=== PATIENT | male | born 1945 | race Caucasian/White ===

== ENCOUNTER → 2018-03-09 11:06 | Outpatient (CLI) | payer MEDICARE, SELFPAY ==
--- NOTE | 2018-03-09 11:13 | ECHOD_ITS ---
Reason For Study: S/P CABG Procedure This was a 2D Doppler, Color Flow transthoracic echocardiogram. Exam performed in department. Left Ventricle Mild concentric left ventricular hypertrophy. The estimated ejection fraction is 65 %. Normal diastology for age. No regional wall motion abnormalities noted. Right Ventricle Normal size and thickness. Normal systolic function. Atria Normal left atrium. Normal right atrium. Normal atrial septum. Mitral Valve The mitral valve is structurally normal. No prolapse or stenosis seen. Trivial mitral valve insufficiency. Tricuspid Valve Normal tricuspid valve. Trivial tricuspid valve insufficiency. Right ventricular systolic pressure estimated to be 29 mmHg. Aortic Valve Normal aortic valve. Trisinus/trileaflet aortic valve. Pulmonic Valve The pulmonic valve is not well visualized. Great Vessels Normal aortic root. Normal arch. Normal inferior vena cava. Inferior vena cava collapse with sniff. Pericardium/Pleural No pericardial effusion. MMode/2D Measurements & Calculations LVIDd: 4.2 cm IVSd: 1.2 cm Ao root diam: 3.2 cm LVIDs: 2.9 cm LVPWd: 1.3 cm FS: 31.0 % LAV(MOD-bp): 46.6 ml EDV(MOD-sp4): 107.8 ml SV(MOD-sp4): 56.6 ml LAV(MOD-bp) Indexed: 22.1 ml/m2 ESV(MOD-sp4): 51.2 ml LAV(MOD-sp2): 42.5 ml EF(MOD-sp4): 52.5 % LAV(MOD-sp4): 48.2 ml LA A4 area: 17.9 cm2 RA A4 area: 16.0 cm2 Time Measurements MV dec time: 0.25 sec Doppler Measurements & Calculations MV E max juventino: 77.8 cm/sec Lat Peak E' Juventino: 9.8 cm/sec Med Peak E' Juventino: 5.6 cm/sec MV A max juventino: 73.3 cm/sec E/E' lat: 8.0 E/E' med: 13.8 MV E/A: 1.1 Ao V2 max: 126.7 cm/sec LV V1 max: 88.0 cm/sec PA V2 max: 115.3 cm/sec Ao max P.4 mmHg LV V1 max P.1 mmHg PI end-d juventino: 92.7 cm/sec TR max juventino: 245.8 cm/sec TR max P.2 mmHg Interpretation Summary Mild concentric left ventricular hypertrophy. The estimated ejection fraction is 65 %. Normal diastology for age. Trivial mitral valve insufficiency. Trivial tricuspid valve insufficiency. Right ventricular systolic pressure estimated to be 29 mmHg. There is no comparison study available. Ordering Physician: Hardik Haley Referring Physician: GAYLE PETIT Performed By: Kavitha, Katia, RDCS
== END ==
PROVIDERS: Family Provider Family Medicine; PCP Family Medicine; Visit Provider Internal Medicine Cardiovascular Disease
DX: I25.10 Atherosclerotic heart disease of native coronary artery without angina pectoris (principal)
CPT/HCPCS: 93306

== ENCOUNTER → 2019-03-21 16:14 | Outpatient (CLI) | payer MEDICARE, SELFPAY ==
[2019-02-16 14:01] VITALS: BMI 36.1
[2019-03-21 17:30] LABS: Hematocrit 36.4 % (40-54); Hemoglobin 13.2 g/dl (13.0-16.5); Mean Corp Hgb Conc 36.3 g/gl (32-36); Mean Corpuscular Hgb 32.4 pg (27.0-32.0); Mean Corpuscular Volume 89.2 fL (80-94); Mean Platelet Vol. 12.1 fl (6.2-12.0); Platelet Count 200 K/mm3 (150-450); RBC Distribution Width CV 12.6 % (11.6-14.6); RBC Distribution Width SD 40.8 fl (35.1-43.9); Red Blood Count 4.08 M/mm3 (4.6-6.2); White Blood Count 7.2 K/mm3 (4.4-11.0)
[2019-03-21 17:31] LABS: Scan Indicated on CBC? Y/N NO
[2019-03-21 18:03] LABS: Protein, Urine (Random) 74.3 mg/dL (<11.9); Protein:Creat Ratio 336 mg/g CRE (0-200)
[2019-03-21 18:26] LABS: Albumin, Serum 3.9 g/dL (3.2-5.0); BUN 22 mg/dL (7-18); BUN/Creat Ratio 11.1 RATIO (10-20); Calcium,Total 8.7 mg/dL (8.5-10.1); Chloride 102 mmol/L (98-107); Creatinine, Serum 1.98 mg/dL (0.70-1.30); EST Glomerular Filtration Rate 35 mL/min (>60); Est Glom Filt Rate - Afr Amer 43 mL/min (>60); Glucose 161 mg/dL (74-106); Sodium Level 136 mmol/L (136-145)
== END ==
PROVIDERS: Family Provider Family Medicine; PCP Family Medicine; Visit Provider Internal Medicine Nephrology
DX: N18.3 Chronic kidney disease, stage 3 (moderate) (principal)
CPT/HCPCS: 36415; 80069; 82570; 84156; 85027

== ENCOUNTER → 2020-05-29 12:46 | Outpatient (CLI) | payer MEDICARE, SELFPAY ==
[2020-05-13 13:30] VITALS: BMI 34.7
--- NOTE | 2020-05-29 12:48 | ECHOCS_ITS ---
Reason For Study: DYSPNEA Procedure This was a 2D Doppler, Color Flow transthoracic echocardiogram. Exam performed in department. Left Ventricle Mild concentric left ventricular hypertrophy. The estimated ejection fraction is 65 %. Septal motion consistent with IVCD. No regional wall motion abnormalities noted. Right Ventricle Mildly dilated right ventricle. Normal systolic function. Atria Normal left atrium. Normal right atrium. Hypermobile atrial septum. Mitral Valve The mitral valve is structurally normal. No prolapse or stenosis seen. Tricuspid Valve Normal tricuspid valve. Trivial tricuspid valve insufficiency. Right ventricular systolic pressure estimated to be 27 mmHg. Aortic Valve Trisinus/trileaflet aortic valve. Normal aortic valve. Pulmonic Valve Normal pulmonic valve. Trivial pulmonic valve insufficiency. Great Vessels Normal aortic root. Normal arch. Normal inferior vena cava. Inferior vena cava collapse with sniff. Pericardium/Pleural No pericardial effusion. Medication 22 gauge I.V. with prn adaptor inserted into right arm. Diluted definity 3.0ml given slow IV push to enhance endocardial definition. MMode/2D Measurements & Calculations LVIDd: 3.9 cm IVSd: 1.3 cm Ao root diam: 3.5 cm LVIDs: 3.0 cm LVPWd: 1.2 cm RVDd: 3.7 cm FS: 23.3 % LAV(MOD-bp): 44.2 ml LVAd ap4: 32.3 cm2 SV(MOD-sp4): 71.7 ml LAV(MOD-bp) Indexed: 21.2 ml/m2 EDV(MOD-sp4): 112.0 ml LAV(MOD-sp2): 43.9 ml EDV(sp4-el): 116.2 ml LAV(MOD-sp4): 44.0 ml LVAs ap4: 17.1 cm2 ESV(MOD-sp4): 40.3 ml ESV(sp4-el): 41.2 ml EF(MOD-sp4): 64.0 % EF(sp4-el): 64.5 % SV(sp4-el): 74.9 ml LA A4 area: 17.3 cm2 LA dimension(2D): 4.9 cm RA A4 area: 14.3 cm2 Time Measurements MV dec time: 0.37 sec Doppler Measurements & Calculations MV E max juventino: 49.5 cm/sec Lat Peak E' Juventino: 7.0 cm/sec Med Peak E' Juventino: 3.9 cm/sec MV A max juventino: 83.4 cm/sec E/E' lat: 7.1 E/E' med: 12.8 MV E/A: 0.59 Ao V2 max: 99.7 cm/sec LV V1 max: 68.1 cm/sec TR max juventino: 236.8 cm/sec Ao max P.0 mmHg LV V1 max P.9 mmHg TR max P.4 mmHg Interpretation Summary Mild concentric left ventricular hypertrophy. The estimated ejection fraction is 65 %. Mildly dilated right ventricle. Hypermobile atrial septum. Trivial tricuspid valve insufficiency. Right ventricular systolic pressure estimated to be 27 mmHg. Compared to echo report dated 03/09/2018, no appreciable changes noted. The study was technically difficult. Contrast injection was performed. Ordering Physician: Hardik Haley Referring Physician: GAYLE PETIT Performed By: Tammi WEI RVT, Carrie and Student
== END ==
LOC: CVS 12:48
PROVIDERS: PCP Family Medicine; Referring Provider Internal Medicine Cardiovascular Disease; Visit Provider Internal Medicine Cardiovascular Disease
DX: I25.10 Atherosclerotic heart disease of native coronary artery without angina pectoris (principal)
CPT/HCPCS: 93306; Q9957; A4216; C8929

== ENCOUNTER → 2020-06-05 10:24 | Outpatient (CLI) | payer MEDICARE, SELFPAY ==
[2020-05-13 13:30] VITALS: BMI 34.7
--- NOTE | 2020-06-05 10:28 | STEWCON_ITS ---
Reason For Study: CAD, Dyspnea Stress Results Protocol: Estrada Protocol WITH DEFINITY Maximum Predicted HR: 146 bpm Target HR: 124 bpm % Maximum Predicted HR: 89 % Heart Stage Duration Rate BP Comment (mm:ss) (bpm) No Chest Pain; 4 ML Diluted Definity; Technically Baseline 78 140/72Difficult Study Estrada Protocol Stage I 3:00 113 140/60No Chest Pain; Mild Dyspnea Estrada Protocol Stage II 3:00 130 158/62No Chest Pain; Moderate Dyspnea Recovery 85 136/68No Chest Pain; No Dyspnea Stress Duration: 6:00 mm:ss Maximum Stress HR: 130 bpm METS: 7 Baseline Echocardiogram Findings The estimated ejection fraction is 60 %. Stress Echo Wall motion Data Resting WM Intermediate WM Stress WM Resting Wall Motion Wall Motion Stress Posterior-Basal: Mildly No regional wall motion hypokinetic. abnormalities noted. EKG Data The baseline ECG displays normal sinus rhythm. The patient exercised according to the regular Estrada protocol for a total duration of 6:00. The maximum heart rate attained was 131 beats per minute. This was 89% of maximum predicted heart rate. The patient exercised into stage 3 of the Estrada protocol. During stress, there were no ST or T wave changes noted to suggest ischemia. No clinical angina was noted. No arrhythmias noted. Interpretation Summary The estimated ejection fraction is 60 %. Posterior-Basal: Mildly hypokinetic Normal, adequate, treadmill echocardiogram. Negative for ischemia by EKG and echocardiographic criteria. No anginal symptoms noted. No arrhythmias noted. Test terminated due to dyspnea. Below average exercise capacity for age. Final LVEF of 65%. Patient at baseline posterior lateral hypokinesis which appeared remained the same at peak exercise. Test terminated decrease sensitivity due to poor echo windows requiring Definity agent. No complications noted. Patient tolerated procedure well. The study was technically difficult. Contrast injection was performed. Ordering Physician: Hardik Haley Referring Physician: Hardik Haely Performed By: Nani Hartmann, RDCS, RVT
== END ==
PROVIDERS: PCP Family Medicine; Referring Provider Internal Medicine Cardiovascular Disease; Visit Provider Internal Medicine Cardiovascular Disease
DX: I25.10 Atherosclerotic heart disease of native coronary artery without angina pectoris (principal); E78.5 Hyperlipidemia, unspecified; I10 Essential (primary) hypertension; E11.9 Type 2 diabetes mellitus without complications; Z95.1 Presence of aortocoronary bypass graft
CPT/HCPCS: 93017; 93350; Q9957; A4216; C8928

== ENCOUNTER → 2020-10-16 13:29 | Outpatient (CLI) | payer MEDICARE, SELFPAY ==
[2020-07-17 13:05] VITALS: BMI 34.7
[2020-10-16 15:44] LABS: AST(SGOT) 17 U/L (15-37); Alanine Aminotransfer ALT/SGPT 42 U/L (16-61); Albumin, Serum 3.7 g/dL (3.2-5.0); Alkaline Phosphatase 71 U/L (45-117); Anion Gap 7 (5-15); BUN 18 mg/dL (7-18); BUN/Creat Ratio 10.1 RATIO (10-20); Calcium,Total 8.7 mg/dL (8.5-10.1); Chloride 105 mmol/L (98-107); Cholesterol 112 mg/dL (200); Creatinine, Serum 1.79 mg/dL (0.70-1.30); EST Glomerular Filtration Rate 40 mL/min (>60); Est Glom Filt Rate - Afr Amer 48 mL/min (>60); Globulin 3.8 g/dL (2.2-4.2); Glucose 221 mg/dL (74-106); High Density Lipoprotein 39 mg/dL; Potassium 3.9 mmol/L (3.5-5.1); Protein, Total 7.5 g/dL (6.4-8.2); Sodium Level 137 mmol/L (136-145); Triglycerides 207 mg/dL; Very Low Density Lipoprotein 41 mg/dL (5-40)
== END ==
PROVIDERS: Internal Medicine Nephrology; PCP Family Medicine; Referring Provider Family Medicine; Visit Provider Family Medicine
DX: E78.5 Hyperlipidemia, unspecified (principal)
CPT/HCPCS: 36415; 80053; 80061

== ENCOUNTER → 2021-04-16 13:41 | Outpatient (CLI) | payer MEDICARE, SELFPAY ==
[2021-04-16 13:09] VITALS: BMI 34.6
[2021-04-16 13:47] LABS: Bacteria 0 SEEN /hpf (None Seen); Mucous, Urine 0 SEEN /hpf (<or=2+); Red Blood Cells-Urine 0 SEEN /hpf (0-5); Squamous Epithelial Cells - UA 0 SEEN /hpf (0-5); White Blood Cells 0 SEEN /hpf (0-5)
[2021-04-16 14:58] LABS: Color, Urine Yellow (Yellow); Glucose, Dipstick 100 mg/dl (Normal); Ketone-Dipstick Negative (Negative); Leukocyte Esterase-Dipstick Negative /ul (Negative); Nitrite-Dipstick Negative (Negative); Occult Blood-Urine Negative /ul (Negative); Protein-Dipstick 30 mg/dl (Negative); Urine Bilirubin Dipstick Negative (Negative); Urine Clarity Clear (Clear); Urine Urobilinogen Normal (Normal)
[2021-04-16 15:32] LABS: PSA,Total- Diagnostic 1.43 ng/mL (0.0-4.0)
== END ==
PROVIDERS: PCP Family Medicine; Visit Provider Family Medicine
DX: N40.0 Benign prostatic hyperplasia without lower urinary tract symptoms (principal)
CPT/HCPCS: 36415; 81001; 84153

== ENCOUNTER 2022-01-22 14:57 | Outpatient (CLI) | payer MEDICARE, SELFPAY ==
[2022-01-22 17:07] LABS: ALB/GLOB Ratio 0.8 RATIO (0.9-2.4); AST(SGOT) 21 U/L (15-37); Alanine Aminotransfer ALT/SGPT 42 U/L (16-61); Albumin, Serum 3.7 g/dL (3.2-5.0); Alkaline Phosphatase 67 U/L (45-117); Anion Gap 6 (5-15); BUN 18 mg/dL (7-18); BUN/Creat Ratio 10.5 RATIO (10-20); Calcium,Total 9.3 mg/dL (8.5-10.1); Chloride 99 mmol/L (98-107); Creatinine, Serum 1.71 mg/dL (0.70-1.30); EST Glomerular Filtration Rate 42 mL/min (>60); Est Glom Filt Rate - Afr Amer 50 mL/min (>60); Globulin 4.5 g/dL (2.2-4.2); Glucose 180 mg/dL (74-106); Potassium 4.4 mmol/L (3.5-5.1); Protein, Total 8.2 g/dL (6.4-8.2); Sodium Level 134 mmol/L (136-145)
[2022-01-22 17:20] LABS: Microalbumin:Creatinine Ratio 167.4 mg/g CRE (<30 mg/g CRE)
[2022-01-24 09:19] LABS: LDL, Direct 120295 48 mg/dL (0-99)
== END 2022-01-22 23:59 | disposition home or self-care (01) ==
LOC: BIMLAB 14:58
PROVIDERS: PCP Family Medicine; Referring Provider Family Medicine; Visit Provider Family Medicine
DX: E11.22 Type 2 diabetes mellitus with diabetic chronic kidney disease (principal); N18.30 Chronic kidney disease, stage 3 unspecified; I12.9 Hypertensive chronic kidney disease with stage 1 through stage 4 chronic kidney disease, or unspecified chronic kidney disease; Z95.1 Presence of aortocoronary bypass graft
CPT/HCPCS: 36415; 80053; 82043; 82570; 83721

== ENCOUNTER → 2022-05-19 | Outpatient (CLI) | payer MEDICARE, SELFPAY ==
[2022-05-19 20:33] LABS: PSA,Total- Diagnostic 1.32 ng/mL (0.0-4.0)
== END | disposition home or self-care (01) ==
LOC: LABSPEC 15:40
PROVIDERS: PCP Family Medicine; Visit Provider Family Medicine
DX: R35.1 Nocturia (principal)
CPT/HCPCS: 36415; 84153

== ENCOUNTER → 2022-05-28 | Outpatient (CLI) | payer MEDICARE, SELFPAY ==
--- NOTE | 2022-05-28 15:17 | US_ITS ---
EXAM: US PELVIS TRANSABDOMINAL, COMPLETE CLINICAL INDICATION: Nocturia TECHNIQUE: Real-time complete pelvic ultrasound with image documentation. This report was created using [employer] report generation technology. COMPARISON: None. FINDINGS: BLADDER: Distended bladder measures 91 mL. Post void residual is 39 mL. No bladder mass is identified. OTHER FINDINGS: US/Post Void Residual Bladder IMPRESSION: Post void bladder residual is 39 mL. Electronically Signed: Henry Amos MD at 3:04 EDT ,
== END | disposition home or self-care (01) ==
LOC: US 15:14
PROVIDERS: PCP Family Medicine; Visit Provider Family Medicine
DX: R35.1 Nocturia (principal)
CPT/HCPCS: 51798

== ENCOUNTER → 2023-12-22 | Outpatient (CLI) | payer MEDICARE, SELFPAY ==
[2023-12-22 17:16] LABS: Erythrocyte Sedimentation Rate 13 mm/hr (0-20)
[2023-12-22 17:27] LABS: ALB/GLOB Ratio 1.1 RATIO (0.9-2.4); AST(SGOT) 16 U/L (15-37); Alanine Aminotransfer ALT/SGPT 33 U/L (16-61); Albumin, Serum 3.8 g/dL (3.2-5.0); Alkaline Phosphatase 58 U/L (45-117); Anion Gap 5 (5-15); BUN 23 mg/dL (7-18); Calcium,Total 9.4 mg/dL (8.5-10.1); Chloride 106 mmol/L (98-107); Creatinine, Serum 1.64 mg/dL (0.70-1.30); EST Glomerular Filtration Rate 43 mL/min (>60); Est Glom Filt Rate - Afr Amer 53 mL/min (>60); Globulin 3.6 g/dL (2.2-4.2); Glucose 166 mg/dL (74-106); PSA,Total- Diagnostic 1.48 ng/mL (0.0-4.0); Potassium 4.3 mmol/L (3.5-5.1); Protein, Total 7.4 g/dL (6.4-8.2); Sodium Level 136 mmol/L (136-145)
[2023-12-24 04:07] LABS: LDL, Direct 120295 61 mg/dL (0-99)
== END | disposition home or self-care (01) ==
LOC: BIMLAB 15:25
PROVIDERS: PCP Family Medicine; Referring Provider Family Medicine; Visit Provider Family Medicine
DX: N40.0 Benign prostatic hyperplasia without lower urinary tract symptoms (principal); N18.30 Chronic kidney disease, stage 3 unspecified; R26.81 Unsteadiness on feet; I25.10 Atherosclerotic heart disease of native coronary artery without angina pectoris
CPT/HCPCS: 36415; 80053; 83721; 84153; 85652

== ENCOUNTER → 2025-03-03 | Outpatient (CLI) | payer MEDICARE, SELFPAY ==
--- NOTE | 2025-03-03 11:22 | US_ITS ---
PROCEDURE: POST VOID RESIDUAL BLADDER 03/03/2025 REASON FOR EXAM: URINARY RETENTION TECHNIQUE: Bladder ultrasound dubois-scale images with color doppler. PATIENT PREPARATION: Per protocol COMPARISON: None FINDINGS: Prevoid urinary bladder measures 5.9 x 4.3 x 5.8 cm, for an estimated volume of 77.68 mL. Bladder wall measures 1.9 mm, within normal limits. No bladder calculi or masses are identified. The ureteral jets were not visualized during imaging. Postvoid urinary bladder measures 3.96 x 2.8 x 4.2 cm, for an estimated volume of 24.81 mL US/Post Void Residual Bladder IMPRESSION: Postvoid residual measures 24.81 mL. (Void volume is 52.87 mL) Reading Location: [facility]
== END | disposition home or self-care (01) ==
PROVIDERS: PCP Family Medicine; Referring Provider Family Medicine; Visit Provider Family Medicine
DX: R33.9 Retention of urine, unspecified (principal)
CPT/HCPCS: 51798

== ENCOUNTER → 2025-08-07 | Outpatient (CLI) | payer MEDICARE, SELFPAY | END | disposition home or self-care (01) | LOC: PSN 13:48 | PROVIDERS: PCP Family Medicine; Referring Provider Internal Medicine Cardiovascular Disease; Visit Provider Internal Medicine Cardiovascular Disease | DX: R00.2 Palpitations (principal) | CPT/HCPCS: 93225; 93226 ==

== ENCOUNTER → 2025-10-04 | Outpatient (CLI) | payer MEDICARE, SELFPAY ==
[2025-10-04 10:43] LABS: Hematocrit 28.9 % (40-54); Hemoglobin 9.1 g/dL (13.0-16.5); Immature Granulocytes Count 0.020 X10^3/uL (0.0-0.0); Mean Corp Hgb Conc 31.5 g/dL (32-36); Mean Corpuscular Volume 81.0 fL (80-94); Mean Platelet Vol. 11.1 fl (6.2-12.0); NRBC Flagged by Analyzer 0 % (0-5); Platelet Count 277 K/mm3 (150-450); RBC Distribution Width CV 13.9 % (11.6-14.6); RBC Distribution Width SD 40.8 fl (35.1-43.9); Red Blood Count 3.57 M/mm3 (4.6-6.2); White Blood Count 6.4 K/mm3 (4.4-11.0)
[2025-10-04 11:16] LABS: AST(SGOT) 25 U/L (<=37); Alanine Aminotransfer ALT/SGPT 26 U/L (<=46); Albumin, Serum 4.0 g/dL (3.4-4.8); Alkaline Phosphatase 66 U/L (40-129); Anion Gap 12 (5-15); BUN 16 mg/dL (4-19); BUN/Creat Ratio 9.3 RATIO (10-20); Calcium,Total 8.7 mg/dL (7.6-11.0); Carbon Dioxide 20.9 mmol/L (21.0-32.0); Chloride 99 mmol/L (98-108); Ferritin 11 ng/mL (37-417); Globulin 2.9 g/dL (2.2-4.2); Glucose 378 mg/dL (70-99); Iron 17 ug/dL (65-175); Iron Binding Capacity,Total 350 ug/dL (250-450); Iron Binding Capacity,Unsat 333 ug/dL (228-428); Potassium 4.4 mmol/L (3.3-5.1)
== END | disposition home or self-care (01) ==
LOC: LAB 09:41
PROVIDERS: PCP Family Medicine; Referring Provider Family Medicine; Visit Provider Family Medicine
DX: I10 Essential (primary) hypertension (principal); D64.9 Anemia, unspecified
CPT/HCPCS: 36415; 80053; 82274; 82728; 83540; 83550; 85025

== ENCOUNTER 2025-10-26 09:13 | Day surgery (SDC) | payer MEDICARE, SELFPAY ==
--- NOTE | 2025-10-25 17:39 | PAT.ANESEVAL ---
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 When Was Last Pacemaker Check QUESTION #4 FULL TEXT: You/Your Family Experience fever (hyperthermia) with Anesthesia Last Oral Intake Last Oral intake: Last Oral Intake NPO since Meds taken in AM with sips of water? 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 Female No 10/25/25 09:04 HX of Motion Sickness No 10/25/25 09:04 HX of N/V After Surgery No 10/25/25 09:04 Non-Smoker Yes 10/25/25 09:04 Duration of Surgery greater No 10/25/25 09:04 than 60 minutes Number of Risk Factors 1 10/25/25 09:04 PONV Score Low Risk 10/25/25 09:04 Height & Weight Height & Weight: Anesthesia: Height & Weight Height 5 ft 7 in 10/22/25 08:57 Respiratory Assessment Respiratory Assessment - rim fire priming tool setter: Respiratory Tract Infection Hx - 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 Has anyone observed you stop breathing during sleep? STOP Results Positive 10/25/25 09:04 QUESTION #5 FULL TEXT : Do you snore loudly (louder than talking or can be heard through closed doors)? 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 Specify any problems Hx of Preganancy in last 3 N/A 10/25/25 09:04 Months Nurse Filling Out Transfusion DSCHRIBER 10/25/25 09:04 & Questions: Date: 10/25/25 10/25/25 09:04 Time: 09:07 10/25/25 09:04 Patient unable to answer at this time (ie. confused, unrespo /Reproduction History /Reproductive History - rim fire priming tool setter: /Reproductive Hx- rim fire priming tool setter Hx Now No 10/25/25 09:04 Gestational Age (in weeks): EDC: Hx Hx Para Hx Section SAB No 10/25/25 09:04 Does the father of the baby or his family experience fever w Father of the baby Malignant Hypertension history comment [facility] Medical History (Updated 10/25/25 @ 09:17 by Ely Hager) Wears glasses Alcohol use Ambulates with cane Arthritis Prostate disease Anemia High cholesterol Restless legs Back pain TIA (transient ischemic attack) Syncope Difficulty swallowing Dietary restriction History of IBS History of diverticulitis Former smoker Shortness of breath on exertion Sleep apnea History of edema History of echocardiogram History of stress test History of Holter monitoring Cardiology follow-up encounter History of heart attack History of irregular heartbeat BPH (benign prostatic hyperplasia) Atherosclerosis of coronary artery of [place] heart without angina pectoris Stage 3 chronic kidney disease Arthritis Type 2 diabetes mellitus Hypertension GERD (gastroesophageal reflux disease) Home Medications ?Medication ?Instructions ?Recorded ?Last Taken ?Type aspirin 81 mg chewable tablet 1 tab PO DAILY 10/04/19 10/18/25 History fluorometholone 0.1 % eye 1 drp ophthalmic (eye) DAILY 11/09/19 Unknown History drops,suspension pantoprazole 20 mg tablet,delayed 20 mg PO DAILY 05/13/20 Unknown History release lancing device with lancets kit #100 ea 11/20/20 Unknown Rx (OneTouch Delica Lancing Device kit) blood-glucose meter (OneTouch #1 ea 12/24/21 Unknown Rx Verio Meter) propylene glycol 0.6 % eye drops 1 drp ophthalmic (eye) BID-TID PRN 06/09/23 Unknown History (Systane Balance) dry eye(s) lancing device with lancets kit #100 ea 09/15/23 Unknown Rx handicap placard #1 ea 03/15/24 Unknown Rx blood sugar diagnostic (OneTouch #100 ea 04/07/24 Unknown Rx Verio test strips) Handicap placard #1 ea 02/28/25 Unknown Rx timolol maleate 0.5 % eye drops 1 drp ophthalmic (eye) BID 02/28/25 Unknown History docusate sodium 100 mg tablet 100 mg PO DAILY 06/21/25 Unknown History fluoride (sodium) 1.1 % dental 1 applic PO QDAY 06/21/25 Unknown History cream (Denta 5000 Plus) metoprolol succinate 50 mg 50 mg PO BID #180 tabs 08/07/25 Unknown Rx tablet,extended release 24 hr atorvastatin 40 mg tablet 40 mg PO QHS #90 tabs 08/17/25 Unknown Rx metformin 500 mg tablet,extended 500 mg PO QDAY #90 tabs 08/20/25 10/18/25 Rx release 24 hr Farxiga 10 mg tablet 10 mg PO DAILY #90 TABLETS 09/26/25 10/18/25 Rx (dapagliflozin propanediol) brimonidine 0.2 % eye drops 1 drp ophthalmic (eye) BID 10/02/25 Unknown History clopidogrel 75 mg tablet 75 mg PO DAILY 10/17/25 10/18/25 History cetirizine 10 mg tablet 10 mg PO DAILY 10/25/25 Unknown History doxazosin 4 mg tablet (Cardura) 4 mg PO QHS 10/25/25 Unknown History semaglutide 2 mg/dose (8 mg/3 mL) 2 mg subcut MO 10/25/25 10/15/25 History subcutaneous pen injector sodium chloride 5 % eye ointment 1 applic EACH EYE QHS 10/25/25 Unknown History (Nat 128) Allergy/AdvReac Type Severity Reaction Status Date / Time meperidine (From Demerol) Allergy Severe other Verified 10/25/25 08:57 lisinopril AdvReac Intermediate cough Verified 10/25/25 08:57 aspirin AdvReac Unknown kidney Verified 10/25/25 08:57 failure ibuprofen AdvReac Unknown Kidney Verified 10/25/25 08:57 Failure Penicillins (cillins) AdvReac kidney Verified 10/25/25 08:57 failure Family History Mother Hypertension Heart disease Hyperlipemia Father Hypertension Hyperlipemia Heart disease Diabetes Grandfather Diabetes Surgical History (Updated 10/25/25 @ 09:17 by Ely Hager) Hx of right cataract extraction Hx of left cataract extraction Hx of colonoscopy S/P cervical disc replacement 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 Normal sinus rhythm. Right bundle branch block. Compared to EKG of January 24, 2002, RBBB is now present. Stress test pertinent findings: 06/05/2020. EF is 60%. Negative for ischemia by EKG and echogenic criteria. EF is 65% with stress Echo (EF%) pertinent findings: 05/29/2020. EF of 65%. RVSP is 27 mmHg. No aortic stenosis noted. Consult pertinent findings: 07/25/2025. Dr. Pizano. 1. Palpitations-description sound like extra systolic beats. Will get a 48-hour event monitor. 2. Hypertension-controlled. On amlodipine. Will switch to losartan 50 mg daily. 3. Diabetes-patient reports A1c around 8.0. On statin therapy and Farxiga. Currently starting on losartan. 4. Atherosclerosis of coronary artery of [place] heart without angina. Patient is status post CABG x 4. GRIFFIN to the LAD, SVG to the ramus, SVG to the OM, SVG to the distal PDA in 2016. Patient denies any recurrence of anginal symptoms. 5. Chronic kidney disease-creatinine has been around 1.6. Stable over the last several years. Additional pertinent findings: Holter monitor. Baseline rhythm is normal sinus with a right bundle branch block. PVCs comprise 1% of the total QRS complexes. There was 1 couplet and 149 trigeminal beats. There is 18 total premature supraventricular beats. No atrial fibrillation noted. Diary noted two episodes of palpitations which correlated with PVCs. Recommendation Anesthesia Recommendation Anesthesia recommendation: OPTIMIZED for anesthesia
[2025-10-26] VITALS (8 sets, daily range): BP systolic 99–144; BP diastolic 62–70; PULSE 70–78; RESP 14–16; TEMP 36.1–36.5; O2SAT 97–100; BMI 33.5
--- NOTE | 2025-10-26 09:37 | PCM.PRE.AN2 ---
ASA Classification* ASA Classification ASA Classification: 3 Assessment & Plan Anesthesia* Anesthesia Assessment Anesthesia Assessment: Discussed sedation and/or anesthesia options, risks, benefits, and alternatives with patient/parents/legal guardian/POA. Questions invited. The patient/parents/legal guardian/POA seems to understand and agrees to proceed with anesthesia plan. Reviewed the physical assessment, medical history, allergy history and patient home medications list prior to surgery/procedure/anesthetic and documented any changes. Performed airway and anesthesia risk assessments. Anesthesia Type Anesthesia Type: MAC Anesthesia Focused Assessment* Airway Assessment Mouth opens: >3 cm Mallampati Score: II Labs Anesthesia Preop lab: CBC WBC, (4.4-11.0) 6.4 K/mm3 10/04/25, 09:49 RBC, (4.6-6.2) 3.57 M/mm3 L 10/04/25, 09:49 Hgb, (13.0-16.5) 9.1 g/dL L 10/04/25, 09:49 Hct, (40-54) 28.9 % L 10/04/25, 09:49 Plt Count, (150-450) 277 K/mm3 10/04/25, 09:49 CHEMISTRY Potassium, (3.3-5.1) 4.4 mmol/L 10/04/25, 09:49 Sodium, (133-145) 133 mmol/L 10/04/25, 09:49 Phosphorus, (2.5-4.9) 3.0 mg/dL 03/21/19, 16:15 BUN, (4-19) 16 mg/dL 10/04/25, 09:49 Creatinine, (0.70-1.20) 1.70 mg/dL H 10/04/25, 09:49 Glucose, (70-99) 378 mg/dL H 10/04/25, 09:49 COAG Pre-Assessment Diagnosis/Proposed Procedure Planned Operative Procedure(s): CSCOPE,EGD Anesthesia History 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 When Was Last Pacemaker Check QUESTION #4 FULL TEXT: You/Your Family Experience fever (hyperthermia) with Anesthesia Last Oral Intake Last Oral intake: Last Oral Intake NPO since Meds taken in AM with sips of water? Meds patient instructed to take am of surgery PONV PONV - sales account manager: PONV - sales account manager Female No 10/25/25 09:04 HX of Motion Sickness No 10/25/25 09:04 HX of N/V After Surgery No 10/25/25 09:04 Non-Smoker Yes 10/25/25 09:04 Duration of Surgery greater No 10/25/25 09:04 than 60 minutes Number of Risk Factors 1 10/25/25 09:04 PONV Score Low Risk 10/25/25 09:04 Height & Weight Height & Weight: Anesthesia: Height & Weight Height 5 ft 7 in 10/22/25 08:57 Respiratory Assessment Respiratory Assessment - sales account manager: Respiratory Tract Infection Hx - sales account manager Hx Respiratory Tract Infection Yes: TREATED FOR PNEUMONIA 2 10/25/25 09:04 WEEKS AGO/RESOLVED STOP Sleep Apnea STOP Sleep Apnea - sales account manager: STOP Sleep Apnea - sales account manager Hx Hypertension Yes: CONTROLLED WITH MEDS 10/25/25 09:04 Hx Sleep Apnea Yes 10/25/25 09:04 CPAP No 10/25/25 09:04 BIPAP No 10/25/25 09:04 Do you snore loudly (louder than talking or can be heard Do you often feel tired/ fatigued/ sleepy during daytime? Has anyone observed you stop breathing during sleep? STOP Results Positive 10/25/25 09:04 QUESTION #5 FULL TEXT : Do you snore loudly (louder than talking or can be heard through closed doors)? 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 Specify any problems Hx of Preganancy in last 3 N/A 10/25/25 09:04 Months Nurse Filling Out Transfusion DSCHRIBER 10/25/25 09:04 & Questions: Date: 10/25/25 10/25/25 09:04 Time: 09:07 10/25/25 09:04 Patient unable to answer at this time (ie. confused, unrespo /Reproduction History /Reproductive History - sales account manager: /Reproductive Hx- sales account manager Hx Now No 10/25/25 09:04 Gestational Age (in weeks): EDC: Hx Hx Para Hx Section SAB No 10/25/25 09:04 Does the father of the baby or his family experience fever w Father of the baby Malignant Hypertension history comment Active Medications Active Medications: Current Medications Generic Name Dose Route Start Last Admin Trade Name Freq PRN Reason Stop Dose Admin Lactated Ringer's 1,000 mls @ 15 mls/hr 10/26/25 09:30 IV .Q48H RACHNA PFSH Medical History Wears glasses Alcohol use Ambulates with cane Arthritis Prostate disease Anemia High cholesterol Restless legs Back pain TIA (transient ischemic attack) Syncope Difficulty swallowing Dietary restriction History of IBS History of diverticulitis Former smoker Shortness of breath on exertion Sleep apnea History of edema History of echocardiogram History of stress test History of Holter monitoring Cardiology follow-up encounter History of heart attack History of irregular heartbeat BPH (benign prostatic hyperplasia) Atherosclerosis of coronary artery of [place] heart without angina pectoris Stage 3 chronic kidney disease Arthritis Type 2 diabetes mellitus Hypertension GERD (gastroesophageal reflux disease) Home Medications ?Medication ?Instructions ?Recorded ?Last Taken ?Type aspirin 81 mg chewable tablet 1 tab PO DAILY 10/04/19 10/18/25 History fluorometholone 0.1 % eye 1 drp ophthalmic (eye) DAILY 11/09/19 Unknown History drops,suspension pantoprazole 20 mg tablet,delayed 20 mg PO DAILY 05/13/20 Unknown History release lancing device with lancets kit #100 ea 11/20/20 Unknown Rx (OneTouch Delica Lancing Device kit) blood-glucose meter (OneTouch #1 ea 12/24/21 Unknown Rx Verio Meter) propylene glycol 0.6 % eye drops 1 drp ophthalmic (eye) BID-TID PRN 06/09/23 Unknown History (Systane Balance) dry eye(s) lancing device with lancets kit #100 ea 09/15/23 Unknown Rx handicap placard #1 ea 03/15/24 Unknown Rx blood sugar diagnostic (OneTouch #100 ea 04/07/24 Unknown Rx Verio test strips) Handicap placard #1 ea 02/28/25 Unknown Rx timolol maleate 0.5 % eye drops 1 drp ophthalmic (eye) BID 02/28/25 Unknown History docusate sodium 100 mg tablet 100 mg PO DAILY 06/21/25 Unknown History fluoride (sodium) 1.1 % dental 1 applic PO QDAY 06/21/25 Unknown History cream (Denta 5000 Plus) metoprolol succinate 50 mg 50 mg PO BID #180 tabs 08/07/25 Unknown Rx tablet,extended release 24 hr atorvastatin 40 mg tablet 40 mg PO QHS #90 tabs 08/17/25 Unknown Rx metformin 500 mg tablet,extended 500 mg PO QDAY #90 tabs 08/20/25 10/18/25 Rx release 24 hr Farxiga 10 mg tablet 10 mg PO DAILY #90 TABLETS 09/26/25 10/18/25 Rx (dapagliflozin propanediol) brimonidine 0.2 % eye drops 1 drp ophthalmic (eye) BID 10/02/25 Unknown History clopidogrel 75 mg tablet 75 mg PO DAILY 10/17/25 10/18/25 History cetirizine 10 mg tablet 10 mg PO DAILY 10/25/25 Unknown History doxazosin 4 mg tablet (Cardura) 4 mg PO QHS 10/25/25 Unknown History semaglutide 2 mg/dose (8 mg/3 mL) 2 mg subcut MO 10/25/25 10/15/25 History subcutaneous pen injector sodium chloride 5 % eye ointment 1 applic EACH EYE QHS 10/25/25 Unknown History (Nat 128) Allergy/AdvReac Type Severity Reaction Status Date / Time meperidine (From Demerol) Allergy Severe other Verified 10/25/25 08:57 lisinopril AdvReac Intermediate cough Verified 10/25/25 08:57 aspirin AdvReac Unknown kidney Verified 10/25/25 08:57 failure ibuprofen AdvReac Unknown Kidney Verified 10/25/25 08:57 Failure Penicillins (cillins) AdvReac kidney Verified 10/25/25 08:57 failure Family History Mother Hypertension Heart disease Hyperlipemia Father Hypertension Hyperlipemia Heart disease Diabetes Grandfather Diabetes Surgical History Hx of right cataract extraction Hx of left cataract extraction Hx of colonoscopy S/P cervical disc replacement 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
--- OUTSIDE RECORDS SUMMARY | 2025-10-26 09:40 | XMS RPT_ITS | CCD ---
Author Organization [facility] Care Team Providers Care Classification Counselor Name Role Phone BROWN, GAYLE Coley Unavailable Unavailable BROWN, GAYLE R Unavailable Unavailable BROWN, GAYLE R Unavailable Unavailable Dr. Gayle Petit Primary Care Provider [phone] Dr. Gayle Petit Attending Provider [phone] Dr. Gayle Petit Referring Provider [phone] Dr. Gayle Petit Primary Care Provider [phone] Dr. Gayle Petit Attending Provider [phone] Gayle Petit Referring Provider GAYLE PETIT DO Primary Care Physician Dr. Gayle Petit Primary Care Provider [phone] Dr. Gayle Petit Attending Provider [phone] Dr. Gayle Petit Referring Provider Unavailable Primary Care Provider UnavailTED Dumont CNP Attending Unavailable BROWN DO, GAYLE R Primary Care Unavailable DR MARY INTERIANO DO Attending Unavailable BROWN DO, GAYLE R Primary Care Unavailable GARCES ABEBA-DIGNA DE LA GARZA Attending Unavail able BROWN DO, GAYLE R Primary Care Unavailable GARCES TRANSFORMER BUILDER-EQUIPMENT HIRE MANAGERDIGNA Attending Unavail able BROWN DO, GAYLE R Primary Care Unavailable NORY DELANEY DO Attending Unavailable BROWN DO, GAYLE R Primary Care Unavailable LAW MATSON MD Attending Unavailable BROWN DO, GAYLE R Primary Care Unavailable DEZ QUEZADAEQUIPMENT HIRE MANAGERDIGNA Attending Unavail able BROWN DO, GAYLE R Primary Care Unavailable GARCES ABEBA-DIGNA DE LA GARZA Attending Unavail able BROWN DO, GAYLE R Primary Care Unavailable DIGNA LANGE Attending Unavail able BROWN DO, GAYLE R Primary Care Unavailable BROWN DO, GAYLE R Primary Care Unavailable HUYEN ALONZO, LAW Miller Attending Unavailable HUYEN ALONZO, LAW Miller Admitting Unavailable ERIKA HUI MD Consulting Unavailable HOSPITALIST, BEBE Consulting Unavailable DIGNA LANGE Attending Unavail able GAYLE PETIT DO R Primary Care Unavailable Gayle Petit DO Primary Care Provider GAYLE PETIT Primary Care Unavailable MIGUEL FREEDMAN JR Attending Unavailable MIGUEL FREEDMAN JR Referring Unavailable GAYLE PETIT Primary Care Unavailable Dr. Gayle Petit DO Primary Care Provider Dr. Gayle Petit DO Attending Provider [phone] Dr. Gayle Petit DO Referring Provider [phone] Toya C D STRIPPER-CJennifer Attending Provider [phone] Gayle Petit DO Primary Care Provider GAYLE PETIT Primary Care Unavailable SARABJIT BAIRES Attending Unavailable GAYLE PETIT Primary Care Unavailable SARABJIT BAIRES Attending Unavailable SARABJIT BAIRES Attending Unavailable SARABJIT ABIRES Admitting Unavailable GAYLE PETIT Primary Care Unavailable SARABJIT BAIRES Attending Unavailable Dr. Gayle Petit DO Primary Care Provider [phone] Dr. Gayle Petit DO Attending Provider [phone] Dr. Gayle Petit DO Referring Provider [phone] Dr. Zelda Pizano MD Attending Provider GAYLE PETIT DO Primary Care Unavailable DR ZELDA PIZANO MD Attending Unavailabl e GAYLE PETIT DO R Primary Care Unavailable MELANIE QIU DO Attending Unavailable GAYLE PETIT DO Primary Care Unavailable DR RICARDO KINNEY MD Attending Unavailoc e GAYLE PETIT DO R Primary Care Unavailable DR MARY INTERIANO DO Attending Unavailable Dr. Gayle Petit DO Primary Care Physician Dr. Gayle Petit DO Attending Physician [phone] Toya CHAVIS-Jennifer Zavala Attending Physician Dr. Zelda Pizano MD Attending Physician [phone] Dr. Zelda Pizano MD Referring Provider Brown, Gayle R Referring Unavailable Brown, Gayle R Primary Care Unavailable Brown, Gayle R Attending Unavailable Zelda Pizano Attending Unavailable Brown, Gayle R Primary Care Unavailable Brown, Gayle R Referring Unavailable Brown, Gayle R Referring Unavailable Brown, Gayle R Primary Care Unavailable Brown, Gayle R Attending Unavailable Brown, Gayle R Referring Unavailable Brown, Gayle R Primary Care Unavailable Brown, Gayle R Attending Unavailable Brown, Gayle R Referring Unavailable Brown, Gayle R Primary Care Unavailable Brown, Gayle R Attending Unavailable Brown, Gayle R Referring Unavailable Brown, Gayle R Primary Care Unavailable Brown, Agyle R Attending Unavailable Brown, Gayle R Primary Care Unavailable Brown, Gayle R Attending Unavailable Brown, Gayle R Referring Unavailable Jennifer Pittman Attending Unavailable Brown, Gayle R Primary Care Unavailable Brown, Gayle R Referring Unavailable Zelda Pizano Attending Unavailable Zelda Pizano Referring Unavailable Brown, Gayle R Primary Care Unavailable Allergies Allergy Classification Reported Allergen(s) Allergy Type Date of Onset Reaction(s) Facility (15 sources) Aspirin; Translations: [ASPIRIN] Drug Allergy 2 Other: See Comments [facility] (9 sources) Ibuprofen Drug Allergy 2 Kidney Failure [facility] (15 sources) Lisinopril; Translations: [LISINOPRIL] Drug Allergy 2 Cough [facility] (20 sources) Meperidine; Translations: [meperidine] Drug Allergy 8 Intolerance [facility] Comment on above: DIFFICULTY SWALLOWIN G cotton mouth (3 sources) cillins Propensity to adverse reactions 2 Kidney Failure [facility] Work Phone: (11 sources) Penicillins; Translations: [PENICILLINS] Propensity to adverse reactions 4 Other: See Comments [facility] (1 source) Penicillins Drug Allergy 5 Other: See Comments [facility] (1 source) Aspirin Drug Allergy 5 [facility] (1 source) Ibuprofen Drug Allergy 5 [facility] (1 source) Lisinopril Drug Allergy 5 [facility] (1 source) Meperidine Drug Allergy 5 [facility] (1 source) Penicillins Drug allergy (disorder) [facility] Medications Current Medications Medication Drug Class(es) Dates Sig (Normalized) Sig (Original) 3 ML semaglutide 2.68 MG/ML Pen Injector [Ozempic] (3 sources) Start: 02-19-2025 inject 1 dose by subcutaneous injection every week Ozempic 8 mg/3 mL (2 mg dose) subcutaneous solution Dose : 2 mg =, Subcutaneous, qWeek, in the abdomen, thigh, or upper arm, # 3 mL, 0 Refill(s) Start Date: 02/19/25 Status: Ordered Medication Dispense Status: Completed Quantity: 3.0 Unit: mL Total Allowed Fills: 1 Fills Dispensed: 0 Start: 02-19-2025 inject 1 dose by sub cutaneous injection every week Ozempic 8 mg/3 mL (2 mg dose) subcutaneous solution Dose : 2 mg =, Subcutaneous, qWeek, in the abdomen, thigh, or upper arm, # 3 mL, 0 Refill(s) Start Date: 02/19/25 Status: Ordered Quantity: 3.0 Unit: mL Repeat number: 1 acetaminophen 325 mg oral capsule (11 sources) Start: 03-14-2024 Tylenol 325 mg oral capsule Dose : 650 mg =, Oral, q4h, PRN Pain, scale 1-3, 0 Refill(s) Start Date: 03/14/24 Status: Ordered Medication Dispense Status: Completed Total Allowed Fills: 1 Fills Dispensed: 0 amLODIPine 5 mg / benazepril hydrochloride 20 mg oral capsule (12 sources) Dihydropyridine Calcium Channel Cameron, Angiotensin Converting Enzyme Inhibitor Start: 10-04-2014 take 1 capsule by mouth once daily Lotrel 5 mg-20 mg oral capsule Dose = 1 cap(s), Oral, Daily, 0 Refill(s) Start Date: 10/04/14 Status: Ordered Start: 01-13-2008 amlodipine bes ylate/benazepril(LOTREL 2.5 MG-10 MG CAP) Take by mouth. 0 01/13/2008 Active Start: 01-13-2008 amlodipine bes ylate/benazepril(LOTREL 2.5 MG-10 MG CAP) Take one(1) tablet daily. 0 01/13/2008 Active aspirin 81 mg oral tablet (20 sources) Platelet Aggregation Inhibitor, Nonsteroidal Anti-inflammatory Drug Start: 01-22-2020 take 1 dose by mouth once daily aspirin Dose : 81 mg =, Oral, qDay, 0 Refill(s) Start Date: 01/22/20 Status: Ordered Start: 02-03-2018 End: 10-04-2019 Aspirin 81 mg tablet,chewabl e Active 1 {tbl} PO DAILY 0 October 04, 2019 2:28pm Complies with drug therapy Start: 02-03-2018 End: 10-04-2019 Aspirin 81 mg tablet,chewabl e Discontinued PO 0 February 03, 2018 12:00am October 04, 2019 2:30pm Benzocaine / Menthol (11 sources) Standardized Chemical Allergen Start: 03-14-2024 take 1 dose by mouth every two hours as needed Cepacol Sore Throat lozenge Dose = 1 lozenge(s), Oral, q2h, PRN Sore throat, 0 Refill(s) Start Date: 03/14/24 Status: Ordered Medication Dispense Status: Completed Total Allowed Fills: 1 Fills Dispensed: 0 Start: 03-14-2024 take 1 dose by mouth every two hours as needed Cepacol Sore Throat lozenge Dose = 1 lozenge(s), Oral, q2h, PRN Sore throat, 0 Refill(s) Start Date: 03/14/24 Status: Ordered Repeat number: 1 Start: 03-14-2024 take 1 dose by mouth every two hours as needed Cepacol Sore Throat lozenge Dose = 1 lozenge(s), Oral, q2h, PRN Sore throat, 0 Refill(s) Start Date: 03/14/24 Status: Ordered Blood-Glucose Meter (Onetouc h Verio Meter) [facility] (18 sources) Start: 12-24-2021 Blood-Glucose Meter (Onetouch Verio Meter) misc Active 0 .ROUTE .MEDSUPPLY 1 0 December 24, 2021 10:26am As directed Start: 12-24-2021 Blood-Glucose Meter (Onetouch Verio Meter) misc Active 0 .ROUTE .MEDSUPPLY 1 December 24, 2021 9:26am As directed Start: 12-24-2021 Blood-Glucose Meter (Onetouch Verio Meter) misc Active 0 .ROUTE .MEDSUPPLY 1 December 24, 2021 10:26am As directed Start: 11-20-2020 End: 12-24-2021 Blood-Glucose Meter (Onetouc h Verio Meter) misc Discontinued 0 .ROUTE .MEDSUPPLY 1 November 20, 2020 1:59pm December 24, 2021 10:26am As directed Start: 11-20-2020 End: 12-24-2021 Blood-Glucose Meter (Onetouc h Verio Meter) misc Discontinued 0 .ROUTE .MEDSUPPLY 1 November 20, 2020 1:00am December 24, 2021 10:26am As directed Start: 11-20-2020 End: 12-24-2021 Blood-Glucose Meter (Onetouc h Verio Meter) misc Discontinued 0 .ROUTE .MEDSUPPLY 1 November 20, 2020 12:00am December 24, 2021 9:26am As directed Start: 11-20-2020 End: 12-24-2021 Blood-Glucose Meter (Onetouc h Verio Meter) misc Discontinued 0 .ROUTE .MEDSUPPLY November 20, 2020 1:00am December 24, 2021 10:26am As directed brimonidine tartrate 2 mg/ml ophthalmic solution (4 sources) alpha-Adrenergic Agonist Start: 01-17-2025 brimonidine (ALPHAGAN) 0.2 % ophthalmic solution 01/17/2025 Active ciprofloxacin 3 mg/ml ophthalmic solution (6 sources) Quinolone Antimicrobial Start: 07-03-2024 take 1 drop(s) into the eye(s) four times daily ciprofloxacin HCl (CILOXAN) 0.3 % ophthalmic solution Use 1 Drop in the left eye four times daily. 07/03/2024 Active 12 hr dextromethorphan hydrobromide 60 mg / guaiFENesin 1200 mg extended release oral tablet (3 sources) Uncompetitive H-ncnxsl-A-aspartate Receptor Antagonist, Sigma-1 Agonist Start: 02-05-2025 End: 02-15-2025 take 60-1200 mg by mouth twice daily dextromethorphan- guaiFENesin (MUCINEX DM) 60-1,200 mg tablet Indications: Acute cough Take 1 tablet by mouth two times a day for 10 days. 20 tablet 02/05/2025 02/15/2025 Active docusate sodium 100 mg oral tablet (20 sources) Start: 06-21-2025 take 1 tablet by mouth three times weekly Docusate Sodium 100 mg tablet Active 100 mg PO 3 TIMES A WEEK June 21, 2025 12:00am Complies with drug therapy Start: 03-11-2024 Colace 100 mg oral capsule Dose : 100 mg = 1 cap(s), Oral, qDay, PRN as needed for constipation, 0 Refill(s) Start Date: 03/11/24 Status: Ordered Medication Dispense Status: Completed Total Allowed Fills: 1 Fills Dispensed: 0 doxycycline hyclate 100 mg oral capsule (2 sources) Tetracycline-class Drug Start: 02-05-2025 End: 02-12-2025 take 1 capsule by mouth twice daily doxycycline hyclate (VIBRAMYCIN) 100 mg capsule Indications: Acute cough , Wheezing Take 1 capsule by mouth two times a day for 7 days. 14 capsule 02/05/2025 02/12/2025 Active 0.5 ML dulaglutide 6 MG/ML Auto-Injector [Trulicity] (20 sources) GLP-1 Receptor Agonist Start: 03-11-2024 Trulicity Pen 3 mg/0.5 mL subcutaneous solution Dose : 3 mg =, Subcutaneous, Wednesday, 0 Refill(s) Start Date: 03/11/24 Status: Ordered Start: 02-21-2024 End: 08-29-2024 Dulaglutide 3 mg/0.5 mL pen injector Discontinued 3 mg SC EVERY WEEK 2 February 21, 2024 1:08pm August 29, 2024 3:31pm Start: 08-19-2023 End: 02-21-2024 Dulaglutide 3 mg/0.5 mL pen injector Discontinued 3 mg SC EVERY WEEK 2 August 19, 2023 8:24am February 21, 2024 1:08pm Start: 08-19-2023 Dulaglutide Ac tive 3 MG SC EVERY WEEK 2 August 19, 2023 7:24am Start: 01-21-2023 End: 08-19-2023 Dulaglutide 3 mg/0.5 mL pen injector Discontinued 3 mg SC EVERY WEEK 2 January 21, 2023 11:34am August 19, 2023 8:24am Start: 01-21-2023 End: 08-19-2023 Dulaglutide Discontinued 3 M G SC EVERY WEEK 2 January 21, 2023 10:34am August 19, 2023 7:24am Start: 10-09-2022 End: 01-21-2023 Dulaglutide 3 mg/0.5 mL pen injector Discontinued 3 mg SC EVERY WEEK 2 October 09, 2022 3:10pm January 21, 2023 11:34am Start: 10-09-2022 End: 01-21-2023 Dulaglutide Discontinued 3 M G SC EVERY WEEK 2 October 09, 2022 2:10pm January 21, 2023 10:34am Start: 10-06-2022 End: 10-09-2022 Dulaglutide (Trulicity) 3 mg /0.5 mL pen injector Discontinued 3 mg SC EVERY WEEK 2 October 06, 2022 4:15pm October 09, 2022 3:10pm Start: 10-06-2022 End: 10-09-2022 Dulaglutide (Trulicity) 3 mg /0.5 mL pen injector Discontinued 3 MG SC EVERY WEEK 2 October 06, 2022 3:15pm October 09, 2022 2:10pm Start: 09-17-2022 End: 10-06-2022 Dulaglutide (Trulicity) 1.5 mg/0.5 mL pen injector Discontinued 1.5 mg SC EVERY WEEK 2 September 17, 2022 12:00am October 06, 2022 4:27pm erythromycin 0.005 mg/mg ophthalmic ointment (6 sources) Macrolide, Macrolide Antimicrobial Start: 07-03-2024 erythromycin (ROMYCI N) 5 mg/gram (0.5 %) ophthalmic ointment Use 1 application in the left eye daily at bedtime. Apply 1/2 inch ribbon per application 07/03/2024 Active fluorometholone 1 mg/ml ophthalmic suspension (20 sources) Corticosteroid Start: 05-07-2024 fluorometholon e (FML LIQUID FILM) 0.1 % ophthalmic suspension instill 1 drop into left eye three times a day 05/07/2024 Active Start: 03-11-2024 fluorometholon e 0.1% ophthalmic suspension Dose = 1 drop(s), Eye, left, qDay, 0 Refill(s) Start Date: 03/11/24 Status: Ordered Medication Dispense Status: Completed Total Allowed Fills: 1 Fills Dispensed: 0 Start: 01-22-2020 fluorometholon e 0.1% ophthalmic ointment Eyes, both, TID, 0 Refill(s) Start Date: 01/22/20 Status: Ordered Start: 11-09-2019 Fluorometholon e 0.1 % drops,suspension Active 1 NMA OPHTHALMIC DAILY November 09, 2019 1:00am Complies with drug therapy 12 hr guaiFENesin 600 mg extended release oral tablet (2 sources) Start: 04-09-2009 guaifenesin(MUCINEX 600 MG TAB) Take one(1) tablet daily. 0 04/09/2009 Active handicap placard (5 sources) Start: 03-15-2024 handicap placard Active 0 .Route .MEDSUPPLY 1 0 March 15, 2024 12:00am Duration one year, diagnosis, spinal surgery Handicap placard (5 sources) Start: 02-28-2025 Handicap placard Active 0 .Route .MEDSUPPLY 1 0 February 28, 2025 12:00am Duration of 5 years, unable to walk long distances hydroCHLOROthiazide 12.5 mg oral capsule (2 sources) Thiazide Diuretic Start: 01-13-2008 HYDROCHLOROTHIAZIDE 12.5 MG CAP Take one(1) tablet daily. 0 01/13/2008 Active losartan potassium 50 mg oral tablet (14 sources) Angiotensin 2 Receptor Cameron Start: 07-25-2025 take 1 tablet by mouth once daily Losartan 50 mg tablet Active 50 mg PO daily 30 July 25, 2025 12:00am Complies with drug therapy Start: 04-24-2024 losartan 50 mg oral tablet Dose : 50 mg = 1 tab(s), Oral, qDay, # 30 tab(s), 0 Refill(s) Start Date: 04/24/24 Status: Ordered Start: 12-02-2022 End: 03-15-2024 take 1 tablet by mouth once daily Losartan 50 mg tablet Discontinued 50 mg PO DAILY 30 December 02, 2022 1:00am March 15, 2024 9:15am 24 hr metFORMIN hydrochloride 500 mg extended release oral tablet (8 sources) Biguanide Start: 02-28-2025 End: 08-20-2025 take 1 tablet by mouth once daily Metformin 500 mg tablet extended release 24 hr Active 500 mg PO daily 90 1 August 20, 2025 10:55am Complies with drug therapy Start: 01-13-2008 METFORMIN 500 MG TAB Take one(1) tablet twice daily. 0 01/13/2008 Active mometasone furoate 1 mg/ml topical cream (2 sources) Corticosteroid Start: 01-13-2008 mometasone furoate(ELOCON 0.1 % TOPICAL CREAM) Apply to affected areas of rash R thigh selectively BID until clear and then taper off and stop as able, as tolerated. NOT for face, underarms or groin. AVOID eyes and eyelashes. 15gms 1 01/13/2008 Active pantoprazole 20 mg delayed release oral tablet (20 sources) Proton Pump Inhibitor Start: 05-13-2020 take 1 tablet by mouth once daily Pantoprazole 20 mg tablet,delayed release (DR/EC) Active 20 mg PO DAILY May 13, 2020 12:00am Complies with drug therapy Start: 10-04-2014 End: 05-13-2020 take 1 tablet by mouth once daily in the morning Pantoprazole 40 mg tablet,delayed release (DR/EC) Discontinued 40 mg PO EVERY MORNING February 03, 2018 12:00am May 13, 2020 1:35pm phenylephrine hydrochloride 25 mg/ml ophthalmic solution (2 sources) alpha-1 Adrenergic Agonist Start: 06-06-2024 End: 06-06-2024 PHENYLephrine 2.5 % 1 Drop (AK-DILATE, SILVIA-SYNEPHRINE) prednisoLONE acetate 10 mg/ml ophthalmic suspension (6 sources) Corticosteroid Start: 07-03-2024 prednisoLONE a cetate (PRED FORTE) 1 % ophthalmic suspension Use 1 Drop in the left eye four times daily. 10 mL 11 07/03/2024 Active propylene glycol 6 mg/ml ophthalmic solution (6 sources) Start: 06-09-2023 Propylene Glyc ol (Systane Balance) 0.6 % drops Active 1 NMA OPHTHALMIC 2 to 3 times per day as needed June 09, 2023 12:00am Complies with drug therapy Start: 06-09-2023 Propylene Glyc ol (Systane Balance) 0.6 % drops Active 1 DRP OPHTHALMIC 2 to 3 times per day June 08, 2023 11:00pm Semaglutide (18 sources) Start: 08-17-2025 Semaglutide 2 mg/dose (8 mg/3 mL) pen injector Active 2 mg SC EVERY WEEK 3 August 17, 2025 10:52am Complies with drug therapy Start: 08-17-2025 Start: 07-19-2025 End: 08-17-2025 Semaglutide (Ozempic) 2 mg/d ose (8 mg/3 mL) pen injector Discontinued 1.3333 mg SC EVERY WEEK 3 July 19, 2025 10:17am August 17, 2025 10:53am Start: 05-25-2025 End: 07-19-2025 Semaglutide (Ozempic) 2 mg/d ose (8 mg/3 mL) pen injector Discontinued 1.3333 mg SC EVERY WEEK 3 May 25, 2025 6:31am July 19, 2025 10:17am Start: 2025 End: 05-25-2025 Semaglutide 2 mg/dose (8 mg/ 3 mL) pen injector Discontinued 2 mg SC EVERY WEEK 3 2025 3:34pm May 25, 2025 6:32am Start: 11-29-2024 End: 2025 Semaglutide 2 mg/dose (8 mg/ 3 mL) pen injector Discontinued 2 mg SC EVERY WEEK 3 November 29, 2024 4:36pm 2025 3:34pm Start: 10-09-2022 End: 06-09-2023 Semaglutide 2 mg/dose (8 mg/ 3 mL) pen injector Discontinued 2 mg SC EVERY WEEK 3 2 October 09, 2022 12:25pm June 09, 2023 2:21pm Start: 09-10-2022 End: 10-09-2022 Semaglutide 2 mg/dose (8 mg/ 3 mL) pen injector Discontinued 2 mg SC EVERY WEEK 3 2 September 10, 2022 12:00pm October 09, 2022 12:25pm Start: 09-02-2022 End: 09-10-2022 Semaglutide 2 mg/dose (8 mg/ 3 mL) pen injector Discontinued 2 mg SC EVERY WEEK 3 2 September 02, 2022 3:07pm September 10, 2022 12:00pm Start: 06-09-2022 End: 09-02-2022 Semaglutide (Ozempic) 2 mg/d ose (8 mg/3 mL) pen injector Discontinued 2 mg SC EVERY WEEK 3 2 June 09, 2022 2:58pm September 02, 2022 3:07pm semaglutide (OZEMPIC) 0.25 m g or 0.5 mg (2 mg/3 mL) pen (6 sources) semaglutide (OZE [facility]) 0.25 mg or 0.5 mg (2 mg/3 mL) pen Inject subcutaneously one time a week. Active Semaglutide (Ozempic) 2 mg/dose (8 mg/3 mL) pen injector (7 sources) Start: 07-19-2025 Semaglutide (O zempic) 2 mg/dose (8 mg/3 mL) pen injector Active 1.3333 mg SC EVERY WEEK 3 July 19, 2025 10:17am Start: 05-25-2025 End: 07-19-2025 Semaglutide (Ozempic) 2 mg/d ose (8 mg/3 mL) pen injector Discontinued 1.3333 mg SC EVERY WEEK 3 May 25, 2025 6:31am July 19, 2025 10:17am Start: 05-25-2025 Semaglutide (O zempic) 2 mg/dose (8 mg/3 mL) pen injector Active 1.3333 mg SC EVERY WEEK 3 May 25, 2025 6:31am Start: 06-09-2022 End: 09-02-2022 Semaglutide (Ozempic) 2 mg/d ose (8 mg/3 mL) pen injector Discontinued 2 mg SC EVERY WEEK 3 2 June 09, 2022 2:58pm September 02, 2022 3:07pm Start: 06-09-2022 End: 09-02-2022 Semaglutide (Ozempic) 2 mg/d ose (8 mg/3 mL) pen injector Discontinued 2 MG SC EVERY WEEK 3 June 09, 2022 1:58pm September 02, 2022 2:07pm SF 5000 Plus 1.1% topical cream (11 sources) Start: 03-11-2024 apply 1 dose topical ly once daily SF 5000 Plus 1.1% topical cream Dose = 1 scott, Topical, qDay, 0 Refill(s) Start Date: 03/11/24 Status: Ordered Medication Dispense Status: Completed Total Allowed Fills: 1 Fills Dispensed: 0 Start: 03-11-2024 apply 1 dose topically once da remi SF 5000 Plus 1.1% topical cream Dose = 1 scott, Topical, qDay, 0 Refill(s) Start Date: 03/11/24 Status: Ordered Repeat number: 1 Start: 03-11-2024 apply 1 dose topically once da remi SF 5000 Plus 1.1% topical cream Dose = 1 scott, Topical, qDay, 0 Refill(s) Start Date: 03/11/24 Status: Ordered SITagliptin 25 mg oral tablet (2 sources) Dipeptidyl Peptidase 4 Inhibitor Start: 04-09-2009 sitagliptin phosphate(JANUVIA 25 MG TAB) Take one(1) tablet daily. 0 04/09/2009 Active sodium chloride 0.854 meq/ml ophthalmic solution (10 sources) Start: 01-13-2008 SODIUM CHLORID E 5 % EYE DROPS Instill into left eye daily. 0 01/13/2008 Active Start: 01-13-2008 sodium chlorid e ([id number])(SACHIN 128 5 % EYE OINTMENT) Instill into left eye daily. 0 01/13/2008 Active sodium fluoride 0.011 mg/mg toothpaste (4 sources) Start: 06-21-2025 Fluoride (Sodi um) (Denta 5000 Plus) 1.1 % cream Active 1 NMA PO daily June 21, 2025 12:00am Complies with drug therapy Timolol Maleate (20 sources) beta-Adrenergic Cameron Start: 02-28-2025 Timolol Maleate 0.5 % drops Active 1 NMA OPHTHALMIC TWICE A DAY February 28, 2025 3:11pm Complies with drug therapy Start: 02-28-2025 Start: 02-28-2025 Timolol Maleat e 0.5 % drops Active 1 NMA OPHTHALMIC TWICE A DAY February 28, 2025 3:11pm Start: 05-07-2024 timolol maleat e (TIMOPTIC) 0.5 % ophthalmic solution place 1 drop into left eye twice a day 05/07/2024 Active Start: 03-11-2024 timolol maleat e 0.5% ophthalmic solution Dose = 1 drop(s), Eye, left, BID, 0 Refill(s) Start Date: 03/11/24 Status: Ordered Medication Dispense Status: Completed Total Allowed Fills: 1 Fills Dispensed: 0 Start: 03-11-2024 timolol maleat e 0.5% ophthalmic solution Dose = 1 drop(s), Eye, left, BID, 0 Refill(s) Start Date: 03/11/24 Status: Ordered Repeat number: 1 Start: 03-11-2024 timolol maleat e 0.5% ophthalmic solution Dose = 1 drop(s), Eye, left, BID, 0 Refill(s) Start Date: 03/11/24 Status: Ordered Start: 04-17-2020 Timolol Maleat e Active ML OPHTHALMIC April 17, 2020 1:38pm Start: 04-17-2020 End: 02-28-2025 Timolol Maleate 0.5 % drops Discontinued mL OPHTHALMIC April 17, 2020 12:00am February 28, 2025 3:12pm Start: 04-17-2020 Timolol Maleat e Active ML OPHTHALMIC April 16, 2020 11:00pm Start: 04-17-2020 Timolol Maleat e Active ML OPHTHALMIC April 17, 2020 12:00am tropicamide 10 mg/ml ophthalmic solution (2 sources) Anticholinergic Start: 06-06-2024 End: 06-06-2024 tropicamide 1 % 1 Drop (MYDRIACYL) Vitamin D3 (4 sources) Start: 01-22-2020 Vitamin D3 Dos e : 2,000 unit(s) = 1 tab(s), Oral, Daily, 0 Refill(s) Start Date: 01/22/20 Status: Ordered Completed/Discontinued Medications Medication Drug Class(es) Dates Sig (Normalized) Sig (Original) amLODIPine 10 mg oral tablet (20 sources) Dihydropyridine Calcium Channel Cameron Start: 05-22-2025 End: 07-25-2025 take 1 tablet by mouth once daily Amlodipine 5 mg tablet Discontinued 5 mg PO DAILY July 24, 2025 8:14am July 25, 2025 10:17am Start: 02-03-2018 End: 07-25-2025 take 1 tablet by mouth once daily Amlodipine 10 mg tablet Discontinued 10 mg PO DAILY 90 July 25, 2025 10:16am July 25, 2025 2:45pm atorvastatin 40 mg oral tablet (20 sources) HMG-CoA Reductase Inhibitor Start: 05-11-2019 End: 08-17-2025 take 1 tablet by mouth at bedtime Atorvastatin 40 mg tablet Discontinued 40 mg PO AT BEDTIME 90 August 14, 2024 5:06pm August 17, 2025 11:43am benoxinate hydrochloride 4 mg/ml / fluorescein sodium 3 mg/ml ophthalmic solution (2 sources) Diagnostic Dye Start: 06-26-2025 End: 06-27-2025 fluorescein-benoxi marion 0.3-0.4 % 1 drop (FLURESS) Start: 06-26-2025 End: 06-27-2025 1 drop, BOTH EYES, DIRECT ED, Starting on Wed06/26/25 at 1330, Until Wed06/27/25 at 0129, Administer for applanation tonometry. In the event of a Fluress shortage, administer [place]-Fluor 1 drop into both eyes as directed for applanation tonometry cetirizine hydrochloride 10 mg oral tablet (20 sources) Histamine-1 Receptor Antagonist Start: 01-22-2020 End: 08-17-2025 take 1 tablet by mouth once daily Cetirizine 10 mg tablet Discontinued 0 .ROUTE .COMPLEX 90 February 16, 2025 11:44am August 17, 2025 11:43am take 1 tablet by mouth once daily Start: 03-15-2018 End: 08-25-2022 take 1 capsule by mouth once daily Cetirizine (All Day Allergy (Cetirizine)) 10 mg capsule Discontinued 10 mg PO daily 90 2 August 18, 2022 10:08am August 25, 2022 11:06am cholecalciferol 0.05 mg oral capsule (18 sources) Vitamin D Start: 08-17-2018 End: 03-15-2024 take 1 capsule by mouth once daily Cholecalciferol (Vitamin D3) 2,000 unit capsule Discontinued 2000 U PO DAILY August 17, 2018 12:00am March 15, 2024 9:04am Start: 02-03-2018 End: 08-17-2018 take 1 capsule by mouth once Cholecalciferol (Vitamin D3) 5,000 unit capsule Discontinued 5000 U PO ONCE February 03, 2018 12:00am August 17, 2018 2:50pm dapagliflozin 10 mg oral tablet (20 sources) Sodium-Glucose Cotransporter 2 Inhibitor Start: 03-03-2023 End: 07-19-2025 take 1 tablet by mouth once daily Dapagliflozin Propanediol (Farxiga) 10 mg tablet Discontinued 10 mg PO DAILY 90 0 April 05, 2025 12:41pm July 19, 2025 10:18am dexamethasone 1 mg/ml ophthalmic suspension (9 sources) Corticosteroid Start: 02-08-2019 End: 05-11-2019 Dexamethasone 0.1 % drops,suspension Discontinued 1 NMA OPHTHALMIC DAILY February 08, 2019 12:00am May 11, 2019 11:14am doxazosin 4 mg oral tablet (20 sources) alpha-Adrenergic Cameron Start: 02-07-2020 End: 07-17-2020 take 0.5 tablet by mouth once daily Doxazosin 8 mg tablet Discontinued 0 .ROUTE .COMPLEX 90 February 07, 2020 9:47am July 17, 2020 1:34pm take 1/2 tablet by mouth once daily Start: 05-06-2018 End: 02-07-2020 take 4 mg by mouth once daily Doxazosin 8 mg tablet Di scontinued 4 mg PO daily 90 May 09, 2019 10:17am February 07, 2020 9:47am Start: 05-06-2018 End: 07-17-2020 take 0.5 tablet by mouth once daily Doxazosin Discontinued 0 .ROUTE .COMPLEX 90 February 07, 2020 8:47am July 17, 2020 12:34pm take 1/2 tablet by mouth once daily Start: 02-03-2018 End: 05-06-2018 Doxazosin 4 mg tablet Discon tinued PO 0 February 03, 2018 12:00am May 06, 2018 4:37pm Start: 01-13-2008 End: 08-17-2025 take 1 tablet by mouth once daily Doxazosin (Cardura) 4 mg tablet Discontinued 4 mg PO DAILY 90 February 16, 2025 11:45am August 17, 2025 11:43am 0.85 ml exenatide 2.35 mg/ml auto-injector (18 sources) GLP-1 Receptor Agonist Start: 04-25-2024 End: 09-12-2024 Exenatide Microspheres (Bydureon Bcise) 2 mg/0.85 mL auto-injector Discontinued 2 mg SC EVERY WEEK 3.4 2 July 19, 2024 10:33am September 12, 2024 8:18am flourmethelone (9 sources) Start: 02-03-2018 End: 02-08-2019 flourmethelone Discontinued MC February 03, 2018 2:53pm February 08, 2019 1:36pm Start: 02-03-2018 End: 02-08-2019 flourmethelone Discontinued MC 0 February 03, 2018 12:00am February 08, 2019 1:36pm Start: 02-03-2018 End: 02-08-2019 flourmethelone Discontinued MC February 02, 2018 11:00pm February 08, 2019 12:36pm Start: 02-03-2018 End: 02-08-2019 flourmethelone Discontinued MC February 03, 2018 12:00am February 08, 2019 1:36pm flu vacc (65yr up)-MF59C(PF) 60 mcg(15 mcgx4)/0.5 mL IM syringe (1 source) Start: 07-22-2021 End: 07-22-2021 inject 60 ug by intramuscular injection once flu vacc (65yr up)-MF59C(PF) 60 mcg(15 mcgx4)/0.5 mL IM syringe Discontinued 60 MCG IM ONCE 0.5 July 22, 2021 2:21pm July 22, 2021 3:10pm fluorouracil 50 mg/ml topical cream (14 sources) Nucleoside Metabolic Inhibitor Start: 11-29-2024 End: 02-28-2025 Fluorouracil (Efudex) 5 % cream Discontinued 1 NMA TOPICAL TWICE A DAY 40 14 1 November 29, 2024 4:40pm February 28, 2025 3:10pm apply for two weeks Start: 04-16-2021 End: 09-15-2023 Fluorouracil (Efudex) 5 % cr eam Discontinued 1 NMA TOPICAL TWICE A DAY 40 14 April 16, 2021 12:00am September 15, 2023 2:03pm hydrALAZINE hydrochloride 25 mg oral tablet (18 sources) Arteriolar Vasodilator Start: 02-03-2018 End: 02-07-2018 Hydralazine 25 mg tablet Discontinued PO TWICE A DAY 0 February 03, 2018 12:00am February 07, 2018 5:01pm Start: 02-03-2018 End: 08-17-2018 take 1 tablet by mouth twice daily Hydralazine 25 mg tablet Discontinued 25 mg PO TWICE A DAY 180 3 February 07, 2018 4:59pm August 17, 2018 2:50pm linagliptin 5 mg oral tablet (20 sources) Dipeptidyl Peptidase 4 Inhibitor Start: 02-03-2018 End: 08-22-2019 take 1 tablet by mouth once daily in the morning Linagliptin (Tradjenta) 5 mg tablet Discontinued 5 mg PO EVERY MORNING 90 2 April 03, 2019 8:04am August 22, 2019 2:41pm lisinopril 2.5 mg oral tablet (9 sources) Angiotensin Converting Enzyme Inhibitor Start: 03-01-2018 End: 05-04-2018 take 1 tablet by mouth once daily Lisinopril 2.5 mg tablet Discontinued 2.5 mg PO daily March 01, 2018 12:00am May 04, 2018 2:34pm loteprednol etabonate 5 mg/ml ophthalmic suspension (11 sources) Start: 05-11-2019 End: 11-09-2019 Loteprednol Etabonate 0.5 % drops,suspension Discontinued OPHTHALMIC 5 0 May 11, 2019 12:00am November 09, 2019 11:54am Start: 05-11-2019 End: 11-09-2019 Loteprednol Etabonate Discon tinued OPHTHALMIC 5 May 10, 2019 11:00pm November 09, 2019 10:54am Start: 01-13-2008 take 1 drop(s) into the eye(s) once daily loteprednol etabonate(ALREX 0.2 % EYE DROPS) One drop into left eye daily. 0 01/13/2008 Active 24 hr metoprolol succinate 50 mg extended release oral tablet (20 sources) beta-Adrenergic Cameron Start: 04-27-2024 take 1 tablet by mouth every twelve hours metoprolol succinate ER (TOPROL XL) 50 mg 24 hr tablet Take 1 tablet by mouth every 12 hours. 04/27/2024 Active Start: 03-14-2024 End: 03-14-2024 metoprolol succinate 50 mg o ral TABLET extended release Start: 03/14/24 8:00:00 AM EDT, Dose = 50 mg, = 1 tab(s), Oral, 0, 03/13/24 10:47:00 EDT Start Date: 03/14/24 Stop Date: 03/14/24 Status: Completed Start: 02-03-2018 End: 08-07-2025 take 1 tablet by mouth twice daily Metoprolol Succinate 50 mg tablet extended release 24 hr Discontinued 50 mg PO TWICE A DAY 180 3 August 14, 2024 5:06pm August 07, 2025 8:26am Start: 05-09-2016 metoprolol tar trate 50 mg oral tablet Dose : 50 mg = 1 tab(s), Oral, qDay Start Date: 05/09/16 Status: Ordered pravastatin sodium 20 mg oral tablet (9 sources) HMG-CoA Reductase Inhibitor Start: 02-03-2018 End: 03-01-2018 take 1 tablet by mouth at bedtime Pravastatin 20 mg tablet Discontinued 20 mg PO AT BEDTIME February 03, 2018 12:00am March 01, 2018 10:18am proparacaine hydrochloride 5 mg/ml ophthalmic solution (1 source) Local Anesthetic Start: 06-26-2025 End: 06-27-2025 proparacaine 0.5 % 1 drop (ALCAINE) 1 mg dose 1.5 ml semaglutide 1.34 mg/ml pen injector (20 sources) Start: 06-01-2022 End: 06-09-2022 Semaglutide (Ozempic) 1 mg/dose (2 mg/1.5 mL) pen injector Discontinued 2 MG SC EVERY WEEK June 09, 2022 1:26pm June 09, 2022 1:59pm Start: 09-21-2019 End: 06-01-2022 Semaglutide (Ozempic) 1 mg/d ose (2 mg/1.5 mL) pen injector Discontinued 1 MG SC EVERY WEEK 18 October 29, 2021 10:43am June 01, 2022 1:16pm Start: 08-22-2019 End: 10-04-2019 Semaglutide (Ozempic) 0.25 m g or 0.5 mg(2 mg/1.5 mL) pen injector Discontinued August 22, 2019 2:45pm October 04, 2019 2:30pm Semaglutide (3 sources) Start: 10-09-2022 End: 06-09-2023 Semaglutide Discontinued 2 M G SC EVERY WEEK October 09, 2022 11:25am June 09, 2023 1:21pm Start: 09-10-2022 End: 10-09-2022 Semaglutide Discontinued 2 M G SC EVERY WEEK 3 September 10, 2022 11:00am October 09, 2022 11:25am Start: 09-02-2022 End: 09-10-2022 Semaglutide Discontinued 2 M G SC EVERY WEEK 3 September 02, 2022 2:07pm September 10, 2022 11:00am Semaglutide (15 sources) Start: 02-28-2025 End: 07-25-2025 Semaglutide (Ozempic) 1 mg/d ose (4 mg/3 mL) pen injector Discontinued 2 mg SC EVERY WEEK February 28, 2025 3:10pm July 25, 2025 2:00pm Start: 02-28-2025 Semaglutide (O zempic) 1 mg/dose (4 mg/3 mL) pen injector Active 2 mg SC EVERY WEEK February 28, 2025 3:10pm Start: 09-12-2024 End: 11-29-2024 Semaglutide (Ozempic) 1 mg/d ose (4 mg/3 mL) pen injector Discontinued 1 mg SC EVERY WEEK 3 3 September 12, 2024 12:00am November 29, 2024 4:39pm Start: 08-29-2024 End: 02-28-2025 Semaglutide (Ozempic) 1 mg/d ose (4 mg/3 mL) pen injector Discontinued 1 mg SC EVERY WEEK 3 3 August 29, 2024 12:00am February 28, 2025 3:10pm Semaglutide (Ozempic) 1 mg/d ose (2 mg/1.5 mL) pen injector (20 sources) Start: 06-09-2022 End: 06-09-2022 Semaglutide (Ozempic) 1 mg/d ose (2 mg/1.5 mL) pen injector Discontinued 2 mg SC EVERY WEEK 3 0 June 09, 2022 2:26pm June 09, 2022 2:59pm Start: 06-01-2022 End: 06-09-2022 Semaglutide (Ozempic) 1 mg/d ose (2 mg/1.5 mL) pen injector Discontinued 2 mg SC EVERY WEEK 19.5 3 June 01, 2022 2:16pm June 09, 2022 2:27pm Start: 10-29-2021 End: 06-01-2022 Semaglutide (Ozempic) 1 mg/d ose (2 mg/1.5 mL) pen injector Discontinued 1 mg SC EVERY WEEK 18 90 3 October 29, 2021 11:43am June 01, 2022 2:16pm Start: 10-16-2020 End: 10-29-2021 Semaglutide (Ozempic) 1 mg/d ose (2 mg/1.5 mL) pen injector Discontinued 1 mg SC EVERY WEEK 18 90 3 October 16, 2020 2:12pm October 29, 2021 11:43am Start: 08-20-2020 End: 10-16-2020 Semaglutide (Ozempic) 1 mg/d ose (2 mg/1.5 mL) pen injector Discontinued 1 mg SC EVERY WEEK 3 0 3 August 20, 2020 9:37am October 16, 2020 2:15pm Start: 05-13-2020 End: 08-20-2020 Semaglutide (Ozempic) 1 mg/d ose (2 mg/1.5 mL) pen injector Discontinued 1 mg SC EVERY WEEK 3 0 3 May 13, 2020 1:26pm August 20, 2020 9:37am Start: 10-04-2019 End: 05-13-2020 Semaglutide (Ozempic) 1 mg/d ose (2 mg/1.5 mL) pen injector Discontinued 1 mg SC EVERY WEEK 3 0 3 October 04, 2019 2:55pm May 13, 2020 1:26pm Start: 09-21-2019 End: 10-04-2019 Semaglutide (Ozempic) 1 mg/d ose (2 mg/1.5 mL) pen injector Discontinued 1 mg SC EVERY WEEK 3 0 3 September 21, 2019 1:00am October 04, 2019 2:56pm Semaglutide 2 mg/dose (8 mg/ 3 mL) pen injector (15 sources) Start: 2025 End: 05-25-2025 Semaglutide 2 mg/dose (8 mg/ 3 mL) pen injector Discontinued 2 mg SC EVERY WEEK 3 2025 3:34pm May 25, 2025 6:32am Start: 2025 Semaglutide 2 mg/dose (8 mg/3 mL) pen injector Active 2 mg SC EVERY WEEK 3 1 2025 3:34pm Start: 11-29-2024 End: 2025 Semaglutide 2 mg/dose (8 mg/ 3 mL) pen injector Discontinued 2 mg SC EVERY WEEK 3 3 November 29, 2024 4:36pm 2025 3:34pm Start: 10-09-2022 End: 06-09-2023 Semaglutide 2 mg/dose (8 mg/ 3 mL) pen injector Discontinued 2 mg SC EVERY WEEK 3 2 October 09, 2022 12:25pm June 09, 2023 2:21pm Start: 09-10-2022 End: 10-09-2022 Semaglutide 2 mg/dose (8 mg/ 3 mL) pen injector Discontinued 2 mg SC EVERY WEEK 3 2 September 10, 2022 12:00pm October 09, 2022 12:25pm Start: 09-02-2022 End: 09-10-2022 Semaglutide 2 mg/dose (8 mg/ 3 mL) pen injector Discontinued 2 mg SC EVERY WEEK 3 2 September 02, 2022 3:07pm September 10, 2022 12:00pm sildenafil 100 mg oral tablet (6 sources) Phosphodiesterase 5 Inhibitor Start: 12-02-2022 End: 02-28-2025 Sildenafil (Viagra) 100 mg tablet Discontinued 100 mg PO DAILY as needed for sexual activity 10 December 02, 2022 1:00am February 28, 2025 3:10pm administer 30 minutes to 4 hours before activity simvastatin 20 mg oral tablet (20 sources) HMG-CoA Reductase Inhibitor Start: 03-01-2018 End: 05-11-2019 take 1 tablet by mouth once daily in the evening Simvastatin 20 mg tablet Discontinued 20 mg PO EVERY EVENING 90 2 May 05, 2019 2:51pm May 11, 2019 11:27am tamsulosin hydrochloride 0.4 mg oral capsule (20 sources) alpha-Adrenergic Cameron Start: 07-17-2020 End: 03-03-2023 take 1 capsule by mouth at bedtime Tamsulosin 0.4 mg capsule Discontinued 0.4 mg PO AT BEDTIME 90 December 08, 2022 12:04pm March 03, 2023 2:39pm terbinafine 250 mg oral tablet (9 sources) Allylamine Antifungal Start: 10-17-2018 End: 05-11-2019 take 1 tablet by mouth every other week Terbinafine Hcl 250 mg tablet Discontinued 250 mg PO .COMPLEX October 17, 2018 1:00am May 11, 2019 11:15am 250 mg PO take as directed q other week; tiZANidine 4 mg oral tablet (20 sources) Central alpha-2 Adrenergic Agonist Start: 06-21-2025 End: 07-25-2025 take 1 tablet by mouth every eight hours as needed Tizanidine 4 mg tablet Discontinued 4 mg PO Q8H as needed June 21, 2025 12:00am July 25, 2025 1:59pm Start: 03-14-2024 End: 03-19-2024 tiZANidine 4 mg oral tablet Dose : 4 mg = 1 tab(s), Oral, TID, PRN Muscle spasm, # 15 tab(s), 0 Refill(s), Pharmacy: [facility] #[id number], Muscle spasm S/P cervical spinal fusion, 170.2, cm, 03/11/24 21:14:00 EDT, Height, kg, 03/11/24 21:14:00 EDT, Dosing Weight Start Date: 03/14/24 Stop Date: 03/19/24 Status: Ordered Medication Dispense Status: Completed Quantity: 15.0 Unit: tab(s) Total Allowed Fills: 1 Fills Dispensed: 0 Indications: Other muscle spasm; Arthrodesis status; Start: 03-14-2024 End: 02-28-2025 take 1 tablet by mouth three times daily Tizanidine 4 mg tablet Discontinued 4 mg PO THREE TIMES A DAY March 15, 2024 12:00am February 28, 2025 3:11pm Problems Active Problems Problem Classification Problem Date Documented Da te Episodic/Chronic Cardiac dysrhythmias (10 sources) Palpitations; Translations: [Palpitations] Onset: 5 06-21-2025 Episodic Cataract (3 sources) Artificial lens present; Translations: [Presence of intraocular lens] Onset: 5 06-06-2024 Chronic Chronic kidney disease (20 sources) Chronic kidney disease stage 3; Translations: [Stage 3 chronic kidney disease] Onset: 4 Chronic Conduction disorders (4 sources) Right bundle branch block; Translations: [Unspecified right bundle-branch block] 07-25-2025 Chronic Coronary atherosclerosis and other heart disease (20 sources) Coronary atherosclerosis; Translations: [Atherosclerotic heart disease of [place] coronary artery without angina pectoris] Onset: 4 05-08-2019 Chronic Comment on above: CABG x 4 GRIFFIN-LAD, S VG-Ramus, SVG-OM, SVG-Distal PDA 05/12/[address] [facility] Diabetes mellitus with complications (8 sources) Chronic kidney disease due to type 2 diabetes mellitus; Translations: [Type 2 diabetes mellitus with diabetic chronic kidney disease] Chronic Diabetes mellitus without complication (20 sources) Diabetes mellitus; Translations: [Type 2 diabetes mellitus] Onset: 7 Chronic Disorders of lipid metabolism (9 sources) Hyperlipidemia; Translations: [Hyperlipidemia, unspecified] 10-21-2021 Chronic Comment on above: Lipids are well cont rolled with his current statin dosage. Esophageal disorders (9 sources) Gastroesophageal reflux disease; Translations: [Gastro-esophageal reflux disease without esophagitis] 02-03-2018 Chronic Essential hypertension (20 sources) Hypertensive disorder; Translations: [Essential (primary) hypertension] Onset: 4 Chronic Hyperplasia of prostate (13 sources) Large prostate ; Translations: [Benign prostatic hyperplasia without lower urinary tract symptoms] Chronic Hypertension with complications and secondary hypertension (1 source) Chronic kidney disease due to hypertension; Translations: [Hypertensive chronic kidney disease with stage 1 through stage 4 chronic kidney disease, or unspecified chronic kidney disease] Chronic Immunizations and screening for infectious disease (1 source) Encounter for immunization; Translations: [Encounter for immunization] Onset: 5 Episodic Osteoarthritis (9 sources) Arthritis; Translations: [Unspecified osteoarthritis, unspecified site] 02-03-2018 Chronic Other aftercare (2 sources) Surgical follow-up; Translations: [Encounter for surgical aftercare following surgery on the nervous system] Episodic Other connective tissue disease (1 source) Spasm; Translations: [Other muscle spasm] Onset: 4 Episodic Other connective tissue disease (3 sources) H/O: arthrodesis; Translations: [Arthrodesis status] Onset: 4 Episodic Other ear and sense organ disorders (7 sources) Tinnitus; Translations: [Tinnitus, left ear] 04-16-2021 Episodic Other ear and sense organ disorders (2 sources) Tinnitus of left ear; Translations: [Tinnitus, left ear] 04-16-2021 Episodic Other eye disorders (9 sources) Bullous keratopathy, left eye; Translations: [Bullous keratopathy] Onset: 5 06-06-2024 Chronic Other eye disorders (2 sources) History of penetrating keratoplasty; Translations: [Corneal transplant status] 06-06-2024 Chronic Other eye disorders (2 sources) Corneal transplant status; 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] Onset: Chronic Other eye disorders (2 sources) Hereditary corneal dystrophy, unspecified; Translations: [Other hereditary corneal dystrophies, bilateral] 06-06-2024 Episodic Other gastrointestinal disorders (6 sources) Dysphagia; Translations: [Dysphagia, unspecified] 09-15-2023 Episodic Other gastrointestinal disorders (1 source) Dysphagia, unspecified; Translations: [Dysphagia, unspecified] 09-15-2023 Episodic Other gastrointestinal disorders (2 sources) Constipation, unspecified; Translations: [Constipation, unspecified] Onset: Episodic Other lower respiratory disease (2 sources) Cough; Translations: [Acute cough] 02-05-2025 Episodic Other lower respiratory disease (1 source) Wheezing; Translations: [Wheezing] 02-05-2025 Episodic Other lower respiratory disease (1 source) Wheezing; Translations: [Wheezing] Onset: Episodic Other male genital disorders (9 sources) Painful ejaculation; Translations: [Painful ejaculation] 04-16-2021 Episodic Other nervous system disorders (9 sources) Carpal tunnel syndrome; Translations: [Carpal tunnel syndrome, unspecified upper limb] 02-03-2018 Chronic Other nervous system disorders (2 sources) Spinal cord disease; Translations: [Disease of spinal cord, unspecified] Chronic Other nervous system disorders (6 sources) Abnormal gait; Translations: [Unsteadiness on feet] 12-22-2023 Episodic Other nervous system disorders (1 source) Unsteadiness on feet; Translations: [Abnormality of gait] 12-22-2023 Episodic Other nervous system disorders (1 source) Anesthesia of skin; Translations: [Anesthesia of skin] Episodic Other nervous system disorders (1 source) Paresthesia; Translations: [Paresthesia of skin] Episodic Other non-traumatic joint disorders (6 sources) Disorder of glenohumeral joint; Translations: [Other specific arthropathies, not elsewhere classified, unspecified shoulder] 09-15-2023 Chronic Other non-traumatic joint disorders (2 sources) Other specific arthropathies, not elsewhere classified, unspecified shoulder; Translations: [Other specified arthropathy, shoulder region] 09-15-2023 Chronic Other nutritional; endocrine; and metabolic disorders (6 sources) Obese class I; Translations: [Obesity, unspecified] Onset: 4 07-03-2024 Chronic Other skin disorders (17 sources) Actinic keratosis; Translations: [Actinic keratosis] Onset: 8 04-16-2021 Episodic Residual codes; unclassified (1 source) Pain; Translations: [Pain, unspecified] Episodic Spondylosis; intervertebral disc disorders; other back problems (2 sources) Displacement of cervical intervertebral disc; Translations: [Other cervical disc displacement at C5-C6 level] Chronic Unclassified (1 source) Unknown / UNK(Unknown) Onset: 7 Unclassified (1 source) Acute cough; Translations: [Acute cough] Onset: 5 Unclassified (1 source) Other hereditary corneal dystrophies, bilateral; Translations: [Other hereditary corneal dystrophies, bilateral] Onset: 5 Past or Other Problems Problem Classification Problem Date Documented Da te Episodic/Chronic Allergic reactions (16 sources) Radiation-induced dermatosis; Translations: [Other skin changes due to chronic exposure to nonionizing radiation] Onset: 01-16-2008 05-25-2024 Episodic Coronary atherosclerosis and other heart disease (2 sources) Presence of aortocoronary bypass graft; Translations: [Aortocoronary bypass status] Onset: 05-12-2016 Episodic Genitourinary symptoms and ill-defined conditions (3 sources) Retention of urine; Translations: [Retention of urine, unspecified] Onset: 03-08-2025 Episodic Other and unspecified benign neoplasm (8 sources) Benign neoplasm of skin of trunk; Translations: [Other benign neoplasm of skin of trunk] Onset: 01-16-2008 05-25-2024 Episodic Other circulatory disease (8 sources) Non-neoplastic nevus; Translations: [Nevus, non-neoplastic] Onset: 01-16-2008 05-25-2024 Episodic Other inflammatory condition of skin (8 sources) Lichen simplex chronicus; Translations: [Lichen simplex chronicus] Onset: 01-16-2008 05-25-2024 Episodic Other skin disorders (8 sources) Seborrheic keratosis; Translations: [Other seborrheic keratosis] Onset: 01-16-2008 05-25-2024 Episodic Other skin disorders (8 sources) Disorder of skin pigmentation; Translations: [Disorder of pigmentation, unspecified] Onset: 01-16-2008 05-25-2024 Episodic Other skin disorders (8 sources) Inflamed seborrheic keratosis; Translations: [Inflamed seborrheic keratosis] Onset: 04-29-2009 04-29-2009 Episodic Spondylosis; intervertebral disc disorders; other back problems (19 sources) Low back pain; Translations: [Radiculopathy, lumbar region] Onset: 08-29-2024 03-03-2023 Episodic Results Test Name Value Interpretation Reference Range Facility Internal Medicine Office [facility] 08-21-2025 Internal Medicine Office Visit [facility] Internal Medicine [address] [place] [address] [place] [address] OFFICE VISIT Date of Service: 08/21/25 MR#: [id number] Acct: [id number] Name: LALITHA JASON Rep #: [id number] : 1945 Provider: Dr. Gayle bonilla DO Age/Sex: 80/M Location: [facility] [place] Status: Signed with Addenda ADDENDUM by Mary Pérez on 08/21/25 at 1629 Office Procedure Documentation entered by Mary Pérez 08/21/25 16:29: Immunizations Fluad 65yr up(PF)45 mcg(15 mcgx3)/0.5 mL intramuscular syringe Performing Provider: Gayle Petit DO Performing Location: [facility] Administered by: Mary Pérez on 08/21/25 16:28 Dose Route Admin Location Dispensed Lot Number Expiration Date Package NDC NDC Boat Detailer 45 mcg IM Right Arm (SQ) 0.5 mL [id number] 03/12/26 66749-671-06 [id number] [employer]. VIS Given Date VIS Provided VIS Publication Date 08/21/25 Single Vaccine 24 Eligibility Eligibility Date Funding Source Not Applicable Administration Comments: Injection given in shwetha patient tolerated well Date cc: * Signed Intake Vital Signs 05/22/25 14:56 07/25/25 13:56 08/21/25 15:28 Height 5 ft 7 in 5 ft 7 in 5 ft 7 in Weight: 221 lb 2 oz BMI 34.6 BP 124/68 H Blood Pressure Location Lt brachial Position Sitting Respiration 16 Pulse 78 Pulse Source Monitor Temp 97.6 F L Temp Source Temporal Pulse Oximetry (%) 98 Oxygen Delivery Method room air Intake Visit Reasons: 3 M FU Chief Complaint: 3 M FU Geoduck Diver Required: No Is patient in pain?: No Allergies meperidine (From Demerol) Allergy (Severe, Verified 08/21/25 15:23) other lisinopril Adverse Reaction (Intermediate, Verified 08/21/25 15:23) cough aspirin Adverse Reaction (Unknown, Verified 08/21/25 15:23) kidney failure ibuprofen Adverse Reaction (Unknown, Verified 08/21/25 15:23) Kidney Failure Penicillins (cillins) Adverse Reaction (Verified 08/21/25 15:23) kidney failure Medications ???Medication ???Instructions ???Recorded ???Confirmed ???Type aspirin 81 mg chewable tablet 1 tab PO DAILY 10/04/19 08/21/25 H istory fluorometholone 0.1 % eye 1 drp ophthalmic (eye) DAILY 11/0908/21/25 History drops,suspension pantoprazole 20 mg tablet,delayed 20 mg PO DAILY 05/13/20 08/21/25 History release lancing device with lancets kit #100 ea 11/20/20 08/21/25 Rx (LettuceThinner DelAxenic Dental Lancing Device kit) blood-glucose meter (Scaladouch #1 ea 12/24/21 08/21/25 Rx Verio Meter) propylene glycol 0.6 % eye drops 1 drp ophthalmic (eye) BID-TID PRN 06/09/23 08/21/25 History (Systane Balance) lancing device with lancets kit #100 ea 09/15/23 08/21/25 Rx handicap placard #1 ea 03/15/24 08/21/25 Rx blood sugar diagnostic (OneTouch #100 ea 04/07/24 08/21/25 Rx Verio test strips) Handicap placard #1 ea 02/28/25 08/21/25 Rx timolol maleate 0.5 % eye drops 1 drp ophthalmic (eye) BID 5 08/21/25 History docusate sodium 100 mg tablet 100 mg PO 3XW 06/21/25 08/21/25 Hi story fluoride (sodium) 1.1 % dental 1 applic PO QDAY 06/21/25 08/21/25 History cream (Denta 5000 Plus) dapagliflozin propanediol 10 mg 10 mg PO DAILY #90 tabs 07/19/25 1 Rx tablet (Farxiga) losartan 50 mg tablet 50 mg PO QDAY #30 tabs 07/25/25 Rx metoprolol succinate 50 mg 50 mg PO BID #180 tabs 08/07/25 Rx tablet,extended release 24 hr atorvastatin 40 mg tablet 40 mg PO QHS #90 tabs 08/17/2506/08 Rx cetirizine 10 mg tablet See Rx Instructions .Route 5 08/21/25 Rx .COMPLEX #90 TABLETS doxazosin 4 mg tablet (Cardura) 4 mg PO DAILY #90 tabs 08/17/25 Rx semaglutide 2 mg/dose (8 mg/3 mL) 2 mg (0.75 mL) subcut QWEEK #3 mL 08/17/25 08/21/25 Rx subcutaneous pen injector metformin 500 mg tablet,extended 500 mg PO QDAY #90 tabs 08/20/25 1 Rx release 24 hr Have you fallen in the past year?: No Nurse's Note: 3 month fu and A1c and flu shot PFSH Medical History Painful ejaculation Hyperlipidemia BPH (benign prostatic hyperplasia) Atherosclerosis of coronary artery of [place] heart without angina pectoris Enlarged prostate Stage 3 chronic kidney disease Carpal tunnel syndrome Arthritis Type 2 diabetes mellitus Hypertension GERD (gastroesophageal reflux disease) Surgical History S/P cervical disc replacement 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 Normal [facility] .GFRon 08-03-2025 Estimated Glomerular Filtration Rate 43 ml/min/1.73sqm Normal [facility] Comment on above: Result Comment: Stages of Chronic Kidney Disease (CKD) Stage Description eGFR(ml/min/1.73 sq.m.) CKD 1 Normal kidney function or >=90 normal kindney function with possible kidney damage (ex. Proteinuria) CKD 2 Kidney damage with mild loss 60-89 of kidney function CKD 3a Mild to moderate loss of kidney 45-59 function CKD 3b Moderate to severe loss of 30-44 of kindey function CKD 4 Severe loss of kidney function 15-29 CKD 5 Kidney failure <15 Note: (go live 2024) the eGFR calculation was updated to the 2020 CKD-EPI creatinine equation without a race factor to calculate the eGFR results. Performed By: #### B MP, GFR #### [address] [address] BMPon 08-03-2025 BUN/Creatinine Ratio 10 ratio Normal 7-27 [facility] Comment on above: Performed By: #### B MP, GFR #### [address] [address] Calcium [Mass/Vol] 8.6 mg/dL Normal 8.4-10.2 [facility] Comment on above: Performed By: #### B MP, GFR #### [address] [address] Chloride [Moles/Vol] 101 mmol/L Normal 98-107 [facility] Comment on above: Performed By: #### B MP, GFR #### [address] [address] CO2 [Moles/Vol] 28 mmol/L Normal 23-31 [facility] Comment on above: Performed By: #### B MP, GFR #### [address] [address] Creatinine [Mass/Vol] 1.61 mg/dL High 0.67-1.17 [facility] Comment on above: Performed By: #### B MP, GFR #### [address] [address] Electrolyte Balance 7.0 mEq/L Normal 4.0-15.0 [facility] Comment on above: Performed By: #### B MP, GFR #### [place] [address] Glucose [Mass/Vol] 174 mg/dL High 83-110 [facility] Comment on above: Performed By: #### B MP, GFR #### [address] [address] Potassium [Moles/Vol] 4.0 mmol/L Normal 3.5-5.1 [facility] Comment on above: Performed By: #### B MP, GFR #### [place] [address] Sodium [Moles/Vol] 136 mmol/L Normal 136-145 [facility] Comment on above: Performed By: #### B MP, GFR #### [address] [address] Urea nitrogen [Mass/Vol] 16 mg/dL Normal 7-18 [facility] Comment on above: Performed By: #### B MP, GFR #### [address] [address] LABORATORYOrdered By: SYSTEM SYSTEM on 08-03-2025 Calcium [Mass/Vol] 8.6 mg/dL Normal 8.4 - 10. 2 mg/dL AO ADM SS Chloride [Moles/Vol] 101 mmol/L Normal 98 - 10 7 mmol/L AO ADM SS CO2 [Moles/Vol] 28 mmol/L Normal 23 - 31 mmol/L AO ADM SS Creatinine [Mass/Vol] 1.61 mg/dL High 0.67 - 1.17 mg/dL AO ADM SS Electrolyte Balance 7.0 mEq/L Normal 4.0 - 15 .0 mEq/L AO ADM SS Estimated Glomerular Filtration Rate 43 ml/min/1.73sqm Invalid Interpretation Code AO Chemistry S Comment on above: Interpretive Data: Stages of Chronic Kidney Disease (CKD) Stage Description eGFR(ml/min/1.73 sq.m.) CKD 1 Normal kidney function or >=90 normal kindney function with possible kidney damage (ex. Proteinuria) CKD 2 Kidney damage with mild loss 60-89 of kidney function CKD 3a Mild to moderate loss of kidney 45-59 function CKD 3b Moderate to severe loss of 30-44 of kindey function CKD 4 Severe loss of kidney function 15-29 CKD 5 Kidney failure <15 Note: (go live 2024) the eGFR calculation was updated to the 2020 CKD-EPI creatinine equation without a race factor to calculate the eGFR results. Glucose [Mass/Vol] 174 mg/dL High 83 - 110 mg/dL AO ADM SS Potassium [Moles/Vol] 4.0 mmol/L Normal 3.5 - 5.1 mmol/L AO ADM SS Sodium [Moles/Vol] 136 mmol/L Normal 136 - 145 mmol/L AO ADM SS Urea nitrogen [Mass/Vol] 16 mg/dL Normal 7 - 18 mg/dL AO ADM SS Urea nitrogen/Creatinine [Mass ratio] 10 ratio Normal 7 - 27 ratio AO ADM SS Cardiology Visit Reporton Cardiology Visit Report [facility] [address] [place], [place] [address] OFFICE VISIT Date of Service: 07/25/25 MR#: [id number] Acct: [id number] Name: LALITHA JASON Rep #: [id number] : 1945 Provider: Dr. Zelda duke MD Age/Sex: 80/M Location: [facility] Status: Signed HPI HPI History of Present Illness Details: Patient is 80-year-old white male that comes in today for new patient visit. Patient is here for palpitations he carries a history of palpitations that he describes as feeling an extra beat and then a pause and then a very forceful thump in his chest mainly when he is lying on his left side. He does have a history of hyperlipidemia he is status post remote bypass graft surgery in 2016 he denies any recurrence of his anginal symptoms which was a right neck and left arm discomfort. This was first noticed when he was yanking a heavy suitcase out of the back of his car. The patient also has a history of chronic kidney disease creatinine runs around 1.6 he is followed by Dr. Mary Interiano every 6 months. The patient is on Farxiga and he had been on lisinopril but he was coughing on that. He is now on amlodipine. The patient is also on Ozempic. Patient has a history of hypertension which is well-controlled on his current meds. However, there is a question whether if he should be on ARB therapy given his diabetes and renal insufficiency. ECG in office today shows normal sinus rhythm with a right bundle branch block and is abnormal. The patient goes to [employer] about 2 times a week he has had no drop-off in his exercise tolerance. He does have a history with balance due to a cervical spine issue that occurred several years ago. He does walk with a cane for protection due to proprioception deficits noted. 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) [employer] Diver Required: No Accompanied by: Self Is patient in pain?: No Allergies meperidine (From Demerol) Allergy (Severe, Verified 07/25/25 13:56) other lisinopril Adverse Reaction (Intermediate, Verified 07/25/25 13:56) cough aspirin Adverse Reaction (Unknown, Verified 07/25/25 13:56) kidney failure ibuprofen Adverse Reaction (Unknown, Verified 07/25/25 13:56) Kidney Failure Penicillins (cillins) Adverse Reaction (Verified 07/25/25 13:56) kidney failure Medications ???Medication ???Instructions ???Recorded ???Confirmed ???Type aspirin 81 mg chewable tablet 1 tab PO DAILY 10/04/19 07/25/25 H istory fluorometholone 0.1 % eye 1 drp ophthalmic (eye) DAILY 11/0907/25/25 History drops,suspension pantoprazole 20 mg tablet,delayed 20 mg PO DAILY 05/13/20 07/25/25 History release lancing device with lancets kit #100 ea 11/20/20 05/22/25 Rx (OneTouch DelAxenic Dental Lancing Device kit) blood-glucose meter (OneTouch #1 ea 12/24/21 05/22/25 Rx Verio Meter) propylene glycol 0.6 % eye drops 1 drp ophthalmic (eye) BID-TID PRN 06/09/23 07/25/25 History (Systane Balance) lancing device with lancets kit #100 ea 09/15/23 05/22/25 Rx handicap placard #1 ea 03/15/24 05/22/25 Rx blood sugar diagnostic (OneTouch #100 ea 04/07/24 05/22/25 Rx Verio test strips) atorvastatin 40 mg tablet 40 mg PO QHS #90 tabs 08/14/2409/08 Rx metoprolol succinate 50 mg 50 mg PO BID #180 tabs 08/14/24 Rx tablet,extended release 24 hr cetirizine 10 mg tablet See Rx Instructions .Route 5 07/25/25 Rx .COMPLEX #90 TABLETS doxazosin 4 mg tablet (Cardura) 4 mg PO DAILY #90 tabs 02/16/25 Rx Handicap placard #1 ea 02/28/25 05/22/25 Rx metformin 500 mg tablet,extended 500 mg PO QDAY #90 tabs 02/28/25 0 07/25/25 Rx release 24 hr timolol maleate 0.5 % eye drops 1 drp ophthalmic (eye) BID 5 07/25/25 History docusate sodium 100 mg tablet 100 mg PO 3XW 06/21/25 07/25/25 Hi story fluoride (sodium) 1.1 % dental 1 applic PO QDAY 06/21/25 07/25/25 History cream (Denta 5000 Plus) dapagliflozin propanediol 10 mg 10 mg PO DAILY #90 tabs 07/19/25 0 07/25/25 Rx tablet (Farxiga) semaglutide 2 mg/dose (8 mg/3 mL) 1.3333 mg (0.5 mL) subcut QWEEK # 3 07/19/25 07/25/25 Rx subcutaneous pen injector (Ozempic) mL losartan 50 mg tablet 50 mg PO QDAY #30 tabs 07/25/25 Rx Ejection fraction %: 65 Have you fallen in the past year?: No [facility] Medical History Painful ejac (more content not included)... Normal [facility] Internal Medicine Office Vis itoshelbi 06-21-2025 Internal Medicine Office Visit [facility] [address] [place] [address] OFFICE VISIT Date of Service: 06/21/25 MR#: [id number] Acct: [id number] Name: LALITHA JASON Rep #: [id number] : 1945 Provider: ADONAY joyce Age/Sex: 80/M Location: [facility] Status: Signed Intake Vital Signs 05/22/25 14:56 06/21/25 14:58 Height 5 ft 7 in 5 ft 7 in Weight: 219 lb 219 lb BMI 34.2 34.2 BP 104/58 L 114/58 L Blood Pressure Location Lt brachial Lt brachial Position Sitting Sitting Respiration 16 16 Pulse 78 80 Pulse Source Monitor Monitor Temp 96.9 F L 96.7 F L Temp Source Temporal Temporal Pulse Oximetry (%) 96 97 Oxygen Delivery Method room air room air Intake Visit Reasons: ACUTE IRREGULAR HEARTBEAT [employer] Diver Required: No Accompanied by: Self Is patient in pain?: No Allergies meperidine (From Demerol) Allergy (Severe, Verified 06/21/25 14:50) other lisinopril Adverse Reaction (Intermediate, Verified 06/21/25 14:50) cough aspirin Adverse Reaction (Unknown, Verified 06/21/25 14:50) kidney failure ibuprofen Adverse Reaction (Unknown, Verified 06/21/25 14:50) Kidney Failure Penicillins (cillins) Adverse Reaction (Verified 06/21/25 14:50) kidney failure Medications ???Medication ???Instructions ???Recorded ???Confirmed ???Type aspirin 81 mg chewable tablet 1 tab PO DAILY 10/04/19 06/21/25 H istory fluorometholone 0.1 % eye 1 drp ophthalmic (eye) DAILY 11/0906/21/25 History drops,suspension pantoprazole 20 mg tablet,delayed 20 mg PO DAILY 05/13/20 06/21/25 History release lancing device with lancets kit #100 ea 11/20/20 05/22/25 Rx (OneTouch DelAxenic Dental Lancing Device kit) blood-glucose meter (OneTouch #1 ea 12/24/21 05/22/25 Rx Verio Meter) propylene glycol 0.6 % eye drops 1 drp ophthalmic (eye) BID-TID PRN 06/09/23 06/21/25 History (Systane Balance) lancing device with lancets kit #100 ea 09/15/23 05/22/25 Rx handicap placard #1 ea 03/15/24 05/22/25 Rx blood sugar diagnostic (OneTouch #100 ea 04/07/24 05/22/25 Rx Verio test strips) atorvastatin 40 mg tablet 40 mg PO QHS #90 tabs 08/14/2406/08 Rx metoprolol succinate 50 mg 50 mg PO BID #180 tabs 08/14/24 Rx tablet,extended release 24 hr cetirizine 10 mg tablet See Rx Instructions .Route 5 06/21/25 Rx .COMPLEX #90 TABLETS doxazosin 4 mg tablet (Cardura) 4 mg PO DAILY #90 tabs 02/16/25 Rx Handicap placard #1 ea 02/28/25 05/22/25 Rx metformin 500 mg tablet,extended 500 mg PO QDAY #90 tabs 02/28/25 0 06/21/25 Rx release 24 hr semaglutide 1 mg/dose (4 mg/3 mL) 2 mg subcut QWEEK 02/28/25 History subcutaneous pen injector (Ozempic) timolol maleate 0.5 % eye drops 1 drp ophthalmic (eye) BID 5 06/21/25 History dapagliflozin propanediol 10 mg 10 mg PO DAILY #90 tabs 04/05/25 0 06/21/25 Rx tablet (Farxiga) amlodipine 5 mg tablet 5 mg PO DAILY #90 TABLETS 05/22/25 06/21/25 Rx semaglutide 2 mg/dose (8 mg/3 mL) 1.3333 mg (0.5 mL) subcut QWEEK # 3 05/25/25 06/21/25 Rx subcutaneous pen injector (Ozempic) mL docusate sodium 100 mg tablet 100 mg PO 3XW 06/21/25 06/21/25 Hi story fluoride (sodium) 1.1 % dental 1 applic PO QDAY 06/21/25 06/21/25 History cream (Denta 5000 Plus) tizanidine 4 mg tablet 4 mg PO Q8H PRN 06/21/25 06/21/25 History Have you fallen in the past year?: No PFSH Medical History Painful ejaculation Hyperlipidemia BPH (benign prostatic hyperplasia) Atherosclerosis of coronary artery of [place] heart without angina pectoris Enlarged prostate Stage 3 chronic kidney disease Carpal tunnel syndrome Arthritis Type 2 diabetes mellitus Hypertension GERD (gastroesophageal reflux disease) Surgical History S/P cervical disc replacement 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 History of tonsillectomy H/O rhinoplasty Family History Mother Hypertension Heart disease Hyperlipemia Father Hypertension Hyperlipemia Heart disease Diabetes Grandfather Diabetes Social History Smoking Status: Former smoker how long ago did patient quit smokin alcohol intake: current alcohol intake frequency: a few times a week Alcohol type: hard liquor substance use type: does not use caffeine: Yes Type: coffee Number of servings: 3 what type of physical activity do you participate in: walking, aerobics and weight training frequency: daily HPI HPI Details: LALITHA JASON, is a 80 M who presents to the office today for complaints of palpitations. Onset: Symptoms began approximately three wee (more content not included)... Normal [facility] Internal Medicine Office Vis iton 05-22-2025 Internal Medicine Office Visit [facility] [address] [address] [place] [address] OFFICE VISIT Date of Service: 05/22/25 MR#: [id number] Acct: [id number] Name: LALITHA JASON Rep #: [id number] : 1945 Provider: Dr. Gayle Coley Br own, DO Age/Sex: 80/M Location: [facility] Status: Signed Intake Vital Signs 02/28/25 15:16 05/22/25 14:56 Height 5 ft 7 in 5 ft 7 in Weight: 214 lb 219 lb BMI 33.5 34.2 BP 118/70 104/58 L Blood Pressure Location Lt brachial Lt brachial Position Sitting Sitting Respiration 16 16 Pulse 81 78 Pulse Source Monitor Monitor Temp 98.0 F 96.9 F L Temp Source Temporal Temporal Pulse Oximetry (%) 93 96 Oxygen Delivery Method room air room air Intake Visit Reasons: 3 M FU Chief Complaint: 3 M FU [employer] Diver Required: No Accompanied by: Self Is patient in pain?: No Allergies meperidine (From Demerol) Allergy (Severe, Verified 05/22/25 14:48) other lisinopril Adverse Reaction (Intermediate, Verified 05/22/25 14:48) cough aspirin Adverse Reaction (Unknown, Verified 05/22/25 14:48) kidney failure ibuprofen Adverse Reaction (Unknown, Verified 05/22/25 14:48) Kidney Failure Penicillins (cillins) Adverse Reaction (Verified 05/22/25 14:48) kidney failure Medications ???Medication ???Instructions ???Recorded ???Confirmed ???Type aspirin 81 mg chewable tablet 1 tab PO DAILY 10/04/19 05/22/25 H istory fluorometholone 0.1 % eye 1 drp ophthalmic (eye) DAILY 11/0905/22/25 History drops,suspension pantoprazole 20 mg tablet,delayed 20 mg PO DAILY 05/13/20 05/22/25 History release lancing device with lancets kit #100 ea 11/20/20 05/22/25 Rx (OneTouch Delica Lancing Device kit) blood-glucose meter (Cross CurrentTouch #1 ea 12/24/21 05/22/25 Rx Verio Meter) propylene glycol 0.6 % eye drops 1 drp ophthalmic (eye) BID-TID PRN 06/09/23 05/22/25 History (Systane Balance) lancing device with lancets kit #100 ea 09/15/23 05/22/25 Rx handicap placard #1 ea 03/15/24 05/22/25 Rx blood sugar diagnostic (OneTouch #100 ea 04/07/24 05/22/25 Rx Verio test strips) atorvastatin 40 mg tablet 40 mg PO QHS #90 tabs 08/14/2407/09 Rx metoprolol succinate 50 mg 50 mg PO BID #180 tabs 08/14/24 Rx tablet,extended release 24 hr cetirizine 10 mg tablet See Rx Instructions .Route 5 05/22/25 Rx .COMPLEX #90 TABLETS doxazosin 4 mg tablet (Cardura) 4 mg PO DAILY #90 tabs 02/16/25 Rx Handicap placard #1 ea 02/28/25 05/22/25 Rx metformin 500 mg tablet,extended 500 mg PO QDAY #90 tabs 02/28/25 0 05/22/25 Rx release 24 hr semaglutide 1 mg/dose (4 mg/3 mL) 2 mg subcut QWEEK 02/28/25 History subcutaneous pen injector (Ozempic) timolol maleate 0.5 % eye drops 1 drp ophthalmic (eye) BID 5 05/22/25 History semaglutide 2 mg/dose (8 mg/3 mL) 2 mg (0.75 mL) subcut QWEEK #3 mL 03/29/25 05/22/25 Rx subcutaneous pen injector dapagliflozin propanediol 10 mg 10 mg PO DAILY #90 tabs 04/05/25 0 05/22/25 Rx tablet (Farxiga) amlodipine 5 mg tablet 5 mg PO DAILY #90 TABLETS 05/22/25 05/22/25 Rx Have you fallen in the past year?: No PFSH Medical History Painful ejaculation Hyperlipidemia BPH (benign prostatic hyperplasia) Atherosclerosis of coronary artery of [place] heart without angina pectoris Enlarged prostate Stage 3 chronic kidney disease Carpal tunnel syndrome Arthritis Type 2 diabetes mellitus Hypertension GERD (gastroesophageal reflux disease) Surgical History S/P cervical disc replacement 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 History of tonsillectomy H/O rhinoplasty Family History Mother Hypertension Heart disease Hyperlipemia Father Hypertension Hyperlipemia Heart disease Diabetes Grandfather Diabetes Social History Smoking Status: Former smoker how long ago did patient quit smokin alcohol intake: current alcohol intake frequency: a few times a week Alcohol type: hard liquor substance use type: does not use caffeine: Yes Type: coffee Number of servings: 3 what type of physical activity do you participate in: walking, aerobics and weight training frequency: daily HPI HPI Chief Complaint: 3 M FU Details: LALITHA JASON, is a 80 M who presents to the office today for follow up on his diabetes. He has lost some weight, feels well. His left eye has recovered to some degree. ROS Const Constitutional: No body ache, excessive sweating, fatigue, fever(s), frequent falls, headache(s), snoring, weakness, weight change, sleep problems or change in appetite Eyes E (more content not included)... Normal [facility] - Hematology and Cell countsOrdered By: Gayle Petit on 05-22-2025 HbA1c (Bld) [Mass fraction] 8.0 % High 4.2-6.3 [facility] .GFRon 03-13-2025 Estimated Glomerular Filtration Rate 44 ml/min/1.73sqm Normal [facility] Comment on above: Result Comment: Stages of Chronic Kidney Disease (CKD) Stage Description eGFR(ml/min/1.73 sq.m.) CKD 1 Normal kidney function or >=90 normal kindney function with possible kidney damage (ex. Proteinuria) CKD 2 Kidney damage with mild loss 60-89 of kidney function CKD 3a Mild to moderate loss of kidney 45-59 function CKD 3b Moderate to severe loss of 30-44 of kindey function CKD 4 Severe loss of kidney function 15-29 CKD 5 Kidney failure <15 Note: (go live 2024) the eGFR calculation was updated to the 2020 CKD-EPI creatinine equation without a race factor to calculate the eGFR results. Performed By: #### G , RFP #### [place] [id number] [place], [place] [address] LABORATORYOrdered By: SYSTEM SYSTEM on 03-13-2025 Albumin BCP dye [Mass/Vol] 3.7 G/dL Normal 3.4 - 4.8 G/dL AO ADM SS Calcium [Mass/Vol] 9.1 mg/dL Normal 8.4 - 10. 2 mg/dL AO ADM SS Chloride [Moles/Vol] 100 mmol/L Normal 98 - 10 7 mmol/L AO ADM SS CO2 [Moles/Vol] 30 mmol/L Normal 23 - 31 mmol/L AO ADM SS Creatinine [Mass/Vol] 1.61 mg/dL High 0.67 - 1.17 mg/dL AO ADM SS Electrolyte Balance 6.0 mEq/L Normal 4.0 - 15 .0 mEq/L AO ADM SS Estimated Glomerular Filtration Rate 44 ml/min/1.73sqm Invalid Interpretation Code AO Chemistry S Comment on above: Interpretive Data: Stages of Chronic Kidney Disease (CKD) Stage Description eGFR(ml/min/1.73 sq.m.) CKD 1 Normal kidney function or >=90 normal kindney function with possible kidney damage (ex. Proteinuria) CKD 2 Kidney damage with mild loss 60-89 of kidney function CKD 3a Mild to moderate loss of kidney 45-59 function CKD 3b Moderate to severe loss of 30-44 of kindey function CKD 4 Severe loss of kidney function 15-29 CKD 5 Kidney failure <15 Note: ( live 12/19/2024) the eGFR calculation was updated to the 2020 CKD-EPI creatinine equation without a race factor to calculate the eGFR results. Glucose [Mass/Vol] 164 mg/dL High 83 - 110 mg/dL AO ADM SS Phosphate [Mass/Vol] 3.8 mg/dL Normal 2.3 - 4 .1 mg/dL AO ADM SS Potassium [Moles/Vol] 4.0 mmol/L Normal 3.5 - 5.1 mmol/L AO ADM SS Sodium [Moles/Vol] 136 mmol/L Normal 136 - 145 mmol/L AO ADM SS Urea nitrogen [Mass/Vol] 17 mg/dL Normal 7 - 18 mg/dL AO ADM SS Urea nitrogen/Creatinine [Mass ratio] 11 ratio Normal 7 - 27 ratio AO ADM SS LABORATORYOrdered By: Yris Ramey on 03-13-2025 Creatinine (U) [Mass/Vol] 78.0 mg/dL Normal 40.0 - 278.0 mg/dL AO ADM SS Protein (U) [Mass/Vol] 14 mg/dL Invalid Interpretation Code AO ADM SS U Ratio Prot/Creat 0.2 ratio Invalid Interpretation Code AO Chemistry S RFPon 03-13-2025 Albumin Level 3.7 G/dL Normal 3.4-4.8 [facility] Comment on above: Performed By: #### G FR, RFP #### [address] [address] BUN/Creatinine Ratio 11 ratio Normal 7-27 [facility] Comment on above: Performed By: #### G FR, RFP #### [address] [address] Calcium [Mass/Vol] 9.1 mg/dL Normal 8.4-10.2 [facility] Comment on above: Performed By: #### G FR, RFP #### [address] [address] Chloride [Moles/Vol] 100 mmol/L Normal 98-107 [facility] Comment on above: Performed By: #### G FR, RFP #### [address] [address] CO2 [Moles/Vol] 30 mmol/L Normal 23-31 [facility] Comment on above: Performed By: #### G FR, RFP #### [address] [address] Creatinine [Mass/Vol] 1.61 mg/dL High 0.67-1.17 [facility] Comment on above: Performed By: #### G FR, RFP #### [address] [address] Electrolyte Balance 6.0 mEq/L Normal 4.0-15.0 [facility] Comment on above: Performed By: #### G FR, RFP #### [address] [address] Glucose [Mass/Vol] 164 mg/dL High 83-110 [facility] Comment on above: Performed By: #### G FR, RFP #### [address] [address] Phosphate [Mass/Vol] 3.8 mg/dL Normal 2.3-4.1 [facility] Comment on above: Performed By: #### G FR, RFP #### [address] [address] Potassium [Moles/Vol] 4.0 mmol/L Normal 3.5-5.1 [facility] Comment on above: Performed By: #### G FR, RFP #### [address] [address] Sodium [Moles/Vol] 136 mmol/L Normal 136-145 [facility] Comment on above: Performed By: #### G , RFP #### [address] [address] Urea nitrogen [Mass/Vol] 17 mg/dL Normal 7-18 [facility] Comment on above: Performed By: #### G , RFP #### [address] [address] RPCURon 03-13-2025 U Creatinine 78.0 mg/dL Normal 40.0-278.0 [facility] Comment on above: Performed By: #### R PCUR #### [address] [address] U Protein 14 mg/dL Normal [facility] Comment on above: Performed By: #### R PCUR #### [address] [address] U Ratio Prot/Creat 0.2 ratio Normal [facility] Comment on above: Performed By: #### R PCUR #### [address] [address] Post Void Residual Bladderon 03-03-2025 Post Void Residual Bladder [facility] Services [address] [place] [address] Post Void Residual Bladder MR#: [id number] Acct: [id number] Name: LALITHA JASON Rep #: [id number] : 1945 M 79 From: Sarabjit Whelan DO PCP: Dr. Gayle Petit, DO Status: REG CLI Study: Post Void Residual Bladder Date of Exam: 03/03 Exam# [id number] Ordering Dr: Gayle Petit DO PROCEDURE: POST VOID RESIDUAL BLADDER 03/03/2025 REASON FOR EXAM: URINARY RETENTION TECHNIQUE: Bladder ultrasound dubois-scale images with color doppler. PATIENT PREPARATION: Per protocol COMPARISON: None FINDINGS: Prevoid urinary bladder measures 5.9 x 4.3 x 5.8 cm, for an estimated volume of 77.68 mL. Bladder wall measures 1.9 mm, within normal limits. No bladder calculi or masses are identified. The ureteral jets were not visualized during imaging. Postvoid urinary bladder measures 3.96 x 2.8 x 4.2 cm, for an estimated volume of 24.81 mL US/Post Void Residual Bladder IMPRESSION: Postvoid residual measures 24.81 mL. (Void volume is 52.87 mL) Reading Location: [facility] CC: Dr. 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 Gayle bonilla DO Age/Sex: 79/M Location: [facility] Status: Signed Intake Vital Signs 11/29/24 15:21 02/28/25 15:16 Height 5 ft 7 in 5 ft 7 in Weight: 218 lb 214 lb BMI 34.1 33.5 BP 118/72 118/70 Blood Pressure Location Lt brachial Lt brachial Position Sitting Sitting Respiration 16 16 Pulse 86 81 Pulse Source Monitor Monitor Temp 97.6 F L 98.0 F Temp Source Temporal Temporal Pulse Oximetry (%) 95 93 Oxygen Delivery Method room air room air Intake Visit Reasons: 3 M FU Chief Complaint: 3 M FU Is patient in pain?: No Allergies meperidine (From Demerol) Allergy (Severe, Verified 02/28/25 15:08) other lisinopril Adverse Reaction (Intermediate, Verified 02/28/25 15:08) cough aspirin Adverse Reaction (Unknown, Verified 02/28/25 15:08) kidney failure ibuprofen Adverse Reaction (Unknown, Verified 02/28/25 15:08) Kidney Failure Penicillins (cillins) Adverse Reaction (Verified 02/28/25 15:08) kidney failure Medications ???Medication ???Instructions ???Recorded ???Confirmed ???Type aspirin 81 mg chewable tablet 1 tab PO DAILY 10/04/19 02/28/25 H istory fluorometholone 0.1 % eye 1 drp ophthalmic (eye) DAILY 11/0902/28/25 History drops,suspension pantoprazole 20 mg tablet,delayed 20 mg PO DAILY 05/13/20 02/28/25 History release lancing device with lancets kit #100 ea 11/20/20 02/28/25 Rx (OneTouch Delica Lancing Device kit) blood-glucose meter (OneTouch #1 ea 12/24/21 02/28/25 Rx Verio Meter) propylene glycol 0.6 % eye drops 1 drp ophthalmic (eye) BID-TID PRN 06/09/23 02/28/25 History (Systane Balance) lancing device with lancets kit #100 ea 09/15/23 02/28/25 Rx handicap placard #1 ea 03/15/24 02/28/25 Rx blood sugar diagnostic (OneTouch #100 ea 04/07/24 02/28/25 Rx Verio test strips) atorvastatin 40 mg tablet 40 mg PO QHS #90 tabs 08/14/24 Rx metoprolol succinate 50 mg 50 mg PO BID #180 tabs 08/14/24 Rx tablet,extended release 24 hr amlodipine 10 mg tablet 10 mg PO DAILY #90 TABLETS 4 02/28/25 Rx dapagliflozin propanediol 10 mg 10 mg PO DAILY #90 tabs 10/17/24 0 02/28/25 Rx tablet (Farxiga) semaglutide 2 mg/dose (8 mg/3 mL) 2 mg (0.75 mL) subcut QWEEK #3 mL 11/29/24 02/28/25 Rx subcutaneous pen injector cetirizine 10 mg tablet See Rx Instructions .Route 5 02/28/25 Rx .COMPLEX #90 TABLETS doxazosin 4 mg tablet (Cardura) 4 mg PO DAILY #90 tabs 02/16/25 Rx Handicap placard #1 ea 02/28/25 02/28/25 Rx metformin 500 mg tablet,extended 500 mg PO QDAY #90 tabs 02/28/25 0 02/28/25 Rx release 24 hr semaglutide 1 mg/dose (4 mg/3 mL) 2 mg subcut QWEEK 02/28/25 Histo ry subcutaneous pen injector (Ozempic) timolol maleate 0.5 % eye drops 1 drp ophthalmic (eye) BID 5 02/28/25 History Have you fallen in the past year?: No Nurse's Note: REQUESTING RENEWAL OF HANDICAP PLACARD FOR 5 YEARS. 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 History of tonsillectomy H/O rhinoplasty Family History Mother Hypertension Heart disease Hyperlipemia Father Hypertension Hyperlipemia Heart disease Diabetes Grandfather Diabetes Social History Smoking Status: Former smoker how long ago did patient quit smokin alcohol intake: current alcohol intake frequency: a few times a week Alcohol type: hard liquor substance use type: does not use caffeine: Yes Type: coffee Number of servings: 3 what type of physical activity do you participate in: walking, aerobics and weight training frequency: daily HPI HPI Chief Complaint: 3 M FU Details: LALITHA JASON, is a 79 M who presents to the office today for for follow-up on his diabetes. He says he feels well but he still having difficulty especially in the evening when he feels he cannot empty his bladder completely. He has had problems with a cold and is only recently getting over a rather severe episode of chest congestion for which she was seen at an urgen (more content not included)... Normal [facility] Laboratory - Hematology and Cell countsOrdered By: Gayle Petit on 02-28-2025 HbA1c (Bld) [Mass fraction] 8.6 % High 4.2-6.3 [facility] Final Surgical Pathology Rep guy 02-21-2025 Final Surgical Pathology Report . Pathology Reports Accession: Collected Date/Time: Received Date/Time: Pathologist: [id number] 02/19/2025 10:54 EDT 02/20/2025 08:03 EDT HARDIK FLAHERTY MD Final Surgical Pathology Report DIAGNOSIS: MID ASCENDING COLON, POLYPECTOMY, POLYPECTOMY: - TUBULAR ADENOMA CLINICAL INFORMATION: Procedure: COLONOSCOPY WITH POLYPECTOMY Preoperative diagnosis: HISTORY OF COLON POLYPS Postoperative diagnosis: HISTORY OF COLON POLYPS SPECIMEN: A MID ASCENDING COLON POLYP GROSS DESCRIPTION: All parts labelled with patient name and [id number] Received in formalin labeled mid ascending colon polyp are multiple bernal-pink tissue fragments aggregating 2.8 x 0.3 x 0.2 cm. TS-1 Mayi Rudolph, Grossing Supervisor Record Press/ Dr. Hardik Flaherty, Pathologist Performed by Mayi Rudolph MICROSCOPIC DESCRIPTION: The microscopic examination is performed, except in the case of Gross Only. Verified by Pathology Report verified by [facility] HARDIK FLAHERTY Sign out Date: 02/21/2025 17:01 Performing Lab: [facility], [address] [place] [address] Pathology Dept Disclaimer If ancillary studies were utilized, the following Laboratory Developed Test (LDT) disclaimer will apply: Under CLIA requirements, [facility] is qualified to perform high complexity testing. For all ancillary stains, positive and negative controls stain appropriately. Performance characteristics of immunohistochemical and chromogenic in-situ hybridization tests have been determined by [facility]. These tests are used for clinical purposes, They should not be regarded as investigational or for research. . Normal [facility] CNOVon 02-05-2025 CNOV Office Visit ([facility] ) LALITHA JASON ([id number]) 1945 M Date Time Provider Department 02/05/25 10:30 AM [facility] During your visit today, we recorded the following information about you: Temperature Pulse Respiration Blood pressure 98 degrees 101/minute 18/minute 115/67 Weight 98 kg Miguel Freedman Jr., TRANSFORMER BUILDER.EQUIPMENT HIRE MANAGER 02/05/2025 11:28 AM Signed [facility] Subjective Lalitha Jason is a 79 year old male. Patient presents with: Cough: Cough started 6 days ago, 3 days ago cough became productive and can feel rattling in chest - @home -neg covid test 79-year-old male accompanied by his spouse presents today complaining of cough by 6 days. He states the cough is worse when laying supine. He denied the cough getting worse at night or coughing so hard it makes him throw up. He notes some wheezing and has been using [id number] Robitussin DM with good effect. Patient had quadruple cardiac bypass and his spouse is worried about pneumonia. The history is provided by the patient and the spouse. Review of Systems Constitutional: Negative for fever. HENT: Negative for sore throat. Eyes: Positive for visual disturbance. Respiratory: Positive for cough and wheezing. Negative for chest tightness and shortness of breath. Cardiovascular: Negative for chest pain. Musculoskeletal: Negative for myalgias. Neurological: Negative for headaches. Objective BP 115/67 Pulse 101 Temp 36.7 ?C (98 ?F) Resp 18 Wt 98 kg (216 lb) SpO2 95% BMI 33.83 kg/m? Physical Exam Vitals and nursing note reviewed. Constitutional: Appearance: Normal appearance. HENT: Head: Normocephalic and atraumatic. Nose: Nose normal. Mouth/Throat: Mouth: Mucous membranes are moist. Pharynx: Oropharynx is clear. Eyes: Conjunctiva/sclera: Conjunctivae normal. Comments: Left eye is watering. Cardiovascular: Rate and Rhythm: Normal rate and regular rhythm. Heart sounds: Normal heart sounds. Pulmonary: Effort: Pulmonary effort is normal. Breath sounds: Normal breath sounds. No stridor. No wheezing or rales. Abdominal: General: Bowel sounds are normal. Palpations: Abdomen is soft. Musculoskeletal: Right lower leg: No edema. Left lower leg: No edema. Skin: General: Skin is warm and dry. Neurological: Mental Status: He is alert and oriented to person, place, and time. Psychiatric: Behavior: Behavior normal. Radiographic examination of the chest ordered. Sternal surgical clips noted. 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 Reactive airway disease present with no other abnormalities noted. Awaiting radiology report for confirmation. Assessment AND Plan Acute cough Diagnosed patient with an acute cough. I would also consider bronchitis and/or pneumonia. The latter diagnosis is not supported by the x-ray. Because of patient's extensive medical history I did prescribe him doxycycline. I considered an albuterol inhaler however patient is on timolol and I felt as I was not hearing wheezing and he states his symptoms seem to be improving and decided to not prescribe the medication. I did prescribe him Mucinex DM to help liquefy the lung secretions to make it easier for the patient to cough it out. I did discuss the importance of knowing caffeinated beverages to keep himself well-hydrated. Patient informed to follow-up with his primary care physician if symptoms do not resolve. Orders: XR CHEST 2V FRONTAL/LAT; Future dextromethorphan-guaiF ENesin (MUCINEX DM) 60-1,200 mg tablet; Take 1 tablet by mouth two times a day for 10 days. doxycycline hyclate (VIBRAMYCIN) 100 mg capsule; Take 1 capsule by mouth two times a day for 7 days. Wheezing Orders: doxycycline hyclate (VIBRAMYCIN) 100 mg capsule; Take 1 capsule by mouth two times a day for 7 days. MDM Procedures Tano, Miguel J Jr., BOBBY 02/05/2025 11:21 AM Signed Take medications as prescribed. Follow-up with PCP or return if symptoms do not resolve visit Urgent Care. Drink plenty of non-caffeinated fluids. Allergies As of Date: 02/05/2025 Noted Allergy Reaction ASPIRIN 02/05/2025 14 - Other: See Comments DEMORAL (MEPERIDINE) 01/13/2008 5 - Intolerance Comments: Made mouth feel like he had cotton in it,and arms went limp. LISINOPRIL 02/05/2025 3 - Cough PENICILLINS 02/05/2025 14 - Other: See Comments Date Reviewed: 02/05/2025 Reviewed by: Miguel Freedman Jr., ABEBA.EQUIPMENT HIRE MANAGER - Fully Assessed Reason for Visit: Cough [28] Cmt: Cough started 6 days ago, 3 days ago cough became productive and can feel rattling in chest - @home -neg covid test Primary Visit Diagnosis:Acute cough [R05.1] Other Visit Diagnosis:Wheezing [R06.2] Order(s):XR CHEST 2V FRONTAL/LAT [[id number]] Order #: [id number] FUTURE dextromethorphan-guaiF ENesin (MUCINEX DM) 60-1,200 mg tabletTake 1 (more content not included)... Normal [facility] XR CHEST 2V FRONTAL/LATon XR CHEST 2V FRONTAL/LAT * * *Final Report* * * DATE OF EXAM: Feb 05 2025 11:23AM RMX [id number] - XR CHEST 2V FRONTAL/LAT / PROCEDURE REASON: Acute cough * * * * Physician Interpretation * * * * EXAMINATION: CHEST RADIOGRAPH (2 VIEW FRONTAL and LATERAL) CLINICAL HISTORY: Acute cough MQ: [id number] EXAM DATE/TIME: 02/05/2025 11:23 AM COMPARISON: No relevant prior studies available. RESULT: Lines, tubes, and devices: Median sternotomy wires. Lungs and pleura: No consolidation. No lung mass. No pleural effusion. No pneumothorax. Cardiomediastinal silhouette: Normal cardiomediastinal silhouette. Atherosclerotic aorta. Bones and soft tissues: Degenerative changes are present within the thoracic spine. IMPRESSION: No acute radiographic abnormality. Batterboard Setter: PSCB Transcribe Date/Time: Feb 06 2025 8:49A Dictated by : GASPER COOL MD This examination was interpreted and the report reviewed and electronically signed by: GASPER COOL MD on Feb 06 2025 8:53AM EST [id number] Normal [facility] Internal Medicine Office Vis iton 11-29-2024 Internal Medicine Office Visit [facility] [address] [place] [address] OFFICE VISIT Date of Service: 11/29/24 MR#: [id number] Acct: [id number] Name: LALITHA JASON Rep #: [id number] : 1945 Provider: Dr. Gayle bonilla DO Age/Sex: 79/M Location: [facility] [place] Status: Signed Intake Vital Signs 08/29/24 15:24 11/29/24 15:21 Height 5 ft 7 in 5 ft 7 in Weight: 223 lb 8 oz 218 lb BMI 34.9 34.1 BP 124/70 H 118/72 Blood Pressure Location Lt brachial Lt brachial Position Sitting Sitting Respiration 16 16 Pulse 78 86 Pulse Source Monitor Monitor Temp 97.3 F L 97.6 F L Temp Source Temporal Temporal Pulse Oximetry (%) 95 95 Oxygen Delivery Method room air room air Intake Visit Reasons: 3 M FU Chief Complaint: discuss meds Geoduck Diver Required: No Accompanied by: Self Is patient in pain?: No Allergies meperidine (From Demerol) Allergy (Severe, Verified 11/29/24 15:20) other lisinopril Adverse Reaction (Intermediate, Verified 11/29/24 15:20) cough aspirin Adverse Reaction (Unknown, Verified 11/29/24 15:20) kidney failure ibuprofen Adverse Reaction (Unknown, Verified 11/29/24 15:20) Kidney Failure Penicillins (cillins) Adverse Reaction (Verified 11/29/24 15:20) kidney failure Medications ???Medication ???Instructions ???Recorded ???Confirmed ???Type aspirin 81 mg chewable tablet 1 tab PO DAILY 10/04/19 11/29/24 History fluorometholone 0.1 % eye 1 drp ophthalmic (eye) DAILY 11/09/19 11/29/24 History drops,suspension timolol maleate 0.5 % eye drops ml ophthalmic (eye) 04/17/20 11/29/24 History pantoprazole 20 mg tablet,delayed 20 mg PO DAILY 05/13/20 11/29/24 History release lancing device with lancets kit #100 ea 11/20/20 11/29/24 Rx (OneTouch Delica Lancing Device kit) blood-glucose meter (OneTouch #1 ea 12/24/21 11/29/24 Rx Verio Meter) sildenafil 100 mg tablet (Viagra) 100 mg PO DAILY PRN sexual 12/02/22 11/29/24 Rx activity #10 tabs propylene glycol 0.6 % eye drops 1 drp ophthalmic (eye) BID-TID PRN 06/09/23 11/29/24 History (Systane Balance) lancing device with lancets kit #100 ea 09/15/23 11/29/24 Rx doxazosin 4 mg tablet (Cardura) 4 mg PO DAILY #90 tabs 02/15/24 11/29/24 Rx handicap placard #1 ea 03/15/24 11/29/24 Rx tizanidine 4 mg tablet 4 mg PO TID 03/15/24 11/29/24 History blood sugar diagnostic (OneTouch #100 ea 04/07/24 11/29/24 Rx Verio test strips) atorvastatin 40 mg tablet 40 mg PO QHS #90 tabs 08/14/24 11/29/24 Rx cetirizine 10 mg tablet See Rx Instructions .Route 08/14/24 11/29/24 Rx .COMPLEX #90 TABLETS metoprolol succinate 50 mg 50 mg PO BID #180 tabs 08/14/24 11/29/24 Rx tablet,extended release 24 hr semaglutide 1 mg/dose (4 mg/3 mL) 1 mg (0.75 mL) subcut QWEEK #3 mL 08/29/24 11/29/24 Rx subcutaneous pen injector (Ozempic) amlodipine 10 mg tablet 10 mg PO DAILY #90 TABLETS 10/17/24 11/29/24 Rx dapagliflozin propanediol 10 mg 10 mg PO DAILY #90 tabs 10/17/24 11/29/24 Rx tablet (Farxiga) fluorouracil 5 % topical cream 1 applic topical BID 2 weeks #40 11/29/24 11/29/24 Rx (Efudex) grams semaglutide 2 mg/dose (8 mg/3 mL) 2 mg (0.75 mL) subcut QWEEK #3 mL 11/29/24 11/29/24 Rx subcutaneous pen injector Have you fallen in the past year?: No PFSH Medical History Painful ejaculation Hyperlipidemia BPH (benign prostatic hyperplasia) Atherosclerosis of coronary artery of [place] heart without angina pectoris Enlarged prostate Stage 3 chronic kidney disease Carpal tunnel syndrome Arthritis Type 2 diabetes mellitus Hypertension GERD (gastroesophageal reflux disease) Surgical History S/P cervical disc replacement 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 History of tonsillectomy H/O rhinoplasty Family History Mother Hypertension Heart disease Hyperlipemia Father Hypertension Hyperlipemia Heart disease Diabetes Grandfather Diabetes Social History Smoking Status: Former smoker how long ago did patient quit smokin alcohol intake: current alcohol intake frequency: a few times a week Alcohol type: hard liquor substance use type: does not use caffeine: Yes Type: coffee Number of servings: 3 what type of physical activity do you participate in: walking, aerobics and weight training frequency: daily HPI HPI Chief Complaint: discuss meds Details: LALITHA JASON, is a 79 M who presents to the office today for a follow-up visit after starting Ozempic. He says he is really not noticed much difference in his blood sugar numbers although he has lost 5 pounds since starting the Ozempic. He also says t (more content not included)... Normal [facility] Internal Medicine Office Vis michael 08-29-2024 Internal Medicine Office Visit [facility] [address] [place] [address] [place] [address] OFFICE VISIT Date of Service: 08/29/24 MR#: [id number] Acct: [id number] Name: LALITHA JASON Rep #: [id number] : 1945 Provider: Dr. Gayle R Br own, DO Age/Sex: 79/M Location: [facility] [place] Status: Signed Intake Vital Signs 06/21/24 14:27 08/29/24 15:24 Height 5 ft 7 in 5 ft 7 in Weight: 218 lb 223 lb 8 oz BMI 34.1 34.9 BP 120/60 124/70 H Blood Pressure Location Lt brachial Lt brachial Position Sitting Sitting Respiration 16 16 Pulse 79 78 Pulse Source Monitor Monitor Temp 97.6 F L 97.3 F L Temp Source Temporal Temporal Pulse Oximetry (%) 98 95 Oxygen Delivery Method room air room air Intake Visit Reasons: DISCUSS A1C/MEDS Chief Complaint: discuss meds Geoduck Diver Required: No Accompanied by: Self Is patient in pain?: No Allergies meperidine (From Demerol) Allergy (Severe, Verified 08/29/24 15:14) other lisinopril Adverse Reaction (Intermediate, Verified 08/29/24 15:14) cough aspirin Adverse Reaction (Unknown, Verified 08/29/24 15:14) kidney failure ibuprofen Adverse Reaction (Unknown, Verified 08/29/24 15:14) Kidney Failure Penicillins (cillins) Adverse Reaction (Verified 08/29/24 15:14) kidney failure Medications ???Medication ???Instructions ???Recorded ???Confirmed ???Type aspirin 81 mg chewable tablet 1 tab PO DAILY 10/04/19 08/29/24 History fluorometholone 0.1 % eye 1 drp ophthalmic (eye) DAILY 11/09/19 08/29/24 History drops,suspension timolol maleate 0.5 % eye drops ml ophthalmic (eye) 04/17/20 08/29/24 History pantoprazole 20 mg tablet,delayed 20 mg PO DAILY 05/13/20 08/29/24 History release lancing device with lancets kit #100 ea 11/20/20 08/29/24 Rx (OneTouch Delica Lancing Device kit) blood-glucose meter (OneTouch #1 ea 12/24/21 08/29/24 Rx Verio Meter) sildenafil 100 mg tablet (Viagra) 100 mg PO DAILY PRN sexual 12/02/22 08/29/24 Rx activity #10 tabs propylene glycol 0.6 % eye drops 1 drp ophthalmic (eye) BID-TID PRN 06/09/23 08/29/24 History (Systane Balance) lancing device with lancets kit #100 ea 09/15/23 08/29/24 Rx amlodipine 10 mg tablet 10 mg PO QDAY #90 tabs 10/25/23 08/29/24 Rx doxazosin 4 mg tablet (Cardura) 4 mg PO DAILY #90 tabs 02/15/24 08/29/24 Rx dapagliflozin propanediol 10 mg 10 mg PO DAILY #90 tabs 03/13/24 08/29/24 Rx tablet (Farxiga) handicap placard #1 ea 03/15/24 08/29/24 Rx tizanidine 4 mg tablet 4 mg PO TID 03/15/24 08/29/24 History blood sugar diagnostic (OneTouch #100 ea 04/07/24 08/29/24 Rx Verio test strips) exenatide microspheres 2 mg/0.85 2 mg (0.85 mL) subcut QWEEK #3.4 mL 07/19/24 08/29/24 Rx mL subcutaneous auto-injector (BySimtrol) atorvastatin 40 mg tablet 40 mg PO QHS #90 tabs 08/14/24 08/29/24 Rx cetirizine 10 mg tablet See Rx Instructions .Route 08/14/24 08/29/24 Rx .COMPLEX #90 TABLETS metoprolol succinate 50 mg 50 mg PO BID #180 tabs 08/14/24 08/29/24 Rx tablet,extended release 24 hr semaglutide 1 mg/dose (4 mg/3 mL) 1 mg (0.75 mL) subcut QWEEK #3 mL 08/29/24 08/29/24 Rx subcutaneous pen injector (Ozempic) Have you fallen in the past year?: No PFSH Medical History Painful ejaculation Hyperlipidemia BPH (benign prostatic hyperplasia) Atherosclerosis of coronary artery of [place] heart without angina pectoris Enlarged prostate Stage 3 chronic kidney disease Carpal tunnel syndrome Arthritis Type 2 diabetes mellitus Hypertension GERD (gastroesophageal reflux disease) Surgical History S/P cervical disc replacement 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 History of tonsillectomy H/O rhinoplasty Family History Mother Hypertension Heart disease Hyperlipemia Father Hypertension Hyperlipemia Heart disease Diabetes Grandfather Diabetes Social History Smoking Status: Former smoker how long ago did patient quit smokin alcohol intake: current alcohol intake frequency: a few times a week Alcohol type: hard liquor substance use type: does not use caffeine: Yes Type: coffee Number of servings: 3 what type of physical activity do you participate in: walking, aerobics and weight training frequency: daily HPI HPI Chief Complaint: discuss meds Details: LALITHA JASON, is a 79 M who presents to the office today for ROS Const Constitutional: No body ache, chills, excessive sweating, fatigue, fever(s), frequent falls, headache(s), snoring, weakness or change in appetite Eyes Eyes: No blurry vision, change in vision, eye pain or Light sensitivity ENT ENT: No abnor (more content not included)... Normal [facility] LABORATORYOrdered By: SYSTEM SYSTEM on 07-25-2024 Albumin BCP dye [Mass/Vol] 3.8 G/dL Normal 3.4 - 4.8 G/dL AO ADM SS Basophils (Bld) [#/Vol] 0.0 103/mcL Normal 0.0 - 0.2 10^3/mcL AO Workflow SS Basophils/100 WBC (Bld) 0.2 % Normal 0.0 - 2.5 % AO Workflow SS Calcium [Mass/Vol] 9.1 mg/dL Normal 8.4 - 10. 2 mg/dL AO ADM SS Chloride [Moles/Vol] 100 mmol/L Normal 98 - 10 7 mmol/L AO ADM SS CO2 [Moles/Vol] 29 mmol/L Normal 23 - 31 mmol/L AO ADM SS Creatinine [Mass/Vol] 1.72 mg/dL High 0.70 - 1.30 mg/dL AO ADM SS Comment on above: Interpretive Data: T esting performed on Siemens Dimension EXL analyzer using a modified kinetic Jeff technique. Electrolyte Balance 6.0 mEq/L Normal 4.0 - 15 .0 mEq/L AO ADM SS Eosinophil, Absolute 0.1 103/mcL Normal 0.0 - 0 .4 10^3/mcL AO Workflow SS Eosinophils/100 WBC (Bld) 1.6 % Normal 0.0 - 7.0 % AO Workflow SS Erythrocyte distribution width (RBC) [Ratio] 14.0 % Normal 11.5 - 14.5 % AO Workflow SS GFR/1.73 sq M.predicted among blacks MDRD (S/P/Bld) [Vol rate/Area] 47 ml/min/1.73sqm Invalid Interpretation Code AO Chemistry S Comment on above: Interpretive Data: GFR Population mean for , Non- Americans Ages 20-29 = 116 mL/min/1.73 sq.m. Ages 30-39 = 107 mL/min/1.73 sq.m. Ages 40-49 = 99 mL/min/1.73 sq.m. Ages 50-59 = 93 mL/min/1.73 sq.m. Ages 60-69 = 85 mL/min/1.73 sq.m. Ages 70+ = 75 mL/min/1.73 sq.m. Chronic Kidney Disease: Less than 60 mL/min/1.73 square meters End Stage Renal Disease: Less than 15 mL/min/1.73 square meters GFR/1.73 sq M.predicted among non-blacks MDRD (S/P/Bld) [Vol rate/Area] 39 ml/min/1.73sqm Invalid Interpretation Code AO Chemistry S Comment on above: Interpretive Data: GFR Population mean for , Non- Americans Ages 20-29 = 116 mL/min/1.73 sq.m. Ages 30-39 = 107 mL/min/1.73 sq.m. Ages 40-49 = 99 mL/min/1.73 sq.m. Ages 50-59 = 93 mL/min/1.73 sq.m. Ages 60-69 = 85 mL/min/1.73 sq.m. Ages 70+ = 75 mL/min/1.73 sq.m. Chronic Kidney Disease: Less than 60 mL/min/1.73 square meters End Stage Renal Disease: Less than 15 mL/min/1.73 square meters Glucose [Mass/Vol] 150 mg/dL High 83 - 110 mg/dL AO ADM SS Hematocrit (Bld) [Volume fraction] 41.0 % Low 42.0 - 52.0 % AO Workflow SS Hemoglobin (Bld) [Mass/Vol] 14.3 G/dL Normal 14.0 - 18.0 G/dL AO Workflow SS Lymphocytes (Bld) [#/Vol] 2.5 103/mcL Normal 0.8 - 3.9 10^3/mcL AO Workflow SS Lymphocytes/100 WBC (Bld) 37.2 % Normal 10.0 - 50.0 % AO Workflow SS MCH (RBC) [Entitic mass] 32.7 pg High 27.0 - 31.2 pg AO Workflow SS MCHC 34.8 G/dL Normal 31.8 - 35.4 G/dL AO Workflow SS MCV (RBC) [Entitic vol] 94.0 fL Normal 80.0 - 94.0 fL AO Workflow SS Monocytes (Bld) [#/Vol] 0.7 103/mcL Normal 0.2 - 1.0 10^3/mcL AO Workflow SS Monocytes/100 WBC (Bld) 10.1 % Normal 1.7 - 13.0 % AO Workflow SS Neutrophils (Bld) [#/Vol] 3.4 103/mcL Normal 2.9 - 6.2 10^3/mcL AO Workflow SS Neutrophils/100 WBC (Bld) 50.9 % Normal 37.0 - 80.0 % AO Workflow SS Phosphate [Mass/Vol] 3.9 mg/dL Normal 2.3 - 4 .1 mg/dL AO ADM SS Platelet mean volume (Bld) [Entitic vol] 9.4 fL Normal 7.4 - 10.4 fL AO Workflow SS Platelets (Bld) [#/Vol] 196 103/mcL Normal 130 - 400 10^3/mcL AO Workflow SS Potassium [Moles/Vol] 4.4 mmol/L Normal 3.5 - 5.1 mmol/L AO ADM SS RBC (Bld) [#/Vol] 4.37 106/mcL Normal 4.04 - 6.1 3 10^6/mcL AO Workflow SS Sodium [Moles/Vol] 135 mmol/L Low 136 - 145 mmol/L AO ADM SS Urea nitrogen [Mass/Vol] 16 mg/dL Normal 7 - 18 mg/dL AO ADM SS Urea nitrogen/Creatinine [Mass ratio] 9 ratio Normal 7 - 27 ratio AO ADM SS WBC (Bld) [#/Vol] 6.6 103/mcL Normal 4.6 - 10.8 10^3/mcL AO Workflow SS LABORATORYOrdered By: Yris vann Karoline on 07-25-2024 Creatinine (U) [Mass/Vol] 68.3 mg/dL Normal 39.0 - 259.0 mg/dL AO ADM SS Protein (U) [Mass/Vol] 19 mg/dL High 0 - 11 mg/dL AO ADM SS U Ratio Prot/Creat 0.3 ratio Invalid Interpretation Code AO ADM SS OCT ANTERIOR SEGMENT CIRRUS OS (LEFT EYE)on 07-13-2024 [facility] Study observation (narrative) [facility] OCT ANTERIOR SEGMENT CIRRUS OS (LEFT EYE)on 07-04-2024 [facility] Study observation (narrative) [facility] ANES POSTPROC EVALon 024 ANES POSTPROC EVAL HNO ID: [id number] Author: ELY VILLA MD Service: ? 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 Post Anesthesia Patient Status Patient Evaluation: bedside. Anticipated Disposition: phase 2 then home. Neurological Status: aware and responsive. Pulmonary Status: breathing comfortably on room air Airway Control: returned to baseline unsupported. Cardiovascular Status: stable. Pain Management: satisfactory to patient - multimodal analgesia pain management approach Postoperative Hydration: acceptable. Intraoperative Events: no significant anesthesia events Post Operative Nausea/Vomiting Status: no significant post operative nausea or vomiting Recommendation: continue current plan of care. Anesthesia Observations No Documentation SIGNATURE: Ely Villa MD PATIENT NAME: Lalitha Jason DATE: July 04, 2024 TIME: 10:05 AM CSN: [id number] [facility] ANES PRE-OPon 07-03-2024 ANES PRE-OP HNO ID: [id number] Author: ELY VILLA MD Service: ? Author Type: Anesthesiologist Type: Anesthesia Preprocedure Evaluation Filed: 07/03/2024 14:06 Note Text: ANESTHESIOLOGY DAY OF SURGERY NOTE : 1945 Procedure Information Date/Time: 07/03/24 1413 Procedure: KERATOPLASTY ENDOTHELIAL DESCEMET STRIPPING (DSAEK) (Left: Eye) Location: [place] [address] / [facility] Surgeons: Sarabjit Baires MD Estimated body mass index is 34.14 kg/m? as calculated from the following: Height as of this encounter: 170.2 cm (5' 7). Weight as of this encounter: 98.9 kg (218 lb). Most recent hematocrit and potassium results: No results found for this basename: HCT,HEMATOCRIT,K,POTAS SIUM Relevant Problems CARDIO (+) CAD (coronary artery disease) (+) HTN (hypertension) Endocrinology (+) Diabetes mellitus (HCC) Other (+) Obesity, Class I, BMI 30-34.9 I - PHYSICAL EVALUATION AIRWAY Patient intubated: No. Tracheostomy tube not present Mallampati: II. TM distance: >3 FB. Neck ROM: full ROM without neurological symptoms. Mouth opening: adequate. Short neck: no. Thick neck: no II - ANESTHESIA PLAN ASA Score: 3 Anesthetic Plan: MAC NPO Status: adequate Beta Cameron Monitoring Plan Monitoring plan: standard ASA. Post Procedure Analgesic Plan Postoperative analgesic plan: multimodal analgesia. Informed Consent Anesthetic risks, benefits, alternatives, personnel and consent discussed: yes. Patient / Responsible Libertarian agrees to proceed: yes Patient / Surrogate agrees to blood products: blood products not planned Significant changes in the patient condition since the History and Physical, not otherwise documented in primary service progress note: no. Potential Anesthesia issues that may suggest increased risk of complications or contraindication to planned procedure: surgical field avoidance. field avoidance. The anesthetic will be complicated due to field avoidance because the surgical procedure will be around the airway (head, neck, or shoulder girdle). There will be no direct access to the patient's airway therefore increasing the technical difficulty. Vitals Value Taken Time BP 159/90 07/03/24 1321 Pulse 65 07/03/24 1321 Resp 18 07/03/24 1321 Temp 36.2 ?C (97.1 ?F) 07/03/24 1321 SpO2 100 % 07/03/24 1321 Facility-Administered Medications as of 07/03/2024 Medication Dose Route Frequency lactated ringers iv infusion 30 mL/hr INTRAVENOUS CONTINUOUS [COMPLETED] ciprofloxacin HCl 0.3 % 1 Drop (CILOXAN) 1 Drop LEFT EYE q 5 MIN [COMPLETED] lidocaine 4% 1 Drop ophthalmic solution (XYLOCAINE) 1 Drop LEFT EYE q 5 MIN lidocaine-bupivacaine 10-3.75 mg/mL retrobulbar 10 mL injection 10 mL OTHER ONCE acetaminophen 650 mg tab(s) (TYLENOL) 650 mg ORAL PRN Outpatient Medications as of 07/03/2024 Medication Sig amLODIPine (NORVASC) 10 mg tablet Take 1 tablet by mouth every afternoon. FARXIGA 10 mg tablet Take 1 tablet by mouth every afternoon. BYDUREON BCISE 2 mg/0.85 mL injection inject 2 milligrams subcutaneously every week metoprolol succinate ER (TOPROL XL) 50 mg 24 hr tablet Take 1 tablet by mouth every [address] (PROTONIX) 20 mg tablet Take 20 mg by mouth every morning. doxazosin mesylate(CARDURA 4 MG TAB) Take one(1) tablet daily. ONETOUCH VERIO TEST STRIPS test strip TEST 3 to four times a day cetirizine (ZYRTEC) 10 mg tablet Take 1 tablet by mouth every afternoon. fluorometholone (FML LIQUID FILM) 0.1 % ophthalmic suspension instill 1 drop into left eye three times a day ONETOUCH DELICA PLUS LANCET 33 gauge three times a day. timolol maleate (TIMOPTIC) 0.5 % ophthalmic solution place 1 drop into left eye twice a day tiZANidine (ZANAFLEX) 4 mg tablet Take 4 mg by mouth three times a day as needed. sitagliptin phosphate(JANUVIA 25 MG TAB) Take one(1) tablet daily. (Patient not taking: Reported on 06/06/2024) guaifenesin(MUCINEX 600 MG TAB) Take one(1) tablet daily. (Patient not taking: Reported on 06/06/2024) amlodipine besylate/benazepril(LO TREL 2.5 MG-10 MG CAP) Take one(1) tablet daily. HYDROCHLOROTHIAZIDE 12.5 MG CAP Take one(1) tablet daily. (Patient not taking: Reported on 06/06/2024) METFORMIN 500 MG TAB Take one(1) tablet twice daily. (Patient not taking: Reported on 06/06/2024) loteprednol etabonate(ALREX 0.2 % EYE DROPS) One drop into left eye daily. (Patient not taking: Reported on 06/06/2024) sodium chloride (ssj1954)(SACHIN 128 5 % EYE OINTMENT) Instill into left eye daily. (Patient not taking: Reported on 06/06/2024) SODIUM CHLORIDE 5 % EYE DROPS Instill into left eye daily. mometasone furoate(ELOCON 0.1 % TOPICAL CREAM) Apply to affected areas of rash R thigh selectively BID until clear and then taper off and stop as able, as tolerated. NOT for face, underarms or groin. AVOID eyes and eyelashes. (Patient not taking: Reported on 06/06/2024) I have interviewed and examined the patient. I have reviewed (more content not included)... [facility] Bacteria Eye Aerobe Culton 0 07-03-2024 Bacteria identified Aer cx Nom (Eye) CULTURE, EYE: No growth [facility] Comment on above: Performed By: #### 6 07-23 #### [facility] CLIA [id number] [address] [place] [address] [place] OPERATIVE NOon 07-03-2024 OPERATIVE NO HNO ID: [id number] Author: SARABJIT BAIRES MD Service: Ophthalmology Author Type: Physician Type: Operative Report Filed: 07/03/2024 15:52 Note Text: Log ID: [id number] NAME: Lalitha Jason SURGERY START TIME: 2:35 PM SURGERY END TIME: 3:36 PM SURGERY/PROCEDURE DATE: 07/03/2024 SURGEON(S)/BUDGET ENGINEER(S ): Surgeons and Role: * Sarabjit Baires MD - Primary * Azael Oliveira MD - Fellow PROCEDURE: 1. Descemet's Stripping Automated Endothelial Keratoplasty, Left eye, using pre-cut tissue with a 7.0 mm host and donor trephination. DIAGNOSIS: 1. Pseudophakic bullous keratopathy, Left eye. ANESTHESIA: Retrobulbar injection with 2.0% lidocaine, 0.75 % marcaine, and vitrase solution. COMPLICATIONS: None ESTIMATED BLOOD LOSS: Less than 1cc SPECIMENS: Corneal tissue submitted for microbiology.. DESCRIPTION OF PROCEDURE: Prior to the surgery, the benefits and risks of the surgery were discussed at length, including the potential risk of post-operative pain, decreased vision, corneal edema, glaucoma, infection, need for glasses, and/or need for further surgery. Signed informed consent was obtained at this time. Retrobulbar anesthesia was administered in the preoperative area for the operative eye with the staff anesthesiologist prior to entering the operating room. The patient was transferred to the operating suite and laid supine on the operating room table. The patient was then prepped and draped in sterile fashion for ophthalmic surgery of the Left eye. A lid speculum was placed in the operated eye. Two paracentesis sites were marked and created near the 12 and 6 o'clock positions. Healon was injected into the anterior chamber. A caliper was then used to a 4 mm wound which would serve as the limbal tunnel. An adjustable david tri-faceted blade was then set to a depth of 300 microns and the limbal tunnel was initiated at the previously marked position. A crescent blade was then used to create a tunnel into clear cornea. After determining the appropriate size of the donor tissue graft with calipers, a handheld trephine marker the same size was used to create a light on the host epithelium. A surgical marking pen was then used to create 8 rowland which would serve as a guide for the graft positioning. A reverse Adrian sinskey hook was then inserted in through the paracentesis site and Descemet's membrane was removed from the central posterior cornea. The main wound was then created using a 2.75 mm slit knife to enter the anterior chamber through the scleral tunnel into clear cornea. The host Descemet's membrane was then removed with Utrada forceps. The main wound was then widened to a full 4mm using a crescent blade and 0.12 forceps. A single 10-0 nylon suture was then passed to close the main wound and stabilize the anterior chamber. An irrigating/aspirating handpiece was then used to evacuate all of the remaining viscoelastic from the anterior chamber. Miostat was then instilled into the anterior chamber to constrict the pupil. An inferior peripheral iridectomy was created by making a paracentesis site at the 6 o'clock limbus and excising a small portion of peripheral iris with Utrata forceps and Vannas scissors. Attention was then turned to preparation of the donor tissue. The donor tissue was placed on a sterile specimen table and the epithelial center marked with a marking pen. The peripheral rim of the microkeratome pass was then marked as well. The tissue was then inverted and placed on the trephination block, centering it using the pre-placed rowland. The tissue was then trephinated and the scleral rim removed. Viscoelastic was then instilled in a thin strip along the central endothelial side of the donor tissue. The tissue was then grasped by the stromal edge and folded into a 40/60 underfold with Utrada foceps. The preplaced nylon suture was then cut and removed. The donor tissue was then grasped with Julio C forceps, inverted now in a 60/40 overfold, and passed into the anterior chamber through the scleral tunnel. The chamber was deepened using BSS on a syringe until the graft partially opened. A small air bubble was then injected into the graft until the graft opened and was in apposition to the host posterior cornea. The surface was then swept with a Lisseth sweeper until the graft centration was desirable. Additional air was then instilled using a syringe until a pressure of approximately 40 mmHg was achieved. Using an CTC-6 needle attached to a double armed 10-0 prolene needle, the needle was passed from the 6 oclock to the 12 o'clock position immediately posterior to endothelial graft cross-chamber, exiting through the superior cornea. The second arm of the suture was passed in the same fashion approximately 3 mm away from the initial suture to create a suture basket to support the graft. The needles were removed and the suture was tied, (more content not included)... [facility] CORNEAL TOPOGRAPHY PENTACAM OU (BOTH EYES)on 06-06-2024 [facility] Study observation (narrative) [facility] XR SPINE CERVICAL AP/LAT/FLE X/EXTon 05-31-2024 XR SPINE CERVICAL AP/LAT/FLEX/EXT ORIGINAL EXAMINATION: AP open mouth lateral neutral flexion and extension 5 XRAY VIEWS OF THE CERVICAL SPINE INCLUDING FLEX/EX VIEWS05/29/2024 12:16 pm COMPARISON: Intraoperative 03/13/2024 HISTORY: ORDERING SYSTEM PROVIDED HISTORY: Reason for Exam: 12 weeks postoperative ACDF, postop follow-up FINDINGS: There is instrumented interbody fusion at C5-6 level with a disc spaces and hardware that shows no obvious loosening or other complication. Alignment is within normal limits in the neutral position and there is no instability with flexion and extension. Moderate degenerative changes at multiple levels. Bilateral carotid calcifications. Normal prevertebral soft tissue space. IMPRESSION: Degenerative and postop changes. No dynamic instability. Interpreted by: Leighton Mosley MD Preliminary Report By: Leighton Mosley MD Electronically signed By Leighton Mosley MD Dictated Date: 05/31/2024 9:26:40 AM Prelim Date: 05/31/2024 9:28:39 AM Sign Date: 05/31/2024 9:28:39 AM Ordering Provider: DIGNA GARCES [facility] ([place]) CT SOFT TISSUE NECK W/ CONTR Thomas 04-13-2024 CT SOFT TISSUE NECK W/ CONTRAST ORIGINAL HISTORY: Difficulty swallowing COMPARISON: No TECHNIQUE: Axial CT of the neck following uncomplicated administration of intravenous contrast, with sagittal and coronal reformats. This exam was performed according to our departmental dose optimization program, and includes the following measures where applicable: automated exposure control, adjustment of the mAs and/or kVp according to patient size and/or exam, and an iterative reconstruction algorithm. FINDINGS: There is no lymphadenopathy and there are no soft tissue masses. The major salivary glands and the thyroid gland are unremarkable in appearance. The airway is midline and symmetric. The major vascular structures are patent. The visualized portion of the base of the brain is unremarkable in appearance. The lung apices are clear. There is an instrumented C5-C6 fusion. IMPRESSION: Surgical changes, otherwise unremarkable. Interpreted by: Aren Merino MD Preliminary Report By: Aren Merino MD Electronically signed By Aren Merino MD Dictated Date: 04/13/2024 12:11:58 PM Prelim Date: 04/13/2024 12:15:02 PM Sign Date: 04/13/2024 12:15:02 PM Ordering Provider: DIGNA Valdez [facility] ([place]) .Auto Diffon 03-14-2024 Basophil, Absolute 0.0 10 3/mcL Normal 0.0-0.3 [facility]) Comment on above: Performed By: #### A OMARI, TROPHS, CBC, GFR, BMP, MDW, ADIFF #### [address] [address] Basophils/100 WBC (Bld) 0.0 % Normal 0.0-2.5 [facility] ([place]) Comment on above: Performed By: #### A OMARI, TROPHS, CBC, GFR, BMP, MDW, ADIFF #### [address] [address] Eosinophil, Absolute 0.0 10 3/mcL Normal 0.0-0.7 [facility] ([place]) Comment on above: Performed By: #### A OMARI, TROPHS, CBC, GFR, BMP, MDW, ADIFF #### [address] [address] Eosinophils/100 WBC (Bld) 0.0 % Normal 0.0-6.0 [facility] ([place]) Comment on above: Performed By: #### A OMARI, TROPHS, CBC, GFR, BMP, MDW, ADIFF #### [address] [address] Lymphocyte, Absolute 1.2 10 3/mcL Normal 0.9-4.3 [facility] ([place]) Comment on above: Performed By: #### A OMARI, TROPHS, CBC, GFR, BMP, MDW, ADIFF #### [address] [address] Lymphocytes/100 WBC (Bld) 10.0 % Low 20.0-40.0 [facility] ([place]) Comment on above: Performed By: #### A OMARI, TROPHS, CBC, GFR, BMP, MDW, ADIFF #### [address] [address] Monocyte, Absolute 0.7 10 3/mcL Normal 0.1-1.4 [facility] ([place]) Comment on above: Performed By: #### A OMARI, TROPHS, CBC, GFR, BMP, MDW, ADIFF #### [address] [address] Monocytes/100 WBC (Bld) 6.1 % Normal 2.0-13.0 [facility] ([place]) Comment on above: Performed By: #### A OMARI, TROPHS, CBC, GFR, BMP, MDW, ADIFF #### [address] [address] Neutrophils/100 WBC (Bld) 83.9 % High 50.0-75.0 [facility] ([place]) Comment on above: Performed By: #### A OMARI, TROPHS, CBC, GFR, BMP, MDW, ADIFF #### [address] [address] .GFRon 03-14-2024 GFR Non- 53 ml/min/1.73sqm Normal [facility] ([place]) Comment on above: Result Comment: GFR Population mean for , Non- Americans Ages 20-29 = 116 mL/min/1.73 sq.m. Ages 30-39 = 107 mL/min/1.73 sq.m. Ages 40-49 = 99 mL/min/1.73 sq.m. Ages 50-59 = 93 mL/min/1.73 sq.m. Ages 60-69 = 85 mL/min/1.73 sq.m. Ages 70+ = 75 mL/min/1.73 sq.m. Chronic Kidney Disease: Less than 60 mL/min/1.73 square meters End Stage Renal Disease: Less than 15 mL/min/1.73 square meters Performed By: #### A OMARI, TROPHS, CBC, GFR, BMP, MDW, ADIFF #### [address] [address] GFR >60 Normal [facility] ([place]) Comment on above: Result Comment: GFR Population mean for , Non- Americans Ages 20-29 = 116 mL/min/1.73 sq.m. Ages 30-39 = 107 mL/min/1.73 sq.m. Ages 40-49 = 99 mL/min/1.73 sq.m. Ages 50-59 = 93 mL/min/1.73 sq.m. Ages 60-69 = 85 mL/min/1.73 sq.m. Ages 70+ = 75 mL/min/1.73 sq.m. Chronic Kidney Disease: Less than 60 mL/min/1.73 square meters End Stage Renal Disease: Less than 15 mL/min/1.73 square meters Performed By: #### A OMARI, TROPHS, CBC, GFR, BMP, MDW, ADIFF #### [address] [address] .NEUABSon 03-14-2024 Neutrophil, Absolute 9.7 10 3/mcL High 2.3-8.1 [facility] ([place]) Comment on above: Performed By: #### A OMARI, TROPHS, CBC, GFR, BMP, MDW, ADIFF #### [address] [address] BMPon 03-14-2024 BUN/Creatinine Ratio 22.9 ratio High 10.0-22.0 [facility] ([place]) Comment on above: Performed By: #### A OMARI, TROPHS, CBC, GFR, BMP, MDW, ADIFF #### [address] [address] Calcium [Mass/Vol] 8.8 mg/dL Normal 8.7-10.4 [facility] ([place]) Comment on above: Performed By: #### A OMARI, TROPHS, CBC, GFR, BMP, MDW, ADIFF #### [address] [address] Chloride [Moles/Vol] 104 mmol/L Normal 98-110 [facility] ([place]) Comment on above: Performed By: #### A OMARI, TROPHS, CBC, GFR, BMP, MDW, ADIFF #### [address] [address] CO2 [Moles/Vol] 19 mmol/L Low 22-32 [facility] ([place]) Comment on above: Performed By: #### A OMARI, TROPHS, CBC, GFR, BMP, MDW, ADIFF #### [address] [address] Creatinine [Mass/Vol] 1.31 mg/dL Normal 0.60-1.40 [facility] ([place]) Comment on above: Performed By: #### A OMARI, TROPHS, CBC, GFR, BMP, MDW, ADIFF #### [address] [address] Electrolyte Balance 14.0 mEq/L Normal 4.0-15.0 [facility] ([place]) Comment on above: Performed By: #### A OMARI, TROPHS, CBC, GFR, BMP, MDW, ADIFF #### [address] [address] Glucose [Mass/Vol] 173 mg/dL High 82-115 [facility] ([place]) Comment on above: Performed By: #### A OMARI, TROPHS, CBC, GFR, BMP, MDW, ADIFF #### [address] [address] Potassium [Moles/Vol] 4.5 mmol/L Normal 3.5-5.0 [facility] ([place]) Comment on above: Performed By: #### A OMARI, TROPHS, CBC, GFR, BMP, MDW, ADIFF #### [address] [address] Sodium [Moles/Vol] 137 mmol/L Normal 136-145 [facility] ([place]) Comment on above: Performed By: #### A OMARI, TROPHS, CBC, GFR, BMP, MDW, ADIFF #### [address] [address] Urea nitrogen [Mass/Vol] 30.0 mg/dL High 8.0-22.0 [facility] ([place]) Comment on above: Performed By: #### A OMARI, TROPHS, CBC, GFR, BMP, MDW, ADIFF #### [address] [address] CBCon 03-14-2024 Erythrocyte distribution width (RBC) [Ratio] 13.7 % Normal 11.5-15.5 [facility] ([place]) Comment on above: Performed By: #### A OMARI, TROPHS, CBC, GFR, BMP, MDW, ADIFF #### [address] [address] Hematocrit (Bld) [Volume fraction] 43.6 % Normal 40.0-52.0 [facility] ([place]) Comment on above: Performed By: #### A OMARI, TROPHS, CBC, GFR, BMP, MDW, ADIFF #### [address] [address] Hgb 15.0 G/dL Normal 13.0-17.5 [facility] ([place]) Comment on above: Performed By: #### A OMARI, TROPHS, CBC, GFR, BMP, MDW, ADIFF #### [address] [address] MCH (RBC) [Entitic mass] 32.7 pg Normal 27.0-33.0 [facility] ([place]) Comment on above: Performed By: #### A OMARI, TROPHS, CBC, GFR, BMP, MDW, ADIFF #### [address] [address] MCHC 34.4 G/dL Normal 32.0-36.0 [facility] ([place]) Comment on above: Performed By: #### A OMARI, TROPHS, CBC, GFR, BMP, MDW, ADIFF #### [address] [address] MCV (RBC) [Entitic vol] 95.2 fL Normal 81.0-100.0 [facility] ([place]) Comment on above: Performed By: #### A OMARI, TROPHS, CBC, GFR, BMP, MDW, ADIFF #### [address] [address] Platelet 217 10 3/mcL Normal 150-450 [facility] ([place]) Comment on above: Performed By: #### A OMARI, TROPHS, CBC, GFR, BMP, MDW, ADIFF #### [address] [address] Platelet mean volume (Bld) [Entitic vol] 9.6 fL Normal 6.4-10.5 [facility] ([place]) Comment on above: Performed By: #### A OMARI, TROPHS, CBC, GFR, BMP, MDW, ADIFF #### [address] [address] RBC 4.58 10 6/mcL Normal 4.50-6.00 [facility] ([place]) Comment on above: Performed By: #### A OMARI, TROPHS, CBC, GFR, BMP, MDW, ADIFF #### [address] [address] WBC 11.6 10 3/mcL High 4.5-10.8 [facility] ([place]) Comment on above: Performed By: #### A OMARI, TROPHS, CBC, GFR, BMP, MDW, ADIFF #### [address] [address] LABORATORYOrdered By: Erika Ring on 03-14-2024 Glucose [Mass/Vol] 230 mg/dL High 82 - 115 mg/dL [facility] Glucose [Mass/Vol] 146 mg/dL High 82 - 115 mg/dL [facility] LABORATORYOrdered By: SYSTEM SYSTEM on 03-14-2024 Basophils (Bld) [#/Vol] 0.0 103/mcL Normal 0.0 - 0.3 10^3/mcL [facility] Workflow SS Basophils/100 WBC (Bld) 0.0 % Normal 0.0 - 2.5 % AH Workflow SS Calcium [Mass/Vol] 8.8 mg/dL Normal 8.7 - 10. 4 mg/dL AH ADM SS Chloride [Moles/Vol] 104 mmol/L Normal 98 - 11 0 mEq/L AH ADM SS CO2 [Moles/Vol] 19 mmol/L Low 22 - 32 mEq/L AH ADM SS Creatinine [Mass/Vol] 1.31 mg/dL Normal 0.60 - 1.40 mg/dL ADM SS Electrolyte Balance 14.0 mEq/L Normal 4.0 - 15 .0 mEq/L ADM SS Eosinophils (Bld) [#/Vol] 0.0 103/mcL Normal 0.0 - 0.7 10^3/mcL [facility] Workflow SS Eosinophils/100 WBC (Bld) 0.0 % Normal 0.0 - 6.0 % Workflow SS Erythrocyte distribution width (RBC) [Ratio] 13.7 % Normal 11.5 - 15.5 % Workflow SS GFR/1.73 sq M.predicted among blacks MDRD (S/P/Bld) [Vol rate/Area] ml/min/1.73sqm Invalid Interpretation Code [facility] Chemistry S Comment on above: Interpretive Data: GFR Population mean for , Non- Americans Ages 20-29 = 116 mL/min/1.73 sq.m. Ages 30-39 = 107 mL/min/1.73 sq.m. Ages 40-49 = 99 mL/min/1.73 sq.m. Ages 50-59 = 93 mL/min/1.73 sq.m. Ages 60-69 = 85 mL/min/1.73 sq.m. Ages 70+ = 75 mL/min/1.73 sq.m. Chronic Kidney Disease: Less than 60 mL/min/1.73 square meters End Stage Renal Disease: Less than 15 mL/min/1.73 square meters GFR/1.73 sq M.predicted among non-blacks MDRD (S/P/Bld) [Vol rate/Area] 53 ml/min/1.73sqm Invalid Interpretation Code [facility] Chemistry S Comment on above: Interpretive Data: GFR Population mean for , Non- Americans Ages 20-29 = 116 mL/min/1.73 sq.m. Ages 30-39 = 107 mL/min/1.73 sq.m. Ages 40-49 = 99 mL/min/1.73 sq.m. Ages 50-59 = 93 mL/min/1.73 sq.m. Ages 60-69 = 85 mL/min/1.73 sq.m. Ages 70+ = 75 mL/min/1.73 sq.m. Chronic Kidney Disease: Less than 60 mL/min/1.73 square meters End Stage Renal Disease: Less than 15 mL/min/1.73 square meters Glucose [Mass/Vol] 173 mg/dL High 82 - 115 mg/dL ADM SS Hematocrit (Bld) [Volume fraction] 43.6 % Normal 40.0 - 52.0 % AH Workflow SS Hemoglobin (Bld) [Mass/Vol] 15.0 G/dL Normal 13.0 - 17.5 G/dL AH Workflow SS Lymphocytes (Bld) [#/Vol] 1.2 103/mcL Normal 0.9 - 4.3 10^3/mcL AH Workflow SS Lymphocytes/100 WBC (Bld) 10.0 % Low 20.0 - 40.0 % AH Workflow SS MCH (RBC) [Entitic mass] 32.7 pg Normal 27.0 - 33.0 pg AH Workflow SS MCHC 34.4 G/dL Normal 32.0 - 36.0 G/dL AH Workflow SS MCV (RBC) [Entitic vol] 95.2 fL Normal 81.0 - 100.0 fL AH Workflow SS Monocytes (Bld) [#/Vol] 0.7 103/mcL Normal 0.1 - 1.4 10^3/mcL AH Workflow SS Monocytes/100 WBC (Bld) 6.1 % Normal 2.0 - 13.0 % AH Workflow SS Neutrophils (Bld) [#/Vol] 9.7 103/mcL High 2.3 - 8.1 10^3/mcL AH Workflow SS Neutrophils/100 WBC (Bld) 83.9 % High 50.0 - 75.0 % AH Workflow SS Platelet mean volume (Bld) [Entitic vol] 9.6 fL Normal 6.4 - 10.5 fL AH Workflow SS Platelets (Bld) [#/Vol] 217 103/mcL Normal 150 - 450 10^3/mcL AH Workflow SS Potassium [Moles/Vol] 4.5 mmol/L Normal 3.5 - 5.0 mEq/L AH ADM SS RBC (Bld) [#/Vol] 4.58 106/mcL Normal 4.50 - 6.0 0 10^6/mcL AH Workflow SS Sodium [Moles/Vol] 137 mmol/L Normal 136 - 145 mEq/L ADM SS Urea nitrogen [Mass/Vol] 30.0 mg/dL High 8.0 - 22.0 mg/dL ADM SS Urea nitrogen/Creatinine [Mass ratio] 22.9 ratio High 10.0 - 22.0 ratio AH ADM SS WBC (Bld) [#/Vol] 11.6 103/mcL High 4.5 - 10.8 10^3/mcL AH Workflow SS .Auto Diffon 03-13-2024 Basophil, Absolute 0.0 10 3/mcL Normal 0.0-0.3 [facility] ([place]) Comment on above: Performed By: #### G FR, CBC, ANEU, ADIFF, BMP ####[address] [address] Basophils/100 WBC (Bld) 0.1 % Normal 0.0-2.5 [facility] ([place]) Comment on above: Performed By: #### G FR, CBC, ANEU, ADIFF, BMP ####[address] [address] Eosinophil, Absolute 0.1 10 3/mcL Normal 0.0-0.7 [facility] ([place]) Comment on above: Performed By: #### G FR, CBC, ANEU, ADIFF, BMP ####[address] [address] Eosinophils/100 WBC (Bld) 1.1 % Normal 0.0-6.0 [facility] ([place]) Comment on above: Performed By: #### G FR, CBC, ANEU, ADIFF, BMP ####[address] [address] Lymphocyte, Absolute 1.9 10 3/mcL Normal 0.9-4.3 [facility] ([place] Comment on above: Performed By: #### G FR, CBC, ANEU, ADIFF, BMP ####[address] [address] Lymphocytes/100 WBC (Bld) 22.0 % Normal 20.0-40.0 [facility] ([place] Comment on above: Performed By: #### G FR, CBC, ANEU, ADIFF, BMP ####[address] [address] Monocyte, Absolute 0.8 10 3/mcL Normal 0.1-1.4 [facility] ([place]) Comment on above: Performed By: #### G FR, CBC, ANEU, ADIFF, BMP ####[place] [id number] [place] [address] Monocytes/100 WBC (Bld) 9.0 % Normal 2.0-13.0 [facility] ([place]) Comment on above: Performed By: #### G FR, CBC, ANEU, ADIFF, BMP ####[address] [address] Neutrophils/100 WBC (Bld) 67.8 % Normal 50.0-75.0 [facility] ([place] Comment on above: Performed By: #### G FR, CBC, ANEU, ADIFF, BMP ####[address] [address] .GFRon 03-13-2024 GFR >60 Normal [facility] ([place] Comment on above: Result Comment: GFR Population mean for , Non- Americans Ages 20-29 = 116 mL/min/1.73 sq.m. Ages 30-39 = 107 mL/min/1.73 sq.m. Ages 40-49 = 99 mL/min/1.73 sq.m. Ages 50-59 = 93 mL/min/1.73 sq.m. Ages 60-69 = 85 mL/min/1.73 sq.m. Ages 70+ = 75 mL/min/1.73 sq.m. Chronic Kidney Disease: Less than 60 mL/min/1.73 square meters End Stage Renal Disease: Less than 15 mL/min/1.73 square meters Performed By: #### G FR, CBC, ANEU, ADIFF, BMP ####[address] [address] GFR Non- 52 ml/min/1.73sqm Normal [facility] ([place]) Comment on above: Result Comment: GFR Population mean for , Non- Americans Ages 20-29 = 116 mL/min/1.73 sq.m. Ages 30-39 = 107 mL/min/1.73 sq.m. Ages 40-49 = 99 mL/min/1.73 sq.m. Ages 50-59 = 93 mL/min/1.73 sq.m. Ages 60-69 = 85 mL/min/1.73 sq.m. Ages 70+ = 75 mL/min/1.73 sq.m. Chronic Kidney Disease: Less than 60 mL/min/1.73 square meters End Stage Renal Disease: Less than 15 mL/min/1.73 square meters Performed By: #### G FR, CBC, ANEU, ADIFF, BMP ####[address] [address] .NEUABSon 03-13-2024 Neutrophil, Absolute 5.7 10 3/mcL Normal 2.3-8.1 [facility] ([place] Comment on above: Performed By: #### G FR, CBC, ANEU, ADIFF, BMP ####[address] [address] APTTon 03-13-2024 aPTT Coag (Bld) [Time] 27.7 s Normal 25.0-35.0 [facility] ([place]) Comment on above: Result Comment: For Heparin anticoagulation therapy, the recommended therapeutic range is: 54-77 seconds (APTT Correlation with Anti-Xa therapeutic range of 0.3-0.7 units/ml). PLEASE REFERENCE THE PHARMACY PROTOCOL FOR DOSING. Performed By: #### A OMARI, TROPHS, CBC, GFR, BMP, MDW, ADIFF #### [address] [address] Heparin dose (APTT) None Normal [facility] ([place]) Comment on above: Performed By: #### A OMARI, TROPHS, CBC, GFR, BMP, MDW, ADIFF #### [address] [address] BMPon 03-13-2024 BUN/Creatinine Ratio 17.2 ratio Normal 10.0-22.0 [facility] ([place]) Comment on above: Performed By: #### G FR, CBC, ANEU, ADIFF, BMP ####[address] [address] Calcium [Mass/Vol] 9.5 mg/dL Normal 8.7-10.4 [facility] ([place]) Comment on above: Performed By: #### G FR, CBC, ANEU, ADIFF, BMP ####[address] [address] Chloride [Moles/Vol] 106 mmol/L Normal 98-110 [facility] ([place] Comment on above: Performed By: #### G FR, CBC, ANEU, ADIFF, BMP ####[address] [address] CO2 [Moles/Vol] 23 mmol/L Normal 22-32 [facility] ([place] Comment on above: Performed By: #### G FR, CBC, ANEU, ADIFF, BMP ####[address] [address] Creatinine [Mass/Vol] 1.34 mg/dL Normal 0.60-1.40 [facility] ([place]) Comment on above: Performed By: #### G FR, CBC, ANEU, ADIFF, BMP ####[address] [address] Electrolyte Balance 8.0 mEq/L Normal 4.0-15.0 [facility] ([place] Comment on above: Performed By: #### G FR, CBC, ANEU, ADIFF, BMP ####[address] [address] Glucose [Mass/Vol] 128 mg/dL High 82-115 [facility] ([place] Comment on above: Performed By: #### G FR, CBC, ANEU, ADIFF, BMP ####[address] [address] Potassium [Moles/Vol] 3.9 mmol/L Normal 3.5-5.0 [facility] ([place] Comment on above: Performed By: #### G FR, CBC, ANEU, ADIFF, BMP ####[address] [address] Sodium [Moles/Vol] 137 mmol/L Normal 136-145 [facility] ([place] Comment on above: Performed By: #### G FR, CBC, ANEU, ADIFF, BMP ####[address] [address] Urea nitrogen [Mass/Vol] 23.0 mg/dL High 8.0-22.0 [facility] ([place] Comment on above: Performed By: #### G FR, CBC, ANEU, ADIFF, BMP ####[place] [address] CBCon 03-13-2024 Erythrocyte distribution width (RBC) [Ratio] 13.8 % Normal 11.5-15.5 [facility] ([place] Comment on above: Performed By: #### G FR, CBC, ANEU, ADIFF, BMP ####[place] [address] Hematocrit (Bld) [Volume fraction] 41.7 % Normal 40.0-52.0 [facility] ([place] Comment on above: Performed By: #### G FR, CBC, ANEU, ADIFF, BMP ####[place] [address] Hgb 14.4 G/dL Normal 13.0-17.5 [facility] ([place] Comment on above: Performed By: #### Perla FR, CBC, ANEU, ADIFF, BMP ####[place] [address] MCH (RBC) [Entitic mass] 32.3 pg Normal 27.0-33.0 [facility] ([place] Comment on above: Performed By: #### G FR, CBC, ANEU, ADIFF, BMP ####[place] [address] MCHC 34.6 G/dL Normal 32.0-36.0 [facility] ([place] Comment on above: Performed By: #### G FR, CBC, ANEU, ADIFF, BMP ####[place] [address] MCV (RBC) [Entitic vol] 93.5 fL Normal 81.0-100.0 [facility] ([place] Comment on above: Performed By: #### G FR, CBC, ANEU, ADIFF, BMP ####[place] [address] Platelet 196 10 3/mcL Normal 150-450 [facility] ([place] Comment on above: Performed By: #### G FR, CBC, ANEU, ADIFF, BMP ####[address] [address] Platelet mean volume (Bld) [Entitic vol] 9.0 fL Normal 6.4-10.5 [facility] ([place] Comment on above: Performed By: #### G FR, CBC, ANEU, ADIFF, BMP ####[address] [address] RBC 4.46 10 6/mcL Low 4.50-6.00 [facility] ([place] Comment on above: Performed By: #### G FR, CBC, ANEU, ADIFF, BMP ####[address] [address] WBC 8.4 10 3/mcL Normal 4.5-10.8 [facility] ([place] Comment on above: Performed By: #### G FR, CBC, ANEU, ADIFF, BMP ####[place] [address] FIBon 03-13-2024 Fibrinogen 485 mg/dL Normal 250-560 [facility] ([place] Comment on above: Performed By: #### A OMARI, TROPHS, CBC, GFR, BMP, MDW, ADIFF #### [address] [address] LABORATORYOrdered By: Genesis cardoza on 03-13-2024 Blood Glucose Testing Reason Routine (03/13/24 9:13 PM) [facility] Glucose [Mass/Vol] 164 mg/dL High 82 - 115 mg/dL [facility] LABORATORYOrdered By: Erin Stout on 03-13-2024 Blood Glucose Testing Reason Routine (03/13/24 5:47 PM) [facility] LABORATORYOrdered By: Jim Crouch on 03-13-2024 aPTT Coag (Bld) [Time] 27.7 s Normal 25.0 - 35.0 seconds AH [facility] SS Comment on above: Interpretive Data: F or Heparin anticoagulation therapy, the recommended therapeutic range is: 54-77 seconds (APTT Correlation with Anti-Xa therapeutic range of 0.3-0.7 units/ml). PLEASE REFERENCE THE PHARMACY PROTOCOL FOR DOSING. Fibrinogen 485 mg/dL Normal 250 - 560 mg/dL [facility] Heparin dose (APTT) None Normal Coagulation S PT Coag (PPP) [Time] 11.6 s Normal 9.0 - 1 4.2 seconds [facility] Comment on above: Interpretive Data: E ffective 05/29/08, Protime results may be affected by some antibiotics (i.e. Ciprofloxacin, Azithromycin, Bactrim) which may potentiate the action of oral anticoagulants, with further increases in Protime/INR. PT International Ratio 1.0 ratio Invalid [facility] Code [facility] Comment on above: Interpretive Data: Suman adams [employer] (CHEST, 1992, 102:[id number]) recommended therapeutic range for oral anticoagulant therapy is: LOW RISK: Prophylaxis of venous thrombosis INR: 2.0-3.0 Treatment of pulmonary embolism 2.0-3.0 Prevention of systemic embolism 2.0-3.0 HIGH RISK: Mechanical prosthetic valves 2.5-3.5 LABORATORYOrdered By: SYSTEM SYSTEM on 03-13-2024 Platelets (Bld) [#/Vol] 193 103/mcL Normal 150 - 450 10^3/mcL Workflow SS Basophils (Bld) [#/Vol] 0.0 103/mcL Normal 0.0 - 0.3 10^3/mcL Workflow SS Basophils/100 WBC (Bld) 0.1 % Normal 0.0 - 2.5 % Workflow SS Calcium [Mass/Vol] 9.5 mg/dL Normal 8.7 - 10. 4 mg/dL ADM SS Chloride [Moles/Vol] 106 mmol/L Normal 98 - 11 0 mEq/L ADM SS CO2 [Moles/Vol] 23 mmol/L Normal 22 - 32 mEq/L ADM SS Creatinine [Mass/Vol] 1.34 mg/dL Normal 0.60 - 1.40 mg/dL ADM SS Electrolyte Balance 8.0 mEq/L Normal 4.0 - 15 .0 mEq/L ADM SS Eosinophils (Bld) [#/Vol] 0.1 103/mcL Normal 0.0 - 0.7 10^3/mcL AH Workflow SS Eosinophils/100 WBC (Bld) 1.1 % Normal 0.0 - 6.0 % Workflow SS Erythrocyte distribution width (RBC) [Ratio] 13.8 % Normal 11.5 - 15.5 % Workflow SS GFR/1.73 sq M.predicted among blacks MDRD (S/P/Bld) [Vol rate/Area] ml/min/1.73sqm Invalid Interpretation Code Chemistry S Comment on above: Interpretive Data: GFR Population mean for , Non- Americans Ages 20-29 = 116 mL/min/1.73 sq.m. Ages 30-39 = 107 mL/min/1.73 sq.m. Ages 40-49 = 99 mL/min/1.73 sq.m. Ages 50-59 = 93 mL/min/1.73 sq.m. Ages 60-69 = 85 mL/min/1.73 sq.m. Ages 70+ = 75 mL/min/1.73 sq.m. Chronic Kidney Disease: Less than 60 mL/min/1.73 square meters End Stage Renal Disease: Less than 15 mL/min/1.73 square meters GFR/1.73 sq M.predicted among non-blacks MDRD (S/P/Bld) [Vol rate/Area] 52 ml/min/1.73sqm Invalid Interpretation Code Chemistry S Comment on above: Interpretive Data: GFR Population mean for , Non- Americans Ages 20-29 = 116 mL/min/1.73 sq.m. Ages 30-39 = 107 mL/min/1.73 sq.m. Ages 40-49 = 99 mL/min/1.73 sq.m. Ages 50-59 = 93 mL/min/1.73 sq.m. Ages 60-69 = 85 mL/min/1.73 sq.m. Ages 70+ = 75 mL/min/1.73 sq.m. Chronic Kidney Disease: Less than 60 mL/min/1.73 square meters End Stage Renal Disease: Less than 15 mL/min/1.73 square meters Glucose [Mass/Vol] 128 mg/dL High 82 - 115 mg/dL ADM SS Hematocrit (Bld) [Volume fraction] 41.7 % Normal 40.0 - 52.0 % Workflow SS Hemoglobin (Bld) [Mass/Vol] 14.4 G/dL Normal 13.0 - 17.5 G/dL AH Workflow SS Lymphocytes (Bld) [#/Vol] 1.9 103/mcL Normal 0.9 - 4.3 10^3/mcL AH Workflow SS Lymphocytes/100 WBC (Bld) 22.0 % Normal 20.0 - 40.0 % AH Workflow SS MCH (RBC) [Entitic mass] 32.3 pg Normal 27.0 - 33.0 pg AH Workflow SS MCHC 34.6 G/dL Normal 32.0 - 36.0 G/dL AH Workflow SS MCV (RBC) [Entitic vol] 93.5 fL Normal 81.0 - 100.0 fL AH Workflow SS Monocytes (Bld) [#/Vol] 0.8 103/mcL Normal 0.1 - 1.4 10^3/mcL AH Workflow SS Monocytes/100 WBC (Bld) 9.0 % Normal 2.0 - 13.0 % AH Workflow SS Neutrophils (Bld) [#/Vol] 5.7 103/mcL Normal 2.3 - 8.1 10^3/mcL AH Workflow SS Neutrophils/100 WBC (Bld) 67.8 % Normal 50.0 - 75.0 % AH Workflow SS Platelet mean volume (Bld) [Entitic vol] 9.0 fL Normal 6.4 - 10.5 fL AH Workflow SS Platelets (Bld) [#/Vol] 196 103/mcL Normal 150 - 450 10^3/mcL AH Workflow SS Potassium [Moles/Vol] 3.9 mmol/L Normal 3.5 - 5.0 mEq/L ADM SS RBC (Bld) [#/Vol] 4.46 106/mcL Low 4.50 - 6.0 0 10^6/mcL AH Workflow SS Sodium [Moles/Vol] 137 mmol/L Normal 136 - 145 mEq/L ADM SS Troponin I.cardiac DL <= 0.01 ng/mL [Mass/Vol] 14 ng/L Normal 0 - 54 ng/L AH ADM SS Comment on above: Interpretive Data: High Sensitive Troponin I Reference Ranges: Female: 0-34 ng/L Male: 0-54 ng/L Testing performed on [employer] analyzer using direct chemiluminescent technology. Urea nitrogen [Mass/Vol] 23.0 mg/dL High 8.0 - 22.0 mg/dL ADM SS Urea nitrogen/Creatinine [Mass ratio] 17.2 ratio Normal 10.0 - 22.0 ratio AH ADM SS WBC (Bld) [#/Vol] 8.4 103/mcL Normal 4.5 - 10.8 10^3/mcL AH Workflow SS LABORATORYOrdered By: Laureen Thomas on 03-13-2024 Blood Glucose Testing Reason Routine (03/13/24 11:30 AM) [facility] LABORATORYOrdered By: Johny Fuentes on 03-13-2024 Natriuretic peptide.B prohormone N-Terminal IA [Mass/Vol] 320 pg/mL Normal 0 - 1800 pg/mL AH ADM SS PBNPon 03-13-2024 Natriuretic peptide B (Bld) [Mass/Vol] 320 pg/mL Normal 0-1800 [facility] ([place]) Comment on above: Performed By: #### A OMARI, TROPHS, CBC, GFR, BMP, MDW, ADIFF #### [address] [address] PLTon 03-13-2024 Platelet 193 10 3/mcL Normal 150-450 [facility] ([place]) Comment on above: Performed By: #### A OMARI, TROPHS, CBC, GFR, BMP, MDW, ADIFF #### [address] [address] PROon 03-13-2024 INR Coag (PPP) [Relative time] 1.0 {INR} Normal [facility] ([place]) Comment on above: Result Comment: [employer] (CHEST, 1992, 102:312S-25S) recommended therapeutic range for oral anticoagulant therapy is: LOW RISK: Prophylaxis of venous thrombosis INR: 2.0-3.0 Treatment of pulmonary embolism 2.0-3.0 Prevention of systemic embolism 2.0-3.0 HIGH RISK: Mechanical prosthetic valves 2.5-3.5 Performed By: #### A OMARI, TROPHS, CBC, GFR, BMP, MDW, ADIFF #### [address] [address] PT Coag (PPP) [Time] 11.6 s Normal 9.0-14.2 [facility] ([place]) Comment on above: Result Comment: Effe ctive 05/29/08, Protime results may be affected by some antibiotics (i.e. Ciprofloxacin, Azithromycin, Bactrim) which may potentiate the action of oral anticoagulants, with further increases in Protime/INR. Performed By: #### A OMARI, TROPHS, CBC, GFR, BMP, MDW, ADIFF #### [address] [address] TROPHSon 03-13-2024 High Sensitivity Troponin I 14 ng/L Normal 0-54 [facility] ([place]) Comment on above: Result Comment: High Sensitive Troponin I Reference Ranges: Female: 0-34 ng/L Male: 0-54 ng/L Testing performed on [employer] analyzer using direct chemiluminescent technology. Performed By: #### A OMARI, TROPHS, CBC, GFR, BMP, MDW, ADIFF #### [address] [address] XR FLUORO 1-2 HRS TECH TIMEo n 03-13-2024 XR FLUORO 1-2 HRS TECH TIME ORIGINAL EXAMINATION: SPOT FLUOROSCOPIC IMAGES 03/13/2024 5:27 pm TECHNIQUE: Fluoroscopy was provided by the radiology department for procedure. Radiologist was not present during examination. FLUOROSCOPY DOSE AND TYPE: Radiation Exposure Index: 1.44 mGy reference air kerma, Fluoro time: 13.8 seconds COMPARISON: None HISTORY: ORDERING SYSTEM PROVIDED HISTORY: Reason for Exam: C5-6 disc herniation Intraprocedural imaging. FINDINGS: 2 spot intraoperative images are obtained demonstrating guidance for cervical spine surgery. IMPRESSION: Intraprocedural fluoroscopic spot images as above. See separate procedure report for more information. Interpreted by: Ben Costello MD Preliminary Report By: Ben Costello MD Electronically signed By Ben Costello MD Dictated Date: 03/13/2024 11:55:04 PM Prelim Date: 03/13/2024 11:56:47 PM Sign Date: 03/13/2024 11:56:47 PM Ordering Provider: LAW Valdez [facility] ([place]) .Auto Diffon 03-12-2024 Basophil, Absolute 0.0 10 3/mcL Normal 0.0-0.3 [facility] ([place]) Comment on above: Performed By: #### A OMARI, GFR, CBC, ADIFF, BMP ####[address] [address] Basophils/100 WBC (Bld) 0.5 % Normal 0.0-2.5 [facility] ([place]) Comment on above: Performed By: #### A OMARI, GFR, CBC, ADIFF, BMP ####[address] [address] Eosinophil, Absolute 0.1 10 3/mcL Normal 0.0-0.7 [facility] ([place] Comment on above: Performed By: #### A OMARI, GFR, CBC, ADIFF, BMP ####[address] [address] Eosinophils/100 WBC (Bld) 1.0 % Normal 0.0-6.0 [facility] ([place]) Comment on above: Performed By: #### A OMARI, GFR, CBC, ADIFF, BMP ####[address] [address] Lymphocyte, Absolute 2.2 10 3/mcL Normal 0.9-4.3 [facility] ([place]) Comment on above: Performed By: #### A OMARI, GFR, CBC, ADIFF, BMP ####[address] [address] Lymphocytes/100 WBC (Bld) 27.3 % Normal 20.0-40.0 [facility] ([place]) Comment on above: Performed By: #### A OMARI, GFR, CBC, ADIFF, BMP ####[address] [address] Monocyte, Absolute 0.7 10 3/mcL Normal 0.1-1.4 [facility] ([place] Comment on above: Performed By: #### A OMARI, GFR, CBC, ADIFF, BMP ####[address] [address] Monocytes/100 WBC (Bld) 9.2 % Normal 2.0-13.0 [facility] ([place]) Comment on above: Performed By: #### A OMARI, GFR, CBC, ADIFF, BMP ####[address] [address] Neutrophils/100 WBC (Bld) 62.0 % Normal 50.0-75.0 [facility] ([place] Comment on above: Performed By: #### A OMARI, GFR, CBC, ADIFF, BMP ####[address] [address] .GFRon 03-12-2024 GFR Non- 60 ml/min/1.73sqm Normal [facility] ([place]) Comment on above: Result Comment: GFR Population mean for , Non- Americans Ages 20-29 = 116 mL/min/1.73 sq.m. Ages 30-39 = 107 mL/min/1.73 sq.m. Ages 40-49 = 99 mL/min/1.73 sq.m. Ages 50-59 = 93 mL/min/1.73 sq.m. Ages 60-69 = 85 mL/min/1.73 sq.m. Ages 70+ = 75 mL/min/1.73 sq.m. Chronic Kidney Disease: Less than 60 mL/min/1.73 square meters End Stage Renal Disease: Less than 15 mL/min/1.73 square meters Performed By: #### A OMARI, GFR, CBC, ADIFF, BMP ####[address] [address] GFR >60 Normal [facility] ([place] Comment on above: Result Comment: GFR Population mean for , Non- Americans Ages 20-29 = 116 mL/min/1.73 sq.m. Ages 30-39 = 107 mL/min/1.73 sq.m. Ages 40-49 = 99 mL/min/1.73 sq.m. Ages 50-59 = 93 mL/min/1.73 sq.m. Ages 60-69 = 85 mL/min/1.73 sq.m. Ages 70+ = 75 mL/min/1.73 sq.m. Chronic Kidney Disease: Less than 60 mL/min/1.73 square meters End Stage Renal Disease: Less than 15 mL/min/1.73 square meters Performed By: #### A OMARI, GFR, CBC, ADIFF, BMP ####[address] [address] .NEUABSon 03-12-2024 Neutrophil, Absolute 4.9 10 3/mcL Normal 2.3-8.1 [facility] ([place] Comment on above: Performed By: #### A OMARI, GFR, CBC, ADIFF, BMP ####[place] [address] BMPon 03-12-2024 BUN/Creatinine Ratio 16.2 ratio Normal 10.0-22.0 [facility] ([place] Comment on above: Performed By: #### A OMARI, GFR, CBC, ADIFF, BMP ####[place] [address] Calcium [Mass/Vol] 9.7 mg/dL Normal 8.7-10.4 [facility] ([place]) Comment on above: Performed By: #### A OMARI, GFR, CBC, ADIFF, BMP ####[place] [address] Chloride [Moles/Vol] 106 mmol/L Normal 98-110 [facility] ([place] Comment on above: Performed By: #### A OMARI, GFR, CBC, ADIFF, BMP ####[place] [address] CO2 [Moles/Vol] 20 mmol/L Low 22-32 [facility] ([place] Comment on above: Performed By: #### A OMARI, GFR, CBC, ADIFF, BMP ####[place] [address] Creatinine [Mass/Vol] 1.17 mg/dL Normal 0.60-1.40 [facility] ([place] Comment on above: Performed By: #### A OMARI, GFR, CBC, ADIFF, BMP ####[place] [address] Electrolyte Balance 12.0 mEq/L Normal 4.0-15.0 [facility] ([place]) Comment on above: Performed By: #### A OMARI, GFR, CBC, ADIFF, BMP ####[place] [address] Glucose [Mass/Vol] 125 mg/dL High 82-115 [facility] ([place]) Comment on above: Performed By: #### A OMARI, GFR, CBC, ADIFF, BMP ####[place] [address] Potassium [Moles/Vol] 3.9 mmol/L Normal 3.5-5.0 [facility] ([place] Comment on above: Performed By: #### A OMARI, GFR, CBC, ADIFF, BMP ####[place] [address] Sodium [Moles/Vol] 138 mmol/L Normal 136-145 [facility] ([place] Comment on above: Performed By: #### A OMARI, GFR, CBC, ADIFF, BMP ####[place] [address] Urea nitrogen [Mass/Vol] 19.0 mg/dL Normal 8.0-22.0 [facility] ([place] Comment on above: Performed By: #### A OMARI, GFR, CBC, ADIFF, BMP ####[place] [address] CBCon 03-12-2024 Erythrocyte distribution width (RBC) [Ratio] 14.0 % Normal 11.5-15.5 [facility] ([place]) Comment on above: Performed By: #### A OMARI, GFR, CBC, ADIFF, BMP #### [place] [address] Hematocrit (Bld) [Volume fraction] 42.6 % Normal 40.0-52.0 [facility] ([place] Comment on above: Performed By: #### A OMARI, GFR, CBC, ADIFF, BMP #### [address] [address] Hgb 14.9 G/dL Normal 13.0-17.5 [facility] ([place]) Comment on above: Performed By: #### A OMARI, GFR, CBC, ADIFF, BMP #### [place] [address] MCH (RBC) [Entitic mass] 33.2 pg High 27.0-33.0 [facility] ([place] Comment on above: Performed By: #### A OMARI, GFR, CBC, ADIFF, BMP #### [place] [address] MCHC 35.0 G/dL Normal 32.0-36.0 [facility] ([place]) Comment on above: Performed By: #### A OMARI, GFR, CBC, ADIFF, BMP #### [place] [address] MCV (RBC) [Entitic vol] 94.9 fL Normal 81.0-100.0 [facility] ([place]) Comment on above: Performed By: #### A OMARI, GFR, CBC, ADIFF, BMP #### [place] [address] Platelet 184 10 3/mcL Normal 150-450 [facility] ([place]) Comment on above: Performed By: #### A OMARI, GFR, CBC, ADIFF, BMP #### [place] [address] Platelet mean volume (Bld) [Entitic vol] 8.8 fL Normal 6.4-10.5 [facility] ([place]) Comment on above: Performed By: #### A OMARI, GFR, CBC, ADIFF, BMP #### [place] [address] RBC 4.49 10 6/mcL Low 4.50-6.00 [facility] ([place]) Comment on above: Performed By: #### A OMARI, GFR, CBC, ADIFF, BMP #### [place] [address] WBC 8.0 10 3/mcL Normal 4.5-10.8 [facility] ([place]) Comment on above: Performed By: #### A OMARI, GFR, CBC, ADIFF, BMP #### [place] [address] LABORATORYOrdered By: SYSTEM SYSTEM on 03-12-2024 Basophils (Bld) [#/Vol] 0.0 103/mcL Normal 0.0 - 0.3 10^3/mcL AH Workflow SS Basophils/100 WBC (Bld) 0.5 % Normal 0.0 - 2.5 % Workflow SS Calcium [Mass/Vol] 9.7 mg/dL Normal 8.7 - 10. 4 mg/dL ADM SS Chloride [Moles/Vol] 106 mmol/L Normal 98 - 11 0 mEq/L ADM SS CO2 [Moles/Vol] 20 mmol/L Low 22 - 32 mEq/L ADM SS Creatinine [Mass/Vol] 1.17 mg/dL Normal 0.60 - 1.40 mg/dL ADM SS Electrolyte Balance 12.0 mEq/L Normal 4.0 - 15 .0 mEq/L ADM SS Eosinophils (Bld) [#/Vol] 0.1 103/mcL Normal 0.0 - 0.7 10^3/mcL Workflow SS Eosinophils/100 WBC (Bld) 1.0 % Normal 0.0 - 6.0 % Workflow SS Erythrocyte distribution width (RBC) [Ratio] 14.0 % Normal 11.5 - 15.5 % Workflow SS GFR/1.73 sq M.predicted among blacks MDRD (S/P/Bld) [Vol rate/Area] ml/min/1.73sqm Invalid Interpretation Code [facility] S Comment on above: Interpretive Data: GFR Population mean for , Non- Americans Ages 20-29 = 116 mL/min/1.73 sq.m. Ages 30-39 = 107 mL/min/1.73 sq.m. Ages 40-49 = 99 mL/min/1.73 sq.m. Ages 50-59 = 93 mL/min/1.73 sq.m. Ages 60-69 = 85 mL/min/1.73 sq.m. Ages 70+ = 75 mL/min/1.73 sq.m. Chronic Kidney Disease: Less than 60 mL/min/1.73 square meters End Stage Renal Disease: Less than 15 mL/min/1.73 square meters GFR/1.73 sq M.predicted among non-blacks MDRD (S/P/Bld) [Vol rate/Area] 60 ml/min/1.73sqm Invalid Interpretation Code [facility] S Comment on above: Interpretive Data: GFR Population mean for , Non- Americans Ages 20-29 = 116 mL/min/1.73 sq.m. Ages 30-39 = 107 mL/min/1.73 sq.m. Ages 40-49 = 99 mL/min/1.73 sq.m. Ages 50-59 = 93 mL/min/1.73 sq.m. Ages 60-69 = 85 mL/min/1.73 sq.m. Ages 70+ = 75 mL/min/1.73 sq.m. Chronic Kidney Disease: Less than 60 mL/min/1.73 square meters End Stage Renal Disease: Less than 15 mL/min/1.73 square meters Glucose [Mass/Vol] 125 mg/dL High 82 - 115 mg/dL AH ADM SS Hematocrit (Bld) [Volume fraction] 42.6 % Normal 40.0 - 52.0 % AH Workflow SS Hemoglobin (Bld) [Mass/Vol] 14.9 G/dL Normal 13.0 - 17.5 G/dL AH Workflow SS Lymphocytes (Bld) [#/Vol] 2.2 103/mcL Normal 0.9 - 4.3 10^3/mcL AH Workflow SS Lymphocytes/100 WBC (Bld) 27.3 % Normal 20.0 - 40.0 % AH Workflow SS MCH (RBC) [Entitic mass] 33.2 pg High 27.0 - 33.0 pg AH Workflow SS MCHC 35.0 G/dL Normal 32.0 - 36.0 G/dL AH Workflow SS MCV (RBC) [Entitic vol] 94.9 fL Normal 81.0 - 100.0 fL AH Workflow SS Monocytes (Bld) [#/Vol] 0.7 103/mcL Normal 0.1 - 1.4 10^3/mcL AH Workflow SS Monocytes/100 WBC (Bld) 9.2 % Normal 2.0 - 13.0 % AH Workflow SS Neutrophils (Bld) [#/Vol] 4.9 103/mcL Normal 2.3 - 8.1 10^3/mcL AH Workflow SS Neutrophils/100 WBC (Bld) 62.0 % Normal 50.0 - 75.0 % AH Workflow SS Platelet mean volume (Bld) [Entitic vol] 8.8 fL Normal 6.4 - 10.5 fL AH Workflow SS Potassium [Moles/Vol] 3.9 mmol/L Normal 3.5 - 5.0 mEq/L AH ADM SS RBC (Bld) [#/Vol] 4.49 106/mcL Low 4.50 - 6.0 0 10^6/mcL AH Workflow SS Sodium [Moles/Vol] 138 mmol/L Normal 136 - 145 mEq/L ADM SS Urea nitrogen [Mass/Vol] 19.0 mg/dL Normal 8.0 - 22.0 mg/dL ADM SS Urea nitrogen/Creatinine [Mass ratio] 16.2 ratio Normal 10.0 - 22.0 ratio ADM SS WBC (Bld) [#/Vol] 8.0 103/mcL Normal 4.5 - 10.8 10^3/mcL Workflow SS .Auto Diffon 03-11-2024 Basophil, Absolute 0.0 10 3/mcL Normal 0.0-0.2 [facility] ([place]) Comment on above: Performed By: #### A OMARI, TROPHS, CBC, GFR, BMP, MDW, ADIFF #### [address] [address] Basophils/100 WBC (Bld) 0.5 % Normal 0.0-2.5 [facility] ([place]) Comment on above: Performed By: #### A OMARI, TROPHS, CBC, GFR, BMP, MDW, ADIFF #### [address] [address] Eosinophil, Absolute 0.1 10 3/mcL Normal 0.0-0.4 [facility] ([place]) Comment on above: Performed By: #### A OMARI, TROPHS, CBC, GFR, BMP, MDW, ADIFF #### [address] [address] Eosinophils/100 WBC (Bld) 1.5 % Normal 0.0-7.0 [facility] ([place]) Comment on above: Performed By: #### A OMARI, TROPHS, CBC, GFR, BMP, MDW, ADIFF #### [address] [address] Lymphocyte, Absolute 1.9 10 3/mcL Normal 0.8-3.9 [facility] ([place]) Comment on above: Performed By: #### A OMARI, TROPHS, CBC, GFR, BMP, MDW, ADIFF #### [address] [address] Lymphocytes/100 WBC (Bld) 30.9 % Normal 10.0-50.0 [facility] ([place]) Comment on above: Performed By: #### A OMARI, TROPHS, CBC, GFR, BMP, MDW, ADIFF #### [address] [address] Monocyte, Absolute 0.6 10 3/mcL Normal 0.2-1.0 [facility] ([place]) Comment on above: Performed By: #### A OMARI, TROPHS, CBC, GFR, BMP, MDW, ADIFF #### [address] [address] Monocytes/100 WBC (Bld) 9.5 % Normal 1.7-13.0 [facility] ([place]) Comment on above: Performed By: #### A OMARI, TROPHS, CBC, GFR, BMP, MDW, ADIFF #### [address] [address] Neutrophils/100 WBC (Bld) 57.6 % Normal 37.0-80.0 [facility] ([place]) Comment on above: Performed By: #### A OMARI, TROPHS, CBC, GFR, BMP, MDW, ADIFF #### [address] [address] .GFRon 03-11-2024 GFR 51 ml/min/1.73sqm Normal [facility] ([place]) Comment on above: Result Comment: GFR Population mean for , Non- Americans Ages 20-29 = 116 mL/min/1.73 sq.m. Ages 30-39 = 107 mL/min/1.73 sq.m. Ages 40-49 = 99 mL/min/1.73 sq.m. Ages 50-59 = 93 mL/min/1.73 sq.m. Ages 60-69 = 85 mL/min/1.73 sq.m. Ages 70+ = 75 mL/min/1.73 sq.m. Chronic Kidney Disease: Less than 60 mL/min/1.73 square meters End Stage Renal Disease: Less than 15 mL/min/1.73 square meters Performed By: #### A OMARI, TROPHS, CBC, GFR, BMP, MDW, ADIFF #### [address] [address] GFR Non- 42 ml/min/1.73sqm Normal [facility] ([place]) Comment on above: Result Comment: GFR Population mean for , Non- Americans Ages 20-29 = 116 mL/min/1.73 sq.m. Ages 30-39 = 107 mL/min/1.73 sq.m. Ages 40-49 = 99 mL/min/1.73 sq.m. Ages 50-59 = 93 mL/min/1.73 sq.m. Ages 60-69 = 85 mL/min/1.73 sq.m. Ages 70+ = 75 mL/min/1.73 sq.m. Chronic Kidney Disease: Less than 60 mL/min/1.73 square meters End Stage Renal Disease: Less than 15 mL/min/1.73 square meters Performed By: #### A OMARI, TROPHS, CBC, GFR, BMP, MDW, ADIFF #### [address] [address] .MDWon 03-11-2024 Monocyte Distribution Width 19.51 Normal 0.00-20.00 [facility] ([place]) Comment on above: Result Comment: For ED adult patients suspected of sepsis, MDW<=20.0 does not rule out sepsis or risk of sepsis Performed By: #### A OMARI, TROPHS, CBC, GFR, BMP, MDW, ADIFF #### [address] [address] .NEUABSon 03-11-2024 Neutrophil, Absolute 3.6 10 3/mcL Normal 2.9-6.2 [facility] ([place]) Comment on above: Performed By: #### A OMARI, TROPHS, CBC, GFR, BMP, MDW, ADIFF #### [address] [address] [place] 03-11-2024 Ethanol Level <3 Normal 0-3 [facility] ([place]) Comment on above: Performed By: #### A OMARI, TROPHS, CBC, GFR, BMP, MDW, ADIFF #### [address] [address] BMPon 03-11-2024 BUN/Creatinine Ratio 14 ratio Normal 7-27 [facility] ([place]) Comment on above: Performed By: #### A OMARI, TROPHS, CBC, GFR, BMP, W, ADIFF #### [address] [address] Calcium [Mass/Vol] 8.7 mg/dL Normal 8.4-10.2 [facility] ([place]) Comment on above: Performed By: #### A OMARI, TROPHS, CBC, GFR, BMP, LISA, ADIFF #### [address] [address] Chloride [Moles/Vol] 103 mmol/L Normal 98-107 [facility] ([place]) Comment on above: Performed By: #### A OMARI, TROPHS, CBC, GFR, BMP, MDBeckie, ADIFF #### [address] [address] CO2 [Moles/Vol] 26 mmol/L Normal 23-31 [facility] ([place]) Comment on above: Performed By: #### A OMARI, TROPHS, CBC, GFR, BMP, LISA, ADIFF #### [address] [address] Creatinine [Mass/Vol] 1.60 mg/dL High 0.70-1.30 [facility] ([place]) Comment on above: Performed By: #### A OMARI, TROPHS, CBC, GFR, BMP, MDBeckie, ADIFF #### [address] [address] Electrolyte Balance 12.0 mEq/L Normal 4.0-15.0 [facility] ([place]) Comment on above: Performed By: #### A OMARI, TROPHS, CBC, GFR, BMP, MDW, ADIFF #### [address] [address] Glucose [Mass/Vol] 161 mg/dL High 83-110 [facility] ([place]) Comment on above: Performed By: #### A OMARI, TROPHS, CBC, GFR, BMP, MDW, ADIFF #### [address] [address] Potassium [Moles/Vol] 4.3 mmol/L Normal 3.5-5.1 [facility] ([place]) Comment on above: Performed By: #### A OMARI, TROPHS, CBC, GFR, BMP, MDW, ADIFF #### [place] [address] Sodium [Moles/Vol] 141 mmol/L Normal 136-145 [facility] ([place]) Comment on above: Performed By: #### A OMARI, TROPHS, CBC, GFR, BMP, MDW, ADIFF #### [place] [address] Urea nitrogen [Mass/Vol] 22 mg/dL High 7-18 [facility] ([place] Comment on above: Performed By: #### A OMARI, TROPHS, CBC, GFR, BMP, MDW, ADIFF #### [place] [id number] CBCon 03-11-2024 Erythrocyte distribution width (RBC) [Ratio] 14.0 % Normal 11.5-14.5 [facility]) Comment on above: Performed By: #### A OMARI, TROPHS, CBC, GFR, BMP, MDW, ADIFF #### [place] [address] Hematocrit (Bld) [Volume fraction] 39.4 % Low 42.0-52.0 [facility] ([place]) Comment on above: Performed By: #### A OMARI, TROPHS, CBC, GFR, BMP, MDW, ADIFF #### [place] [address] Hgb 14.1 G/dL Normal 14.0-18.0 [facility] ([place]) Comment on above: Performed By: #### A OMARI, TROPHS, CBC, GFR, BMP, MDW, ADIFF #### [place] [phone] MCH (RBC) [Entitic mass] 33.2 pg High 27.0-31.2 [facility] ([place]) Comment on above: Performed By: #### A OMARI, TROPHS, CBC, GFR, BMP, MDW, ADIFF #### [address] [address] MCHC 35.9 G/dL High 31.8-35.4 [facility] ([place] Comment on above: Performed By: #### A OMARI, TROPHS, CBC, GFR, BMP, MDW, ADIFF #### [address] [address] MCV (RBC) [Entitic vol] 92.5 fL Normal 80.0-94.0 [facility] ([place]) Comment on above: Performed By: #### A OMARI, TROPHS, CBC, GFR, BMP, MDW, ADIFF #### [place] [phone] Platelet 183 10 3/mcL Normal 130-400 [facility] ([place]) Comment on above: Performed By: #### A OMARI, TROPHS, CBC, GFR, BMP, MDW, ADIFF #### [address] [address] Platelet mean volume (Bld) [Entitic vol] 8.7 fL Normal 7.4-10.4 [facility] ([place]) Comment on above: Performed By: #### A OMARI, TROPHS, CBC, GFR, BMP, MDW, ADIFF #### [address] [address] RBC 4.25 10 6/mcL Normal 4.04-6.13 [facility] ([place]) Comment on above: Performed By: #### A OMARI, TROPHS, CBC, GFR, BMP, MDW, ADIFF #### [address] [address] WBC 6.2 10 3/mcL Normal 4.6-10.8 [facility] ([place]) Comment on above: Performed By: #### A OMARI, TROPHS, CBC, GFR, BMP, MDW, ADIFF #### [place] [id number] [place], [place] [address] CT HEAD OR BRAIN W/O CONTRAS Ton 03-11-2024 CT HEAD OR BRAIN W/O CONTRAST ORIGINAL EXAMINATION: CT OF THE HEAD WITHOUT CONTRAST 03/11/2024 9:12 am TECHNIQUE: CT of the head was performed without the administration of intravenous contrast. Automated exposure control, iterative reconstruction, and/or weight based adjustment of the mA/kV was utilized to reduce the radiation dose to as low as reasonably achievable. COMPARISON: None. HISTORY: ORDERING SYSTEM PROVIDED HISTORY: Reason for Exam: weakness FINDINGS: BRAIN/VENTRICLES: There is no acute intracranial hemorrhage, mass effect or midline shift. No abnormal extra-axial fluid collection. Periventricular hypodensities are seen on the basis of mild chronic microangiopathic ischemic change. The hayden-white differentiation is maintained without evidence of an acute infarct. There is no evidence of hydrocephalus. ORBITS: The visualized portion of the orbits demonstrate no acute abnormality. SINUSES: The visualized paranasal sinuses and right mastoid air cells demonstrate no acute abnormality. Small left mastoid air cell effusion is seen. SOFT TISSUES/SKULL: No acute abnormality of the visualized skull or soft tissues. IMPRESSION: - No acute intracranial abnormality. - Mild chronic microangiopathic ischemic change. - Small left mastoid air cell effusion. Correlate clinically for mastoiditis. Interpreted by: Renny Bryant MD Preliminary Report By: Renny Bryant MD Electronically signed By Renny Bryant MD Dictated Date: 03/11/2024 9:17:42 AM Prelim Date: 03/11/2024 9:21:28 AM Sign Date: 03/11/2024 9:21:28 AM Ordering Provider: NORY [facility] ([place]) CT SPINE CERVICAL W/O CONTRA STon 03-11-2024 CT SPINE CERVICAL W/O CONTRAST ORIGINAL EXAMINATION: CT OF THE CERVICAL SPINE WITHOUT CONTRAST 03/11/2024 9:11 am TECHNIQUE: CT of the cervical spine was performed without the administration of intravenous contrast. Multiplanar reformatted images are provided for review. Automated exposure control, iterative reconstruction, and/or weight based adjustment of the mA/kV was utilized to reduce the radiation dose to as low as reasonably achievable. COMPARISON: None. HISTORY: ORDERING SYSTEM PROVIDED HISTORY: Reason for Exam: weakness, intermittent tingling FINDINGS: BONES/ALIGNMENT: There is no acute fracture or traumatic malalignment. Grade 1 anterolisthesis is seen of C3 on C4. DEGENERATIVE CHANGES: Disc height loss is seen at C6-C7. Multilevel anterior osteophytes are seen. Multilevel uncovertebral joint hypertrophy and facet arthropathy is seen. Large posterior disc bulge is seen at C5-C6. Degree of stenosis is difficult to evaluate on CT. Likely moderate. Otherwise no high-grade central canal stenosis is seen. SOFT TISSUES: There is no prevertebral soft tissue swelling. IMPRESSION: - No acute fracture or traumatic malalignment. - Multilevel degenerative changes with a large posterior disc bulge at C5-C6. Degree of stenosis is difficult to evaluate on CT. Likely moderate. Consider MRI for further evaluation. Interpreted by: Renny Bryant MD Preliminary Report By: Renny Bryant MD Electronically signed By Renny Bryant MD Dictated Date: 03/11/2024 9:21:41 AM Prelim Date: 03/11/2024 9:26:02 AM Sign Date: 03/11/2024 9:26:02 AM Ordering Provider: NORY [facility] ([place] SPINE LUMBAR W/O CONTRAST on 03-11-2024 CT SPINE LUMBAR W/O CONTRAST ORIGINAL EXAMINATION: CT OF THE LUMBAR SPINE WITHOUT CONTRAST 03/11/2024 TECHNIQUE: CT of the lumbar spine was performed without the administration of intravenous contrast. Multiplanar reformatted images are provided for review. Adjustment of mA and/or kV according to patient size was utilized. Automated exposure control, iterative reconstruction, and/or weight based adjustment of the mA/kV was utilized to reduce the radiation dose to as low as reasonably achievable. COMPARISON: None HISTORY: ORDERING SYSTEM PROVIDED HISTORY: Reason for Exam: leg weakness, history of back issues per patient FINDINGS: BONES/ALIGNMENT: There is normal alignment of the spine. The vertebral body heights are maintained. No osseous destructive lesion is seen. DEGENERATIVE CHANGES: Multilevel anterior osteophytes are seen. Multilevel facet arthropathy is seen. Degenerative changes including calcification of the ligamentum flavum appears to cause high-grade central canal stenosis at L4-L5. Degenerative changes cause varying degrees of neural foraminal stenosis. Likely high-grade neural foraminal stenosis is seen bilaterally at L4-L5 and at L5-S1. SOFT TISSUES/RETROPERITONEU M: No paraspinal mass is seen. IMPRESSION: - No acute fracture or subluxation. - Degenerative changes cause high-grade central canal stenosis at L4-L5 and likely high-grade neural foraminal stenosis at L4-L5 and L5-S1. Consider MRI for further evaluation. Interpreted by: Renny Bryant MD Preliminary Report By: Renny Bryant MD Electronically signed By Renny Bryant MD Dictated Date: 03/11/2024 9:26:14 AM Prelim Date: 03/11/2024 9:29:11 AM Sign Date: 03/11/2024 9:29:11 AM Ordering Provider: NORY DELANEY [facility] [place] SPINE CERVICAL W/O CONTR [place] 03-11-2024 MRI SPINE CERVICAL W/O CONTRAST ORIGINAL EXAMINATION: MRI OF THE CERVICAL SPINE WITHOUT CONTRAST 03/11/2024 2:36 pm TECHNIQUE: Multiplanar multisequence MRI of the cervical spine was performed without the administration of intravenous contrast. COMPARISON: Same day CT cervical spine HISTORY: ORDERING SYSTEM PROVIDED HISTORY: Reason for Exam: Weakness FINDINGS: BONES/ALIGNMENT: Slight straightening of the cervical lordosis which is most likely positional. Otherwise, alignment is grossly anatomic. Vertebral body heights are maintained. No abnormal marrow signal. SOFT TISSUES: No paraspinal mass identified. Degenerative changes: There are mild to moderate multilevel degenerative changes including disc height loss, endplate osteophytes, uncovertebral and facet hypertrophy. There is a large circumferential disc bulge at C5-C6 and an additional smaller circumferential disc bulge noted at C6-C7. The large disc bulge at C5-C6 results in compression of the spinal cord with focal cord edema at this level. The remaining cord demonstrates normal signal. No other areas of severe canal stenosis. There are variable multilevel foraminal stenoses. IMPRESSION: Large circumferential disc bulge at C5-C6 results in cord compression with reactive cord edema. Neurosurgery consultation is recommended. I have personally reviewed the images of this examination and agree with the resident's findings and interpretation. Interpreted by: Renny Bryant MD Preliminary Report By: Mukesh Mortensen Electronically signed By Renny Bryant MD Dictated Date: 03/11/2024 2:43:01 PM Prelim Date: 03/11/2024 2:51:14 PM Sign Date: 03/11/2024 2:55:13 PM Ordering Provider: CLAUDETTE GARCIA Normal [facility] ([place]) Quynh 03-11-2024 High Sensitivity Troponin I 10 ng/L Normal 0-76 [facility] ([place]) Comment on above: Result Comment: High Sensitive Troponin I Reference Ranges: Female: 0-51 ng/L Male: 0-76 ng/L Testing performed on [employer] using a homogeneous sandwich chemiluminescent immunoassay based on [employer] technology. Performed By: #### A OMARI, TROPHS, CBC, GFR, SINDY, LISA, ADIFF #### Bebe [address] [address] UAon 03-11-2024 Color (U) Yellow Normal [facility] ([place]) Comment on above: Performed By: #### A OMARI, TROPHS, CBC, GFR, SINDY, LISA, ADIFF #### Bebe [address] [address] Glucose (U) [Mass/Vol] mg/dL Abnormal Negative [facility] ([place]) Comment on above: Performed By: #### A OMARI, TROPHS, CBC, GFR, SINDY, LISA, ADIFF #### Bebe [address] [address] Ketones Ql (U) Negative Normal Negative [facility] ([place]) Comment on above: Performed By: #### A OMARI, TROPHS, CBC, GFR, BMP, LISA, ADIFF #### Bebe [address] [address] UA Appear Clear Normal Clear [facility] ([place]) Comment on above: Performed By: #### A OMARI, TROPHS, CBC, GFR, SINDY, LISA, ADIFF #### Bebe [address] [address] UA Blood Negative Normal Negative [facility] ([place]) Comment on above: Performed By: #### A OMARI, TROPHS, CBC, GFR, SINDY, LISA, ADIFF #### [address] [address] UA Leuk Est Negative Normal Negative [facility] ([place]) Comment on above: Performed By: #### A OMARI, TROPHS, CBC, GFR, BMP, MDW, ADIFF #### [address] [address] UA Nitrite Negative Normal Negative [facility] ([place]) Comment on above: Performed By: #### A OMARI, TROPHS, CBC, GFR, BMP, MDW, ADIFF #### [address] [address] UA pH 6.0 Normal 5.0 - 8.0 [facility] ([place]) Comment on above: Performed By: #### A OMARI, TROPHS, CBC, GFR, BMP, MDW, ADIFF #### [address] [address] UA Protein Negative Normal Negative [facility] ([place]) Comment on above: Performed By: #### A OMARI, TROPHS, CBC, GFR, BMP, MDW, ADIFF #### [address] [address] UA Spec Grav 1.020 Normal 1.015-1.025 [facility] ([place]) Comment on above: Performed By: #### A OMARI, TROPHS, CBC, GFR, BMP, MDW, ADIFF #### [address] [address] UA Specimen Type Clean Catch Normal [facility] ([place]) Comment on above: Performed By: #### A OMARI, TROPHS, CBC, GFR, BMP, MDW, ADIFF #### [address] [address] UA Urobilinogen 0.2 E.U./dL Normal 0.2-1.0 [facility] ([place]) Comment on above: Performed By: #### A OMARI, TROPHS, CBC, GFR, BMP, MDW, ADIFF #### [address] [address] Urobilinogen (U) [Mass/Vol] Negative Normal Negative [facility] ([place]) Comment on above: Performed By: #### A OMARI, TROPHS, CBC, GFR, BMP, MDW, ADIFF #### [place] [id number] [place], [place] [address] XR CHEST 1 VIEWon 03-11-2024 XR CHEST 1 VIEW ORIGINAL EXAMINATION: ONE XRAY VIEW OF THE CHEST 03/11/2024 9:10 am COMPARISON: None. HISTORY: ORDERING SYSTEM PROVIDED HISTORY: Reason for Exam: weakness FINDINGS: The cardiomediastinal silhouette demonstrates a normal appearance status post prior CABG. No consolidative opacity is identified. There is no pleural effusion or pneumothorax. No free air seen beneath the level of the diaphragm. The bony thorax appears acutely intact. IMPRESSION: No evidence of an acute process. Interpreted by: Renny Bryant MD Preliminary Report By: Renny Bryant MD Electronically signed By Renny Bryant MD Dictated Date: 03/11/2024 9:16:41 AM Prelim Date: 03/11/2024 9:17:32 AM Sign Date: 03/11/2024 9:17:32 AM Ordering Provider: NORY DELANEY [facility] [place]) [place] FOREIGN BODY LOC EYE BILA TERALon 03-11-2024 XR FOREIGN BODY LOC EYE BILATERAL ORIGINAL EXAMINATION: XR OR FOREIGN BODY one view 03/11/2024 1:32 pm COMPARISON: CT head 03/11/2024. HISTORY: ORDERING SYSTEM PROVIDED HISTORY: Reason for Exam: R/O FB FINDINGS: No radiopaque foreign body identified. No acute osseous abnormality. Multiple dental amalgam noted. Paranasal sinuses demonstrate no air-fluid level. IMPRESSION: No unexpected radiopaque foreign body. I have personally reviewed the images of this examination and agree with the resident's findings and interpretation. Interpreted by: Renny Bryant MD Preliminary Report By: Mukesh Mortensen Electronically signed By Renny Bryant MD Dictated Date: 03/11/2024 1:51:51 PM Prelim Date: 03/11/2024 1:52:54 PM Sign Date: 03/11/2024 2:04:54 PM Ordering Provider: CLAUDETTE GARCIA [facility] ([place]) Basophil percentageOrdered B y: Gayle Petit on 12-22-2023 Basophil percentage 1.48 ng/mL 0.0-4.0 [facility] Comment on above: This test was perfor med using the TPSA assay method [facility] the[facility] system. Values obtained with differentassay methods cannot be used interchangably.When changing PSA assays in the course of monitoring apatient, additional sequential testing should be carriedout to confirm baseline values. Bilirubin [Mass/Vol] 0.50 mg/dL 0.20-1.[address] [facility] Comment on above: For patients on eltr ombopag therapy, use of Dimension [place] TBIL is not recommended. Chloride [Moles/Vol] 106 mmol/L 98-[address] [facility] Glucose [Mass/Vol] 166 mg/dL 74-106 [facility] Comment on above: Fasting Glucose resu lt greater than or equal to 126 mg/dL suggests DIABETES MELLITUS per A.D.A. criteria. Potassium [Moles/Vol] 4.3 mmol/L 3.5-5.1 [facility] Protein [Mass/Vol] 7.4 g/dL 6.4-8.2 [facility] Sodium [Moles/Vol] 136 mmol/L 136-145 [facility] Cholesterol in LDL Direct as say [Mass/Vol]Ordered By: Gayle Petit on 12-22-2023 Cholesterol in LDL [Mass/Vol] 61 mg/dL 0-99 [facility] Comment on above: Performed at: [address] [id number] Director: Ricardo Betancourt PhD, Phone: [phone] Erythrocyte sedimentation ra teOrdered By: Gayle Petit on 12-22-2023 ESR (Bld) [Velocity] 13 mm/h 0-[address] [facility] Laboratory - Chemistry and C hemistry - challengeOrdered By: Gayle Petit on 12-22-2023 Albumin/Globulin [Mass ratio] 1.1 {ratio} 0.9-2.4 [facility] ALP [Catalytic activity/Vol] 58 U/L 45-117 [facility] ALT [Catalytic activity/Vol] 33 U/L 16-61 [facility] CO2 [Moles/Vol] 25.0 mmol/L 21.0-32.0 [facility] Globulin (S) [Mass/Vol] 3.6 g/dL 2.2-4.2 [facility] Urea nitrogen/Creatinine [Mass ratio] 14.0 mg/mg 10-20 [facility] - Hematology and Cell countson 12-22-2023 HbA1c (Bld) [Mass fraction] 8.4 % 4.2-6.3 [facility] - Miscellaneous t estsOrdered By: Gayle Petit on 12-22-2023 Service comment (Unsp spec) [Interp] TNP [facility] Comment on above: Test not performed No Panel InformationOrdered By: Gayle Petit on 12-22-2023 Estimated GFR (MDRD) Amer 53 mL/min >60 [facility] Comment on above: GFR Calc Estimated GFR (MDRD) Non-Af Amer 43 mL/min >60 [facility] Comment on above: Non- GFR Calc Serum or plasma calcium karen urement (mass/volume)Ordered By: Gayle Petit on 12-22-2023 Calcium [Mass/Vol] 9.4 mg/dL 8.5-10.1 [facility] Serum or plasma creatinine m easurement (mass/volume)Ordered By: Gayle Petit on 12-22-2023 Creatinine [Mass/Vol] 1.64 mg/dL 0.70-1.30 [facility] Comment on above: The validity of the calculated GFR & GFRAA in patients over 70 years has not been determined. Clinical correlation is essential. Serum or plasma urea nitroge n measurement (mass/volume)Ordered By: Gayle Petit on 12-22-2023 Urea nitrogen [Mass/Vol] 23 mg/dL 7-18 [facility] Thin prep Papanicolaou smear with manual screeningOrdered By: Gayle Petit on 12-22-2023 Thin prep Papanicolaou smear with manual screening 3.8 g/dL 3.2-5.0 [facility] Thin prep Papanicolaou smear with manual screening 16 U/L 15-37 [facility] Thin prep Papanicolaou smear with manual screening 5 5-15 [facility] .GFRon 10-27-2023 GFR 45 ml/min/1.73sqm Normal [facility] ([place]) Comment on above: Result Comment: GFR Population mean for , Non- Americans Ages 20-29 = 116 mL/min/1.73 sq.m. Ages 30-39 = 107 mL/min/1.73 sq.m. Ages 40-49 = 99 mL/min/1.73 sq.m. Ages 50-59 = 93 mL/min/1.73 sq.m. Ages 60-69 = 85 mL/min/1.73 sq.m. Ages 70+ = 75 mL/min/1.73 sq.m. Chronic Kidney Disease: Less than 60 mL/min/1.73 square meters End Stage Renal Disease: Less than 15 mL/min/1.73 square meters Performed By: #### A OMARI, TROPHS, CBC, GFR, BMP, MDW, ADIFF #### [facility] [address] [address] GFR Non- 37 ml/min/1.73sqm Normal [facility] ([place]) Comment on above: Result Comment: GFR Population mean for , Non- Americans Ages 20-29 = 116 mL/min/1.73 sq.m. Ages 30-39 = 107 mL/min/1.73 sq.m. Ages 40-49 = 99 mL/min/1.73 sq.m. Ages 50-59 = 93 mL/min/1.73 sq.m. Ages 60-69 = 85 mL/min/1.73 sq.m. Ages 70+ = 75 mL/min/1.73 sq.m. Chronic Kidney Disease: Less than 60 mL/min/1.73 square meters End Stage Renal Disease: Less than 15 mL/min/1.73 square meters Performed By: #### A OMARI, TROPHS, CBC, GFR, BMP, MDW, ADIFF #### [facility] [id number] [place], [place] [address] LABORATORYOrdered By: Yanet Noguera on 10-27-2023 Creatinine (U) [Mass/Vol] 91.9 mg/dL Normal 39.0 - 259.0 mg/dL AO ADM SS Protein (U) [Mass/Vol] 30 mg/dL High 0 - 11 mg/dL AO ADM SS U Ratio Prot/Creat 0.3 ratio Invalid Interpretation Code AO Chemistry S LABORATORYOrdered By: [employer] SYSTEM on 10-27-2023 Albumin BCP dye [Mass/Vol] 3.7 G/dL Normal 3.4 - 4.8 G/dL AO ADM SS Calcium [Mass/Vol] 9.0 mg/dL Normal 8.4 - 10. 2 mg/dL AO ADM SS Chloride [Moles/Vol] 102 mmol/L Normal 98 - 10 7 mmol/L AO ADM SS CO2 [Moles/Vol] 29 mmol/L Normal 23 - 31 mmol/L AO ADM SS Creatinine [Mass/Vol] 1.80 mg/dL High 0.70 - 1.30 mg/dL AO ADM SS Electrolyte Balance 9.0 mEq/L Normal 4.0 - 15 .0 mEq/L AO ADM SS GFR/1.73 sq M.predicted among blacks MDRD (S/P/Bld) [Vol rate/Area] 45 ml/min/1.73sqm Invalid Interpretation Code AO Chemistry S Comment on above: Interpretive Data: GFR Population mean for , Non- Americans Ages 20-29 = 116 mL/min/1.73 sq.m. Ages 30-39 = 107 mL/min/1.73 sq.m. Ages 40-49 = 99 mL/min/1.73 sq.m. Ages 50-59 = 93 mL/min/1.73 sq.m. Ages 60-69 = 85 mL/min/1.73 sq.m. Ages 70+ = 75 mL/min/1.73 sq.m. Chronic Kidney Disease: Less than 60 mL/min/1.73 square meters End Stage Renal Disease: Less than 15 mL/min/1.73 square meters GFR/1.73 sq M.predicted among non-blacks MDRD (S/P/Bld) [Vol rate/Area] 37 ml/min/1.73sqm Invalid Interpretation Code AO Chemistry S Comment on above: Interpretive Data: GFR Population mean for , Non- Americans Ages 20-29 = 116 mL/min/1.73 sq.m. Ages 30-39 = 107 mL/min/1.73 sq.m. Ages 40-49 = 99 mL/min/1.73 sq.m. Ages 50-59 = 93 mL/min/1.73 sq.m. Ages 60-69 = 85 mL/min/1.73 sq.m. Ages 70+ = 75 mL/min/1.73 sq.m. Chronic Kidney Disease: Less than 60 mL/min/1.73 square meters End Stage Renal Disease: Less than 15 mL/min/1.73 square meters Glucose [Mass/Vol] 163 mg/dL High 83 - 110 mg/dL AO ADM SS Phosphate [Mass/Vol] 3.9 mg/dL Normal 2.3 - 4 .1 mg/dL AO ADM SS Potassium [Moles/Vol] 4.5 mmol/L Normal 3.5 - 5.1 mmol/L AO ADM SS Sodium [Moles/Vol] 140 mmol/L Normal 136 - 145 mmol/L AO ADM SS Urea nitrogen [Mass/Vol] 18 mg/dL Normal 7 - 18 mg/dL AO ADM SS Urea nitrogen/Creatinine [Mass ratio] 10 ratio Normal 7 - 27 ratio AO ADM SS RFPon 10-27-2023 Albumin Level 3.7 G/dL Normal 3.4-4.8 [facility] ([place]) Comment on above: Performed By: #### A OMARI, TROPHS, CBC, GFR, BMP, MDW, ADIFF #### [address] [address] BUN/Creatinine Ratio 10 ratio Normal 7-27 [facility] ([place]) Comment on above: Performed By: #### A OMARI, TROPHS, CBC, GFR, BMP, MDW, ADIFF #### [address] [address] Calcium [Mass/Vol] 9.0 mg/dL Normal 8.4-10.2 [facility] ([place]) Comment on above: Performed By: #### A OMARI, TROPHS, CBC, GFR, BMP, MDW, ADIFF #### [address] [address] Chloride [Moles/Vol] 102 mmol/L Normal 98-107 [facility] ([place]) Comment on above: Performed By: #### A OMARI, TROPHS, CBC, GFR, BMP, MDW, ADIFF #### [address] [address] CO2 [Moles/Vol] 29 mmol/L Normal 23-31 [facility] ([place]) Comment on above: Performed By: #### A OMARI, TROPHS, CBC, GFR, BMP, MDW, ADIFF #### [address] [address] Creatinine [Mass/Vol] 1.80 mg/dL High 0.70-1.30 [facility] ([place]) Comment on above: Performed By: #### A OMARI, TROPHS, CBC, GFR, BMP, MDW, ADIFF #### [address] [address] Electrolyte Balance 9.0 mEq/L Normal 4.0-15.0 [facility] ([place]) Comment on above: Performed By: #### A OMARI, TROPHS, CBC, GFR, BMP, MDW, ADIFF #### [address] [address] Glucose [Mass/Vol] 163 mg/dL High 83-110 [facility] ([place]) Comment on above: Performed By: #### A OMARI, TROPHS, CBC, GFR, BMP, MDW, ADIFF #### [address] [address] Phosphate [Mass/Vol] 3.9 mg/dL Normal 2.3-4.1 [facility] ([place]) Comment on above: Performed By: #### A OMARI, TROPHS, CBC, GFR, BMP, MDW, ADIFF #### [address] [address] Potassium [Moles/Vol] 4.5 mmol/L Normal 3.5-5.1 [facility] ([place]) Comment on above: Performed By: #### A OMARI, TROPHS, CBC, GFR, BMP, MDW, ADIFF #### [address] [address] Sodium [Moles/Vol] 140 mmol/L Normal 136-145 [facility] ([place]) Comment on above: Performed By: #### A OMARI, TROPHS, CBC, GFR, BMP, MDW, ADIFF #### [facility] [address] [place], [place] [address] Urea nitrogen [Mass/Vol] 18 mg/dL Normal 7-18 [facility] ([place]) Comment on above: Performed By: #### A OMARI, TROPHS, CBC, GFR, BMP, MDW, ADIFF #### [facility] [address] [place], [place] [address] RPCURon 10-27-2023 U Creatinine 91.9 mg/dL Normal 39.0-259.0 [facility] ([place]) Comment on above: Performed By: #### R PCUR ####[address] [address] [place], [place] [address] U Protein 30 mg/dL High 0-11 [facility] ([place]) Comment on above: Performed By: #### R PCUR ####[facility] [address] [place], [place] [address] U Ratio Prot/Creat 0.3 ratio Normal [facility] ([place]) Comment on above: Result Comment: resu lt calculated by rule [id number] (U Protein/U Creatinine) Performed By: #### R PCUR ####[facility] [address] [place], [place] [address] Laboratory - Hematology and Cell countson 09-15-2023 HbA1c (Bld) [Mass fraction] 8.1 % 4.2-6.3 [facility] LABORATORYOrdered By: SYSTEM SYSTEM on 02-16-2023 Albumin BCP dye [Mass/Vol] 3.8 G/dL Invalid Interpretation Code 3.4 - 4.8 G/dL AO ADM SS GFR 45 ml/min/1.73sqm Invalid Interpretation Code AO Chemistry S GFR Non- 37 ml/min/1.73sqm Invalid Interpretation Code AO Chemistry S Phosphate [Mass/Vol] 4.5 mg/dL Invalid Interpretation Code 2.3 - 4.1 mg/dL AO ADM SS LABORATORYOrdered By: See Oliveira on 02-16-2023 Creatinine (U) [Mass/Vol] 73.0 mg/dL Invalid Interpretation Code 39.0 - 259.0 mg/dL AO ADM SS Protein (U) [Mass/Vol] 23 mg/dL Invalid Interpretation Code 0 - 11 mg/dL AO ADM SS U Ratio Prot/Creat 0.3 ratio Invalid Interpretation Code AO Chemistry S Laboratory - Chemistry and C hemistry - challengeOrdered By: SYSTEM SYSTEM on 02-16-2023 Calcium [Mass/Vol] 9.2 mg/dL Invalid Interpretation Code 8.4 - 10.2 mg/dL AO ADM SS Chloride [Moles/Vol] 100 mmol/L Invalid Interpretation Code 98 - 107 mmol/L AO ADM SS CO2 [Moles/Vol] 30 mmol/L Invalid Interpretation Code 23 - 31 mmol/L AO ADM SS Creatinine [Mass/Vol] 1.78 mg/dL Invalid Interpretation Code 0.70 - 1.30 mg/dL AO ADM SS Glucose [Mass/Vol] 184 mg/dL Invalid Interpretation Code 83 - 110 mg/dL AO ADM SS Potassium [Moles/Vol] 4.1 mmol/L Invalid Interpretation Code 3.5 - 5.1 mmol/L AO ADM SS Sodium [Moles/Vol] 139 mmol/L Invalid Interpretation Code 136 - 145 mmol/L AO ADM SS Urea nitrogen [Mass/Vol] 19 mg/dL Invalid Interpretation Code 7 - 18 mg/dL AO ADM SS Urea nitrogen/Creatinine [Mass ratio] 11 ratio Invalid Interpretation Code 7 - 27 ratio AO ADM SS No Panel InformationOrdered By: SYSTEM SYSTEM on 02-16-2023 Electrolyte Balance 9.0 mEq/L Invalid Interpretation Code 4.0 - 15.0 mEq/L AO ADM SS LABORATORYOrdered By: SYSTEM SYSTEM on 11-05-2022 Calcium [Mass/Vol] 9.5 mg/dL Invalid Interpretation Code 8.4 - 10.2 mg/dL AO ADM SS Chloride [Moles/Vol] 100 mmol/L Invalid Interpretation Code 98 - 107 mmol/L AO ADM SS CO2 [Moles/Vol] 30 mmol/L Invalid Interpretation Code 23 - 31 mmol/L AO ADM SS Creatinine [Mass/Vol] 1.78 mg/dL Invalid Interpretation Code 0.70 - 1.30 mg/dL AO ADM SS Electrolyte Balance 9.0 mEq/L Invalid Interpretation Code 4.0 - 15.0 mEq/L AO ADM SS GFR 45 ml/min/1.73sqm Invalid Interpretation Code AO Chemistry S GFR Non- 37 ml/min/1.73sqm Invalid Interpretation Code AO Chemistry S Glucose [Mass/Vol] 161 mg/dL Invalid Interpretation Code 83 - 110 mg/dL AO ADM SS Potassium [Moles/Vol] 4.3 mmol/L Invalid Interpretation Code 3.5 - 5.1 mmol/L AO ADM SS Sodium [Moles/Vol] 139 mmol/L Invalid Interpretation Code 136 - 145 mmol/L AO ADM SS Urea nitrogen [Mass/Vol] 20 mg/dL Invalid Interpretation Code 7 - 18 mg/dL AO ADM SS Urea nitrogen/Creatinine [Mass ratio] 11 ratio Invalid Interpretation Code 7 - 27 ratio AO ADM SS LABORATORYOrdered By: See Oliveira on 10-20-2022 Creatinine (U) [Mass/Vol] 114.7 mg/dL Invalid Interpretation Code 39.0 - 259.0 mg/dL AO ADM SS Protein (U) [Mass/Vol] 51 mg/dL Invalid Interpretation Code 0 - 11 mg/dL AO ADM SS U Ratio Prot/Creat 0.4 ratio Invalid Interpretation Code AO Chemistry S Albumin BCP dye [Mass/Vol] 3.8 G/dL Invalid Interpretation Code 3.4 - 4.8 G/dL AO ADM SS Calcium [Mass/Vol] 9.2 mg/dL Invalid Interpretation Code 8.4 - 10.2 mg/dL AO ADM SS Chloride [Moles/Vol] 102 mmol/L Invalid Interpretation Code 98 - 107 mmol/L AO ADM SS CO2 [Moles/Vol] 28 mmol/L Invalid Interpretation Code 23 - 31 mmol/L AO ADM SS Creatinine [Mass/Vol] 1.78 mg/dL Invalid Interpretation Code 0.70 - 1.30 mg/dL AO ADM SS Electrolyte Balance 7.0 mEq/L Invalid Interpretation Code 4.0 - 15.0 mEq/L AO ADM SS Glucose [Mass/Vol] 224 mg/dL Invalid Interpretation Code 83 - 110 mg/dL AO ADM SS Phosphate [Mass/Vol] 3.6 mg/dL Invalid Interpretation Code 2.3 - 4.1 mg/dL AO ADM SS Potassium [Moles/Vol] 4.4 mmol/L Invalid Interpretation Code 3.5 - 5.1 mmol/L AO ADM SS Sodium [Moles/Vol] 137 mmol/L Invalid Interpretation Code 136 - 145 mmol/L AO ADM SS Urea nitrogen [Mass/Vol] 22 mg/dL Invalid Interpretation Code 7 - 18 mg/dL AO ADM SS Urea nitrogen/Creatinine [Mass ratio] 12 ratio Invalid Interpretation Code 7 - 27 ratio AO ADM SS LABORATORYOrdered By: Jeanette Temple on 10-20-2022 Basophil, Absolute 0.0 103/mcL Invalid Interpretation Code 0.0 - 0.2 10^3/mcL AO Workflow SS Basophils/100 WBC (Bld) 0.5 % Invalid Interpretation Code 0.0 - 2.5 % AO Workflow SS Eosinophil, Absolute 0.1 103/mcL Invalid Interpretation Code 0.0 - 0.4 10^3/mcL AO Workflow SS Eosinophils/100 WBC (Bld) 1.4 % Invalid Interpretation Code 0.0 - 7.0 % AO Workflow SS Erythrocyte distribution width (RBC) [Ratio] 13.4 % Invalid Interpretation Code 11.5 - 14.5 % AO Workflow SS Hematocrit (Bld) [Volume fraction] 38.3 % Invalid Interpretation Code 42.0 - 52.0 % AO Workflow SS Hemoglobin (Bld) [Mass/Vol] 13.6 G/dL Invalid Interpretation Code 14.0 - 18.0 G/dL AO Workflow SS Lymphocyte, Absolute 2.3 103/mcL Invalid Interpretation Code 0.8 - 3.9 10^3/mcL AO Workflow SS Lymphocytes/100 WBC (Bld) 34.0 % Invalid Interpretation Code 10.0 - 50.0 % AO Workflow SS MCH (RBC) [Entitic mass] 32.5 pg Invalid Interpretation Code 27.0 - 31.2 pg AO Workflow SS MCHC 35.4 G/dL Invalid Interpretation Code 31.8 - 35.4 G/dL AO Workflow SS MCV (RBC) [Entitic vol] 91.8 fL Invalid Interpretation Code 80.0 - 94.0 fL AO Workflow SS Monocyte, Absolute 0.6 103/mcL Invalid Interpretation Code 0.2 - 1.0 10^3/mcL AO Workflow SS Monocytes/100 WBC (Bld) 8.9 % Invalid Interpretation Code 1.7 - 13.0 % AO Workflow SS Neutrophil, Absolute 3.8 103/mcL Invalid Interpretation Code 2.9 - 6.2 10^3/mcL AO Workflow SS Neutrophils/100 WBC (Bld) 55.2 % Invalid Interpretation Code 37.0 - 80.0 % AO Workflow SS Platelet mean volume (Bld) [Entitic vol] 9.4 fL Invalid Interpretation Code 7.4 - 10.4 fL AO Workflow SS Platelets (Bld) [#/Vol] 212 103/mcL Invalid Interpretation Code 130 - 400 10^3/mcL AO Workflow SS RBC (Bld) [#/Vol] 4.17 106/mcL Invalid Interpretation Code 4.04 - 6.13 10^6/mcL AO Workflow SS WBC (Bld) [#/Vol] 6.8 103/mcL Invalid Interpretation Code 4.6 - 10.8 10^3/mcL AO Workflow SS LABORATORYOrdered By: SYSTEM SYSTEM on 10-20-2022 GFR 45 ml/min/1.73sqm Invalid Interpretation Code AO Chemistry S GFR Non- 37 ml/min/1.73sqm Invalid Interpretation Code AO Chemistry S Parathyrin.intact [Mass/Vol] 101.0 pg/mL Invalid Interpretation Code 18.5 - 88.0 pg/mL AH ADM SS 36on 09-14-2022 36 {\rtf1\rrzjmk18216\a ns i\jbmsgky1660\ftnbj\uc 1\deff0 \X0A\{\fonttbl{\f0 \fnil \fcharset0 [place];}{\f1 \fnil SEGOE UI;}{\f2 \fnil [place];}}\X0A\{\colortb l ;\vya956\\blue 255 ;\red79\green79\blue79 ;\red95\green95\blue95 ;\red0\green0\blue0 ;\red0\green0\blue0 ;}\X0A\{\stylesheet{\f 0\fs24 Normal;}{\cs1 Default Paragraph Font;}{\s2\snext0 heading 1;}{\s3\snext0 heading 2;}{\s4\snext0 heading 3;}{\s5\snext0 heading 4;}{\s6\snext0 heading 5;}{\s7\snext0 heading 6;}}\X0A\{\*\revtbl{Un known;}}\X0A\\gyrezf39 240\gptohe07748\margl8 64\npyqk421\gbefd653\m ibxg361\xrmiryw595\jareth gabl920\nogrowautofit\ tpavtb669\formshade\dn tblnsbdb\fet4\aendnote s\aftnnrlc\pgbrdrhead\ pgbrdrfoot \X0A\\sectd\gaxqbi5300 0\moixdk99230\guttersx n0\sdmfaybe642\margrsx n576\dtvhcenq155\margb qbr726\blabtdc176\foot xzu788\sbkpage\pgncont \pgndec \X0A\\plain\plain\f0\f s24\pard\ssparaaux0\s0 \sl24\ltrpar\ql\keepn\ plain\f0\fs24{\*\bkmks tart Telephone Encounter by Vivi Nogueira RN at 09/14/2022 1:24 PM}{\*\bkmkend Telephone Encounter by Vivi Nogueira RN at 09/14/2022 1:24 PM}\plain\f0\fs20\hich \f0\dbch\f0\loch\f0\fs 20\v \X0A\bmk\par \X0A\\trowd\trgaph0\la strow\trpaddl0\trpaddf l3\trpaddr0\trpaddfr3\ trleft0\lcjc790\ltrrow \X0A\\clvertalb\clbrdr b\brdrs\\brdrcf 2\bqcqf97401 \X0A\\pard\intbl\sspar aaux0\s0\sl24\ltrpar\q l\keepn\plain\f0\fs24{ \*\bkmkstart Telephone Encounter by Vivi Nogueira RN at 09/14/2022 1:24 PM}{\*\bkmkend Telephone Encounter by Vivi Nogueira RN at 09/14/2022 1:24 PM}\plain\f0\fs20\hich \f0\dbch\f0\loch\f0\cf 2\fs20\ltrch\b \X0A\Telephone Encounter by Vivi Nogueira RN at 09/14/2022 1:24 PM\plain\f0\fs20\hich\ f0\dbch\f0\loch\f0\fs2 0 \cell \X0A\\intbl\row \X0A\\pard\ssparaaux0\ s0\ql\plain\f0\fs24\pl ain\f0\fs20\hich\f0\db ch\f0\loch\f0\fs20\par d\sect \X0A\\sectd\ncopis5057 0\hobqfp98062\guttersx n0\djajrrez035\margrsx n576\chmitepg975\margb cmm397\nndxfye630\foot twc114\sbknone\pgncont \pgndec \X0A\{\header \X0A\\trowd\trgaph0\la strow\trpaddl0\trpaddf l3\trpaddr0\trpaddfr3\ trleft0\svzx247\ltrrow \X0A\\clvertalb\clbrdr b\brdrs\\brdrcf 2\ocxer77965 \X0A\\pard\intbl\sspar aaux0\s0\sl24\ltrpar\q l\keepn\plain\f0\fs24\ plain\f0\fs20\hich\f0\ dbch\f0\loch\f0\cf2\fs 20\ltrch\b Telephone Encounter by Vivi Nogueira RN at 09/14/2022 1:24 PM (continued)\plain\f0\f s20\hich\f0\dbch\f0\lo ch\f0\fs20 \cell \X0A\\intbl\row \X0A\\plain\f0\fs24}\X 0A\\trowd\trgaph0\trpa ddl0\trpaddfl3\trpaddr 0\trpaddfr3\trleft0\tr keep \X0A\\clvertalt\cellx2 16 \X0A\\clvertalt\cellx3 744 \X0A\\clvertalt\cellx7 272 \X0A\\clvertalt\cellx1 0800 \X0A\\pard\intbl\sspar aaux0\s0\sl24\ql\keepn \plain\f0\fs24\plain\f 0\fs20\hich\f0\dbch\f0 \loch\f0\fs20\cell \X0A\\pard\intbl\sspar aaux0\s0\li80\ri80\sl2 4\ql\keepn\plain\f0\fs 24\plain\f0\fs20\hich\ f0\dbch\f0\loch\f0\cf3 \fs20 Author: \plain\f0\fs20\hich\f0 \dbch\f0\loch\f0\cf4\f s20 Vivi Nogueira, RN\plain\f0\fs20\hich\ f0\dbch\f0\loch\f0\fs2 0\cell \X0A\\pard\intbl\sspar aaux0\s0\li80\ri80\sl2 4\ql\keepn\plain\f0\fs 24\plain\f0\fs20\hich\ f0\dbch\f0\loch\f0\cf3 \fs20 Service: \plain\f0\fs20\hich\f0 \dbch\f0\loch\f0\cf4\f s20 \emdash\plain\f0\fs20\ hich\f0\dbch\f0\loch\f 0\fs20\cell \X0A\\pard\intbl\sspar aaux0\s0\li80\ri80\sl2 4\ql\keepn\plain\f0\fs 24\plain\f0\fs20\hich\ f0\dbch\f0\loch\f0\cf3 \fs20 Author Type: \plain\f0\fs20\hich\f0 \dbch\f0\loch\f0\cf4\f s20 Registered Nurse\plain\f0\fs20\hi ch\f0\dbch\f0\loch\f0\ fs20\cell \X0A\\intbl\row \X0A\\pard\intbl\sspar aaux0\s0\sl24\ql\keepn \plain\f0\fs24\plain\f 0\fs20\hich\f0\dbch\f0 \loch\f0\fs20\cell \X0A\\pard\intbl\sspar aaux0\s0\li80\ri80\sl2 4\ql\keepn\plain\f0\fs 24\plain\f0\fs20\hich\ f0\dbch\f0\loch\f0\cf3 \fs20 Filed: \plain\f0\fs20\hich\f0 \dbch\f0\loch\f0\cf4\f s20 09/14/2022 1:37 PM\plain\f0\fs20\hich\ f0\dbch\f0\loch\f0\fs2 0\cell \X0A\\pard\intbl\sspar aaux0\s0\li80\ri80\sl2 4\ql\keepn\plain\f0\fs 24\plain\f0\fs20\hich\ f0\dbch\f0\loch\f0\cf3 \fs20 Creation Time: \plain\f0\fs20\hich\f0 \dbch\f0\loch\f0\cf4\f s20 09/14/2022 1:24 PM\plain\f0\fs20\hich\ f0\dbch\f0\loch\f0\fs2 0\cell \X0A\\pard\intbl\sspar aaux0\s0\li80\ri80\sl2 4\ql\keepn\plain\f0\fs 24\plain\f0\fs20\hich\ f0\dbch\f0\loch\f0\cf3 \fs20 Status: \plain\f0\fs20\hich\f0 \dbch\f0\loch\f0\cf4\f s20 Signed\plain\f0\fs20\h ich\f0\dbch\f0\loch\f0 \fs20\cell \X0A\\intbl\row \X0A\\trowd\trgaph0\la strow\trpaddl0\trpaddf l3\trpaddr0\trpaddfr3\ trleft0\trkeep \X0A\\clvertalt\cellx2 16 \X0A\\clvertalt\cellx1 0800 \X0A\\pard\intbl\sspar aaux0\s0\sl24\ql\keepn \plain\f0\fs24\plain\f 0\fs20\hich\f0\dbch\f0 \loch\f0\fs20\cell \X0A\\pard\intbl\sspar aaux0\s0\li80\ri80\sl2 4\ql\keepn\plain\f0\fs 24\plain\f0\fs20\hich\ f0\dbch\f0\loch\f0\cf3 \fs20 Turntable Worker: \plain\f0\fs20\hich\f0 \dbch\f0\loch\f0\cf4\f s20 Vivi GUERRERO Nogueira (Registered Nurse)\plain\f0\fs20\h ich\f0\dbch\f0\loch\f0 \fs20\cell \X0A\\intbl\row \X0A\\trowd\trgaph0\la strow\trpaddl0\trpaddf l3\trpaddr0\trpaddfr3\ trleft0 \X0A\\clvertalt\cellx2 16 \X0A\\clvertalt\cellx1 0800 \X0A\\pard\intbl\sspar aaux0\s0\sl24\ql\plain \f0\fs24\plain\f0\fs20 \hich\f0\dbch\f0\loch\ f0\fs20\cell \X0A\\pard\intbl\sspar aaux0\s0\li80\ri80\sl2 4\ql\plain\f0\fs24\mingo in\f0\fs20\hich\f0\dbc h\f0\ (more content not included)... Normal [facility] Laboratory - Hematology and Cell countson 05-19-2022 HbA1c (Bld) [Mass fraction] 8.7 % 4.2-6.3 [facility] Work Phone: No Panel Informationon 05-19 Prostate Specific Antigen Total 1.32 ng/mL 0.0-4.0 [facility] Work Phone: Comment on above: This test was perfor med using the TPSA assay method [facility]. Values obtained with differentassay methods cannot be used interchangably.When changing PSA assays in the course of monitoring apatient, additional sequential testing should be carriedout to confirm baseline values. Basophil percentageon 2021 Bilirubin [Mass/Vol] 0.40 mg/dL 0.20-1.[address] [facility] Work Phone: Comment on above: For patients on eltr ombopag therapy, use of Dimension [place] TBIL is not recommended. Chloride [Moles/Vol] 99 mmol/L 98-[address] [facility] Work Phone: Glucose [Mass/Vol] 180 mg/dL 74-106 [facility] Work Phone: Comment on above: Fasting Glucose resu lt greater than or equal to 126 mg/dL suggests DIABETES MELLITUS per A.D.A. criteria. Potassium [Moles/Vol] 4.4 mmol/L 3.5-5.1 [facility] Work Phone: Protein [Mass/Vol] 8.2 g/dL 6.4-8.2 [facility] Work Phone: Sodium [Moles/Vol] 134 mmol/L 136-145 [facility] Work Phone: Cholesterol in LDL Direct as say [Mass/Vol]on 01-22-2022 Cholesterol in LDL [Mass/Vol] 48 mg/dL 0-99 [facility] Work Phone: Comment on above: Performed at: [address] [id number] Director: Ricardo Betancourt PhD, Phone: [phone] Laboratory - Chemistry and C hemistry - challengeon 01-22-2022 ALP [Catalytic activity/Vol] 67 U/L 45-117 [facility] Work Phone: ALT [Catalytic activity/Vol] 42 U/L 16-61 [facility] Work Phone: CO2 [Moles/Vol] 29.0 mmol/L 21.0-32.0 [facility] Work Phone: Globulin (S) [Mass/Vol] 4.5 g/dL 2.2-4.2 [facility] Work Phone: Urea nitrogen/Creatinine [Mass ratio] 10.5 mg/mg 10-20 [facility] Work Phone: Laboratory - Hematology and Cell countson 01-22-2022 HbA1c (Bld) [Mass fraction] 8.5 % 4.2-6.3 [facility] Work Phone: Laboratory - Miscellaneous t estson 01-22-2022 Service comment (Unsp spec) [Interp] TNP [facility] Work Phone: Comment on above: Test not performed No Panel Informationon 01-22 Urine Microalbumin/Creatini ne Ratio 167.4 mg/g CRE <30 [facility] Work Phone: Estimated GFR (MDRD) Amer 50 mL/min >60 [facility] Work Phone: Comment on above: GFR Calc Estimated GFR (MDRD) Non-Af Amer 42 mL/min >60 [facility] Work Phone: Comment on above: Non- GFR Calc Serum or plasma albumin karen urement (mass/volume)on 01-22-2022 Albumin [Mass/Vol] 3.7 g/dL 3.2-5.0 [facility] Work Phone: Serum or plasma albumin/glob ulin mass ratioon 01-22-2022 Albumin/Globulin [Mass ratio] 0.8 {ratio} 0.9-2.4 [facility] Work Phone: Serum or plasma calcium karen urement (mass/volume)on 01-22-2022 Calcium [Mass/Vol] 9.3 mg/dL 8.5-10.1 [facility] Work Phone: Serum or plasma creatinine m easurement (mass/volume)on 01-22-2022 Creatinine [Mass/Vol] 1.71 mg/dL 0.70-1.30 [facility] Work Phone: Comment on above: The validity of the calculated GFR & GFRAA in patients over 70 years has not been determined. Clinical correlation is essential. Serum or plasma urea nitroge n measurement (mass/volume)on 01-22-2022 Urea nitrogen [Mass/Vol] 18 mg/dL 7-18 [facility] Work Phone: Thin prep Papanicolaou smear with manual screeningon 01-22-2022 Thin prep Papanicolaou smear with manual screening 221.0 mg/L NO RANGE EST. [facility] Work Phone: Thin prep Papanicolaou smear with manual screening 21 U/L 15-37 [facility] Work Phone: Thin prep Papanicolaou smear with manual screening 6 5-15 [facility] Work Phone: Urine creatinine measurement (mass/volume)on 01-22-2022 Creatinine (U) [Mass/Vol] 132.00 mg/dL NO RANGE EST. [facility] Work Phone: Vital Signs Date Time Vital Sign Value Performing Clinician Facility 08-21-2025 15:28-0400 Body height 170.[address] Gayle Petit DO Work Phone: [facility] 08-21-2025 15:28-0400 Body mass index (BMI) [Ratio] 34.6 kg/m2 Dr. Gayle Petit DO Work Phone: [facility] 08-21-2025 15:28-0400 Body temperature 97.6 [degF] Dr. Gayle Petit DO Work Phone: [facility] 08-21-2025 15:28-0400 Body weight 100.[address] Gayle Petit DO Work Phone: [facility] 08-21-2025 15:28-0400 Diastolic blood pressure 68 mm[Hg] Dr. Gayle ePtit DO Work Phone: [facility] 08-21-2025 15:28-0400 Heart rate 78 /min Dr. Gayle Petit DO Work Phone: [facility] 08-21-2025 15:28-0400 Respiratory rate 16 /min Dr. Gayle Petit DO Work Phone: [facility] 08-21-2025 15:28-0400 SaO2% (BldA) [Mass fraction] 98 % Dr. Gayle Petit DO Work Phone: [facility] 08-21-2025 15:28-0400 Systolic blood pressure 124 mm[Hg] Dr. Gayle Petit DO Work Phone: [facility] 07-25-2025 13:56-0400 Body height 170.[address] Gayle Petit DO Work Phone: [facility] 07-25-2025 13:56-0400 Body mass index (BMI) [Ratio] 34.1 kg/m2 Dr. Gayle Petit DO Work Phone: [facility] 07-25-2025 13:56-0400 Body weight 98.[address] Gayle Petit DO Work Phone: [facility] 07-25-2025 13:56-0400 Diastolic blood pressure 75 mm[Hg] Dr. Gayle Petit DO Work Phone: [facility] 07-25-2025 13:56-0400 Heart rate 78 /min Dr. Gayle Petit DO [facility] Phone[facility] [facility] 07-25-2025 13:56-0400 Respiratory rate 18 /min Dr. Gayle Petit DO Work Phone: [facility] 07-25-2025 13:56-0400 SaO2% (BldA) [Mass fraction] 96 % Dr. Gayle Petit DO Work Phone: [facility] 07-25-2025 13:56-0400 Systolic blood pressure 118 mm[Hg] Dr. Gayle Petit DO Work Phone: [facility] 06-21-2025 14:58-0400 Body height 170.[address] Gayle Petit DO Work Phone: [facility] 06-21-2025 14:58-0400 Body mass index (BMI) [Ratio] 34.2 kg/m2 Dr. Gayle Petit DO Work Phone: [facility] 06-21-2025 14:58-0400 Body temperature 96.7 [degF] Dr. Gayle Petit DO Work Phone: [facility] 06-21-2025 14:58-0400 Body weight 99.[address] Gayle Petit DO Work Phone: [facility] 06-21-2025 14:58-0400 Diastolic blood pressure 58 mm[Hg] Dr. Gayle Petit DO Work Phone: [facility] 06-21-2025 14:58-0400 Heart rate 80 /min Dr. Gayle Petit DO Work Phone: [facility] 06-21-2025 14:58-0400 Respiratory rate 16 /min Dr. Gayle Petit DO Work Phone: [facility] 06-21-2025 14:58-0400 SaO2% (BldA) [Mass fraction] 97 % Dr. Gayle Petit DO Work Phone: [facility] 06-21-2025 14:58-0400 Systolic blood pressure 114 mm[Hg] Dr. Gayle Petit DO Work Phone: [facility] 05-22-2025 14:56-0400 Body height 170.[address] Gayle Petit DO Work Phone: [facility] 05-22-2025 14:56-0400 Body mass index (BMI) [Ratio] 34.2 kg/m2 Dr. Gayle Petit DO Work Phone: [facility] 05-22-2025 14:56-0400 Body temperature 96.9 [degF] Dr. Gayle Petit DO Work Phone: [facility] 05-22-2025 14:56-0400 Body weight 99.[address] Gayle Petit DO Work Phone: [facility] 05-22-2025 14:56-0400 Diastolic blood pressure 58 mm[Hg] Dr. Gayle Petit DO Work Phone: [facility] 05-22-2025 14:56-0400 Heart rate 78 /min Dr. Gayle Petit DO Work Phone: [facility] 05-22-2025 14:56-0400 Respiratory rate 16 /min Dr. Gayle Petit DO Work Phone: [facility] 05-22-2025 14:56-0400 SaO2% (BldA) [Mass fraction] 96 % Dr. Gayle Petit DO Work Phone: [facility] 05-22-2025 14:56-0400 Systolic blood pressure 104 mm[Hg] Dr. Gayle Petit DO Work Phone: [facility] 02-28-2025 15:16-0400 Body mass index (BMI) [Ratio] 33.5 kg/m2 Dr. Gayle Petit DO Work Phone: [facility] 02-28-2025 15:16-0400 Body temperature 98 [degF] Dr. Gayle Petit DO Work Phone: [facility] 02-28-2025 15:16-0400 Body weight 97.[address] Gayle Petit DO Work Phone: [facility] 02-28-2025 15:16-0400 Diastolic blood pressure 70 mm[Hg] Dr. Gayle Petit DO Work Phone: [facility] 02-28-2025 15:16-0400 Heart rate 81 /min Dr. Gayle Petit DO Work Phone: [facility] 02-28-2025 15:16-0400 Respiratory rate 16 /min Dr. Gayle Petit DO Work Phone: [facility] 02-28-2025 15:16-0400 SaO2% (BldA) [Mass fraction] 93 % Dr. Gayle Petit DO Work Phone: [facility] 02-28-2025 15:16-0400 Systolic blood pressure 118 mm[Hg] Dr. Gayle Petit DO Work Phone: [facility] 02-05-2025 10:33-0400 Body mass index (BMI) [Ratio] 33.83 kg/m2 Miguel Freedman Jr., TRANSFORMER BUILDER.EQUIPMENT HIRE MANAGER Work Phone: [facility] 02-05-2025 10:33-0400 Body temperature 98.01 [degF] Miguel Freedman Jr., TRANSFORMER BUILDER.EQUIPMENT HIRE MANAGER Work Phone: [facility] 02-05-2025 10:33-0400 Body weight 97.98 kg Miguel Freedman Jr., TRANSFORMER BUILDER.EQUIPMENT HIRE MANAGER Work Phone: [facility] 02-05-2025 10:33-0400 Diastolic blood pressure 67 mm[Hg] Miguel Freedman Jr., TRANSFORMER BUILDER.EQUIPMENT HIRE MANAGER Work Phone: [facility] 02-05-2025 10:33-0400 Heart rate 101 /min Miguel Freedman Jr., TRANSFORMER BUILDER.EQUIPMENT HIRE MANAGER Work Phone: [facility] 02-05-2025 10:33-0400 Respiratory rate 18 /min Miguel Freedman Jr., TRANSFORMER BUILDER.EQUIPMENT HIRE MANAGER Work Phone: [facility] 02-05-2025 10:33-0400 SaO2% (BldA) [Mass fraction] 95 % Miguel Freedman Jr., TRANSFORMER BUILDER.EQUIPMENT HIRE MANAGER Work Phone: [facility] 02-05-2025 10:33-0400 Systolic blood pressure 115 mm[Hg] Miguel Freedman Jr., TRANSFORMER BUILDER.EQUIPMENT HIRE MANAGER Work Phone: [facility] 03-14-2024 14:55-0400 Body temperature 97.34 [degF] LAW MATSON MD [facility] 03-14-2024 14:55-0400 Diastolic Blood Pressure Non-Invasive 60 mm[Hg] LAW MATSON MD [address] [place] [id number] 03-14-2024 14:55-0400 Heart rate 79 /min LAW MATSON MD [address] [place] [id number] 03-14-2024 14:55-0400 Reason For Taking VItal Signs LAW MATSON MD [address] [place] [id number] 03-14-2024 14:55-0400 Respiratory rate 18 /min LAW MATSON MD [address] [place] [id number] 03-14-2024 14:55-0400 Systolic Blood Pressure Non-Invasive 112 mm[Hg] LAW MATSON MD [address] [place] [id number] 03-14-2024 10:53-0400 Body temperature 96.8 [degF] LAW MATSON MD [address] [place] [id number] 03-14-2024 10:53-0400 Diastolic Blood Pressure Non-Invasive 75 mm[Hg] LAW MATSON MD [address] [place] [id number] 03-14-2024 10:53-0400 Heart rate 90 /min LAW MATSON MD [address] [place] [id number] 03-14-2024 10:53-0400 Respiratory rate 18 /min LAW MATSON MD [address] [place] [id number] 03-14-2024 10:53-0400 Systolic Blood Pressure Non-Invasive 136 mm[Hg] LAW MATSON MD [address] [place] [id number] 03-14-2024 09:16-0400 Heart rate 90 /min LAW MATSON MD [address] [place] [id number] 03-14-2024 07:25-0400 Body temperature 96.8 [degF] LAW MATSON MD [address] [place] [id number] 03-14-2024 07:25-0400 Diastolic Blood Pressure Non-Invasive 67 mm[Hg] LAW MATSON MD [address] [place] [id number] 03-14-2024 07:25-0400 Heart rate 90 /min LAW MATSON MD [address] [place] [id number] 03-14-2024 07:25-0400 Respiratory rate 18 /min LAW MATSON MD [address] [place] [id number] 03-14-2024 07:25-0400 Systolic Blood Pressure Non-Invasive 108 mm[Hg] LAW MATSON MD [address] [place] [id number] 03-13-2024 22:54-0400 Body temperature 96.62 [degF] LAW MATSON MD [address] [place] [id number] 03-13-2024 22:54-0400 Heart rate 87 /min LAW MATSON MD [address] [place] [id number] 03-13-2024 22:54-0400 Reason For Taking VItal Signs LAW MATSON MD [address] [place] [id number] 03-13-2024 19:58-0400 Body temperature 97.52 [degF] LAW MATSON MD [address] [place] [id number] 03-13-2024 19:58-0400 Heart rate 83 /min LAW MATSON MD [address] [place] [id number] 03-13-2024 19:58-0400 Reason For Taking VItal Signs LAW MATSON MD [address] [place] [id number] 03-13-2024 18:32-0400 Body temperature 96.8 [degF] LAW MATSON MD [address] [place] [id number] 03-13-2024 18:32-0400 Heart rate 74 /min LAW MATSON MD [address] [place] [id number] 03-13-2024 18:32-0400 Mean blood pressure 82 mm[Hg] LAW MATSON MD [address] [place] [id number] 03-13-2024 18:17-0400 Diastolic blood pressure 54 mm[Hg] LAW MATSON MD [address] [place] [address] 03-13-2024 18:17-0400 Heart rate 76 /min LAW MATSON MD [address] [place] [id number] 03-13-2024 18:17-0400 Mean blood pressure 82 mm[Hg] LAW MATSON MD [address] [place] [id number] 03-13-2024 18:17-0400 Mean blood pressure 80 mm[Hg] LAW MATSON MD [address] [place] [id number] 03-13-2024 18:17-0400 Systolic blood pressure 127 mm[Hg] LAW MATSON MD [address] [place] [address] 03-13-2024 18:02-0400 Diastolic blood pressure 56 mm[Hg] LAW MATSON MD [address] [place] [address] 03-13-2024 18:02-0400 Heart rate 72 /min LAW MATSON MD [address] [place] [address] 03-13-2024 18:02-0400 Mean blood pressure 79 mm[Hg] LAW MATSON MD [address] [place] [address] 03-13-2024 18:02-0400 Mean blood pressure 74 mm[Hg] LAW MATSON MD [address] [place] [id number] 03-13-2024 18:02-0400 Systolic blood pressure 116 mm[Hg] LAW MATSON MD [address] [place] [address] 03-13-2024 17:47-0400 Body temperature 96.8 [degF] LAW MATSON MD [address] [place] [id number] 03-13-2024 17:45-0400 Respiratory Rate - Anes 4 br/min LAW MATSON MD [address] [place] [id number] 03-13-2024 17:40-0400 Respiratory Rate - Anes 25 br/min LAW MATSON MD [address] [place] [id number] 03-13-2024 17:35-0400 Respiratory Rate - Anes 11 br/min LAW MATSON MD [address] [place] [id number] 03-13-2024 17:15-0400 Body temperature 95.77 [degF] LAW MATSON MD [address] [place] [id number] 03-13-2024 17:10-0400 Body temperature 95.79 [degF] LAW MATSON MD [address] [place] [id number] 03-13-2024 17:05-0400 Body temperature 95.79 [degF] LAW MATSON MD [address] [place] [id number] 03-13-2024 11:18-0400 Blood Pressure Cuff Size LAW MATSON MD [address] [place] [id number] 03-13-2024 11:18-0400 Blood Pressure Location LAW MATSON MD [address] [place] [address] 03-13-2024 11:18-0400 Blood Pressure Method LAW MATSON MD [address] [place] [id number] 03-13-2024 07:03-0400 Blood Pressure Cuff Size LAW MATSON MD [address] [place] [address] 03-13-2024 07:03-0400 Blood Pressure Location LAW MATSON MD [address] [place] [address] 03-13-2024 07:03-0400 Blood Pressure Method LAW MATSON MD [address] [place] [address] 03-12-2024 22:58-0400 Blood Pressure Location LAW MATSON MD [address] [place] [id number] 03-12-2024 22:58-0400 Blood Pressure Method LAW MATSON MD [address] [place] [address] 03-12-2024 15:08-0400 Blood Pressure Cuff Size LAW MATSON MD [address] [place] [address] 03-11-2024 21:14-0400 Body height 170.2 cm LAW MATSON MD [address] [place] [address] 03-11-2024 21:14-0400 Body weight 95.5 kg LAW MATSON MD [address] [place] [address] 03-11-2024 21:14-0400 Body weight 32.97 kg/m2 LAW MATSON MD [facility] 03-11-2024 12:01-0400 Body weight 106 kg LAW MATSON MD [facility] 12-22-2023 14:38-0500 Body height 170.[address] Gayle Petit Work Phone: [facility] 12-22-2023 14:38-0500 Body mass index (BMI) [Ratio] 34.6 kg/m2 Dr. Gayle Petit Work Phone: [facility] 12-22-2023 14:38-0500 Body temperature 98.1 [degF] Dr. Gayle Petit Work Phone: [facility] 12-22-2023 14:38-0500 Body weight 100.[address] Gayle Petit Work Phone: [facility] 12-22-2023 14:38-0500 Diastolic blood pressure 84 mm[Hg] Dr. Gayle Petit Work Phone: [facility] 12-22-2023 14:38-0500 Heart rate 68 /min Dr. Gayle Petit Work Phone: [facility] 12-22-2023 14:38-0500 Respiratory rate 14 /min Dr. Gayle Petit Work Phone: [facility] 12-22-2023 14:38-0500 SaO2% (BldA) [Mass fraction] 97 % Dr. Gayle Petit Work Phone: [facility] 12-22-2023 14:38-0500 Systolic blood pressure 126 mm[Hg] Dr. Gayle Petit Work Phone: [facility] 09-15-2023 14:07-0400 Body mass index (BMI) [Ratio] 34.6 kg/m2 Dr. Gayel Petit Work Phone: [facility] 09-15-2023 14:07-0400 Body temperature 97.6 [degF] Dr. Gayle Petit Work Phone: [facility] 09-15-2023 14:07-0400 Body weight 100.[address] Gayle Petit Work Phone: [facility] 09-15-2023 14:07-0400 Diastolic blood pressure 70 mm[Hg] Dr. Gayle Petit Work Phone: [facility] 09-15-2023 14:07-0400 Heart rate 77 /min Dr. Gayle Petit Work Phone: [facility] 09-15-2023 14:07-0400 Respiratory rate 16 /min Dr. Gayle Petit Work Phone: [facility] 09-15-2023 14:07-0400 SaO2% (BldA) [Mass fraction] 95 % Dr. Gayle Petit Work Phone: [facility] 09-15-2023 14:07-0400 Systolic blood pressure 112 mm[Hg] Dr. Gayle Petit Work Phone: [facility] 05-19-2022 15:08-0400 Body height 170.[address] Gayle Petit Work Phone: [facility] Work Phone: 05-19-2022 15:08-0400 Body mass index (BMI) [Ratio] 34.9 kg/m2 Dr. Gayle Petit Work Phone: [facility] Work Phone: 05-19-2022 15:08-0400 Body temperature 97.5 [degF] Dr. Gayle Petit Work Phone: [facility] Work Phone: 05-19-2022 15:08-0400 Body weight 101.[address] Gayle Petit Work Phone: [facility] Work Phone: 05-19-2022 15:08-0400 Diastolic blood pressure 76 mm[Hg] Dr. Gayle Petit Work Phone: [facility] Work Phone: 05-19-2022 15:08-0400 Heart rate 72 /min Dr. Gayle Petit Work Phone: [facility] Work Phone: 05-19-2022 15:08-0400 Respiratory rate 16 /min Dr. Gayle Petit Work Phone: [facility] Work Phone: 05-19-2022 15:08-0400 SaO2% (BldA) [Mass fraction] 98 % Dr. Gayle Petit Work Phone: [facility] Work Phone: 05-19-2022 15:08-0400 Systolic blood pressure 132 mm[Hg] Dr. Gayle Petit Work Phone: [facility] Work Phone: 01-22-2022 14:24-0500 Body temperature 97.6 [degF] Dr. Gayle Petit Work Phone: [facility] Work Phone: 01-22-2022 14:24-0500 Body weight 100.[address] Gayle Petit Work Phone: [facility] Work Phone: 01-22-2022 14:24-0500 Diastolic blood pressure 70 mm[Hg] Dr. Gayle Petit Work Phone: [facility] Work Phone: 01-22-2022 14:24-0500 Heart rate 62 /min Dr. Gayle Petit Work Phone: [facility] Work Phone: 01-22-2022 14:24-0500 Respiratory rate 16 /min Dr. Gayle Petit Work Phone: [facility] Work Phone: 01-22-2022 14:24-0500 SaO2% (BldA) [Mass fraction] 99 % Dr. Gayle Petit Work Phone: [facility] Work Phone: 01-22-2022 14:24-0500 Systolic blood pressure 120 mm[Hg] Dr. Gayle Petit Work Phone: [facility] Work Phone: 01-22-2022 13:24-0500 Body temperature 97.6 [degF] Dr. Gayle Petit Work Phone: [facility] Work Phone: 01-22-2022 13:24-0500 Body weight 100.[address] Gayle Petit Work Phone: [facility] Work Phone: 01-22-2022 13:24-0500 Diastolic blood pressure 70 mm[Hg] Dr. Gayle Petit Work Phone: [facility] Work Phone: 01-22-2022 13:24-0500 Heart rate 62 /min Dr. Gayle Petit Work Phone: [facility] Work Phone: 01-22-2022 13:24-0500 Respiratory rate 16 /min Dr. Gayle Petit Work Phone: [facility] Work Phone: 01-22-2022 13:24-0500 SaO2% (BldA) [Mass fraction] 99 % Dr. Gayle Petit Work Phone: [facility] Work Phone: 01-22-2022 13:24-0500 Systolic blood pressure 120 mm[Hg] Dr. Gayle Petit Work Phone: [facility] Work Phone: Encounters Encounter Date Encounter Type Care Provider Facility Start: 08-21-2025 End: 08-21-[address] Gayle Coley DO -[facility] Work Phone: Start: 08-21-2025 End: 08-21-2025 ambulatory Gayle Petit Facility:[facility] Start: 08-07-2025 Non-patient / Non-visit Dr. Zelda Pizano MD -[facility] Work Phone: Start: 08-07-2025 End: 08-07-[address] Gayle Petit DO Work Phone: -Pulmonary Services/Neurology Start: 08-07-2025 End: 08-07-[address] Zelda Pizano MD -Pulmonary Services/Neurology Work Phone: Start: 08-07-2025 End: 08-07-2025 ambulatory Zelda Pizano Facility:[facility] Start: 08-03-2025 End: 08-03-2025 ambulatory GAYLE PETIT DO Facility:[facility] Start: 08-03-2025 End: 08-03-[address] ZELDA PIZANO MD [facility] Start: 07-25-2025 End: 07-25-[address] Zelda Pizano MD -[facility] Work Phone: Start: 07-25-2025 End: 07-25-[address] Gayle Petit DO Work Phone: -[facility] Start: 06-28-2025 End: 06-28-2025 Emergency department patient visit MELANIE QIU DO [facility] Start: 06-26-2025 End: 06-26-2025 Patient encounter procedure Sarabjit Baires MD Work Phone: Ophthalmology Comment on above: Status post corneal transplant (Primary Dx); Bullous keratopathy of left eye; Other hereditary corneal dystrophies, bilateral; S/P PKP (penetrating keratoplasty); Pseudophakia Start: 06-26-2025 End: 06-26-2025 ambulatory GAYLE PETIT Facility:[facility] Start: 06-21-2025 End: 06-21-2025 Patient encounter procedure Jennifer URIAS -[facility] Work Phone: Start: 06-21-2025 End: 06-21-[address] Gayle Petit DO Work Phone: -[facility] Start: 05-22-2025 End: 05-22-[address] Gayle Coley DO -[facility] Work Phone: Start: 05-22-2025 End: 05-22-[address] Gayle Petit DO Work Phone: -[facility] Start: 03-13-2025 End: 03-13-2025 ambulatory GAYLE PETIT DO Facility:[facility] Start: 03-13-2025 End: 03-13-[address] MARY INTERIANO DO [facility] Start: 03-03-2025 End: 03-03-[address] Gayle Coley DO -Ultrasound [facility] Work Phone: Start: 03-03-2025 End: 03-03-2025 ambulatory Gayle Petit Facility:[facility] Start: 02-28-2025 End: 02-28-[address] Gayle Coley DO -[facility] Work Phone: Start: 02-28-2025 End: 02-28-2025 ambulatory Gayle Petit Facility:[facility] Start: 02-19-2025 End: 02-19-2025 ambulatory GAYLE PETIT DO Facility:[facility] Start: 02-06-2025 End: 02-06-2025 Follow-up encounter Jack Brumfield DO Work Phone: [facility] [place] [facility] Start: 02-05-2025 End: 02-05-2025 Subsequent hospital visit by physician Xr [facility] Work Phone: [facility] Comment on above: Acute cough [R05.1] Start: 02-05-2025 End: 02-05-2025 Patient encounter procedure Miguel Freedman TRANSFORMER BUILDER.EQUIPMENT HIRE MANAGER Work Phone: [facility] [place] Comment on above: Acute cough (Primary Dx); Wheezing Start: 02-05-2025 End: 02-05-2025 ambulatory GAYLE PETIT Facility:[id number] Start: 11-29-2024 End: 11-29-2024 ambulatory Gayle Petit Facility:[facility] Start: 08-29-2024 End: 08-29-2024 ambulatory Gayle Petit Facility:[facility] Start: 07-25-2024 End: 07-25-[address] MARY INTERIANO DO [facility] Start: 07-13-2024 End: 07-13-2024 ambulatory GAYLE PETIT Facility:[facility] Start: 07-13-2024 End: 07-13-2024 Patient encounter procedure Sarabjit Baires MD Work Phone: Ophthalmology Comment on above: Status post corneal transplant (Primary Dx) Start: 07-04-2024 End: 07-04-2024 ambulatory GAYLE PETIT Facility:[facility] Start: 07-04-2024 End: 07-04-2024 Patient encounter procedure Sarabjit Baires MD Work Phone: Ophthalmology Comment on above: Bullous keratopathy of left eye (Primary Dx) Start: 07-03-2024 End: 07-03-2024 ambulatory SARABJIT BAIRES Facility:[facility] Start: 06-06-2024 Telephone encounter Sarabjit Baires MD Work Phone: Ophthalmology Comment on above: Preparations For Gelacio anuradha Start: 06-06-2024 End: 06-06-2024 Patient encounter procedure Sarabjit Baires MD Work Phone: Ophthalmology Comment on above: Bullous keratopathy of left eye (Primary Dx); Other hereditary corneal dystrophies, bilateral; S/P PKP (penetrating keratoplasty); Pseudophakia Start: 06-05-2024 End: 06-05-2024 ambulatory LAW MATSON MD Facility:[facility] Start: 05-29-2024 End: 05-29-2024 ambulatory DIGNA GARCES TRANSFORMER BUILDER-EQUIPMENT HIRE MANAGER Facility:[facility] Start: 05-29-2024 End: 05-29-2024 Patient encounter procedure DIGNA GARCES TRANSFORMER BUILDER-EQUIPMENT HIRE MANAGER [facility] Start: 05-01-2024 End: 06-06-2024 Admission to same day surgery center DIGNA GARCES TRANSFORMER BUILDER-EQUIPMENT HIRE MANAGER [facility] Start: 05-01-2024 End: 06-06-2024 ambulatory DIGNA GARCES TRANSFORMER BUILDER-EQUIPMENT HIRE MANAGER Facility:[facility] Start: 04-24-2024 End: 04-24-2024 ambulatory DIGNA GARCES TRANSFORMER BUILDER-EQUIPMENT HIRE MANAGER Facility:[facility] Start: 04-24-2024 End: 04-24-2024 Patient encounter procedure DIGNA GARCES TRANSFORMER BUILDER-EQUIPMENT HIRE MANAGER [facility] Start: 04-12-2024 End: 04-13-2024 ambulatory DIGNA GARCES TRANSFORMER BUILDER-EQUIPMENT HIRE MANAGER Facility:[facility] Start: 04-12-2024 End: 04-13-2024 Patient encounter procedure DIGNA GARCES TRANSFORMER BUILDER-EQUIPMENT HIRE MANAGER [facility] Start: 03-27-2024 End: 03-27-2024 ambulatory DIGNA GARCES TRANSFORMER BUILDER-EQUIPMENT HIRE MANAGER Facility:[facility] Start: 03-21-2024 End: 04-26-2024 ambulatory TED MATAMOROS EQUIPMENT HIRE MANAGER Facility:[facility] Start: 03-21-2024 End: 04-26-2024 Physical therapy management TED MATAMOROS EQUIPMENT HIRE MANAGER [facility] Start: 03-11-2024 End: 03-14-2024 Evaluation and management of inpatient LAW MATSON MD [facility] Start: 03-11-2024 End: 03-11-2024 Emergency department patient visit NORY DELANEY DO Facility:[facility] Start: 12-22-2023 End: 12-22-[address] Gayle Petit Work Phone: [facility] Work Phone: Start: 12-22-2023 End: 12-22-[address] Gayle Petit Work Phone: [facility] Work Phone: Start: 10-27-2023 End: 10-27-[address] MARY INTERIANO DO Facility:[facility] Start: 10-27-2023 End: 10-27-[address] MARY INTERIANO DO [facility] Start: 09-15-2023 End: 09-15-[address] Gayle Petit Work Phone: [facility] Work Phone: Start: 02-16-2023 End: 02-16-[address] MARY INTERIANO DO [facility] Start: 11-05-2022 End: 11-05-[address] MARY INTERIANO DO [facility] Start: 10-20-2022 End: 10-20-[address] MARY INTERIANO DO [facility] Start: 05-28-2022 End: 05-28-[address] Gayle Petit Work Phone: [facility] Start: 05-19-2022 End: 05-19-[address] Gayle Petit Work Phone: [facility] Start: 01-22-[address] Gayle Petit Work Phone: [facility] Start: 01-22-2022 End: 01-22-2022 Encounter for general adult medical examination without abnormal findings Dr. Gayle Petit Work Phone: [facility] Start: 01-22-2022 End: 01-22-[address] Gayle Petit Work Phone: [facility] Start: 05-12-2017 End: 05-13-2017 Ambulatory GAYLE PETIT Facility[place] Procedures Date Procedure Procedure Detail Performing Clinician Start: 03-03-2025 US scan of bladder Dr. 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 Gayle Petit Work Phone: Start: 05-12-2016 History of coronary artery bypass grafting S/P CABG x 4 Dr. Gayle Coley DO Comment on above: CABG x 4 GRIFFIN-LAD, S VG-Ramus, SVG-OM, SVG-Distal PDA 05/12/[address] Mitchell @ [facility] Start: 11-15-2015 Construction of shunt Pernell INTERIANO DO Comment on above: X4 Colonoscopy DR MARY STALLINGS DO Corneal transplant DR FRED INTERIANO DO Corneal transplant DR FRED INTERIANO DO Comment on above: CORNEAL TRANSPLANT A ND A PARTIAL H/O: cornea recipient History of corneal transplant( Confirmed ) DR MARY INTERIANO DO H/O: cornea recipient Status pos t corneal transplant Sarabjit Baires MD Work Phone: H/O: cornea recipient Status pos t corneal transplant Sarabjit Baires MD Work Phone: Reconstruction of nose DR RYLEE INTERIANO DO Screening colonoscopy Screening colonoscopy( Confirmed ) DR MARY INTERIANO DO Plan of Treatment Date Care Activity Detail Author Start: 07-17-2030 Urine microalbumin profile DTaP,Tdap,Td Vaccine (5 - Td or Tdap) [facility] Start: 02-05-2026 BP Controlled (<130/80) BP Controlled (<130/80) [facility] Start: 08-21-2025 [facility] Start: 07-25-2025 End: 07-25-2025 Evaluation of diagnostic study results [facility] Start: 07-16-2025 Influenza vaccination Influenza Vacc ine (#1) [facility] Start: 06-26-2025 End: 06-26-2025 Patient encounter procedure 06/26/2025 2:15 PM EDT Office Visit [facility]HT Ophthalmology [address] [address] Sarabjit Baires MD [address] [place] [address] YEARLY Ophthalmology Comment on above: YEARLY Start: 06-06-2025 Glaucoma screening Dilated Retinal E xam [facility] Start: 03-01-2025 Covid-19 Vaccine ( season) Covid-19 Vaccine ( season) [facility] Start: 11-15-2024 Advance Directive Discussion Advance Directive Discussion [facility] Start: 11-15-2024 Medicare Advantage Annual Wellness Visit Medicare Advantage Annual Wellness Visit [facility] Start: 07-16-2024 Influenza vaccination Influenza Vacc ine (#1) [facility] Start: 07-13-2024 End: 07-13-2024 Patient encounter procedure 07/13/2024 2:30 PM EDT Office Visit [facility] Ophthalmology [address] [address] Sarabjit Baires MD [address] [place] [address] [email or web address] Ophthalmology Comment on above: POW1 Start: 07-04-2024 End: 07-04-2024 Patient encounter procedure 07/04/2024 2:15 PM EDT Office Visit [facility] Ophthalmology [address] [address] Sarabjit Baires MD [address] [place] [address] POD1 Ophthalmology Comment on above: POD1 Start: 07-03-2024 End: 07-03-2024 Admission to same day surgery center 07/03/2024 3:25 PM EDT - 07/03/2024 4:45 PM EDT Surgery Ophthalmology [address] [address] Sarabjit Baires MD [address] [place] [address] KERATOPLASTY ENDOTHELIAL DESCEMET STRIPPING (DSAEK) Ophthalmology Comment on above: KERATOPLASTY ENDOTHE LIAL DESCEMET STRIPPING (DSAEK) Start: 07-03-2024 End: 07-03-2024 Keratoplasty endothelial KERATOPLASTY ENDOTHELIAL DESCEMET STRIPPING (DSAEK) Bullous keratopathy of left eye 07/03/2024 3:25 PM EDT [facility] Start: 07-03-2024 Subsequent hospital visit by physician 07/03/2024 3:25 PM EDT Hospital Encounter Ophthalmology [address] [address] Sarabjit Baires MD [address] [place] [address] 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] Ophthalmology Comment on above: 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] Start: 12-20-2023 Covid-19 Vaccine () Covid-19 Vaccine () [facility] Start: 11-15-2023 Advance Directive Discussion Advance Directive Discussion [facility] Start: 11-15-2023 Behavioral Health Screening Behavioral Health Screening [facility] Start: 06-21-2019 Shingrix Vaccine (2 of 2) Shingrix Vaccine (2 of 2) [facility] Start: 1991 Diabetes Screening Diabetes Screenin g [facility] Start: 1964 Annual PCP Team Chronic Disease Visit Annual PCP Team Chronic Disease Visit [facility] Start: 1964 Anxiety Screening Anxiety Screening [facility] Start: 1964 BP Controlled (<130/80) BP Controlled (<130/80) [facility] Start: 1964 Depression Screening Depression Scre ening [facility] Start: 1964 Hepatitis B surface antibody level LDL Cholesterol [facility] Start: 1964 Hepatitis C screening Hepatitis C Sc reening [facility] Start: 1956 Diabetic foot examination Diabetic Foot Exam [facility] Start: 1956 Hepatitis B screening Urine Albumin:Creatinine Ratio [facility] Start: 1951 Hemoglobin A1c measurement HbA1C [facility] Ambulatory ECG [facility] Basic metabolic 2008 panel with ionized calcium - Serum or Plasma [facility] Evaluation of diagnostic study results [facility] Hemoglobin A1c/Hemoglobin.total in Blood [facility] Work Phone: Hemoglobin A1c/Hemoglobin.total in Blood [facility] US scan of bladder [facility] Work Phone: End: 03-07-2026 XR Chest PA and Lateral XR CHEST 2V FRONTAL/LAT Radiology Routine Acute cough 1 Occurrences starting 02/05/2025 until 03/07/2026 [facility] Work Phone: Comment on above: 1 Occurrences starti ng 02/05/2025 until 03/07/2026 XR Chest PA and Lateral XR CHEST 2V FRONTAL/LAT Radiology Routine Acute cough 02/05/2025 11:23 AM EDT [facility] Immunizations Immunization Date Immunization Notes Care Provider Bella alvarez 08-29-2024 Seasonal trivalent influenza vaccine, adjuvanted, preservative free Dr. Gayle Petit DO Work Phone: [facility] 08-29-2024 influenza virus vacc ine, unspecified formulation Sarabjit Baires MD Work Phone: [facility] 08-19-2023 Covid (Spikevax) Dr. Gayle Petit DO Work Phone: [facility] 08-03-2023 influenza, injectabl e, quadrivalent, preservative free Dr. Gayle Petit DO Work Phone: [facility] 08-03-2023 influenza virus vacc ine, unspecified formulation Sarabjit Baires MD Work Phone: [facility] 03-09-2023 Covid Pfizer Bivalen t Booster Dr. Gayle Petit DO Work Phone: [facility] 08-07-2022 Covid Pfizer Bivalen t Booster Dr. Gayle Petit DO Work Phone: [facility] 08-07-2022 influenza, injectabl e, quadrivalent, preservative free Dr. Gayle Petit DO Work Phone: [facility] 02-23-2022 Covid (Moderna) Dr. Gayle Petit DO Work Phone: [facility] 10-01-2021 Covid (Moderna) Dr. Gayle Petit DO Work Phone: [facility] 07-22-2021 influenza, injectabl e, quadrivalent, preservative free Dr. Gayle Petit Work Phone: [facility] 07-22-2021 influenza, seasonal, injectable Dr. Gayle Petit Work Phone: [facility] Work Phone: 02-05-2021 Covid (Moderna) Dr. Gayle Petit Work Phone: [facility] 01-12-2021 Johnid (Moderna) Dr. Gayle Petit Work Phone: [facility] 07-17-2020 tetanus toxoid, redu luiz diphtheria toxoid, and acellular pertussis vaccine, adsorbed Dr. Gayle Petit Work Phone: [facility] 07-17-2020 diphtheria, tetanus toxoids and acellular pertussis vaccine, unspecified formulation Dr. Gayle Petit Work Phone: [facility] Work Phone: 07-17-2020 Fluad Quad [id number](65yr up)(PF) 60 mcg (15 mcg x 4)/0.5mL IM syringe (flu vac Dr. Gayle Petit Work Phone: [facility] Work Phone: 08-22-2019 Fluad 2018- 65yr up(PF)45 mcg(15 mcgx3)/0.5 mL intramuscular syringe (flu vac Dr. Gayle Petit Work Phone: [facility] Work Phone: 08-17-2018 influenza, high dose seasonal, preservative-free Dr. Gayle Petit DO Work Phone: [facility] 08-17-2018 influenza, injectabl e, quadrivalent, preservative free Dr. Gayle Petit Work Phone: [facility] 08-17-2018 influenza, seasonal, injectable Dr. Gayle Petit Work Phone: [facility] Work Phone: 03-01-2018 diphtheria, tetanus toxoids and acellular pertussis vaccine, unspecified formulation Dr. Gayle Petit Work Phone: [facility] Work Phone: 03-01-2018 Varicella-Zoster Ge-As01b (Pf) (Shingrix (Pf)) 50 mcg/0.5 mL suspension for reconstitution Dr. Gayle Petit Work Phone: [facility] Work Phone: 03-01-2018 diphtheria, tetanus toxoids and acellular pertussis vaccine, unspecified formulation Dr. Gayle Petit Work Phone: [facility] 03-01-2018 Varicella-Zoster Ge-As01b (Pf) (Shingrix (Pf)) 50 mcg/0.5 mL suspension for reconstitution Dr. Gayle Petit Work Phone: [facility] 02-03-2018 diphtheria, tetanus toxoids and acellular pertussis vaccine, unspecified formulation Dr. Gayle Petit Work Phone: [facility] Work Phone: 02-03-2018 Shingrix (PF) 50 mcg /0.5 mL intramuscular suspension, kit (varicella-zoster Dr. Gayle Petit Work Phone: [facility] Work Phone: 09-03-2017 influenza, injectabl e, quadrivalent, preservative free Dr. Gayle Petit DO Work Phone: [facility] 09-15-2016 influenza, injectabl e, quadrivalent, preservative free Dr. Gayle Petit DO Work Phone: [facility] 08-07-2015 hepatitis B vaccine, pediatric or pediatric/adolescent dosage Dr. Gayle Petit DO Work Phone: [facility] 08-28-2014 hepatitis A and hepatitis B vaccine Dr. Gayle Petit DO Work Phone: [facility] 07-27-2014 hepatitis B vaccine, pediatric or pediatric/adolescent dosage Dr. Gayle Petit DO Work Phone: [facility] 07-24-2014 diphtheria, tetanus toxoids and acellular pertussis vaccine, Haemophilus influenzae type b conjugate, and poliovirus vaccine, inactivated (NPbT-Mor-NVW) Dr. Gayle Petit DO Work Phone: [facility] Payers Date Payer Category Payer Self-pay [id number] 2024 Private Health Insurance [id number] 2024 Unknown [id number] 2024 Medicare [id number] 2023 Medicare [employer] [place] [id number] 2023-Present [phone] [address] [place] [address] HMO [id number] 2023 [place] ([place] Care[place] [id number] 2014 Unknown [id number] 1946 Unknown [id number] 2.16840.1.699955.3.579. 2 1946 Unknown [id number] 2.16840.1.194036.3.579. 2 1946 Unknown [id number] 2.16840.1.856620.3.579. 2 1946 Unknown [id number] 2.16840.1.679484.3.579. 2 1946 Unknown [id number] 2.16840.1.214525.3.579. 2 1946 Unknown [id number] 2.16840.1.724440.3.579. 2 1946 Unknown [id number] 2.16.840.1.147727.3.579. 2 1946 Unknown [id number] 2.16840.1.044004.3.579. 2 1946 Unknown [id number] 2.16.840.1.491894.3.579. 2.627 1946 Unknown [id number] 2.16.840.1.591699.3.579. 2.62 1946 Unknown [id number] 2.16.840.1.322739.3.579. 2.62 1946 Unknown [id number] 2.840.1.873210.3.579. 2. 1946 Unknown [id number] 2.840.1.290292.3.579. 2. 1946 Unknown [id number] 2.840.1.866265.3.579. 2. 1946 Unknown [id number] 2.840.1.336172.3.579. 2.62 Unknown [id number] Unknown [id number] 2.840.1.853254.3.579. 2.462 Unknown [id number] 2.840.1.057910.3.579. 2.462 Unknown [id number] 2.840.1.194845.3.579. 2.462 Unknown [id number] 2.840.1.739971.3.579. 2.462 Unknown [id number] 2.840.1.706104.3.579. 2.462 Unknown [id number] 2.840.1.548871.3.579. 2.462 Unknown [id number] 2.840.1.804974.3.579. 2.462 Unknown [id number] 2.840.1.654863.3.579. 2.462 Unknown [id number] 2.840.1.831870.3.579. 2.462 Social History Date Type Detail Facility Start: 01-22-2022 End: 12-22-2023 Tobacco smoking status NHIS Unknown if ever smoked [facility] Start: 1945 Sex Assigned At Male [facility] Start: 01-22-2020 End: 02-15-2024 Tobacco smoking status Ex-smoker (finding) [facility] Comment on above: QUIT IN 1974 Sex Assigned At [facility] Start: 06-06-2024 End: 02-05-2025 Tobacco smoking status NHIS Never smoked tobacco [facility] Start: 06-06-2024 End: 02-05-2025 Tobacco use and exposure Smokeless tobacco non-user [facility] Start: 06-06-2024 End: 06-26-2025 Alcohol intake Current drinker of alcohol (finding) [facility] Start: 06-06-2024 End: 02-05-2025 History of Social function [facility] Start: 06-06-2024 End: 02-05-2025 Tobacco use panel [facility] Start: 10-16-2012 National Score (1-100), lower number is lower risk 56 [facility] Start: 1945 Sex Assigned At Not on file [facility] Start: 02-05-2025 Alcohol Comment rare [facility] Start: 09-04-2014 Sex Male (finding) [facility] NEGATED: Highlighted rowStart: NINF History of tobacco use Passive smoker [facility] Medical Equipment Procedure Code Equipment Code Equipment Origin al Text Equipment Identifier Dates Lancing Device W ith Lancets (Onetouch Delica Lanc Device) kit Start: 11-20-2020 Lancing Device W ith Lancets (Onetouch Delica Lanc Device) kit Start: 12-24-2021 Lancing Device W ith Lancets (Onetouch Delica Lanc Device) kit Start: 11-20-2020 End: 12-24-2021 Lancing Device W ith Lancets (Onetouch Delica Lanc Device) kit Start: 11-20-2020 Lancing Device W ith Lancets (Onetouch Delica Lanc Device) kit Start: 12-24-2021 Lancing Device W ith Lancets (Onetouch Delica Lanc Device) kit Start: 11-20-2020 End: 12-24-2021 Lancing Device W ith Lancets (Onetouch Delica Lanc Device) kit Start: 11-20-2020 Lancing Device W ith Lancets (Onetouch Delica Lanc Device) kit Start: 12-24-2021 Lancing Device W ith Lancets (Onetouch Delica Lanc Device) kit Start: 11-20-2020 End: 12-24-2021 Blood Sugar Diagnostic (Onetouch Verio Test Strips) strip Start: 09-15-2023 Lancing Device W ith Lancets Start: 09-15-2023 Lancing Device W ith Lancets (Onetouch Delica Lanc Device) kit Start: 11-20-2020 Blood Sugar Diagnostic (Onetouch Ultra Test) strip Start: 07-12-2023 End: 07-13-2023 Blood Sugar Diagnostic (Onetouch Ultra Test) strip Start: 07-13-2023 End: 09-15-2023 Blood Sugar Diagnostic (Onetouch Verio Test Strips) strip Start: 09-15-2023 End: 09-15-2023 Lancing Device W ith Lancets (Onetouch Delica Lanc Device) kit Start: 11-20-2020 End: 12-24-2021 Lancing Device W ith Lancets (Onetouch Delica Lanc Device) kit Start: 12-24-2021 End: 09-15-2023 Anterior Cervica l discectomy/fusion 1 le Unknown 03/13/24 Unknown Unknown FDA Start: 03-13-2024 Anterior Cervica l discectomy/fusion 1 le Unknown 03/13/24 Unknown Unknown FDA Start: 03-13-2024 Anterior Cervica l discectomy/fusion 1 le Unknown 03/13/24 Unknown Unknown FDA Start: 03-13-2024 Anterior Cervica l discectomy/fusion 1 le Unknown 03/13/24 Unknown Unknown FDA Start: 03-13-2024 Anterior Cervica l discectomy/fusion 1 le Unknown 03/13/24 Unknown Unknown FDA Start: 03-13-2024 Anterior Cervica l discectomy/fusion 1 le Unknown 03/13/24 Unknown Unknown FDA Start: 03-13-2024 Anterior Cervica l discectomy/fusion 1 le Unknown 03/13/24 Unknown Unknown FDA Start: 03-13-2024 Anterior Cervica l discectomy/fusion 1 le Unknown 03/13/24 Unknown Unknown FDA Start: 03-13-2024 Anterior Cervica l discectomy/fusion 1 le Unknown 03/13/24 Unknown Unknown FDA Start: 03-13-2024 Anterior Cervica l discectomy/fusion 1 le Unknown 03/13/24 Unknown Unknown FDA Start: 03-13-2024 Anterior Cervica l discectomy/fusion 1 le Unknown 03/13/24 Unknown Unknown FDA Start: 03-13-2024 Anterior Cervica l discectomy/fusion 1 le Unknown 03/13/24 Unknown Unknown FDA Start: 03-13-2024 Anterior Cervica l discectomy/fusion 1 le Unknown 03/13/24 Unknown Unknown FDA Start: 03-13-2024 Anterior Cervica l discectomy/fusion 1 le Unknown 03/13/24 Unknown Unknown FDA Start: 03-13-2024 Anterior Cervica l discectomy/fusion 1 le Unknown 03/13/24 Unknown Unknown FDA Start: 03-13-2024 Anterior Cervica l discectomy/fusion 1 le Unknown 03/13/24 Unknown Unknown FDA Start: 03-13-2024 Anterior Cervica l discectomy/fusion 1 le Unknown 03/13/24 Unknown Unknown FDA Start: 03-13-2024 Anterior Cervica l discectomy/fusion 1 le Unknown 03/13/24 Unknown Unknown FDA Start: 03-13-2024 Anterior Cervica l discectomy/fusion 1 le Unknown 03/13/24 Unknown Unknown FDA Start: 03-13-2024 Anterior Cervica l discectomy/fusion 1 le Unknown 03/13/24 Unknown Unknown FDA Start: 03-13-2024 Anterior Cervica l discectomy/fusion 1 le Unknown 03/13/24 Unknown Unknown FDA Start: 03-13-2024 Anterior Cervica l discectomy/fusion 1 le Unknown 03/13/24 Unknown Unknown FDA Start: 03-13-2024 Anterior Cervica l discectomy/fusion 1 le Unknown 03/13/24 Unknown Unknown FDA Start: 03-13-2024 Anterior Cervica l discectomy/fusion 1 le Unknown 03/13/24 Unknown Unknown FDA Start: 03-13-2024 [id number] Start: 04-07-2024 TEST 3 to four t imes a day [id number] Start: 04-07-2024 Anterior Cervica l discectomy/fusion 1 le Unknown 03/13/24 Unknown Unknown FDA Start: 03-13-2024 Anterior Cervica l discectomy/fusion 1 le Unknown 03/13/24 Unknown Unknown FDA Start: 03-13-2024 Anterior Cervica l discectomy/fusion 1 le Unknown 03/13/24 Unknown Unknown FDA Start: 03-13-2024 Anterior Cervica l discectomy/fusion 1 le Unknown 03/13/24 Unknown Unknown FDA Start: 03-13-2024 Cornea Tissue Pre-Cut Dsaek - [id number] Start: 07-03-2024 Anterior Cervica l discectomy/fusion 1 le Unknown 03/13/24 Unknown Unknown FDA Start: 03-13-2024 Anterior Cervica l discectomy/fusion 1 le Unknown 03/13/24 Unknown Unknown FDA Start: 03-13-2024 Anterior Cervica l discectomy/fusion 1 le Unknown 03/13/24 Unknown Unknown FDA Start: 03-13-2024 Anterior Cervica l discectomy/fusion 1 le Unknown 03/13/24 Unknown Unknown FDA Start: 03-13-2024 Anterior Cervica l discectomy/fusion 1 le Unknown 03/13/24 Unknown Unknown FDA Start: 03-13-2024 Anterior Cervica l discectomy/fusion 1 le Unknown 03/13/24 Unknown Unknown FDA Start: 03-13-2024 Anterior Cervica l discectomy/fusion 1 le Unknown 03/13/24 Unknown Unknown FDA Start: 03-13-2024 Anterior Cervica l discectomy/fusion 1 le Unknown 03/13/24 Unknown Unknown FDA Start: 03-13-2024 Blood Sugar Diagnostic (Onetouch Verio Test Strips) strip Start: 04-07-2024 Lancing Device W ith Lancets (SonicLivinguch Delica Lanc Device) kit Start: 11-20-2020 Lancing Device W ith Lancets kit Start: 09-15-2023 Blood Sugar Diagnostic (Onetouch Ultra Test) strip Start: 07-12-2023 End: 07-13-2023 Blood Sugar Diagnostic (Onetouch Ultra Test) strip Start: 07-13-2023 End: 09-15-2023 Blood Sugar Diagnostic (Onetouch Verio Test Strips) strip Start: 09-15-2023 End: 09-15-2023 Blood Sugar Diagnostic (Onetouch Verio Test Strips) strip Start: 09-15-2023 End: 04-07-2024 Lancing Device W ith Lancets (SonicLivinguch Delica Lanc Device) kit Start: 11-20-2020 End: 12-24-2021 Lancing Device W ith Lancets (Onetouch Delica Lanc Device) kit Start: 12-24-2021 End: 09-15-2023 Blood Sugar Diagnostic (Onetouch Verio Test Strips) strip Start: 04-07-2024 Lancing Device W ith Lancets (Onetouch Delica Lanc Device) kit Start: 11-20-2020 Lancing Device W ith Lancets kit Start: 09-15-2023 Blood Sugar Diagnostic (Onetouch Ultra Test) strip Start: 07-12-2023 End: 07-13-2023 Blood Sugar Diagnostic (Onetouch Ultra Test) strip Start: 07-13-2023 End: 09-15-2023 Blood Sugar Diagnostic (Onetouch Verio Test Strips) strip Start: 09-15-2023 End: 09-15-2023 Blood Sugar Diagnostic (Onetouch Verio Test Strips) strip Start: 09-15-2023 End: 04-07-2024 Lancing Device W ith Lancets (Onetouch Delica Lanc Device) kit Start: 11-20-2020 End: 12-24-2021 Lancing Device W ith Lancets (Onetouch Delica Lanc Device) kit Start: 12-24-2021 End: 09-15-2023 Anterior Cervica l discectomy/fusion 1 le Unknown 03/13/24 Unknown Unknown FDA Start: 03-13-2024 Anterior Cervica l discectomy/fusion 1 le Unknown 03/13/24 Unknown Unknown FDA Start: 03-13-2024 Anterior Cervica l discectomy/fusion 1 le Unknown 03/13/24 Unknown Unknown FDA Start: 03-13-2024 Anterior Cervica l discectomy/fusion 1 le Unknown 03/13/24 Unknown Unknown FDA Start: 03-13-2024 Blood Sugar Diagnostic (Onetouch Verio Test Strips) strip Start: 04-07-2024 Lancing Device W ith Lancets (Onetouch Delica Lanc Device) kit Start: 11-20-2020 Lancing Device W ith Lancets kit Start: 09-15-2023 Blood Sugar Diagnostic (Onetouch Ultra Test) strip Start: 07-12-2023 End: 07-13-2023 Blood Sugar Diagnostic (Onetouch Ultra Test) strip Start: 07-13-2023 End: 09-15-2023 Blood Sugar Diagnostic (Onetouch Verio Test Strips) strip Start: 09-15-2023 End: 09-15-2023 Blood Sugar Diagnostic (Onetouch Verio Test Strips) strip Start: 09-15-2023 End: 04-07-2024 Lancing Device W ith Lancets (Onetouch Delica Lanc Device) kit Start: 11-20-2020 End: 12-24-2021 Lancing Device W ith Lancets (Onetouch Delica Lanc Device) kit Start: 12-24-2021 End: 09-15-2023 Anterior Cervica l discectomy/fusion 1 le Unknown 03/13/24 Unknown Unknown FDA Start: 03-13-2024 Anterior Cervica l discectomy/fusion 1 le Unknown 03/13/24 Unknown Unknown FDA Start: 03-13-2024 Anterior Cervica l discectomy/fusion 1 le Unknown 03/13/24 Unknown Unknown FDA Start: 03-13-2024 Anterior Cervica l discectomy/fusion 1 le Unknown 03/13/24 Unknown Unknown FDA Start: 03-13-2024 Blood Sugar Diagnostic (Onetouch Verio Test Strips) strip Start: 04-07-2024 Lancing Device W ith Lancets (Onetouch Delica Lanc Device) kit Start: 11-20-2020 Lancing Device W ith Lancets kit Start: 09-15-2023 Blood Sugar Diagnostic (Onetouch Ultra Test) strip Start: 07-12-2023 End: 07-13-2023 Blood Sugar Diagnostic (Onetouch Ultra Test) strip Start: 07-13-2023 End: 09-15-2023 Blood Sugar Diagnostic (Onetouch Verio Test Strips) strip Start: 09-15-2023 End: 09-15-2023 Blood Sugar Diagnostic (Onetouch Verio Test Strips) strip Start: 09-15-2023 End: 04-07-2024 Lancing Device W ith Lancets (Onetouch Delica Lanc Device) kit Start: 11-20-2020 End: 12-24-2021 Lancing Device W ith Lancets (Onetouch Delica Lanc Device) kit Start: 12-24-2021 End: 09-15-2023 Blood Sugar Diagnostic (Onetouch Verio Test Strips) strip Start: 04-07-2024 Lancing Device W ith Lancets (Onetouch Delica Lanc Device) kit Start: 11-20-2020 Lancing Device W ith Lancets kit Start: 09-15-2023 Blood Sugar Diagnostic (Onetouch Ultra Test) strip Start: 07-12-2023 End: 07-13-2023 Blood Sugar Diagnostic (Onetouch Ultra Test) strip Start: 07-13-2023 End: 09-15-2023 Blood Sugar Diagnostic (Onetouch Verio Test Strips) strip Start: 09-15-2023 End: 09-15-2023 Blood Sugar Diagnostic (Onetouch Verio Test Strips) strip Start: 09-15-2023 End: 04-07-2024 Lancing Device W ith Lancets (Onetouch Delica Lanc Device) kit Start: 11-20-2020 End: 12-24-2021 Lancing Device W ith Lancets (Onetouch Delica Lanc Device) kit Start: 12-24-2021 End: 09-15-2023 Functional Status Date Assessment Result Facility 03-14-2024 Functional Status Room check performed [facility] 03-14-2024 Functional Status [facility] 03-14-2024 Functional Status [facility] 03-14-2024 Functional Status Mod I [facility] 03-14-2024 Functional Status bilateral knee high [place]ott lied/on [facility] 03-13-2024 Functional Status 11pm-3am [facility] 03-13-2024 Functional Status [facility] 03-13-2024 Functional Status [facility] 03-13-2024 Functional Status Patient Identi fied Identification band, Verbal [facility] 03-13-2024 Functional Status [facility] 03-13-2024 Functional Status Single level home [facility] 03-13-2024 Functional Status Maintained [facility] 03-13-2024 Functional Status [facility] 03-12-2024 Functional Status Done [facility] 03-12-2024 Functional Status 50 [facility] 03-12-2024 Functional Status Two assist [facility] 03-12-2024 Functional Status Skin Care Prev entative Intervention(s) padded oxygen tubing [facility] 03-11-2024 Functional Status Sensory Defici ts Blind, left eye, Sensation/Touch deficit [facility] Mental Status Date Assessment Result Facility 03-14-2024 Mental Status Orientation Oriented x 4 [facility] 03-13-2024 Mental Status [facility] 03-13-2024 Mental Status [facility] 03-13-2024 Mental Status Oriented x 4 [facility] Clinical Notes 05-12-2016 to 06-28-2025 Patient InstructionsSarabjit Baires MD - 06/26/2025 4:02 PM EDT Note Date & Type Note Facility 06-28-2025 Hospital Discharge instructions Patient Education 06/28/2025 02:06:04 Constipation (Adult) Constipation (Adult) Constipation means that you have bowel movements that are less frequent than usual. Stools often become very hard and difficult to pass. Constipation is very common. At some point in life, it affects almost everyone. Since everyone's bowel habits are different, what is constipation to one person may not be to another. Your healthcare provider may do tests to diagnose constipation. It depends on what he or she finds when evaluating you. Symptoms of constipation include: Abdominal pain Bloating Vomiting Painful bowel movements Itching, swelling, bleeding, or pain around the anus Causes Constipation can have many causes. These include: Diet low in fiber Too much dairy Not drinking enough liquids Lack of exercise or physical activity (especially true for older adults) Changes in lifestyle or daily routine, including , aging, work, and travel Frequent use or misuse of laxatives Ignoring the urge to have a bowel movement or delaying it until later Medicines, such as certain prescription pain medicines, iron supplements, antacids, certain antidepressants, and calcium supplements Diseases like irritable bowel syndrome, bowel obstructions, stroke, diabetes, thyroid disease, Parkinson disease, hemorrhoids, and colon cancer Complications Potential complications of constipation can include: Hemorrhoids Rectal bleeding from hemorrhoids or anal fissures (skin tears) Hernias Dependency on laxatives Chronic constipation Fecal impaction, a severe form of constipation in which a large amount of hard stool is in your rectum that you can't pass Bowel obstruction or perforation Home care All treatment should be done after talking with your healthcare provider. This is especially true if you have another medical problems, are taking prescription medicines, or are an older adult. Treatment most often involves lifestyle changes. You may also need medicines. Your healthcare provider will tell you which will work best for you. Follow the advice below to help avoid this problem in the future. Lifestyle changes These lifestyle changes can help prevent constipation: Diet. Eat a high-fiber diet, with fresh fruit and vegetables, and reduce dairy intake, meats, and processed foods Fluids. It's important to get enough fluids each day. Drink plenty of water when you eat more fiber. If you are on diet that limits the amount of fluid you can have, talk about this with your healthcare provider. Regular exercise. Check with your healthcare provider first. Medicines Take any medicines as directed. Some laxatives are safe to use only every now and then. Others can be taken on a regular basis. While laxatives don't cause bowel dependence, they are treating the symptoms. So your constipation may return if you don't make other changes. Talk with your healthcare provider or pharmacist if you have questions. Prescription pain medicines can cause constipation. If you are taking this kind of medicine, ask your healthcare provider if you should also take a stool softener. Medicines you may take to treat constipation include: Fiber supplements Stool softeners Laxatives Enemas Rectal suppositories Follow-up care Follow up with your healthcare provider if symptoms don't get better in the next few days. You may need to have more tests or see a specialist. Call 911 Call 911 if any of these occur: Trouble breathing Stiff, rigid abdomen that is severely painful to touch Confusion Fainting or loss of consciousness Rapid heart rate Chest pain When to seek medical advice Call your healthcare provider right away if any of these occur: Fever of 100.4 F (38 C) or higher, or as directed by your healthcare provider Failure to resume normal bowel movements Pain in your abdomen or back gets worse Nausea or vomiting Swelling in your abdomen Blood in the stool Black, tarry stool Involuntary weight loss Weakness [id number] [employer]. [address] [place] [address], [place] [address]. All rights reserved. This information is not intended as a substitute for professional medical care. Always follow your healthcare professional's instructions. Follow Up Care 06/28/2025 00:36:08 With:Go to emergency room if symptoms worsen Address:Unknown When:2-4 days With:GAYLE PETIT DO Address: [facility] [address] [place] [address] [place] [address] [phone] When:2-4 days [facility] 06-28-2025 Emergency department Discharge summary Discharge Instructions Thank you for allowing [facility] to assist you with your healthcare needs. The following is important discharge information regarding your hospital visit. Diagnosis from Today's Visit Constipation Urinary retention What to Do Next Instructions from Your Care Team Please continue bowel regiment. Make sure to get plenty of fluids. In addition to Colace can also take medication such as MiraLAX daily and if continue to have issues with bowel movements can add senna onto this regiment. Can continue doing suppositories or enemas as needed which can be purchased [id number]. If you have persistent difficulty with bowel movements drink plenty of water and purchase magnesium citrate bottle to assist with bowel cleanout. Return to the emergency department for any acute worsening symptoms or concerns including inability to have a bowel movement or pass gas or inability to urinate or development of abdominal pain and vomiting. Otherwise follow-up with your primary doctor. No qualifying data available. Post Acute Orders No qualifying data available. You Need to Schedule the Following Appointments Follow Up with Go to emergency room if symptoms worsen When:Within 2-4 days Follow Up with GAYLE PETIT DO When:Within 2-4 days Where:[facility] [address] [place] [address] [place] [address] [phone] Allergies Demerol HCl (Moderate) Medications Please ask your primary doctor or pharmacist before taking any other medication not listed, including over the counter drugs, herbal medications, vitamins and or supplements as they may interact with your home medications. What How Much When Why Instructions Last Dose Unchanged acetaminophen (Tylenol 325 mg oral capsule) 650 Milligram by mouth Every 4 hours as needed for Pain, scale 1-3 Unchanged amLODIPine (amLODIPine 10 mg oral tablet) 1 tab(s) by mouth Once a day Unchanged atorvastatin (atorvastatin 40 mg oral tablet) 1 tab(s) by mouth Once a day Unchanged benzocaine-menthol topical (Cepacol Sore Throat lozenge) 1 lozenge(s) by mouth Every 2 hours as needed for Sore throat Unchanged cetirizine (cetirizine 10 mg oral tablet) 1 tab(s) by mouth Once a day Unchanged dapagliflozin (Farxiga 10 mg oral tablet) 1 tab(s) by mouth Once a day Unchanged docusate (Colace 100 mg oral capsule) 1 cap by mouth Once a day as needed for as needed for constipation Unchanged doxazosin (Cardura 4 mg oral tablet) 1 tab(s) by mouth Once a day Unchanged fluoride topical (SF 5000 Plus 1.1% topical cream) 1 application Topical Once a day Unchanged fluorometholone ophthalmic (fluorometholone 0.1% ophthalmic suspension) 1 Drops Left eye Once a day Unchanged metoprolol (metoprolol succinate 50 mg oral TABLET extended release) 1 tab(s) by mouth Two (2) times a day Unchanged pantoprazole (pantoprazole 20 mg oral enteric coated tablet) 1 tab(s) by mouth Once a day Unchanged semaglutide (Ozempic 8 mg/ 3 mL (2 mg dose) subcutaneous solution) 2 Milligram Subcutaneous Every week in the abdomen, thigh, or upper arm Unchanged timolol ophthalmic (timolol maleate 0.5% ophthalmic solution) 1 Drops Left eye Two (2) times a day Unchanged tiZANidine (tiZANidine 4 mg oral tablet) 1 tab(s) by mouth Three (3) times a day as needed for Muscle spasm Muscle spasm S/P cervical spinal fusion Duration: 5 Days Please take this list to your next doctor s visit. Bring all medications you take, including over the counter medications, herbals and other supplements with you to your doctor s visit. Patients and families are reminded to discard old lists and to update any records with all medication providers or retail pharmacies. Education Materials Constipation (Adult) Constipation means that you have bowel movements that are less frequent than usual. Stools often become very hard and difficult to pass. Constipation is very common. At some point in life, it affects almost everyone. Since everyone's bowel habits are different, what is constipation to one person may not be to another. Your healthcare provider may do tests to diagnose constipation. It depends on what he or she finds when evaluating you. Symptoms of constipation include: Abdominal pain Bloating Vomiting Painful bowel movements Itching, swelling, bleeding, or pain around the anus Causes Constipation can have many causes. These include: Diet low in fiber Too much dairy Not drinking enough liquids Lack of exercise or physical activity (especially true for older adults) Changes in lifestyle or daily routine, including , aging, work, and travel Frequent use or misuse of laxatives Ignoring the urge to have a bowel movement or delaying it until later Medicines, such as certain prescription pain medicines, iron supplements, antacids, certain antidepressants, and calcium supplements Diseases like irritable bowel syndrome, bowel obstructions, stroke, diabetes, thyroid disease, Parkinson disease, hemorrhoids, and colon cancer Complications Potential complications of constipation can include: Hemorrhoids Rectal bleeding from hemorrhoids or anal fissures (skin tears) Hernias Dependency on laxatives Chronic constipation Fecal impaction, a severe form of constipation in which a large amount of hard stool is in your rectum that you can't pass Bowel obstruction or perforation Home care All treatment should be done after talking with your healthcare provider. This is especially true if you have another medical problems, are taking prescription medicines, or are an older adult. Treatment most often involves lifestyle changes. You may also need medicines. Your healthcare provider will tell you which will work best for you. Follow the advice below to help avoid this problem in the future. Lifestyle changes These lifestyle changes can help prevent constipation: Diet. Eat a high-fiber diet, with fresh fruit and vegetables, and reduce dairy intake, meats, and processed foods Fluids. It's important to get enough fluids each day. Drink plenty of water when you eat more fiber. If you are on diet that limits the amount of fluid you can have, talk about this with your healthcare provider. Regular exercise. Check with your healthcare provider first. Medicines Take any medicines as directed. Some laxatives are safe to use only every now and then. Others can be taken on a regular basis. While laxatives don't cause bowel dependence, they are treating the symptoms. So your constipation may return if you don't make other changes. Talk with your healthcare provider or pharmacist if you have questions. Prescription pain medicines can cause constipation. If you are taking this kind of medicine, ask your healthcare provider if you should also take a stool softener. Medicines you may take to treat constipation include: Fiber supplements Stool softeners Laxatives Enemas Rectal suppositories Follow-up care Follow up with your healthcare provider if symptoms don't get better in the next few days. You may need to have more tests or see a specialist. Call 911 Call 911 if any of these occur: Trouble breathing Stiff, rigid abdomen that is severely painful to touch Confusion Fainting or loss of consciousness Rapid heart rate Chest pain When to seek medical advice Call your healthcare provider right away if any of these occur: Fever of 100.4 F (38 C) or higher, or as directed by your healthcare provider Failure to resume normal bowel movements Pain in your abdomen or back gets worse Nausea or vomiting Swelling in your abdomen Blood in the stool Black, tarry stool Involuntary weight loss Weakness [id number] [employer]. [address] [place] [address], [place] [address]. All rights reserved. This information is not intended as a substitute for professional medical care. Always follow your healthcare professional's instructions. Additional Information VACCINATE! IT SAVES LIVES! Members of the community who have not yet received the COVID-19 vaccine and would like to receive it can visit one of [facility] vaccine clinics. There are many vaccine clinic locations within the [facility]. For locations and available times, please visit [email or web address] [email or web address] It is important to note that some COVID mobile vaccine clinics are held outdoors and may be canceled in rainy or stormy conditions. To learn more about pediatric vaccinations (ages 5-11), we invite you to visit the [facility] webpage. [email or web address]/p [email or web address]-Mqmyumgnhyd-Freq [email or web address] To learn more about the COVID-19 vaccine, we invite you to visit the CDC website for a list of frequently asked questions. https://www.cdc.gov/coronavirus/ 2019-ncov/vaccines/faq.html [facility] Patient Portal Access Instructions: Stay connected with your healthcare team and access your personal medical information anytime with the [facility] Patient Portal. If you would like a full copy of your medical records please contact the [facility] Medical Records Department Wednesday through Wednesday between 8a.m. and 4:30p.m. Please follow the directions below to access the portal: 1.Access the email account you provided upon registration to the hospital.2.Look for an invitation email from [facility].3.Open the email and access the invitation link: Accept Invitation to [facility].Fill in the required evans to create your account. Sign into www.Inside Secure with your username and password that you created in the above steps to stay up to date. You can then view a summary of results, a summary of your visits, and the ability to download your summaries to your computer or send the information securely to a physician. Remember that your healthcare information is confidential, so carefully consider who you will allow to register on the [facility] Patient Portal for access to your information. You can also access the [facility] Patient Portal on the [employer]. Simply click on Health Records under Health Data and then click on the [employer] logo. HOW TO SAFELY DISPOSE OF PRESCRIPTION MEDICATIONS Please use one of the following methods to safely dispose of your unused medications. 1.Use a drug disposal kit: the drug disposal pouch allows you to safely discard your old and unused drugs. Ask your nurse to give you one when you are discharged.2.Visit a local take-back location: Many local pharmacies and police departments have programs that collect old and unwanted prescription drugs. Call your local pharmacy or go to http://[email or web address] to find one close to you.3.Make use of household items: Use cat litter or old coffee grounds to dispose medications if other options are not available. Mix your drugs with these household products, seal them in an airtight container and throw it into the garbage. Call [facility]: [phone] to be sure your drugs can be disposed of in this way. Some medicines may require a different approach.4.Never flush your medications down the toilet. IF YOU HAVE BEEN PRESCRIBED AN OPIOIDS FOR PAIN If you have been prescribed an opioid (such as hydrocodone, oxycodone or morphine), it is critical to understand the possible side effects and risks of opioid pain medications. Even when taken as directed, opioids can have several side effects including: Tolerance, meaning you might need to take more of a medication for the same pain relief. Nausea, vomiting and/or constipation. Sleepiness, dizziness, dry mouth, confusion, depression or itching. Physical dependence, meaning you have withdrawal symptoms when a medication is stopped ? this can develop within a few days. KNOW YOUR RESPONSIBILITIES It is important to know exactly how much and how often to take the opioid pain medications you are prescribed. Never take opioids in higher amounts or more often than prescribed. Do not combine opioids with alcohol or other drugs that cause drowsiness, such as benzodiazepines, also known as benzos, including diazepam and alprazolam, muscle relaxants or sleep aids. Never sell or share prescription opioids. This is illegal. Store opioids in a secure place and out of reach of others (including children, family, friends and visitors). The last page(s) of this document has been signed and retained as a CHART COPY Signatures Patient Education Materials Constipation (Adult) Medication Leaflets My discharge plan and instructions have been reviewed and explained to me and I,LALITHA JASON understand my current condition and have read and understand these discharge instructions. I have received a written copy of the plan/instructions. If I have questions, I am aware that I should contact my doctor. 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 The transplant itself looks clear, with only minor peripheral corneal swelling. - Continue using your current medications as follows: - Fluorometholone eye drops: Twice daily in the left eye to minimize inflammation and reduce the risk of graft failure. This will be a long-term treatment. - Bromidine eye drops: Twice daily for pressure control. - Sachin 128 ointment: Apply before bed to help with corneal swelling and lubrication. - Systane eye drops: Use as needed for irritation and dryness. - There is no need to adjust your medications at this time, as they are effectively managing your condition. We discussed your concerns about image distortion in your left eye: - The curved appearance of objects in your left eye may be related to astigmatism or other longstanding vision issues. Since your retina has been scanned previously and no abnormalities were found, no further testing is needed at this time. We discussed follow-up care: - You do not need to schedule a follow-up visit with me unless you experience new or worsening symptoms. Please continue regular follow-ups with Dr. Poole, who will monitor your condition. - If you have any concerns or changes in your vision, you are welcome to schedule an appointment with me. Please continue your current care plan, and let us know if you have any questions or concerns. documented in this encounter [facility] 06-26-2025 Note HNO ID: [id number] Author: SARABJIT BAIRES MD Service: ? Author Type: Physician Type: Progress Notes Filed: 06/30/2025 16:58 Note Text: Encounter Diagnosis ICD-10-CM 1. 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 Pseudophakia Z96.1 Bullous keratopathy left eye status post penetrating keratoplasty ~20 years ago Original surgery required after complex cataract surgery requiring IOL exchange due to haptic damage during surgery resulting in corneal edema No history of retained lens fragments or vitrectomy Corneal transplant originally performed by Dr. Pang Was happy with vision prior to bullous keratopathy Now s/p DSAEK OS 07/03/24 Has been following with local Dr. Baumann Currently on: Timolol BID Brimonidine BID FML BID OS Has some mild intermittent irritation he managements with systane and sachin artificial tears, otherwise very happy with his vision Graft clear and attached, no signs of rejection or failure Decrease FML to daily and stay on that Continue artificial tears/sachin PRN and warm compresses for dry eye/MGD symptoms To follow-up with local Dr. 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 I have seen and examined this patient. I have discussed the case and the management of this patient's care with the Resident/Fellow, if applicable. I also have reviewed and agree with the assessment and plan as stated above and agree with all of its relevant components. Sarabjit Baires MD [facility] 06-26-2025 History of Present illness Narrative Encounter Diagnosis ICD-10-CM 1. 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 Pseudophakia Z96.1 Bullous keratopathy left eye status post penetrating keratoplasty ~20 years ago Original surgery required after complex cataract surgery requiring IOL exchange due to haptic damage during surgery resulting in corneal edema No history of retained lens fragments or vitrectomy Corneal transplant originally performed by Dr. Pang Was happy with vision prior to bullous keratopathy Now s/p DSAEK OS 07/03/24 Has been following with local Dr. Baumann Currently on: Timolol BID Brimonidine BID FML BID OS Has some mild intermittent irritation he managements with systane and sachin artificial tears, otherwise very happy with his vision Graft clear and attached, no signs of rejection or failure Decrease FML to daily and stay on that Continue artificial tears/sachin PRN and warm compresses for dry eye/MGD symptoms To follow-up with local Dr. 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 I have seen and examined this patient. I have discussed the case and the management of this patient's care with the Resident/Fellow, if applicable. I also have reviewed and agree with the assessment and plan as stated above and agree with all of its relevant components. 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 May 22, 2025 2:34pm Stage 3 chronic kidney disease chronic May 22, 2025 2:34pm Type 2 diabetes mellitus chronic May 22, 2025 2:34pm Cervical radiculopathy resolved May 22, 2025 2:34pm Palpitations acute June 21, 2025 2:46pm Palpitations acute July 252024 1:50pm Hypertension chronic July 252024 1:50pm Type 2 diabetes mellitus chronic July 25, 2025 1:50pm [facility] Work Phone: 1(286) 979-370007-08-2025 Evaluation note* Diagnosis Onset Date Resolution Status Admit Date Hypertension chronic May 22 2:34pm 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, 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 May 2:34pm Stage 3 chronic kidney disease chronic May 22, 2025 2 :34pm Type 2 diabetes mellitus chronic May 22, 2025 2:34pm Cervical radiculopathy resolved Ju 2024 2:34pm Palpitations acute June 21, 2025 2:46pm Palpitations acute July 252024 1:50pm RBBB acute July 1:50pm Atherosclerosis of coronary artery of [place] heart without angina pectoris chronic 2024 1:50pm Hypertension chronic July 252024 1:50pm Stage 3 chronic kidney disease chronic July 25, 2025 1:50pm Type 2 diabetes mellitus chronic July 25, 2025 1:50pm [facility] Work Phone: 1(203) 106-718207-08-2025 Evaluation note* Diagnosis Onset Date Resolution Status Admit Date Hypertension chronic May 22 2:34pm 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, 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 May 2:34pm Stage 3 chronic kidney disease chronic May 22, 2025 2 :34pm Type 2 diabetes mellitus chronic May 22, 2025 2:34pm Cervical radiculopathy resolved Ju ly 2024 2:34pm Palpitations acute June 21, 2025 2:46pm Palpitations acute July 252024 1:50pm RBBB acute July 1:50pm Atherosclerosis of coronary artery of [place] without angina pectoris chronic Septemb2024 1:50pm Hypertension chronic July 252024 1:50pm Stage 3 chronic kidney disease chronic July 25, 2025 1:50pm Type 2 diabetes mellitus chronic July 25, 2025 1:50pm Hypertension chronic August 21, 2025 3:19pm Stage 3 chronic kidney disease chronic August 21 3:19pm Type 2 diabetes mellitus chronic August 21, 2025 3:19pm [facility] Work Phone: 1(561) 241-503304-16-2025 Evaluation note* Diagnosis Onset Date Resolution Status Admit Date Atherosclerosis of coronary artery of [place] heart without angina pectoris chronic February 28, 2025 2:54pm Enlarged prostate chronic February 132024 2:54pm Hypertension chronic February 28, 2025 2:54pm Stage 3 chronic kidney disease chron ic February 28, 2025 2:54pm Type 2 diabetes mellitus chronic February 28, 2025 2:54pm Hypertension chronic May 22 2:34pm 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 Follow-up with PCP or return if symptoms do not resolve visit Urgent Care. Drink plenty of non-caffeinated fluids. documented in this encounterTrihealth03-24-2025 History of Present illness Narrative* Alejandro Adam RT(R) - 02/05/2025 11:00 AM EDT Radiology Service Progress Note PATIENT NAME: Lalitha Jason DATE OF SERVICE: February 05, 2025 TIME: 11:31 AM PATIENT IDENTITY VERIFICATION COMPLETED USING TWO (2) IDENTIFIERS: Name and Date of confirmedby patient verbally. FALL SCREENING: Has the patient had 2 falls in the last year or 1 fall with injury or currently using an Ambulatory Assistive Device (Walker, Cane, Wheelchair, Crutches, etc.)? No PATIENT GENDER DATA: Assigned male at PATIENT RELEVANT IMPLANT DATA REVIEWED: Not Applicable PATIENT PRESENTS WITH AN IMPLANTABLE OR ATTACHED MEDICAL FRONT DESK COORDINATOR: No RADIOLOGY DEPARTMENT: General X-ray: Exam(s) Completed: Chest X-Ray PERIPHERAL IV DATA: Not applicable SIGNED BY: RT Jairon(R) February 05, 2025 11:31 AM documented in this encounterTrihealth03-24-2025 NoteHNO ID: [id number] Author: ALEJANDRO ADAM RT(R) Service: ? Author Type: Technologist Type: Progress Notes Filed: 02/05/2025 11:31 Note Text: Radiology Service Progress Note PATIENT NAME: Lalitha Jason DATE OF SERVICE: February 05, 2025 TIME: 11:31 AM PATIENT IDENTITY VERIFICATION COMPLETED USING TWO (2) IDENTIFIERS: Name and Date of confirmed by patient verbally. FALL SCREENING: Has the patient had 2 falls in the last year or 1 fall with injury or currently using an Ambulatory Assistive Device (Walker, Cane, Wheelchair, Crutches, etc.)? No PATIENT GENDER DATA: Assigned male at PATIENT RELEVANT IMPLANT DATA REVIEWED: Not Applicable PATIENT PRESENTS WITH AN IMPLANTABLE OR ATTACHED MEDICAL FRONT DESK COORDINATOR: No RADIOLOGY DEPARTMENT: General X-ray: Exam(s) Completed: Chest X-Ray PERIPHERAL IV DATA: Not applicable SIGNED BY: RT Jairon(R) February 05, 2025 11:31 [facility]03-24-2025 NoteHNO ID: [id number] Author: MIGUEL FREEDMAN JR, APRN.EQUIPMENT HIRE MANAGER Service: ? Author Type: Nurse Practitioner Type: Progress Notes Filed: 02/05/2025 11:28 Note Text: [facility] [place] Subjective Lalitha Jason is a 79 year old male. Patient presents with: Cough: Cough started 6 days ago, 3 days ago cough became productive and can feel rattling in chest - @home -neg covid test 79-year-old male accompanied by his spouse presents today complaining of cough by 6 days. He states the cough is worse when laying supine. He denied the cough getting worse at night or coughing so hard it makes him throw up. He notes some wheezing and has been using navb-ueh-scctxbm Robitussin DM with good effect. Patient had quadruple cardiac bypass and his spouse is worried about pneumonia. The history is provided by the patient and the spouse. Review of Systems Constitutional: Negative for fever. HENT: Negative for sore throat. Eyes: Positive for visual disturbance. Respiratory: Positive for cough and wheezing. Negative for chest tightness and shortness of breath. Cardiovascular: Negative for chest pain. Musculoskeletal: Negative for myalgias. Neurological: Negative for headaches. Objective BP 115/67 Pulse 101 Temp 36.7 ?C (98 ?F) Resp 18 Wt 98 kg (216 lb) SpO2 95% BMI 33.83 kg/m? Physical Exam Vitals and nursing note reviewed. Constitutional: Appearance: Normal appearance. HENT: Head: Normocephalic and atraumatic. Nose: Nose normal. Mouth/Throat: Mouth: Mucous membranes are moist. Pharynx: Oropharynx is clear. Eyes: Conjunctiva/sclera: Conjunctivae normal. Comments: Left eye is watering. Cardiovascular: Rate and Rhythm: Normal rate and regular rhythm. Heart sounds: Normal heart sounds. Pulmonary: Effort: Pulmonary effort is normal. Breath sounds: Normal breath sounds. No stridor. No wheezing or rales. Abdominal: General: Bowel sounds are normal. Palpations: Abdomen is soft. Musculoskeletal: Right lower leg: No edema. Left lower leg: No edema. Skin: General: Skin is warm and dry. Neurological: Mental Status: He is alert and oriented to person, place, and time. Psychiatric: Behavior: Behavior normal. Radiographic examination of the chest ordered. Sternal surgical clips noted. 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 Reactive airway disease present with no other abnormalities noted. Awaiting radiology report for confirmation. Assessment AND Plan Acute cough Diagnosed patient with an acute cough. I would also consider bronchitis and/or pneumonia. The latter diagnosis is not supported by the x-ray. Because of patient's extensive medical history I did prescribe him doxycycline. I considered an albuterol inhaler however patient is on timolol and I felt as I was not hearing wheezing and he states his symptoms seem to be improving and decided to not prescribe the medication. I did prescribe him Mucinex DM to help liquefy the lung secretions to make it easier for the patient to cough it out. I did discuss the importance of knowing caffeinated beverages to keep himself well-hydrated. Patient informed to follow-up with his primary care physician if symptoms do not resolve. Orders: XR CHEST 2V FRONTAL/LAT; Future dextromethorphan-guaiFENesin (MUCINEX DM) 60-1,200 mg tablet; Take 1 tablet by mouth two times a day for 10 days. doxycycline hyclate (VIBRAMYCIN) 100 mg capsule; Take 1 capsule by mouth two times a day for 7 days. Wheezing Orders: doxycycline hyclate (VIBRAMYCIN) 100 mg capsule; Take 1 capsule by mouth two times a day for 7 days. [facility]03-24-2025 History of Present illness Narrative* Miguel Freedman Jr., TRANSFORMER BUILDER.[facility] - 02/05/2025 10:41 AM EDT [facility] [place] Jason is a 79 year old male. Patient presents with: Cough: Cough started 6 days ago, 3 days ago cough became productive and can feel rattling in chest - @home -neg covid test 79-year-old male accompanied by his spouse presents today complaining of cough by 6 days. He statesthe cough is worse when laying supine. He denied the cough getting worse at night or coughing so hard it makes him throw up. He notes some wheezing and has been using qgln-mct-cohmrmg Robitussin DM with good effect. Patient had quadruple cardiac bypass and his spouse is worried about pneumonia. The history is provided by the patient and the spouse. Review of Systems Constitutional: Negative for fever. HENT: Negative for sore throat. Eyes: Positive for visual disturbance. Respiratory: Positive for cough and wheezing. Negative for chest tightness and shortness of breath. Cardiovascular: Negative for chest pain. Musculoskeletal: Negative for myalgias. Neurological: Negative for headaches. Objective BP 115/67 Pulse 101 Temp 36.7 C (98 F) Resp 18 Wt 98 kg (216 lb) SpO2 95% BMI 33.83 kg/m Physical Exam Vitals and nursing note reviewed. Constitutional: Appearance: Normal appearance. HENT: Head: Normocephalic and atraumatic. Nose: Nose normal. Mouth/Throat: Mouth: Mucous membranes are moist. Pharynx: Oropharynx is clear. Eyes: Conjunctiva/sclera: Conjunctivae normal. Comments: Left eye is watering. Cardiovascular: Rate and Rhythm: Normal rate and regular rhythm. Heart sounds: Normal heart sounds. Pulmonary: Effort: Pulmonary effort is normal. Breath sounds: Normal breath sounds. No stridor. No wheezing or rales. Abdominal: General: Bowel sounds are normal. Palpations: Abdomen is soft. Musculoskeletal: Right lower leg: No edema. Left lower leg: No edema. Skin: General: Skin is warm and dry. Neurological: Mental Status: He is alert and oriented to person, place, and time. Psychiatric: Behavior: Behavior normal. Radiographic examination of the chest ordered. Sternal surgical clips noted. 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 Reactive airway disease present with no other abnormalities noted. Awaiting radiology report for confirmation. Assessment & Plan Acute cough Diagnosed patient with an acute cough. I would also consider bronchitis and/or pneumonia. The latter diagnosis is not supported by the x-ray. Because of patient's extensive medical history I did prescribe him doxycycline. I considered an albuterol inhaler however patient is on timolol and I felt asI was not hearing wheezing and he states his symptoms seem to be improving and decided to not prescribe the medication. I did prescribe him Mucinex DM to help liquefy the lung secretions to make it easier for the patient to cough it out. I did discuss the importance of knowing caffeinated beveragesto keep himself well-hydrated. Patient informed to follow-up with his primary care physician if symptoms do not resolve. Orders: XR CHEST 2V FRONTAL/LAT; Future dextromethorphan-guaiFENesin (MUCINEX DM) 60-1,200 mg tablet; Take 1 tablet by mouth two times a day for 10 days. doxycycline hyclate (VIBRAMYCIN) 100 mg capsule; Take 1 capsule by mouth two times a day for 7 days. Wheezing Orders: doxycycline hyclate (VIBRAMYCIN) 100 mg capsule; Take 1 capsule by mouth two times a day for 7 days. MDM Procedures documented in this encounterTrihealth08-29-2024 NoteDate of Procedure 07/13/2024. Supervisor Record Press Information It Operations Specialist: Stephanie Chaparro Start time: 2:57 PM. Stop time: 2:57 PM. Notes s/p dsaek graft [id number] NoteHNO ID: [id number] Author: SARABJIT BAIRES MD Service: ? Author Type: Physician Type: Progress Notes Filed: 07/13/2024 16:18 Note Text: (Z94.7) Cornea replaced by transplant (primary encounter diagnosis) Comment: 1 WEEK S/P DSAEK OS w/ basket suture - Graft fully attached, minimal stromal edema Plan: - PREDNISOLONE ACETATE 1% QID operative eye CONTINUE - CIPROFLOXACIN 0.3% QID operative eye UNTIL GONE - ERYTHROMYCIN OINTMENT QHS operative eye UNTIL GONE - Routine precautions discussed - OKAY TO D/C SHIELD QHS - Call LESLIE if new signs/symptoms/pain/vision loss Remove basket suture at slit lamp 1 drop of Betadine instilled 5 minutes prior to procedure Removed without incident - Follow up 3 weeks okay to follow-up with Dr. Baumann locally in 3-4 weeks defer any change in glasses for 3 months recommend continue pred acetate 1% QID x 3 month and taper as long as IOP tolerates if irritation persists with pred acetate 1% can change to weaker steroid (lotemax) or otherwise, fml an option but may be too weak at this stage I have confirmed and edited as necessary the relevant ophthalmic history, ROS, and the neuro exam findings as obtained by others. I have seen and examined this patient. I have discussed the case and the management of this patient's care with the Resident/Fellow, if applicable. I also have reviewed and agree with the assessment and plan as stated above and agree with all of its relevant components. 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 Baumann locally in 3-4 weeks defer any change in glasses for 3 months recommend continue pred acetate 1% QID x 3 month and taper as long as IOP tolerates if irritation persists with pred acetate 1% can change to weaker steroid (lotemax) or otherwise, fml an option but may be too weak at this stage I have confirmed and edited as necessary the relevant ophthalmic history, ROS, and the neuro exam findings as obtained by others. I have seen and examined this patient. I have discussed the case and the management of this patient's care with the Resident/Fellow, if applicable. I also have reviewed and agree with the assessment and plan as stated above and agree with all of its relevant components. Sarabjit Baires MD documented in this encounterTrihealth08-20-2024 NoteDate of Procedure 07/04/2024. Supervisor Record Press Information It Operations Specialist: af. Start time: 2:55 PM. Stop time: 3:02 PM. BJ Whitt Best possible image obtained . Notes dsaek fully [id number] NoteHNO ID: [id number] Author: SARABJIT BAIRES MD Service: ? 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) Comment: 1 DAY S/P DSAEK OS - Graft fully attached, 1+ stromal edema Plan: - PREDNISOLONE ACETATE 1% QID operative eye - CIPROFLOXACIN 0.3% QID operative eye - ERYTHROMYCIN OINTMENT QHS operative eye - Routine precautions discussed - Position supine Q2H on/off for the next 24 hrs - NO FACE DOWN POSITIONING x 3 DAYS - Shield at bedtime - No eye rubbing - No strenuous activity - Call LESLIE if new signs/symptoms/pain/vision loss - Follow up 1 week NEXT VISIT ORDERS 1 WEEK POST-OP: VISION OU IOP OU ant seg oct os I have confirmed and edited as necessary the relevant ophthalmic history, ROS, and the neuro exam findings as obtained by others. I have seen and examined this patient. I have discussed the case and the management of this patient's care with the Resident/Fellow, if applicable. I also have reviewed and agree with the assessment and plan as stated above and agree with all of its relevant components. 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) Comment: 1 DAY S/P DSAEK OS - Graft fully attached, 1+ stromal edema Plan: - PREDNISOLONE ACETATE 1% QID operative eye - CIPROFLOXACIN 0.3% QID operative eye - ERYTHROMYCIN OINTMENT QHS operative eye - Routine precautions discussed - Position supine Q2H on/off for the next 24 hrs - NO FACE DOWN POSITIONING x 3 DAYS - Shield at bedtime - No eye rubbing - No strenuous activity - Call LESLIE if new signs/symptoms/pain/vision loss - Follow up 1 week NEXT VISIT ORDERS 1 WEEK POST-OP: VISION OU IOP OU ant seg oct os I have confirmed and edited as necessary the relevant ophthalmic history, ROS, and the neuro exam findings as obtained by others. I have seen and examined this patient. I have discussed the case and the management of this patient's care with the Resident/Fellow, if applicable. I also have reviewed and agree with the assessment and plan as stated above and agree with all of its relevant components. Sarabjit Baires MD documented in this encounterTrihealth07-23-2024 Telephone encounter Note * Telephone Encounter - Jd Zhenlillie Alison - 06/06/2024 3:35 PM EDT Images from the original note were not included. 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 Baires 07/03/2024 [facility] Work Phone: 1(195) 584-590407-23-2024 Miscellaneous Notes* Telephone Encounter - Alison Rodríguez - 06/06/2024 3:35 PM EDT Images from the original note were not included. 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 Baires 07/03/2024 documented in this encounterTrihealth07-23-2024 NoteDate of Procedure 06/06/2024. Astigmatism Right Eye Regular. Left Eye Irregular.[id number] Instructions* Patient Instructions* Sarabjit Baires MD - 06/06/2024 12:22 PM EDT INSTRUCTIONS FOR SCHEDULING SURGERY: CONTACT DR. BAIRES'S ART INSTRUCTOR: KERVIN AT [phone] (9AM-5PM, WEDNESDAY-WEDNESDAY) - IF YOU RECEIVE VOICEMAIL, PLEASE LEAVE A MESSAGE AND WE WILL RETURN YOUR CALL WITHIN 7-10 DAYS - MY IOS SOFTWARE ENGINEER WILL INFORM YOU IF ANY ADDITIONAL PREOPERATIVE TESTING IS REQUIRED, INCLUDING A PRE-OPERATIVE PHYSICAL (REQUIRED FOR ALL PROCEDURES IN WHICH ANESTHESIA IS INVOLVED) - YOU WILL NEED A PERSON (NOT A TAXI, BUS OR UBER) TO BRING YOU TO THE HOSPITAL AND REMAIN PRESENT UNTIL THE SURGERY IS OVER - ONCE A SURGICAL DATE(s) HAS BEEN SET, YOU WILL RECEIVE A PHONE CALL ON THE BUSINESS DAY PRIOR TO SURGERY TO GIVE YOU YOUR EXACT ARRIVAL TIME - ARRIVAL TIMES ARE TYPICALLY 60-90 MINUTES BEFORE YOUR PROCEDURE IS SCHEDULED TO TAKE PLACE, ALTHOUGH THIS MAY VARY BASED ON THE TYPE OF PROCEDURE YOU ARE HAVING DONE AND EXTRINSIC FACTORS WHICH MAYAFFECT THE SCHEDULE ON THE DAY OF SURGERY - IF YOU ARE RECEIVING ANESTHESIA (WHICH INCLUDES MOST PROCEDURES EXCEPT FOR THOSE WHICH ARE LOCAL ANESTHESIA ONLY), YOU WILL NEED TO FAST FOR 8 HOURS BEFORE YOUR SCHEDULED SURGERY TIME. SPECIFIC DETAILS REGARDING DAY OF SURGERY INSTRUCTIONS INCLUDING WHETHER YOU NEED TO STOP ANY EXISTING MEDICATIONS WILL BE EXPLAINED AT YOUR PRE-OPERATIVE PHYSICAL. - YOU HAVE ANY ADDITIONAL CONCERNS OR QUESTIONS, CALL DR. BAIRES'S OFFICE AT [phone] (PRESS 0TO BYPASS THE AUTOMATED GREETING AND BE TRANSFERRED TO AN FISHER DIVER NET) OR YOU CAN SENDMESSAGES VIA [employer] documented in this encounterTrihealth07-23-2024 History of Present illness Narrative* Sarabjit Baires MD - 06/06/2024 12:17 PM EDT Encounter Diagnosis ICD-10-CM 1. 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 S/P PKP (penetrating keratoplasty) Z94.7 4. Pseudophakia Z96.1 Bullous keratopathy left eye status post penetrating keratoplasty Original surgery required after complex cataract surgery requiring IOL exchange due to haptic damage during surgery resulting in corneal edema No history of retained lens fragments or vitrectomy Corneal transplant performed by Dr. Pang Was happy with vision prior to bullous keratopathy Recommend complex DSAEK (complicating factors: graft under PKP higher risk for dislocation) superior temporal wound should be usable continue fml every day and timolol 0.5% bid os Discussed can transfer follow-up care locally after 1 week visit if graft is fully attached letter to Dr. Baumann I have confirmed and edited as necessary the relevant ophthalmic history, ROS, and the neuro exam findings as obtained by others. I have seen and examined this patient. I have discussed the case and the management of this patient's care with the Resident/Fellow, if applicable. I also have reviewed and agree with the assessment and plan as stated above and agree with all of its relevant components. Sarabjit Baires MD documented in this encounterTrihealth04-30-2024 Hospital Discharge instructions Patient Education 03/14/2024 15:09:42 Anterior Cervical Diskectomy and Fusion Anterior Cervical Diskectomy and Fusion Anterior cervical diskectomy and fusion is a surgery to remove and replace an intervertebral disk. Intervertebral disks are plates of cartilage located between the bones of the spine. This surgery isdone when an intervertebral disk in the neck puts pressure on the spine or on a nerve. The surgery is done through the front (anterior) part of the neck. During the surgery, the damaged disk is removed and replaced with a plastic implant, a bone from another part of the body (bone graft), or both. Sometimes metal plates and screws (hardware) are also put in the neck to help keep the implant or bone graft in place and to allow the bones to grow together (fuse). Tell a health care provider about: Any allergies you have. All medicines you are taking, including vitamins, herbs, eye drops, creams, and fwax-eoo-bvkztnt medicines. Any problems you or family members have had with anesthetic medicines. Any blood disorders you have. Any surgeries you have had. Any medical conditions you have or have had. Whether you are or may be . What are the risks? Generally, this is a safe procedure. However, problems may occur, including: Infection. Bleeding, which can sometimes require a blood transfusion. Injury to surrounding structures, including nerves. Leakage of fluid from the brain or spinal cord (cerebrospinal fluid). Blood clots. Temporary breathing difficulties. What happens before the procedure? Medicines Ask your health care provider about: Changing or stopping your regular medicines. This is especially important if you are taking diabetes medicines or blood thinners. Taking medicines such as aspirin and ibuprofen. These medicines can thin your blood. Do not take these medicines unless your health care provider tells you to take them. Taking yqgz-kbp-ueqhjkt medicines, vitamins, herbs, and supplements. Staying hydrated Follow instructions from your health care provider about hydration, which may include: Up to 2 hours before the procedure you may continue to drink clear liquids, such as water, clear fruit juice, black coffee, and plain tea. Eating and drinking Follow instructions from your health care provider about eating and drinking, which may include: 8 hours before the procedure stop eating heavy meals or foods, such as meat, fried foods, or fatty foods. 6 hours before the procedure stop eating light meals or foods, such as toast or cereal. 6 hours before the procedure stop drinking milk or drinks that contain milk. 2 hours before the procedure stop drinking clear liquids. General instructions Do not use any products that contain nicotine or tobacco for at least 4 weeks before the procedure.These products include cigarettes, e-cigarettes, and chewing tobacco. If you need help quitting, ask your health care provider. Ask your health care provider: ?How your surgery site will be marked. ?What steps will be taken to help prevent infection. These may include: ?Removing hair at the surgery site. ?Washing skin with a germ-killing soap. ?Receiving antibiotic medicine. What happens during the procedure? An IV will be inserted into one of your veins. You will be given one or more of the following: ?A medicine to help you relax (sedative). ?A medicine to make you fall asleep (general anesthetic). A breathing tube will be placed. Your neck will be cleaned with a germ-killing solution (antiseptic solution). Your surgeon will make an incision in the front of your neck. Your neck muscles will be spread apart. The damaged disk and any damaged bone will be removed. The area where the disk was removed will be filled with a small plastic implant, a bone graft, or both. Hardware may be put in your neck. The incision will be closed with stitches (sutures). Adhesive strips or skin glue may be placed across the incision. A bandage (dressing) will be applied over the incision. The procedure may vary among health care providers and hospitals. What happens after the procedure? Your blood pressure, heart rate, breathing rate, and blood oxygen level will be monitored until youleave the hospital or clinic. You will be monitored for any signs of complications from the procedure, such as: ?Too much bleeding from the incision site. ?A buildup of blood under your skin at the surgical site. ?Difficulty breathing. You may continue to receive antibiotics. You can start to eat as soon as you feel comfortable. You may be given a neck brace to wear. This brace limits your neck movement while your bones are fusing. Do not drive for 24 hours if you were given a sedative during your procedure. Summary Anterior cervical diskectomy and fusion is a surgery to remove and replace an intervertebral disk. The surgery is done through the front (anterior) part of the neck. Before the procedure, follow instructions from your health care provider about changing or stoppingyour medicines and about eating and drinking. During the procedure, the damaged disk and any damaged bone will be removed. After the procedure, you will be monitored for any signs of complications from the procedure. You may be given a neck brace to wear. This brace limits your neck movement while your bones are fusing. This information is not intended to replace advice given to you by your health care provider. Make sure you discuss any questions you have with your health care provider. Document Released: 10/20/2010 Document Revised: 07/27/2019 Document Reviewed: 07/27/2019 Floored Patient Education 2020 [employer]. Follow Up Care 03/11/2024 11:51:09 With:Please call [facility] at [phone] to schedule your therapy. Address:Unknown When:1-2 days With:GAYLE PETIT DO Address: [facility] [address] [place] [phone]- When:2-4 days Comments:Please call the office to schedule a follow-up appointment. With:DIGNA GARCES, Neurosurgery Address: [address] [place] [address] [place] [address]- [phone] When:03/27/2024 11:30:00 [facility] 04-30-2024 Note Date of Service 03/14/24 Chief Complaint Medical management Subjective Patient resting up to chair. No family at bedside. Patient is alert. She is oriented. Answer question appropriate. Patient states his pain is well- controlled. Patient states I feel great actually. Patient denies shortness of breath, chest pain, palpitations, dizziness, blurred vision, difficulty s peaking, nausea, vomiting, diarrhea, constipation, urinary symptoms, night sweats, cough, fever andchills. Objective Vitals and Measurements T: 36 C (Axillary) TMIN: 35.12 C TMAX: 36.9 C (Oral) HR: 90 RR: 18 BP: 108/67 BP: 127/54(Line) SpO2: 95% Intake and Output 7AM Yesterday to 7AM Today Intake and Output (Last 24 hours) Intake Oral Intake 120.00 Administration Information 1717.89 Output Urine Voided 1325.00 Intra-Op EBL 20.00 Stool Count 0.00 Urine Count 1.00 Total Summary Total Intake 1837.89 Total Output 1345.00 Fluid Balance 492.89 Physical Exam Vitals Signs(Last 24 hrs)__ Last Charted Minimum Maximum Temp 36(MAR 14 10:53) 36(MAR 14 10:53) 36.4(MAR 13 19:58) Heart Rate 90(MAR 14 09:16) 83(MAR 13 19:58) 90(MAR 14 09:16) SBP 136(MAR 14 10:53) 78(MAR 13 15:51) 136(MAR 14 10:53) DBP 75(MAR 14 10:53) L 54(MAR 13 18:17) 79(MAR 13 15:44) Physical Exam General: No acute distress. Alert and Appropriate Skin: No rash. Warm, Dry, Intact HEENT: Head is normocephalic and atraumatic. No lesions. Pupils equal in size. Extraocular movements within normal limits. Nose: No septal deviation. Mouth: Oropharynx mucosa is without lesion. Neck: Supple. No lymphadenopathy, thyromegaly noted. Hard cervical collar in place. Anterior dry sterile dressing in place. No drainage. No signs of infection. Lungs: Bilaterally clear/diminished breath sounds with no crepitation or wheeze. Unlabored Cardiovascular: Heart is regular rhythm, S1S2, No extra-audible heart tones Abdomen: Abdomen is soft, nontender. Bowel sounds positive all four quadrants. Extremities: No clubbing, cyanosis or edema. Peripheral pulses palpable. No calf tenderness. Adequate peripheral circulation. Neurological: The patient is awake, oriented to time, people and place. Following simple commands, moving all extremities. Weight Dosing Weight: 95.5 kg (03/11/24) Dosing Weight: 106 kg (03/11/24) Medications Medications (34) Active Scheduled: (12) amLODIPine 10 mg tablet 10 mg 1 tab(s), Oral, qDay atorvastatin 40 mg tablet 40 mg 1 tab(s), Oral, qDay ceFAZolin syringe 1 gram(s) 10 mL, IV Push (INT), q6hr dapagliflozin 10 mg tablet 10 mg 1 tab(s), Oral, qDay doxazosin 4 mg Tablet 4 mg 1 tab(s), Oral, qDay fluorometholone ophthalmic 0.1% Suspension 1 drop(s), Eye, left, qDay insulin lispro 100 units/mL Soln (3 mL) Give 0-10 units/dose, Subcutaneous, TIDAC loratadine 10 mg Tablet 10 mg 1 tab(s), Oral, qDay metoprolol succinate 50 mg ER tablet 50 mg 1 tab(s), Oral, BID pantoprazole 20 mg EC tablet 20 mg 1 tab(s), Oral, qDay polyethylene glycol 3350 - UD packet 17 gram(s) 15 mL, Oral, qDay timolol ophthalmic 0.5% Solution 5 mL BTL 1 drop(s), Eye, left, BID Continuous: (2) NS (0.9% nacl) 1,000 mL 1,000 mL, Intravenous, 50 mL/hr NS (0.9% nacl) 1,000 mL 1,000 mL, Intravenous, 75 mL/hr PRN: (20) acetaminophen 325 mg Tablet 650 mg 2 tab(s), Oral, q4h acetaminophen 325 mg Tablet 650 mg 2 tab(s), Oral, q4h acetaminophen-HYDROcodone 325-5 mg tablet 1 tab(s), Oral, q4h Al hydrox/Mg hydrox/simethicone 200-200-20 mg/5 mL Susp UD 30 mL, Oral, q2h Al hydrox/Mg hydrox/simethicone 200-200-20 mg/5 mL Susp UD 30 mL, Oral, q2h benzocaine-menthol (Cepacol Sore Throat) 15 mg-3.6mg lozenge 1 lozenge(s), Oral, q2h dextrose 50% Solution Disp syringe 50 mL 12.5 gram(s) 25 mL, IV Push, AsDirected dextrose 50% Solution Disp syringe 50 mL 12.5 gram(s) 25 mL, IV Push, AsDirected diazepam 5 mg tablet 5 mg 1 tab(s), Oral, q8h docusate sodium 100 mg Capsule 100 mg 1 cap(s), Oral, BID docusate sodium 100 mg Capsule 100 mg 1 cap(s), Oral, BID hydralazine 20 mg/mL (1mL) vial 10 mg 0.5 mL, IV Push, q15min HYDROmorphone 0.5 mg/0.5 mL PF syringe 0.5 mg 0.5 mL, IV Push, q2h magnesium hydroxide 8% Suspension 30 mL UD 30 mL, Oral, qHS ondansetron 2 mg/ 1 mL 2 mL INJ 4 mg 2 mL, IV Push, q4h ondansetron 2 mg/ 1 mL 2 mL INJ 4 mg 2 mL, IV Push, q4h polyethylene glycol 3350 - UD packet 17 gram(s) 15 mL, Oral, qDay polyethylene glycol 3350 - UD packet 17 gram(s) 15 mL, Oral, qDay prochlorperazine 5 mg 1 mL, IV Piggyback, q6h tiZANidine 4 mg tablet 4 mg 1 tab(s), Oral, TID Lab Results 03/13 13:22 Platelet: 193 Protime: 11.6 PT International Ratio: 1.0 03/13 06:29 WBC: 8.4 Hgb: 14.4 Hct: 41.7 Platelet: 196 Neutrophil %: 67.8 Glucose Level: 128 H Sodium Level: 137 Potassium Level: 3.9 BUN: 23.0 H Creatinine Lvl (s): 1.34 EKG EKG - Completed -- 03/13/24 8:00:00 EDT Assessment/Plan 1. Cervical spine injury- Acute, large disc bulge C5-6 with reactive cord edema at that level. 2. CAD (coronary artery disease) s/p CABG 3. Chronic kidney disease stage III 4. Diabetes mellitus type 2 Acute, large disc bulge C5-6 with reactive cord edema at that level. -/P Cervical discectomy on 03/13/[address] Matson -Routine post operative care per primary team CAD (coronary artery disease)- stable Diabetes mellitus type 2 Continue home medication on discharge . Blood glucose checks TID. Sliding scale TID ADA diet Glycemic goal <180 Hypertension- continue home medications Chronic kidney disease stage III-stable CBC/BMP reviewed Plan of care discussed in depth with patient. Patient verbalizes understanding and is agreeable plan of care. Hospitalist will sign off at this time. Please call with questions. Discussed with my collaborating physician Dr. Hood Boyd. This dictation was performed using voice recognition software and may include grammatical and/or spelling errors Anticipated Date of Discharge Per primary team Digitally Signed by KADE FAJARDO on 03/14/2024 01:37 PM [id number] Discharge Instructions Thank you for allowing [facility] to assist you with your healthcare needs. The following is importantdischarge information regarding your hospital visit. Your Care Team GAYLE PETIT DO Your Diagnosis CAD (coronary artery disease) s/p CABG Cervical spine injury- Acute, large disc bulge C5-6 with reactive cord edema at that level. Chronic kidney disease stage III Diabetes mellitus type 2 Hypertension Muscle spasm S/P cervical spinal fusion What to do next Instructions From Your Doctor Your follow-up appointment will be with Dr. Matson's nurse practitioner Digna Garces CNP Please discuss with PCP about whether or not to resume losartan medication. No aspirin, aspirin products, NSAIDs (no Motrin/ibuprofen, Advil, Aleve, naproxen). Wear neck brace at all times. No driving for 2 weeks. No lifting more than 10 pounds. May remove dressing 48 hours after surgery and leave uncovered. If you prefer to have it covered, place clean gauze and tape over the incision and change daily. May shower 40 hours after surgery and let water run over the incision. Do not scrub the incision. Pat dry. No soaking/submerging the incision for 6 weeks. No tub bath, hot tub, sauna, steam room, or swimming. Please call Dr. Matson's office if you develop fever, chills, redness around the incision, or drainage from the incision. Scheduled Follow-Up Appointments Appointment Type When Where Contact InformationNS Post Op 03/27/2024 11:30 AM EDT Neurosurgery [address] [id number] Follow Up Appointments Follow Up with DIGNA GARCES, Neurosurgery When 03/27/2024 11:30 AM EDT Where: [address] [facility] [address] [place] [address]- [phone] Follow Up with Please call [facility] at [phone] to schedule your therapy. When Within 1-2 days Follow Up with GAYLE PETIT DO When Within 2-4 days Why: Please call the office to schedule a follow-up appointment. Where: [facility] [place] [address]- The Following Activity and Diet Have Been Ordered for You No qualifying data available. No qualifying data available. The Following Equipment Has Been Ordered for You No qualifying data available. The Following Treatments Have Been Ordered for You Discharge Labs No qualifying data available. Discharge Radiology No qualifying data available. Other Therapies Physical Therapy Outpatient Eval & Treat (Physical Therapy Eval and Treat Outpatient) - Future -- 03/14/24, Unspecified, [facility], s/p CERVICAL 5 TO CERVICAL 6 ANTERIOR CERVICAL DISCECTOMY FUSIONAND PLATING.Must wear hard neck collar at all times. No flexion/extension of neck., Cervical discherniation, Post surgery, Future Order, Once, No Post Acute Orders No qualifying data available. Someone Will Contact You Regarding These Home Health Referrals No home referrals have been ordered for you. No one will call you. Allergies Demerol HCl Medications Please ask your primary doctor or pharmacist before taking any other medication not listed, including over the counter drugs, herbal medications, vitamins and or supplements as they may interact withyour home medications. What How Much When Why Instructions Last Dose New acetaminophen (Tylenol 325 mg oral capsule) 650 Milligram by mouth Every 4 hours as needed for Pain, scale 1-3 New benzocaine-menthol topical (Cepacol Sore Throat lozenge) 1 lozenge(s) by mouth Every 2 hours as needed for Sore throat New tiZANidine (tiZANidine 4 mg oral tablet) 1 tab(s) by mouth Three (3) times a day as needed for Muscle spasm Muscle spasm S/P cervical spinal fusion Duration: 5 Days Pickup at [facility] #[id number] Unchanged amLODIPine (amLODIPine 10 mg oral tablet) 1 tab(s) by mouth Once a day Unchanged atorvastatin (atorvastatin 40 mg oral tablet) 1 tab(s) by mouth Once a day Unchanged cetirizine (cetirizine 10 mg oral tablet) 1 tab(s) by mouth Once a day Unchanged dapagliflozin (Farxiga 10 mg oral tablet) 1 tab(s) by mouth Once a day Unchanged docusate (Colace 100 mg oral capsule) 1 cap by mouth Once a day as needed for as needed for constipation Unchanged doxazosin (Cardura 4 mg oral tablet) 1 tab(s) by mouth Once a day Unchanged dulaglutide (Trulicity Pen 3 mg/ 0.5 mL subcutaneous solution) 3 Milligram Subcutaneous Every Wednesday Unchanged fluoride topical (SF 5000 Plus 1.1% topical cream) 1 application Topical Once a day Unchanged fluorometholone ophthalmic (fluorometholone 0.1% ophthalmic suspension) 1 Drops Left eye Once a day Unchanged metoprolol (metoprolol succinate 50 mg oral TABLET extended release) 1 tab(s) by mouth Two (2) times a day Unchanged pantoprazole (pantoprazole 20 mg oral enteric coated tablet) 1 tab(s) by mouth Once a day Unchanged timolol ophthalmic (timolol maleate 0.5% ophthalmic solution) 1 Drops Left eye Two (2) times a day Pharmacy Information [id number]: [address] [place], [place] [id number] [phone] What How Much When Comments Stop Taking aspirin (aspirin 81 mg oral delayed release tablet) 1 tab(s) by mouth Once a day Stop Taking cholecalciferol (Vitamin D3 50 mcg (2000 intl units) oral tablet) 1 tab(s) by mouth Every Wednesday Stop Taking herbal/ nutritional product (turmeric 500 mg oral capsule) 1 cap by mouth Two (2) times a day Stop Taking losartan (losartan 50 mg oral tablet) 1 tab(s) by mouth Once a day Please take this list to your next doctor s visit. Bring all medications you take, including over the counter medications, herbals and other supplements with you to your doctor s visit. Patients and families are reminded to discard old lists and to update any records with all medication providers or retail pharmacies. Education Materials Anterior Cervical Diskectomy and Fusion Anterior cervical diskectomy and fusion is a surgery to remove and replace an intervertebral disk. Intervertebral disks are plates of cartilage located between the bones of the spine. This surgery isdone when an intervertebral disk in the neck puts pressure on the spine or on a nerve. The surgery is done through the front (anterior) part of the neck. During the surgery, the damaged disk is removed and replaced with a plastic implant, a bone from another part of the body (bone graft), or both. Sometimes metal plates and screws (hardware) are also put in the neck to help keep the implant or bone graft in place and to allow the bones to grow together (fuse). Tell a health care provider about: Any allergies you have. All medicines you are taking, including vitamins, herbs, eye drops, creams, and avpj-aow-vjdvncv medicines. Any problems you or family members have had with anesthetic medicines. Any blood disorders you have. Any surgeries you have had. Any medical conditions you have or have had. Whether you are or may be . What are the risks? Generally, this is a safe procedure. However, problems may occur, including: Infection. Bleeding, which can sometimes require a blood transfusion. Injury to surrounding structures, including nerves. Leakage of fluid from the brain or spinal cord (cerebrospinal fluid). Blood clots. Temporary breathing difficulties. What happens before the procedure? Medicines Ask your health care provider about: Changing or stopping your regular medicines. This is especially important if you are taking diabetes medicines or blood thinners. Taking medicines such as aspirin and ibuprofen. These medicines can thin your blood. Do not take these medicines unless your health care provider tells you to take them. Taking ozqk-jxx-pjkvqys medicines, vitamins, herbs, and supplements. Staying hydrated Follow instructions from your health care provider about hydration, which may include: Up to 2 hours before the procedure you may continue to drink clear liquids, such as water, clear fruit juice, black coffee, and plain tea. Eating and drinking Follow instructions from your health care provider about eating and drinking, which may include: 8 hours before the procedure stop eating heavy meals or foods, such as meat, fried foods, or fatty foods. 6 hours before the procedure stop eating light meals or foods, such as toast or cereal. 6 hours before the procedure stop drinking milk or drinks that contain milk. 2 hours before the procedure stop drinking clear liquids. General instructions Do not use any products that contain nicotine or tobacco for at least 4 weeks before the procedure.These products include cigarettes, e-cigarettes, and chewing tobacco. If you need help quitting, ask your health care provider. Ask your health care provider: ? How your surgery site will be marked. ? What steps will be taken to help prevent infection. These may include: ? Removing hair at the surgery site. ? Washing skin with a germ-killing soap. ? Receiving antibiotic medicine. What happens during the procedure? An IV will be inserted into one of your veins. You will be given one or more of the following: ? A medicine to help you relax (sedative). ? A medicine to make you fall asleep (general anesthetic). A breathing tube will be placed. Your neck will be cleaned with a germ-killing solution (antiseptic solution). Your surgeon will make an incision in the front of your neck. Your neck muscles will be spread apart. The damaged disk and any damaged bone will be removed. The area where the disk was removed will be filled with a small plastic implant, a bone graft, or both. Hardware may be put in your neck. The incision will be closed with stitches (sutures). Adhesive strips or skin glue may be placed across the incision. A bandage (dressing) will be applied over the incision. The procedure may vary among health care providers and hospitals. What happens after the procedure? Your blood pressure, heart rate, breathing rate, and blood oxygen level will be monitored until youleave the hospital or clinic. You will be monitored for any signs of complications from the procedure, such as: ? Too much bleeding from the incision site. ? A buildup of blood under your skin at the surgical site. ? Difficulty breathing. You may continue to receive antibiotics. You can start to eat as soon as you feel comfortable. You may be given a neck brace to wear. This brace limits your neck movement while your bones are fusing. Do not drive for 24 hours if you were given a sedative during your procedure. Summary Anterior cervical diskectomy and fusion is a surgery to remove and replace an intervertebral disk. The surgery is done through the front (anterior) part of the neck. Before the procedure, follow instructions from your health care provider about changing or stoppingyour medicines and about eating and drinking. During the procedure, the damaged disk and any damaged bone will be removed. After the procedure, you will be monitored for any signs of complications from the procedure. You may be given a neck brace to wear. This brace limits your neck movement while your bones are fusing. This information is not intended to replace advice given to you by your health care provider. Make sure you discuss any questions you have with your health care provider. Document Released: 10/20/2010 Document Revised: 07/27/2019 Document Reviewed: 07/27/2019 Elsevier Patient Education 2020 [employer] Additional Information VACCINATE! IT SAVES LIVES! Members of the community who have not yet received the COVID-19 vaccine and would like to receive it can visit one of [facility] vaccine clinics. There are many vaccine clinic locations within the [facility]. For locations and available times, please visit https://gettheshot.coronavirus.[place].gov/. It is important to note that some COVID mobile vaccine clinics are held outdoors and may be canceled in rainy or stormy conditions. To learn more about pediatric vaccinations (ages 5-11), we invite you to visit the [employer] webpage. https://www.Netnui.coms.org/pages/9499-Gwdgh-Eaxunaxfnfj-Dacrrcpxuu-Mgqpg-Mwo stions.htmlTo learn more about the COVID-19 vaccine, we invite you to visit the CDC website for a list of frequently asked questions.https://www.cdc.gov/coronavirus/2019-ncov/vaccines/faq.html [facility] Patient Portal Access Instructions: Stay connected with your healthcare team and access your personal medical information anytime with the [facility] Patient Portal. Please follow the directions below to create your [facility] account: 1.Access the email account you provided upon registration to the hospital/physician office.2.Look for an invitation email from [facility].3.Open the email and access the invitation link: AcceptInvitation to [facility].4.Fill in the required evans to create your account. To access your account, visit Inside Secure/Invite MediaOneChart. Click the blue button labeled Access Patient Portal and then log in with the username and password that you created in the steps above. You will be able to view your test results, lab results, a summary of your visits, upcoming appointments and more. There is also a convenient messaging option where you can send secure messages to your p rovider. In addition, you will have the ability to download any documents or summaries to your computer and/or send the information securely to a physician. Remember that your healthcare information is confidential, so carefully consider who you will allowto register on the [facility] Patient Portal for access to your information. You can also access the [facility] Patient Portal on the [facility] scott. Simply click on Patient Portal and then log into your account. If you would like to receive a full copy of your medical records, please contact the [facility] Medical Records Department by calling [phone], Wednesday through Wednesday between 8 a.m. and 4:30 p.m. HOW TO SAFELY DISPOSE OF PRESCRIPTION MEDICATIONS Please use one of the following methods to safely dispose of your unused medications. 1.Use a drug disposal kit: the drug disposal pouch allows you to safely discard your old and unuseddrugs. Ask your nurse to give you one when you are discharged.2.Visit a local take-back location: Many local pharmacies and police departments have programs that collect old and unwanted prescriptiondrugs. Call your local pharmacy or go to http://LumiGrow/1L7Wz8v to find one close to you.3.Make use of household items: Use cat litter or old coffee grounds to dispose medications if other options arenot available. Mix your drugs with these household products, seal them in an airtight container andthrow it into the garbage. Call [facility]: [phone] to be sure your drugs can be disposed of in this way. Some medicines may require a different approach.4.Never flush your medications down the toilet. IF YOU HAVE BEEN PRESCRIBED AN OPIOID FOR PAIN If you have been prescribed an opioid (such as hydrocodone, oxycodone or morphine), it is critical to understand the possible side effects and risks of opioid pain medications. Even when taken as directed, opioids can have several side effects including: Tolerance, meaning you might need to take more of a medication for the same pain relief. Nausea, vomiting and/or constipation. Sleepiness, dizziness, dry mouth, confusion, depression or itching. Physical dependence, meaning you have withdrawal symptoms when a medication is stopped, can develop within a few days. KNOW YOUR RESPONSIBILITIES It is important to know exactly how much and how often to take the opioid pain medications you are prescribed. Never take opioids in higher amounts or more often than prescribed. Do not combine opioids with alcohol or other drugs that cause drowsiness, such as benzodiazepines, also known as benzos, including diazepam and alprazolam, muscle relaxants or sleep aids. Never sell or share prescription opioids. This is illegal. Store opioids in a secure place and out of reach of others (including children, family, friends and visitors). The last page of this document has been signed and retained as a CHART COPY. Signatures Patient Education Materials Anterior Cervical Diskectomy and Fusion Medication Leaflets My discharge plan and instructions have been reviewed and explained to me and I,LALITHA JASON understand my current condition and have read and understand these discharge instructions. I have receiveda written copy of the plan/instructions. If I have questions, I am aware that I should contact my do ctor. 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 No family at bedside. Patient is alert. She is oriented. Answer question appropriate. Patient states his pain is well- controlled. Patient states I feel great actually. Patient denies shortness of breath, chest pain, palpitations, dizziness, blurred vision, difficulty s peaking, nausea, vomiting, diarrhea, constipation, urinary symptoms, night sweats, cough, fever andchills. Objective Vitals and Measurements T: 36 C (Axillary) TMIN: 35.12 C TMAX: 36.9 C (Oral) HR: 90 RR: 18 BP: 108/67 BP: 127/54(Line) SpO2: 95% Intake and Output 7AM Yesterday to 7AM Today Intake and Output (Last 24 hours) Intake Oral Intake 120.00 Administration Information 1717.89 Output Urine Voided 1325.00 Intra-Op EBL 20.00 Stool Count 0.00 Urine Count 1.00 Total Summary Total Intake 1837.89 Total Output 1345.00 Fluid Balance 492.89 Physical Exam Vitals Signs(Last 24 hrs)__ Last Charted Minimum Maximum Temp 36(MAR 14 10:53) 36(MAR 14 10:53) 36.4(MAR 13 19:58) Heart Rate 90(MAR 14 09:16) 83(MAR 13 19:58) 90(MAR 14 09:16) SBP 136(MAR 14 10:53) 78(MAR 13 15:51) 136(MAR 14 10:53) DBP 75(MAR 14 10:53) L 54(MAR 13 18:17) 79(MAR 13 15:44) Physical Exam General: No acute distress. Alert and Appropriate Skin: No rash. Warm, Dry, Intact HEENT: Head is normocephalic and atraumatic. No lesions. Pupils equal in size. Extraocular movements within normal limits. Nose: No septal deviation. Mouth: Oropharynx mucosa is without lesion. Neck: Supple. No lymphadenopathy, thyromegaly noted. Hard cervical collar in place. Anterior dry sterile dressing in place. No drainage. No signs of infection. Lungs: Bilaterally clear/diminished breath sounds with no crepitation or wheeze. Unlabored Cardiovascular: Heart is regular rhythm, S1S2, No extra-audible heart tones Abdomen: Abdomen is soft, nontender. Bowel sounds positive all four quadrants. Extremities: No clubbing, cyanosis or edema. Peripheral pulses palpable. No calf tenderness. Adequate peripheral circulation. Neurological: The patient is awake, oriented to time, people and place. Following simple commands, moving all extremities. Weight Dosing Weight: 95.5 kg (03/11/24) Dosing Weight: 106 kg (03/11/24) Medications Medications (34) Active Scheduled: (12) amLODIPine 10 mg tablet 10 mg 1 tab(s), Oral, qDay atorvastatin 40 mg tablet 40 mg 1 tab(s), Oral, qDay ceFAZolin syringe 1 gram(s) 10 mL, IV Push (INT), q6hr dapagliflozin 10 mg tablet 10 mg 1 tab(s), Oral, qDay doxazosin 4 mg Tablet 4 mg 1 tab(s), Oral, qDay fluorometholone ophthalmic 0.1% Suspension 1 drop(s), Eye, left, qDay insulin lispro 100 units/mL Soln (3 mL) Give 0-10 units/dose, Subcutaneous, TIDAC loratadine 10 mg Tablet 10 mg 1 tab(s), Oral, qDay metoprolol succinate 50 mg ER tablet 50 mg 1 tab(s), Oral, BID pantoprazole 20 mg EC tablet 20 mg 1 tab(s), Oral, qDay polyethylene glycol 3350 - UD packet 17 gram(s) 15 mL, Oral, qDay timolol ophthalmic 0.5% Solution 5 mL BTL 1 drop(s), Eye, left, BID Continuous: (2) NS (0.9% nacl) 1,000 mL 1,000 mL, Intravenous, 50 mL/hr NS (0.9% nacl) 1,000 mL 1,000 mL, Intravenous, 75 mL/hr PRN: (20) acetaminophen 325 mg Tablet 650 mg 2 tab(s), Oral, q4h acetaminophen 325 mg Tablet 650 mg 2 tab(s), Oral, q4h acetaminophen-HYDROcodone 325-5 mg tablet 1 tab(s), Oral, q4h Al hydrox/Mg hydrox/simethicone 200-200-20 mg/5 mL Susp UD 30 mL, Oral, q2h Al hydrox/Mg hydrox/simethicone 200-200-20 mg/5 mL Susp UD 30 mL, Oral, q2h benzocaine-menthol (Cepacol Sore Throat) 15 mg-3.6mg lozenge 1 lozenge(s), Oral, q2h dextrose 50% Solution Disp syringe 50 mL 12.5 gram(s) 25 mL, IV Push, AsDirected dextrose 50% Solution Disp syringe 50 mL 12.5 gram(s) 25 mL, IV Push, AsDirected diazepam 5 mg tablet 5 mg 1 tab(s), Oral, q8h docusate sodium 100 mg Capsule 100 mg 1 cap(s), Oral, BID docusate sodium 100 mg Capsule 100 mg 1 cap(s), Oral, BID hydralazine 20 mg/mL (1mL) vial 10 mg 0.5 mL, IV Push, q15min HYDROmorphone 0.5 mg/0.5 mL PF syringe 0.5 mg 0.5 mL, IV Push, q2h magnesium hydroxide 8% Suspension 30 mL UD 30 mL, Oral, qHS ondansetron 2 mg/ 1 mL 2 mL INJ 4 mg 2 mL, IV Push, q4h ondansetron 2 mg/ 1 mL 2 mL INJ 4 mg 2 mL, IV Push, q4h polyethylene glycol 3350 - UD packet 17 gram(s) 15 mL, Oral, qDay polyethylene glycol 3350 - UD packet 17 gram(s) 15 mL, Oral, qDay prochlorperazine 5 mg 1 mL, IV Piggyback, q6h tiZANidine 4 mg tablet 4 mg 1 tab(s), Oral, TID Lab Results 03/13 13:22 Platelet: 193 Protime: 11.6 PT International Ratio: 1.0 03/13 06:29 WBC: 8.4 Hgb: 14.4 Hct: 41.7 Platelet: 196 Neutrophil %: 67.8 Glucose Level: 128 H Sodium Level: 137 Potassium Level: 3.9 BUN: 23.0 H Creatinine Lvl (s): 1.34 EKG EKG - Completed -- 03/13/24 8:00:00 EDT Assessment/Plan 1. Cervical spine injury- Acute, large disc bulge C5-6 with reactive cord edema at that level. 2. CAD (coronary artery disease) s/p CABG 3. Chronic kidney disease stage III 4. Diabetes mellitus type 2 Acute, large disc bulge C5-6 with reactive cord edema at that level. -/P Cervical discectomy on 03/13/[address] Matson -Routine post operative care per primary team CAD (coronary artery disease)- stable Diabetes mellitus type 2 Continue home medication on discharge . Blood glucose checks TID. Sliding scale TID ADA diet Glycemic goal <180 Hypertension- continue home medications Chronic kidney disease stage III-stable CBC/BMP reviewed Plan of care discussed in depth with patient. Patient verbalizes understanding and is agreeable plan of care. Hospitalist will sign off at this time. Please call with questions. Discussed with my collaborating physician Dr. Hood Boyd. This dictation was performed using voice recognition software and may include grammatical and/or spelling errors Anticipated Date of Discharge Per primary team Digitally Signed by KADE FAJARDO APRN-HOLLI on 03/14/2024 01:37 PM [id number] Note ORIGINAL EXAMINATION: SPOT FLUOROSCOPIC IMAGES 03/13/2024 5:27 pm TECHNIQUE: Fluoroscopy was provided by the radiology department for procedure. Radiologist was not present during examination. FLUOROSCOPY DOSE AND TYPE: Radiation Exposure Index: 1.44 mGy reference air kerma, Fluoro time: 13.8 seconds COMPARISON: None HISTORY: ORDERING SYSTEM PROVIDED HISTORY: Reason for Exam: C5-6 disc herniation Intraprocedural imaging. FINDINGS: 2 spot intraoperative images are obtained demonstrating guidance for cervical spine surgery. IMPRESSION: Intraprocedural fluoroscopic spot images as above. See separate procedure report for more information. Interpreted by: Ben Costello MD Preliminary Report By: Ben Costello MD Electronically signed By Ben Costello MD Dictated Date: 03/13/2024 11:55:04 PM Prelim Date: 03/13/2024 11:56:47 PM Sign Date: 03/13/2024 11:56:47 PM Ordering Provider: [facility]04-29-2024 Anesthesiology Consult note Patient: LALITHA JASON Age: 78 years Sex: Male : 1945 Associated Diagnoses: None Author: ERIKA HUI MD Preoperative Information NPO >8 hours Anesthesia history Patient's history: negative. History of Present Illness 78yoM with PMH type 2 diabetes, coronary artery disease s/p quadruple bypass 7 years ago, hypertension, hyperlipidemia, and GERD presenting for ACDF. Denies CP, SOB, fever, recent cough, cold or congestion; >4 METS-- walks a mile on the treadmill and goes to [place] sneakers, no GERD sx, N or V today. sx include general weakness and tingling in fingers and toes and b/l feet. Health Status Allergies: Nonallergic Reactions (Selected) Moderate Demerol HCl- No reactions were documented., Allergies (1) ActiveReaction Demerol HClNone Documented Current medications: (Selected) Inpatient Medications Ordered Ancef: 1 gram(s), 10 mL, 120 mL/hr, IV Push (INT), PREOP pharm Apresoline: 10 mg, 0.5 mL, IV Push, q15min, PRN: Systolic BP: See order comments Cardura: 4 mg, 1 tab(s), Oral, qDay Colace: 100 mg, 1 cap(s), Oral, BID, PRN: Constipation Dextrose 50% IV Push: 12.5 gram(s), 25 mL, IV Push, AsDirected, PRN: Hypoglycemia Farxiga: 10 mg, 1 tab(s), Oral, qDay HumaLOG 100 units/mL subcutaneous solution: Give 0-10 units/dose, Subcutaneous, TIDAC Maalox: 30 mL, Oral, q2h, PRN: Indigestion Milk of Magnesia: 30 mL, Oral, qHS, PRN: Constipation Miralax Powder Packet: 17 gram(s), 15 mL, Oral, qDay Miralax Powder Packet: 17 gram(s), 15 mL, Oral, qDay, PRN: Constipation NS 1,000 mL: 50 mL/hr, Intravenous Gall[place] 325- 5 mg oral tablet: 1 tab(s), Oral, q4h, PRN: Pain, scale 4-6 Tylenol: 650 mg, 2 tab(s), Oral, q4h, PRN: Pain, scale 1-3 Valium: 5 mg, 1 tab(s), Oral, q8h, PRN: Muscle spasm Zofran: 4 mg, 2 mL, IV Push, q4h, PRN: Nausea/Vomiting amLODIPine: 10 mg, 1 tab(s), Oral, qDay atorvastatin: 40 mg, 1 tab(s), Oral, qDay fluorometholone 0.1% ophthalmic suspension: 1 drop(s), Eye, left, qDay loratadine: 10 mg, 1 tab(s), Oral, qDay metoprolol succinate 50 mg oral TABLET extended release: 50 mg, 1 tab(s), Oral, BID pantoprazole: 20 mg, 1 tab(s), Oral, qDay prochlorperazine: 5 mg, 1 mL, 150 mL/hr, IV Piggyback, q6h, PRN: Nausea/Vomiting timolol maleate 0.5% ophthalmic solution: 1 drop(s), Eye, left, BID Documented Medications Documented Cardura 4 mg oral tablet: 4 mg, 1 tab(s), Oral, qDay, 0 Refill(s) Colace 100 mg oral capsule: 100 mg, 1 cap(s), Oral, qDay, PRN: as needed for constipation, 0 Refill(s) Farxiga 10 mg oral tablet: 10 mg, 1 tab(s), Oral, qDay, 0 Refill(s) SF 5000 Plus 1.1% topical cream: 1 scott, Topical, qDay, 0 Refill(s) Trulicity Pen 3 mg/0.5 mL subcutaneous solution: 3 mg, Subcutaneous, Wednesday, 0 Refill(s) Vitamin D3 50 mcg (2000 intl units) oral tablet: 50 mcg, 1 tab(s), Oral, Wednesday, 0 Refill(s) amLODIPine 10 mg oral tablet: 10 mg, 1 tab(s), Oral, qDay, 0 Refill(s) aspirin 81 mg oral delayed release tablet: 81 mg, 1 tab(s), Oral, qDay, 0 Refill(s) atorvastatin 40 mg oral tablet: 40 mg, 1 tab(s), Oral, qDay, 0 Refill(s) cetirizine 10 mg oral tablet: 10 mg, 1 tab(s), Oral, qDay, 0 Refill(s) fluorometholone 0.1% ophthalmic suspension: 1 drop(s), Eye, left, qDay, 0 Refill(s) losartan 50 mg oral tablet: 50 mg, 1 tab(s), Oral, qDay, 0 Refill(s) metoprolol succinate 50 mg oral TABLET extended release: 50 mg, 1 tab(s), Oral, BID, 0 Refill(s) pantoprazole 20 mg oral enteric coated tablet: 20 mg, 1 tab(s), Oral, qDay, 0 Refill(s) timolol maleate 0.5% ophthalmic solution: 1 drop(s), Eye, left, BID, 0 Refill(s) turmeric 500 mg oral capsule: 1 cap(s), Oral, BID, 0 Refill(s), Medications (24) Active Scheduled: (12) amLODIPine 10 mg tablet 10 mg 1 tab(s), Oral, qDay atorvastatin 40 mg tablet 40 mg 1 tab(s), Oral, qDay ceFAZolin syringe 1 gram(s) 10 mL, IV Push (INT), PREOP pharm dapagliflozin 10 mg tablet 10 mg 1 tab(s), Oral, qDay doxazosin 4 mg Tablet 4 mg 1 tab(s), Oral, qDay fluorometholone ophthalmic 0.1% Suspension 1 drop(s), Eye, left, qDay insulin lispro 100 units/mL Soln (3 mL) Give 0-10 units/dose, Subcutaneous, TIDAC loratadine 10 mg Tablet 10 mg 1 tab(s), Oral, qDay metoprolol succinate 50 mg ER tablet 50 mg 1 tab(s), Oral, BID pantoprazole 20 mg EC tablet 20 mg 1 tab(s), Oral, qDay polyethylene glycol 3350 - UD packet 17 gram(s) 15 mL, Oral, qDay timolol ophthalmic 0.5% Solution 5 mL BTL 1 drop(s), Eye, left, BID Continuous: (1) NS (0.9% nacl) 1,000 mL 1,000 mL, Intravenous, 50 mL/hr PRN: (11) acetaminophen 325 mg Tablet 650 mg 2 tab(s), Oral, q4h acetaminophen-HYDROcodone 325-5 mg tablet 1 tab(s), Oral, q4h Al hydrox/Mg hydrox/simethicone 200-200-20 mg/5 mL Susp UD 30 mL, Oral, q2h dextrose 50% Solution Disp syringe 50 mL 12.5 gram(s) 25 mL, IV Push, AsDirected diazepam 5 mg tablet 5 mg 1 tab(s), Oral, q8h docusate sodium 100 mg Capsule 100 mg 1 cap(s), Oral, BID hydralazine 20 mg/mL (1mL) vial 10 mg 0.5 mL, IV Push, q15min magnesium hydroxide 8% Suspension 30 mL UD 30 mL, Oral, qHS ondansetron 2 mg/ 1 mL 2 mL INJ 4 mg 2 mL, IV Push, q4h polyethylene glycol 3350 - UD packet 17 gram(s) 15 mL, Oral, qDay prochlorperazine 5 mg 1 mL, IV Piggyback, q6h Problem list: Medical Diabetes mellitus type 2 / SNOMED CT 618420716 / Confirmed History of corneal transplant / SNOMED CT 611280438 / Confirmed Hypertension / SNOMED CT 66399207 / Confirmed Screening colonoscopy / SNOMED CT 4517950364 / Confirmed, Active Problems (9) CAD (coronary artery disease) Colon polyps Diabetes mellitus type 2 Diverticulitis History of corneal transplant Hypertension Kidney failure Screening colonoscopy Sleep apnea in adult Histories Past Medical History: Active Diabetes mellitus type 2 (793107667) Hypertension (23871247) History of corneal transplant (895199179) Procedure history: Bypass ([id number]) on 11/15/2015 at 70 Years. Comments: 01/22/2020 7:30 EDT - Emma Hart RN X4 Colonoscopy (079682215). Corneal transplant (610444038). Rhinoplasty (7088416214). Social History Social & Psychosocial Habits Tobacco 03/11/2024 Tobacco Use: Former smoker, quit more Comment: QUIT IN 1974 - 01/22/2020 07:32 - Emma Hart RN . Physical Examination Vital Signs(last 24 hrs) Last Charted Temp Oral36.9 DegC (MAR 13 11:18) Heart Rate Wpsmlaizp84 bpm (MAR 13 04:00) XDB251 mmHg (MAR 13 11:18) DBP69 mmHg (MAR 13 11:18) General: Alert and oriented, No acute distress. Airway: Normal mouth, c collar. Mallampati classification: III (soft palate, base of uvula visible). Dentition Evaluation: Loose teeth, slightly loose teeth. Neck: Supple. Respiratory: Lungs are clear to auscultation, Respirations are non-labored. Cardiovascular: Normal rate, Regular rhythm. Heart Sounds: Normal. Neurologic: Alert, Oriented. Review / Management Results review: Labs (Last four charted values) WBC 8.4(MAR 13)8.0(MAR 12) Hgb 14.4(MAR 13)14.9(MAR 12) Hct 41.7(MAR 13)42.6(MAR 12) Plt 193(MAR 13)196(MAR 13)184(MAR 12) Na 137(MAR 13)138(MAR 12) K 3.9(MAR 13)3.9(MAR 12) CO2 23(MAR 13)L 20(MAR 12) Cl 106(MAR 13)106(MAR 12) Cr 1.34(MAR 13)1.17(MAR 12) BUN H 23.0(MAR 13)19.0(MAR 12) Glucose H 128(MAR 13)H 125(MAR 12) Ca 9.5(MAR 13)9.7(MAR 12) PT 11.6(MAR 13) INR 1.0(MAR 13) PTT 27.7(MAR 13) . Documentation reviewed: Current records. Assessment and Plan [place] [employer] (ASA) physical status classification: Class III. Anesthetic Preoperative Plan Premedication: intravenous. Anesthetic technique: General. Induction: intravenously. Maintenance airway: Oral endotracheal tube. Special Monitoring: Arterial line. Postoperative pain management: Per surgeon. Risks discussed: nausea, vomiting, headache, sore throat, dental injury, hypotension, allergic reaction, serious complications. Informed consent: signed by patient. Digitally Signed by ERIKA HUI MD on 03/13/2024 03:39 PM [id number] Note Date of Service 03/13/2024 Reason for Consultation Surgical clearance Referring Physician Dr. Law Matson History of Present Illness Patient is a 78-year-old male, who follows with Dr. Gayle Petit with a past medical history significant for type 2 diabetes, coronary artery disease s/p quadruple bypass 7 years ago, hypertension, hyperlipidemia, and GERD, presented to [facility] emergency department on 03/11 after awaking on the sofa and feeling too weak to get up. In the ED, CT of the cervical spine revealed large disc bulge of C5-6 with recommendation for an MRI. Patient was transferred to [facility] for an urgent MRI of the cervical spine. This confirmed large disc bulge C5-6 with reactive cord edema at that level. Neurosurgery was consulted and recommended cervical discectomy, fusion and plating. Hospitalist service was consulted for medical clearance for surgery. Introduced self and role of hospitalist service in giving patient clearance for surgery. Patient denies any difficulty breathing or chest pain. He reports that his main complaint is numbness in his fingers and a jumpiness in his legs keeping him from sleeping. He further denies any fever, chills, cough, abdominal pain, nausea or dysuria. Patient states that his HgbA1c is generally right around 8%. He does not currently have a rn diabetes educator but follows with his PCP closely to monitor his diabetes. Patient's Revised Cardiac Risk Index score was 2 points. Chest x-ray was unremarkable. Initial EKG demonstrated sinus rhythm with right bundle branch block and abnormal T wave. Initial troponin was negative. We will check BNP, troponin and repeat EKG in the am. The current plan is for surgery on Wednesday pending surgical clearance.. Review of Systems Review of Systems: Reviewed in detail, including general health, HEENT, cardiovascular, respiratory, gastrointestinal, genitourinary, endocrine, musculoskeletal, neurologic, vascular, skin, and psychiatric. All are negative except for those listed in the History of Present Illness. Physical Exam Vitals and Measurements T: 36.7 C (Oral) TMIN: 36.5 C (Oral) TMAX: 37 C (Oral) HR: 75 RR: 18 BP: 138/84 SpO2: 96% Weight Dosing Weight: 95.5 kg (03/11/24) Dosing Weight: 106 kg (03/11/24) General: No acute distress. Patient is alert and appropriate. Skin: No rash. Skin is warm, dry and intact. HEENT: Head is normocephalic, atraumatic. Pupils are equal, round and reactive. Neck: C-collar in place. Lungs: Bilaterally clear but diminished without crepitation or wheeze. Unlabored. Heart: Heart is regular rhythm, S1, S2. No murmurs, gallops or rubs. Abdomen: Abdomen is soft, nontender. Bowels sounds present in all quadrants. Extremities: No clubbing, cyanosis, or edema. Peripheral pulses palpable. No calf tenderness. Neurological: Patient is awake and alert to person, place and time. Following simple commands, moving all extremities. Lab Results 03/12 06:37 WBC: 8.0 Hgb: 14.9 Hct: 42.6 Platelet: 184 Neutrophil %: 62.0 Glucose Level: 125 H Sodium Level: 138 Potassium Level: 3.9 BUN: 19.0 Creatinine Lvl (s): 1.17 Imaging Results and Diagnostics MRI Spine Cervical w/o Contrast Result Date: March 11, 2024 Verified By: RENNY BRYANT MD CLINICAL STATEMENT: IMPRESSION: Large circumferential disc bulge at C5-C6 results in cord compression with reactive cord edema. Neurosurgery consultation is recommended. I have personally reviewed the images of this examination and agree with the resident's findings and interpretation. XR Foreign Body Loc Eye Bilateral Result Date: March 11, 2024 Verified By: RENNY BRYANT MD CLINICAL STATEMENT: IMPRESSION: No unexpected radiopaque foreign body. I have personally reviewed the images of this examination and agree with the resident's findings and interpretation. Assessment/Plan 1. Cervical spine injury Acute, large disc bulge C5-6 with reactive cord edema at that level. Dr. Matson planning for cervicaldiscectomy possibly 03/14 after surgical clearance given. 2. CAD (coronary artery disease) Past history quadruple bypass 7 years ago. EKG demonstrated SR with RBBB and t wave abnormality. Initial troponin negative. Check BNP and troponin in the am. Repeat EKG. 3. Diabetes mellitus type 2 Chronic, controlled. Patient reports that his A1c is usually around 8%. Continue current medicationregimen. 4. Hypertension Chronic, controlled. Continue current antihypertensives. SBP goal of 140 or less. 5. Chronic kidney disease Chronic, stage 3. Patient states that his creatinine is usually around 1.6 but was 1.17 on labs this morning. Repeat BMP in the am. Surgical clearance pending further testing. DVT prophylaxis with SCDs. Code status: Full Code. Labs, diagnostic test and progress notes reviewed as noted in HPI. Plan of care discussed with patient. All questions answered. Patient verbalizes understanding and is agreeable with plan of care. This case was discussed with collaborating physician, Dr. Ramo Dyson. 30 minutes spent reviewing past diagnostic tests, reviewing lab results, vital sign trends, medicalhistory, reviewing medications and ordering home medications, examining patient, collaborating withphysician, and documenting in chart. Problem List/Past Medical History Ongoing Diabetes mellitus type 2 History of corneal transplant Hypertension Screening colonoscopy Historical No qualifying data Procedure/Surgical History Bypass: 11/15/15 Corneal transplant Rhinoplasty Colonoscopy Medications Inpatient amLODIPine, 10 mg= 1 tab(s), Oral, qDay Apresoline, 10 mg= 0.5 mL, IV Push, q15min, PRN atorvastatin, 40 mg= 1 tab(s), Oral, qDay Cardura, 4 mg= 1 tab(s), Oral, qDay Colace, 100 mg= 1 cap(s), Oral, BID, PRN Dextrose 50% IV Push, 12.5 gram(s)= 25 mL, IV Push, AsDirected, PRN Farxiga, 10 mg= 1 tab(s), Oral, qDay fluorometholone 0.1% ophthalmic suspension, 1 drop(s), Eye, left, qDay loratadine, 10 mg= 1 tab(s), Oral, qDay losartan, 50 mg= 1 tab(s), Oral, qDay Maalox, 30 mL, Oral, q2h, PRN metoprolol succinate 50 mg oral TABLET extended release, 50 mg= 1 tab(s), Oral, BID Milk of Magnesia, 30 mL, Oral, qHS, PRN Miralax Powder Packet, 17 gram(s)= 15 mL, Oral, qDay, PRN Miralax Powder Packet, 17 gram(s)= 15 mL, Oral, qDay Gallatin 325- 5 mg oral tablet, 1 tab(s), Oral, q4h, PRN NS 1,000 mL, 1000 mL, Intravenous pantoprazole, 20 mg= 1 tab(s), Oral, qDay prochlorperazine timolol maleate 0.5% ophthalmic solution, 1 drop(s), Eye, left, BID Trulicity Pen, 3 mg= 0.5 mL, Subcutaneous, Wednesday Tylenol, 650 mg= 2 tab(s), Oral, q4h, PRN Valium, 5 mg= 1 tab(s), Oral, q8h, PRN Zofran, 4 mg= 2 mL, IV Push, q4h, PRN Home amLODIPine 10 mg oral tablet, 10 mg= 1 tab(s), Oral, qDay aspirin 81 mg oral delayed release tablet, 81 mg= 1 tab(s), Oral, qDay atorvastatin 40 mg oral tablet, 40 mg= 1 tab(s), Oral, qDay Cardura 4 mg oral tablet, 4 mg= 1 tab(s), Oral, qDay cetirizine 10 mg oral tablet, 10 mg= 1 tab(s), Oral, qDay Colace 100 mg oral capsule, 100 mg= 1 cap(s), Oral, qDay, PRN Farxiga 10 mg oral tablet, 10 mg= 1 tab(s), Oral, qDay fluorometholone 0.1% ophthalmic suspension, 1 drop(s), Eye, left, qDay losartan 50 mg oral tablet, 50 mg= 1 tab(s), Oral, qDay metoprolol succinate 50 mg oral TABLET extended release, 50 mg= 1 tab(s), Oral, BID pantoprazole 20 mg oral enteric coated tablet, 20 mg= 1 tab(s), Oral, qDay SF 5000 Plus 1.1% topical cream, 1 scott, Topical, qDay timolol maleate 0.5% ophthalmic solution, 1 drop(s), Eye, left, BID Trulicity Pen 3 mg/0.5 mL subcutaneous solution, 3 mg, Subcutaneous, Wednesday turmeric 500 mg oral capsule, 1 cap(s), Oral, BID Vitamin D3 50 mcg (2000 intl units) oral tablet, 50 mcg= 1 tab(s), Oral, Wednesday Allergies Demerol HCl Social History Smoking Status - 05/09/2016 Never smoker Tobacco Nicotine Use: Former smoker, quit more than 30 days ago., 01/22/2020 Family History Heart disease: Mother and Father. Immunizations No qualifying data available. Digitally Signed by ANGELA STARR on 03/13/2024 01:53 AM [id number] Neurological surgery Progress note Date of Service 03/13/2024 Chief Complaint This is a 78-year-old, who presented to the emergency department after he states he woke up at ur morning after sleeping on the sofa. He states he was unable to get off of the sofa and felt weak. He states he had to roll himself onto the floor. Due to concern for the weakness, his called EMS and he was brought into the [place] emergency department. He had a CT of the cervical spine which demonstrated a large disc bulge at C5-C6 with an MRI recommended. Due to these findings, he was transferred to [facility] for an urgent MRI and evaluation. An MRI of the cervical spine was obtained and confirmed the large disc bulge at C5-6 with reactive cord edema at that level. Patient states his symptoms initially started in October. He states he fell in October when he was walking down a set of bleachers and his leg gave out. He states he did not hit his head or neck, but knelt down to the floor. He states after that time he noticed numbness and tingling in his hands,toes, and heels. He states over the last 3 months, his symptoms have worsened. He states his hands have become more numb and his gait has become more unsteady. He describes his gait as wobbly. He states his legs do not do what his brain is trying to tell them to do. He states he feels though he is unable to mobilize due to his unsteady gait. He also feels as though his legs are extremely weak, but on exam he does have strong dorsiflexion and plantarflexion. He is able to lift his legs off of the bed and bend his knees against resistance. In addition, he states he feels as though he needs tomove his bowels, but feels as though he does not have the strength or effort to bear down to do so.Yesterday morning, he states he also had difficulty controlling his bladder. His had to get a prince quickly so he could void after he rolled himself onto the floor. On exam, his bilateral hand grasp, biceps, and triceps are strong. Negative Gen sign. No clonus. He does have difficulty with finger dexterity. When tapping his fingers together, he does it veryslowly. He states a week ago he was able to do it much quicker. He states he does also have difficulty holding a cup or opening a bottle or jar. He states he has to use 2 hands when he is drinking from a cup. He denies pain shooting into his arms, but he does state when he flexes or extends his neck at home, he notices pain shooting into his shoulders. He does take a baby aspirin at home, but last dose was Wednesday morning. Objective Vitals and Measurements T: 36.6 C (Oral) TMIN: 36.5 C (Oral) TMAX: 36.9 C (Oral) HR: 74(Apical) RR: 16 BP: 146/81 SpO2: 97% Intake and Output 7AM Yesterday to 7AM Today Intake and Output (Last 24 hours) Intake Administration Information 800.00 Oral Intake 1020.00 Output Urine Voided 1875.00 Stool Count 1.00 Urine Count 2.00 Total Summary Total Intake 1820.00 Total Output 1875.00 Fluid Balance -55.00 Physical Exam Weight Dosing Weight: 95.5 kg (03/11/24) Dosing Weight: 106 kg (03/11/24) Medications Medications (25) Active Scheduled: (13) amLODIPine 10 mg tablet 10 mg 1 tab(s), Oral, qDay atorvastatin 40 mg tablet 40 mg 1 tab(s), Oral, qDay ceFAZolin syringe 1 gram(s) 10 mL, IV Push (INT), PREOP pharm dapagliflozin 10 mg tablet 10 mg 1 tab(s), Oral, qDay doxazosin 4 mg Tablet 4 mg 1 tab(s), Oral, qDay dulaglutide 3 mg/0.5 mL Soln PEN 3 mg 0.5 mL, Subcutaneous, Wednesday fluorometholone ophthalmic 0.1% Suspension 1 drop(s), Eye, left, qDay loratadine 10 mg Tablet 10 mg 1 tab(s), Oral, qDay losartan 50 mg tablet 50 mg 1 tab(s), Oral, qDay metoprolol succinate 50 mg ER tablet 50 mg 1 tab(s), Oral, BID pantoprazole 20 mg EC tablet 20 mg 1 tab(s), Oral, qDay polyethylene glycol 3350 - UD packet 17 gram(s) 15 mL, Oral, qDay timolol ophthalmic 0.5% Solution 5 mL BTL 1 drop(s), Eye, left, BID Continuous: (1) NS (0.9% nacl) 1,000 mL 1,000 mL, Intravenous, 50 mL/hr PRN: (11) acetaminophen 325 mg Tablet 650 mg 2 tab(s), Oral, q4h acetaminophen-HYDROcodone 325-5 mg tablet 1 tab(s), Oral, q4h Al hydrox/Mg hydrox/simethicone 200-200-20 mg/5 mL Susp UD 30 mL, Oral, q2h dextrose 50% Solution Disp syringe 50 mL 12.5 gram(s) 25 mL, IV Push, AsDirected diazepam 5 mg tablet 5 mg 1 tab(s), Oral, q8h docusate sodium 100 mg Capsule 100 mg 1 cap(s), Oral, BID hydralazine 20 mg/mL (1mL) vial 10 mg 0.5 mL, IV Push, q15min magnesium hydroxide 8% Suspension 30 mL UD 30 mL, Oral, qHS ondansetron 2 mg/ 1 mL 2 mL INJ 4 mg 2 mL, IV Push, q4h polyethylene glycol 3350 - UD packet 17 gram(s) 15 mL, Oral, qDay prochlorperazine 5 mg 1 mL, IV Piggyback, q6h Lab Results 03/13 06:29 WBC: 8.4 Hgb: 14.4 Hct: 41.7 Platelet: 196 Neutrophil %: 67.8 Glucose Level: 128 H Sodium Level: 137 Potassium Level: 3.9 BUN: 23.0 H Creatinine Lvl (s): 1.34 03/12 06:37 WBC: 8.0 Hgb: 14.9 Hct: 42.6 Platelet: 184 Neutrophil %: 62.0 Glucose Level: 125 H Sodium Level: 138 Potassium Level: 3.9 BUN: 19.0 Creatinine Lvl (s): 1.17 EKG Electrocardiogram (EKG) - InProcess -- 03/13/24 8:00:00 EDT Assessment/Plan C5-6 large disc herniation with spinal cord changes at that level. -Dr. Matson spoke to the patient yesterday and discussed the MRI findings of the cervical spine. It was discussed with him, that surgical intervention is recommended due to the large disc herniation and changes already noted to the spinal cord. It was stressed to him, that the primary goal of surgeryis to prevent his current symptoms from getting worse. The secondary goal is that his current symptoms improved. Patient stated understanding. Patient also stated he is hopeful his symptoms will improve, because he cannot live like this. He states he has difficulty doing his normal daily tasks due to weakness in his hands and unsteady gait. -Patient is currently on the surgery schedule for this afternoon, pending medical clearance. -The hospitalist are following, and will assist in medical clearance. -Patient is in agreement to proceed with surgery after the risk, benefits, and goals have been discussed. -He is currently immobilized in a [place] collar, and will need to remain in the collar for [address] Matson's addendum for further details recommendations. Anticipated Date of Discharge Dependent on surgery date-Likely home Wednesday or Wednesday. Time Spent 15 min Digitally Signed by SHADI MONSON on 03/13/2024 10:30 AM [id number] Progress note Date of Service 03/13/2024 Chief Complaint This is a 78-year-old, who presented to the emergency department after he states he woke up at atur morning after sleeping on the sofa. He states he was unable to get off of the sofa and felt weak. He states he had to roll himself onto the floor. Due to concern for the weakness, his called EMS and he was brought into the [place] emergency department. He had a CT of the cervical spine which demonstrated a large disc bulge at C5-C6 with an MRI recommended. Due to these findings, he was transferred to [facility] for an urgent MRI and evaluation. An MRI of the cervical spine was obtained and confirmed the large disc bulge at C5-6 with reactive cord edema at that level. Patient states his symptoms initially started in October. He states he fell in October when he was walking down a set of bleachers and his leg gave out. He states he did not hit his head or neck, but knelt down to the floor. He states after that time he noticed numbness and tingling in his hands,toes, and heels. He states over the last 3 months, his symptoms have worsened. He states his hands have become more numb and his gait has become more unsteady. He describes his gait as wobbly. He states his legs do not do what his brain is trying to tell them to do. He states he feels though he is unable to mobilize due to his unsteady gait. He also feels as though his legs are extremely weak, but on exam he does have strong dorsiflexion and plantarflexion. He is able to lift his legs off of the bed and bend his knees against resistance. In addition, he states he feels as though he needs tomove his bowels, but feels as though he does not have the strength or effort to bear down to do so.Yesterday morning, he states he also had difficulty controlling his bladder. His had to get a prince quickly so he could void after he rolled himself onto the floor. On exam, his bilateral hand grasp, biceps, and triceps are strong. Negative Gen sign. No clonus. He does have difficulty with finger dexterity. When tapping his fingers together, he does it veryslowly. He states a week ago he was able to do it much quicker. He states he does also have difficulty holding a cup or opening a bottle or jar. He states he has to use 2 hands when he is drinking from a cup. He denies pain shooting into his arms, but he does state when he flexes or extends his neck at home, he notices pain shooting into his shoulders. He does take a baby aspirin at home, but last dose was Wednesday morning. Objective Vitals and Measurements T: 36.6 C (Oral) TMIN: 36.5 C (Oral) TMAX: 36.9 C (Oral) HR: 74(Apical) RR: 16 BP: 146/81 SpO2: 97% Intake and Output 7AM Yesterday to 7AM Today Intake and Output (Last 24 hours) Intake Administration Information 800.00 Oral Intake 1020.00 Output Urine Voided 1875.00 Stool Count 1.00 Urine Count 2.00 Total Summary Total Intake 1820.00 Total Output 1875.00 Fluid Balance -55.00 Physical Exam Weight Dosing Weight: 95.5 kg (03/11/24) Dosing Weight: 106 kg (03/11/24) Medications Medications (25) Active Scheduled: (13) amLODIPine 10 mg tablet 10 mg 1 tab(s), Oral, qDay atorvastatin 40 mg tablet 40 mg 1 tab(s), Oral, qDay ceFAZolin syringe 1 gram(s) 10 mL, IV Push (INT), PREOP pharm dapagliflozin 10 mg tablet 10 mg 1 tab(s), Oral, qDay doxazosin 4 mg Tablet 4 mg 1 tab(s), Oral, qDay dulaglutide 3 mg/0.5 mL Soln PEN 3 mg 0.5 mL, Subcutaneous, Wednesday fluorometholone ophthalmic 0.1% Suspension 1 drop(s), Eye, left, qDay loratadine 10 mg Tablet 10 mg 1 tab(s), Oral, qDay losartan 50 mg tablet 50 mg 1 tab(s), Oral, qDay metoprolol succinate 50 mg ER tablet 50 mg 1 tab(s), Oral, BID pantoprazole 20 mg EC tablet 20 mg 1 tab(s), Oral, qDay polyethylene glycol 3350 - UD packet 17 gram(s) 15 mL, Oral, qDay timolol ophthalmic 0.5% Solution 5 mL BTL 1 drop(s), Eye, left, BID Continuous: (1) NS (0.9% nacl) 1,000 mL 1,000 mL, Intravenous, 50 mL/hr PRN: (11) acetaminophen 325 mg Tablet 650 mg 2 tab(s), Oral, q4h acetaminophen-HYDROcodone 325-5 mg tablet 1 tab(s), Oral, q4h Al hydrox/Mg hydrox/simethicone 200-200-20 mg/5 mL Susp UD 30 mL, Oral, q2h dextrose 50% Solution Disp syringe 50 mL 12.5 gram(s) 25 mL, IV Push, AsDirected diazepam 5 mg tablet 5 mg 1 tab(s), Oral, q8h docusate sodium 100 mg Capsule 100 mg 1 cap(s), Oral, BID hydralazine 20 mg/mL (1mL) vial 10 mg 0.5 mL, IV Push, q15min magnesium hydroxide 8% Suspension 30 mL UD 30 mL, Oral, qHS ondansetron 2 mg/ 1 mL 2 mL INJ 4 mg 2 mL, IV Push, q4h polyethylene glycol 3350 - UD packet 17 gram(s) 15 mL, Oral, qDay prochlorperazine 5 mg 1 mL, IV Piggyback, q6h Lab Results 03/13 06:29 WBC: 8.4 Hgb: 14.4 Hct: 41.7 Platelet: 196 Neutrophil %: 67.8 Glucose Level: 128 H Sodium Level: 137 Potassium Level: 3.9 BUN: 23.0 H Creatinine Lvl (s): 1.34 03/12 06:37 WBC: 8.0 Hgb: 14.9 Hct: 42.6 Platelet: 184 Neutrophil %: 62.0 Glucose Level: 125 H Sodium Level: 138 Potassium Level: 3.9 BUN: 19.0 Creatinine Lvl (s): 1.17 EKG Electrocardiogram (EKG) - InProcess -- 03/13/24 8:00:00 EDT Assessment/Plan C5-6 large disc herniation with spinal cord changes at that level. -Dr. Matson spoke to the patient yesterday and discussed the MRI findings of the cervical spine. It was discussed with him, that surgical intervention is recommended due to the large disc herniation and changes already noted to the spinal cord. It was stressed to him, that the primary goal of surgeryis to prevent his current symptoms from getting worse. The secondary goal is that his current symptoms improved. Patient stated understanding. Patient also stated he is hopeful his symptoms will improve, because he cannot live like this. He states he has difficulty doing his normal daily tasks due to weakness in his hands and unsteady gait. -Patient is currently on the surgery schedule for this afternoon, pending medical clearance. -The hospitalist are following, and will assist in medical clearance. -Patient is in agreement to proceed with surgery after the risk, benefits, and goals have been discussed. -He is currently immobilized in a [place] collar, and will need to remain in the collar for [address] Matson's addendum for further details recommendations. Anticipated Date of Discharge Dependent on surgery date-Likely home Wednesday or Wednesday. Time Spent 15 min Digitally Signed by SHADI MONSON on 03/13/2024 10:30 AM [id number] History and physical note Date of Service 03/12/2024 Chief Complaint C5-6 disc herniation; weakness and unsteady gait. History of Present Illness This is a 78-year-old male, with a past medical history of CKD stage III, hypertension, diabetes type 2, previous tobacco use quit smoking 45 years ago, CAD status post quadruple bypass 7 years ago, and GERD, who presented to the emergency department after he states he woke up at home Wednesday morning after sleeping on the sofa. He states he was unable to get off of the sofa and felt weak. He states he had to roll himself onto the floor. Due to concern for the weakness, his called EMS and he was brought into the [place] emergency department. He had a CT of the cervical spine which demonstrated a large disc bulge at C5-C6 with an MRI recommended. Due to these findings, he was transferred to [facility] for an urgent MRI and evaluation. An MRI of the cervical spine was obtained and confirmed the large disc bulge at C5-6 with reactive cord edema at that level. Patient states his symptoms initially started in October. He states he fell in October when he was walking down a set of bleachers and his leg gave out. He states he did not hit his head or neck, but knelt down to the floor. He states after that time he noticed numbness and tingling in his hands,toes, and heels. He states over the last 3 months, his symptoms have worsened. He states his hands have become more numb and his gait has become more unsteady. He describes his gait as wobbly. He states his legs do not do what his brain is trying to tell them to do. He states he feels though he is unable to mobilize due to his unsteady gait. He also feels as though his legs are extremely weak, but on exam he does have strong dorsiflexion and plantarflexion. He is able to lift his legs off of the bed and bend his knees against resistance. In addition, he states he feels as though he needs tomove his bowels, but feels as though he does not have the strength or effort to bear down to do so.Yesterday morning, he states he also had difficulty controlling his bladder. His had to get a prince quickly so he could void after he rolled himself onto the floor. On exam, his bilateral hand grasp, biceps, and triceps are strong. He does have difficulty with finger dexterity. He states he does also have difficulty holding a cup or opening a bottle or jar. He states he has to use 2 hands when he is drinking from a cup. He denies pain shooting into his arms, but he does state when he flexes or extends his neck at home, he notices pain shooting into his shoulders. Review of Systems Constitutional: No fever, chills, wt loss, wt gain, fatigue, or night sweats HEENT-no headaches, visual changes or hearing changes Cardiovascular: No chest pain, SOB, or or palpitations Respiratory: No cough, SOB, wheezing, or congestion. Gastrointestinal: No abd pain, nausea, vomiting, diarrhea, or loss of appetite. Genitourinary: No urinary frequency, burning, hematuria, or incontinence Musculoskeletal: No weakness, cramps, joint pain or swelling Skin: No rashes, lesions, or sores Neurological: Numbness/tingling in hands, feet, and heels. Neck pain with certain movement. Unsteady gait. Psychiatric: No changes in mood Physical Exam Vitals and Measurements T: 36.7 C (Oral) TMIN: 36.1 C (Oral) TMAX: 37 C (Oral) HR: 89 RR: 20 BP: 129/86 SpO2: 96% HT: 170.2cm WT: 95.5 kg BMI: 32.97 Weight Dosing Weight: 95.5 kg (03/11/24) Dosing Weight: 106 kg (03/11/24) General Appearance: This patient is well-developed and well nourished, and appears stated age. No acute distress. Head: Normocephalic, Atraumatic EENT: Mucous membranes moist. No vision or hearing changes Cardiac: S1 and S2 heard without murmur, rub, or gallop. Regular rate and rhythm. Lungs: Lungs clear. Respirations easy. No shortness of breath noted. Abdomen: BSP x 4. Abd soft, nontender, nondistended. Musculoskeletal: Moves all 4 ext. In [place] collar. Extremities: Bilateral pedal pulses palpable. No edema noted Neurological: See HPI. Skin: [place], warm, and dry. Psychiatric: Mood stable. Cooperative. Lab Results 03/12 06:37 WBC: 8.0 Hgb: 14.9 Hct: 42.6 Platelet: 184 Neutrophil %: 62.0 Glucose Level: 125 H Sodium Level: 138 Potassium Level: 3.9 BUN: 19.0 Creatinine Lvl (s): 1.17 Imaging Results and Diagnostics MRI Spine Cervical w/o Contrast Result Date: March 11, 2024 Verified By: RENNY BRYANT MD CLINICAL STATEMENT: IMPRESSION: Large circumferential disc bulge at C5-C6 results in cord compression withreactive cordedema. Neurosurgery consultation is recommended. I have personally reviewed the images of this examination and agree with theresident's findings and interpretation. XR Foreign Body Loc Eye Bilateral Result Date: March 11, 2024 Verified By: RENNY BRYANT MD CLINICAL STATEMENT: IMPRESSION: No unexpected radiopaque foreign body. I have personally reviewed the images of this examination and agree with theresident's findings and interpretation. 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 Matson has reviewed the CT of the cervical spine as well as the MRI of the cervical spine. Patient is noted to have a large disc bulge at C5-6 with cord edema at that level. -It was discussed with the patient, that the disc herniation has already caused damage to the spinal cord. Surgical intervention is recommended. It was discussed with him that he would benefit from an anterior cervical discectomy, fusion, and plating. -In addition, it was also discussed with him the primary goal of surgery is to prevent his symptomsfrom getting worse. The secondary goal is to hopefully improve his current symptoms. Patient statedunderstanding of this. -Patient did take aspirin 81 mg on Wednesday morning. He is on no other anticoagulation or antiplatelet agents. -Surgery is planned for Wednesday. He will have a C5-6 anterior cervical discectomy, fusion, and plating. -Risk, benefits, goals, and limitations of surgery were discussed. Patient has elected to proceed. He will need medical clearance to proceed with surgery. Patient states he has a history of CKD stage III, hypertension, diabetes, and has had a quadruple bypass surgery 7 years ago. Appreciate hospitalist assistance with medical clearance. Problem List/Past Medical History Ongoing Diabetes mellitus type 2 History of corneal transplant Hypertension Screening colonoscopy Historical No qualifying data Procedure/Surgical History Bypass: 11/15/15 Corneal transplant Rhinoplasty Colonoscopy Medications Home Medications (16) Active amLODIPine 10 mg oral tablet 10 mg = 1 tab(s), Oral, qDay aspirin 81 mg oral delayed release tablet 81 mg = 1 tab(s), Oral, qDay atorvastatin 40 mg oral tablet 40 mg = 1 tab(s), Oral, qDay Cardura 4 mg oral tablet 4 mg = 1 tab(s), Oral, qDay cetirizine 10 mg oral tablet 10 mg = 1 tab(s), Oral, qDay Colace 100 mg oral capsule 100 mg = 1 cap(s), PRN, Oral, qDay Farxiga 10 mg oral tablet 10 mg = 1 tab(s), Oral, qDay fluorometholone 0.1% ophthalmic suspension 1 drop(s), Eye, left, qDay losartan 50 mg oral tablet 50 mg = 1 tab(s), Oral, qDay metoprolol succinate 50 mg oral TABLET extended release 50 mg = 1 tab(s), Oral, BID pantoprazole 20 mg oral enteric coated tablet 20 mg = 1 tab(s), Oral, qDay SF 5000 Plus 1.1% topical cream 1 scott, Topical, qDay timolol maleate 0.5% ophthalmic solution 1 drop(s), Eye, left, BID Trulicity Pen 3 mg/0.5 mL subcutaneous solution 3 mg, Subcutaneous, Wednesday turmeric 500 mg oral capsule 1 cap(s), Oral, BID Vitamin D3 50 mcg (2000 intl units) oral tablet 50 mcg = 1 tab(s), Oral, Wednesday Allergies Demerol HCl Social History Smoking Status - 05/09/2016 Never smoker Tobacco Nicotine Use: Former smoker, quit more than 30 days ago., 01/22/2020 Lives at home with his . Tobacco use-States he was a chain smoker-but quit 45 years ago. Family History Heart disease: Mother and Father. Immunizations No qualifying data available. Code Status Code Status - Ordered -- 03/11/24 15:38:00 EDT, Full Code, Constant Order Digitally Signed by SHADI MONSON on 03/12/2024 08:57 AM [id number] Note Date of Service 03/13/2024 Reason for Consultation Surgical clearance Referring Physician Dr. Law Matson History of Present Illness Patient is a 78-year-old male, who follows with Dr. Gayle Petit with a past medical history significant for type 2 diabetes, coronary artery disease s/p quadruple bypass 7 years ago, hypertension, hyperlipidemia, and GERD, presented to [facility] emergency department on 03/11 after awaking on the sofa and feeling too weak to get up. In the ED, CT of the cervical spine revealed large disc bulge of C5-6 with recommendation for an MRI. Patient was transferred to [facility] for an urgent MRI of the cervical spine. This confirmed large disc bulge C5-6 with reactive cord edema at that level. Neurosurgery was consulted and recommended cervical discectomy, fusion and plating. Hospitalist service was consulted for medical clearance for surgery. Introduced self and role of hospitalist service in giving patient clearance for surgery. Patient denies any difficulty breathing or chest pain. He reports that his main complaint is numbness in his fingers and a jumpiness in his legs keeping him from sleeping. He further denies any fever, chills, cough, abdominal pain, nausea or dysuria. Patient states that his HgbA1c is generally right around 8%. He does not currently have a rn diabetes educator but follows with his PCP closely to monitor his diabetes. Patient's Revised Cardiac Risk Index score was 2 points. Chest x-ray was unremarkable. Initial EKG demonstrated sinus rhythm with right bundle branch block and abnormal T wave. Initial troponin was negative. We will check BNP, troponin and repeat EKG in the am. The current plan is for surgery on Wednesday pending surgical clearance.. Review of Systems Review of Systems: Reviewed in detail, including general health, HEENT, cardiovascular, respiratory, gastrointestinal, genitourinary, endocrine, musculoskeletal, neurologic, vascular, skin, and psychiatric. All are negative except for those listed in the History of Present Illness. Physical Exam Vitals and Measurements T: 36.7 C (Oral) TMIN: 36.5 C (Oral) TMAX: 37 C (Oral) HR: 75 RR: 18 BP: 138/84 SpO2: 96% Weight Dosing Weight: 95.5 kg (03/11/24) Dosing Weight: 106 kg (03/11/24) General: No acute distress. Patient is alert and appropriate. Skin: No rash. Skin is warm, dry and intact. HEENT: Head is normocephalic, atraumatic. Pupils are equal, round and reactive. Neck: C-collar in place. Lungs: Bilaterally clear but diminished without crepitation or wheeze. Unlabored. Heart: Heart is regular rhythm, S1, S2. No murmurs, gallops or rubs. Abdomen: Abdomen is soft, nontender. Bowels sounds present in all quadrants. Extremities: No clubbing, cyanosis, or edema. Peripheral pulses palpable. No calf tenderness. Neurological: Patient is awake and alert to person, place and time. Following simple commands, moving all extremities. Lab Results 03/12 06:37 WBC: 8.0 Hgb: 14.9 Hct: 42.6 Platelet: 184 Neutrophil %: 62.0 Glucose Level: 125 H Sodium Level: 138 Potassium Level: 3.9 BUN: 19.0 Creatinine Lvl (s): 1.17 Imaging Results and Diagnostics MRI Spine Cervical w/o Contrast Result Date: March 11, 2024 Verified By: RENNY BRYANT MD CLINICAL STATEMENT: IMPRESSION: Large circumferential disc bulge at C5-C6 results in cord compression with reactive cord edema. Neurosurgery consultation is recommended. I have personally reviewed the images of this examination and agree with the resident's findings and interpretation. XR Foreign Body Loc Eye Bilateral Result Date: March 11, 2024 Verified By: RENNY BRYANT MD CLINICAL STATEMENT: IMPRESSION: No unexpected radiopaque foreign body. I have personally reviewed the images of this examination and agree with the resident's findings and interpretation. Assessment/Plan 1. Cervical spine injury Acute, large disc bulge C5-6 with reactive cord edema at that level. Dr. Matson planning for cervicaldiscectomy possibly 03/14 after surgical clearance given. 2. CAD (coronary artery disease) Past history quadruple bypass 7 years ago. EKG demonstrated SR with RBBB and t wave abnormality. Initial troponin negative. Check BNP and troponin in the am. Repeat EKG. 3. Diabetes mellitus type 2 Chronic, controlled. Patient reports that his A1c is usually around 8%. Continue current medicationregimen. 4. Hypertension Chronic, controlled. Continue current antihypertensives. SBP goal of 140 or less. 5. Chronic kidney disease Chronic, stage 3. Patient states that his creatinine is usually around 1.6 but was 1.17 on labs this morning. Repeat BMP in the am. Surgical clearance pending further testing. DVT prophylaxis with SCDs. Code status: Full Code. Labs, diagnostic test and progress notes reviewed as noted in HPI. Plan of care discussed with patient. All questions answered. Patient verbalizes understanding and is agreeable with plan of care. This case was discussed with collaborating physician, Dr. Ramo Dyson. 30 minutes spent reviewing past diagnostic tests, reviewing lab results, vital sign trends, medicalhistory, reviewing medications and ordering home medications, examining patient, collaborating withphysician, and documenting in chart. Problem List/Past Medical History Ongoing Diabetes mellitus type 2 History of corneal transplant Hypertension Screening colonoscopy Historical No qualifying data Procedure/Surgical History Bypass: 11/15/15 Corneal transplant Rhinoplasty Colonoscopy Medications Inpatient amLODIPine, 10 mg= 1 tab(s), Oral, qDay Apresoline, 10 mg= 0.5 mL, IV Push, q15min, PRN atorvastatin, 40 mg= 1 tab(s), Oral, qDay Cardura, 4 mg= 1 tab(s), Oral, qDay Colace, 100 mg= 1 cap(s), Oral, BID, PRN Dextrose 50% IV Push, 12.5 gram(s)= 25 mL, IV Push, AsDirected, PRN Farxiga, 10 mg= 1 tab(s), Oral, qDay fluorometholone 0.1% ophthalmic suspension, 1 drop(s), Eye, left, qDay loratadine, 10 mg= 1 tab(s), Oral, qDay losartan, 50 mg= 1 tab(s), Oral, qDay Maalox, 30 mL, Oral, q2h, PRN metoprolol succinate 50 mg oral TABLET extended release, 50 mg= 1 tab(s), Oral, BID Milk of Magnesia, 30 mL, Oral, qHS, PRN Miralax Powder Packet, 17 gram(s)= 15 mL, Oral, qDay, PRN Miralax Powder Packet, 17 gram(s)= 15 mL, Oral, qDay [place] 325- 5 mg oral tablet, 1 tab(s), Oral, q4h, PRN NS 1,000 mL, 1000 mL, Intravenous pantoprazole, 20 mg= 1 tab(s), Oral, qDay prochlorperazine timolol maleate 0.5% ophthalmic solution, 1 drop(s), Eye, left, BID Trulicity Pen, 3 mg= 0.5 mL, Subcutaneous, Wednesday Tylenol, 650 mg= 2 tab(s), Oral, q4h, PRN Valium, 5 mg= 1 tab(s), Oral, q8h, PRN Zofran, 4 mg= 2 mL, IV Push, q4h, PRN Home amLODIPine 10 mg oral tablet, 10 mg= 1 tab(s), Oral, qDay aspirin 81 mg oral delayed release tablet, 81 mg= 1 tab(s), Oral, qDay atorvastatin 40 mg oral tablet, 40 mg= 1 tab(s), Oral, qDay Cardura 4 mg oral tablet, 4 mg= 1 tab(s), Oral, qDay cetirizine 10 mg oral tablet, 10 mg= 1 tab(s), Oral, qDay Colace 100 mg oral capsule, 100 mg= 1 cap(s), Oral, qDay, PRN Farxiga 10 mg oral tablet, 10 mg= 1 tab(s), Oral, qDay fluorometholone 0.1% ophthalmic suspension, 1 drop(s), Eye, left, qDay losartan 50 mg oral tablet, 50 mg= 1 tab(s), Oral, qDay metoprolol succinate 50 mg oral TABLET extended release, 50 mg= 1 tab(s), Oral, BID pantoprazole 20 mg oral enteric coated tablet, 20 mg= 1 tab(s), Oral, qDay SF 5000 Plus 1.1% topical cream, 1 scott, Topical, qDay timolol maleate 0.5% ophthalmic solution, 1 drop(s), Eye, left, BID Trulicity Pen 3 mg/0.5 mL subcutaneous solution, 3 mg, Subcutaneous, Wednesday turmeric 500 mg oral capsule, 1 cap(s), Oral, BID Vitamin D3 50 mcg (2000 intl units) oral tablet, 50 mcg= 1 tab(s), Oral, Wednesday Allergies Demerol HCl Social History Smoking Status - 05/09/2016 Never smoker Tobacco Nicotine Use: Former smoker, quit more than 30 days ago., 01/22/2020 Family History Heart disease: Mother and Father. Immunizations No qualifying data available. Digitally Signed by ANGELA STARR on 03/13/2024 01:53 AM [id number] NoteSINUS RHYTHM RIGHT BUNDLE BRANCH BLOCK INFERIOR INFARCT, OLD Electronic Signature: ROSETTA VILLARREAL MD 03/13/2024 13:00:[address] [place] [address] 04-28-2024 Evaluation + Plan noteExtracted from: Title:History and Physical Author:SHADI MONSON APRN-EQUIPMENT HIRE MANAGER Date:03/12/24 C5-6 disc herniation with sp inal cord changes: -Dr. Matson has reviewed the CT of the cervical spine as well as the MRI of the cervical spine. Patient is noted to have a large disc bulge at C5-6 with cord edema at that level. -It was discussed with the patient, that the disc herniation has already caused damage to the spinal cord. Surgical intervention is recommended. It was discussed with him that he would benefit from an anterior cervical discectomy, fusion, and plating. -In addition, it was also discussed with him the primary goal of surgery is to prevent his symptoms from getting worse. The secondary goal is to hopefully improve his current symptoms. Patient stated understanding of this. -Patient did take aspirin 81 mg on Wednesday morning. He is on no other anticoagulation or antiplatelet agents. -Surgery is planned for Wednesday. He will have a C5-6 anterior cervical discectomy, fusion, and plating. -Risk, benefits, goals, and limitations of surgery were discussed. Patient has elected to proceed. He will need medical clearance to proceed with surgery. Patient states he has a history of CKD stage III, hypertension, diabetes, and has had a quadruple bypass surgery 7 years ago. Appreciate hospitalist assistance with medical clearance. Addendum by LAW MATSON MD on March 13, 2024 07:45:07 EDT This is a split shared note between myself and the nurse practitioner. This is a late entry note, the patient was seen yesterday on March 12, 2024. This is a gentleman is presenting with arm and leg weakness, spasticity, weakness in the bilateral upper extremities. MRI done of the cervical spine shows large C5-C6 disc herniation with spinal cord compression and T2 signal change within the cord. Patient will be in need of a C5-C6 anterior cervical discectomy fusion and plating, patient also has posterior ligamentous flavum hypertrophy, and may also possibly also need a C5-C6 decompression via laminectomy. Future Appointments Appointment Date:03/27/2024 11:30:00 AM Scheduled Provider: Location:NEUROS Appointment Type:NS Post Op [facility] 04-28-2024 History and physical note Date of Service 03/12/2024 Chief Complaint C5-6 disc herniation; weakness and unsteady gait. History of Present Illness This is a 78-year-old male, with a past medical history of CKD stage III, hypertension, diabetes type 2, previous tobacco use quit smoking 45 years ago, CAD status post quadruple bypass 7 years ago, and GERD, who presented to the emergency department after he states he woke up at home Wednesday morning after sleeping on the sofa. He states he was unable to get off of the sofa and felt weak. He states he had to roll himself onto the floor. Due to concern for the weakness, his called EMS and he was brought into the [place] emergency department. He had a CT of the cervical spine which demonstrated a large disc bulge at C5-C6 with an MRI recommended. Due to these findings, he was transferred to [facility] for an urgent MRI and evaluation. An MRI of the cervical spine was obtained and confirmed the large disc bulge at C5-6 with reactive cord edema at that level. Patient states his symptoms initially started in October. He states he fell in October when he was walking down a set of bleachers and his leg gave out. He states he did not hit his head or neck, but knelt down to the floor. He states after that time he noticed numbness and tingling in his hands,toes, and heels. He states over the last 3 months, his symptoms have worsened. He states his hands have become more numb and his gait has become more unsteady. He describes his gait as wobbly. He states his legs do not do what his brain is trying to tell them to do. He states he feels though he is unable to mobilize due to his unsteady gait. He also feels as though his legs are extremely weak, but on exam he does have strong dorsiflexion and plantarflexion. He is able to lift his legs off of the bed and bend his knees against resistance. In addition, he states he feels as though he needs tomove his bowels, but feels as though he does not have the strength or effort to bear down to do so.Yesterday morning, he states he also had difficulty controlling his bladder. His had to get a prince quickly so he could void after he rolled himself onto the floor. On exam, his bilateral hand grasp, biceps, and triceps are strong. He does have difficulty with finger dexterity. He states he does also have difficulty holding a cup or opening a bottle or jar. He states he has to use 2 hands when he is drinking from a cup. He denies pain shooting into his arms, but he does state when he flexes or extends his neck at home, he notices pain shooting into his shoulders. Review of Systems Constitutional: No fever, chills, wt loss, wt gain, fatigue, or night sweats HEENT-no headaches, visual changes or hearing changes Cardiovascular: No chest pain, SOB, or or palpitations Respiratory: No cough, SOB, wheezing, or congestion. Gastrointestinal: No abd pain, nausea, vomiting, diarrhea, or loss of appetite. Genitourinary: No urinary frequency, burning, hematuria, or incontinence Musculoskeletal: No weakness, cramps, joint pain or swelling Skin: No rashes, lesions, or sores Neurological: Numbness/tingling in hands, feet, and heels. Neck pain with certain movement. Unsteady gait. Psychiatric: No changes in mood Physical Exam Vitals and Measurements T: 36.7 C (Oral) TMIN: 36.1 C (Oral) TMAX: 37 C (Oral) HR: 89 RR: 20 BP: 129/86 SpO2: 96% HT: 170.2cm WT: 95.5 kg BMI: 32.97 Weight Dosing Weight: 95.5 kg (03/11/24) Dosing Weight: 106 kg (03/11/24) General Appearance: This patient is well-developed and well nourished, and appears stated age. No acute distress. Head: Normocephalic, Atraumatic EENT: Mucous membranes moist. No vision or hearing changes Cardiac: S1 and S2 heard without murmur, rub, or gallop. Regular rate and rhythm. Lungs: Lungs clear. Respirations easy. No shortness of breath noted. Abdomen: BSP x 4. Abd soft, nontender, nondistended. Musculoskeletal: Moves all 4 ext. In vista collar. Extremities: Bilateral pedal pulses palpable. No edema noted Neurological: See HPI. Skin: [place], warm, and dry. Psychiatric: Mood stable. Cooperative. Lab Results 03/12 06:37 WBC: 8.0 Hgb: 14.9 Hct: 42.6 Platelet: 184 Neutrophil %: 62.0 Glucose Level: 125 H Sodium Level: 138 Potassium Level: 3.9 BUN: 19.0 Creatinine Lvl (s): 1.17 Imaging Results and Diagnostics MRI Spine Cervical w/o Contrast Result Date: March 11, 2024 Verified By: RENNY BRYANT MD CLINICAL STATEMENT: IMPRESSION: Large circumferential disc bulge at C5-C6 results in cord compression withreactive cordedema. Neurosurgery consultation is recommended. I have personally reviewed the images of this examination and agree with theresident's findings and interpretation. XR Foreign Body Loc Eye Bilateral Result Date: March 11, 2024 Verified By: RENNY BRYANT MD CLINICAL STATEMENT: IMPRESSION: No unexpected radiopaque foreign body. I have personally reviewed the images of this examination and agree with theresident's findings and interpretation. 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 Matson has reviewed the CT of the cervical spine as well as the MRI of the cervical spine. Patient is noted to have a large disc bulge at C5-6 with cord edema at that level. -It was discussed with the patient, that the disc herniation has already caused damage to the spinal cord. Surgical intervention is recommended. It was discussed with him that he would benefit from an anterior cervical discectomy, fusion, and plating. -In addition, it was also discussed with him the primary goal of surgery is to prevent his symptomsfrom getting worse. The secondary goal is to hopefully improve his current symptoms. Patient statedunderstanding of this. -Patient did take aspirin 81 mg on Wednesday morning. He is on no other anticoagulation or antiplatelet agents. -Surgery is planned for Wednesday. He will have a C5-6 anterior cervical discectomy, fusion, and plating. -Risk, benefits, goals, and limitations of surgery were discussed. Patient has elected to proceed. He will need medical clearance to proceed with surgery. Patient states he has a history of CKD stage III, hypertension, diabetes, and has had a quadruple bypass surgery 7 years ago. Appreciate hospitalist assistance with medical clearance. Problem List/Past Medical History Ongoing Diabetes mellitus type 2 History of corneal transplant Hypertension Screening colonoscopy Historical No qualifying data Procedure/Surgical History Bypass: 11/15/15 Corneal transplant Rhinoplasty Colonoscopy Medications Home Medications (16) Active amLODIPine 10 mg oral tablet 10 mg = 1 tab(s), Oral, qDay aspirin 81 mg oral delayed release tablet 81 mg = 1 tab(s), Oral, qDay atorvastatin 40 mg oral tablet 40 mg = 1 tab(s), Oral, qDay Cardura 4 mg oral tablet 4 mg = 1 tab(s), Oral, qDay cetirizine 10 mg oral tablet 10 mg = 1 tab(s), Oral, qDay Colace 100 mg oral capsule 100 mg = 1 cap(s), PRN, Oral, qDay Farxiga 10 mg oral tablet 10 mg = 1 tab(s), Oral, qDay fluorometholone 0.1% ophthalmic suspension 1 drop(s), Eye, left, qDay losartan 50 mg oral tablet 50 mg = 1 tab(s), Oral, qDay metoprolol succinate 50 mg oral TABLET extended release 50 mg = 1 tab(s), Oral, BID pantoprazole 20 mg oral enteric coated tablet 20 mg = 1 tab(s), Oral, qDay SF 5000 Plus 1.1% topical cream 1 csott, Topical, qDay timolol maleate 0.5% ophthalmic solution 1 drop(s), Eye, left, BID Trulicity Pen 3 mg/0.5 mL subcutaneous solution 3 mg, Subcutaneous, Wednesday turmeric 500 mg oral capsule 1 cap(s), Oral, BID Vitamin D3 50 mcg (2000 intl units) oral tablet 50 mcg = 1 tab(s), Oral, Wednesday Allergies Demerol HCl Social History Smoking Status - 05/09/2016 Never smoker Tobacco Nicotine Use: Former smoker, quit more than 30 days ago., 01/22/2020 Lives at home with his . Tobacco use-States he was a chain smoker-but quit 45 years ago. Family History Heart disease: Mother and Father. Immunizations No qualifying data available. Code Status Code Status - Ordered -- 03/11/24 15:38:00 EDT, Full Code, Constant Order Digitally Signed by SHADI MONSON on 03/12/2024 08:57 AM [id number] Note ORIGINAL EXAMINATION: MRI OF THE CERVICAL SPINE WITHOUT CONTRAST 03/11/2024 2:36 pm TECHNIQUE: Multiplanar multisequence MRI of the cervical spine was performed without the administration of intravenous contrast. COMPARISON: Same day CT cervical spine HISTORY: ORDERING SYSTEM PROVIDED HISTORY: Reason for Exam: Weakness FINDINGS: BONES/ALIGNMENT: Slight straightening of the cervical lordosis which is most likely positional. Otherwise, alignment is grossly anatomic. Vertebral body heights are maintained. No abnormal marrow signal. SOFT TISSUES: No paraspinal mass identified. Degenerative changes: There are mild to moderate multilevel degenerative changes including disc height loss, endplate osteophytes, uncovertebral and facet hypertrophy. There is a large circumferential disc bulge at C5-C6 and an additional smaller circumferential disc bulge noted at C6-C7. The large disc bulge at C5-C6 results in compression of the spinal cord with focal cord edema at this level. The remaining cord demonstrates normal signal. No other areas of severe canal stenosis. There are variable multilevel foraminal stenoses. IMPRESSION: Large circumferential disc bulge at C5-C6 results in cord compression with reactive cord edema. Neurosurgery consultation is recommended. I have personally reviewed the images of this examination and agree with the resident's findings and interpretation. Interpreted by: Renny Bryant MD Preliminary Report By: Mukesh Mortensen Electronically signed By Renny Bryant MD Dictated Date: 03/11/2024 2:43:01 PM Prelim Date: 03/11/2024 2:51:14 PM Sign Date: 03/11/2024 2:55:13 PM Ordering Provider: CLAUDETTE WATT[facility] [id number] Note ORIGINAL EXAMINATION: XR OR FOREIGN BODY one view 03/11/2024 1:32 pm COMPARISON: CT head 03/11/2024. HISTORY: ORDERING SYSTEM PROVIDED HISTORY: Reason for Exam: R/O FB FINDINGS: No radiopaque foreign body identified. No acute osseous abnormality. Multiple dental amalgam noted. Paranasal sinuses demonstrate no air-fluid level. IMPRESSION: No unexpected radiopaque foreign body. I have personally reviewed the images of this examination and agree with the resident's findings and interpretation. 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 Stage 3 chronic kidney disease chronic Type 2 diabetes mellitus [facility] Work Phone: [phone] Evaluation note* Diagnosis Onset Date Resolution Status Encounter for wellness examination in adult acute Hypertension chronic 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, 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 Stage 3 chronic kidney disease chronic Type 2 diabetes mellitus chr on Enlarged prostate chronic Type 2 diabetes mellitus [facility] Work Phone: Evaluation + Plan note No data available for this section [facility] Evaluation + Plan note Future Appointments Appointment Date:04/13/2024 01:45:00 PM Scheduled Provider: Location:NEUROS Appointment Type:Telephone Appointment Date:04/24/2024 11:30:00 AM Scheduled Provider: Location:NEUROS Appointment Type:NS Post Op [facility] Evaluation + Plan note Future Appointments Appointment Date:04/24/2024 11:30:00 AM Scheduled Provider: Location:[facility]UROS Appointment Type:NS Post Op [facility] Evaluation + Plan note Future Appointments Appointment Date:05/01/2024 10:30:00 AM Scheduled Provider: Location:[facility] Appointment Type:PT Outpatient Evaluation Appointment Date:06/05/2024 09:30:00 AM Scheduled Provider:LAW MATSON MD Location:[facility]UROS Appointment Type:NS Post Op Future Scheduled Tests Radiology* XR Spine Cervical AP/LAT/Flex/Ext 06/05/24 [facility] Evaluation + Plan note Future Appointments Appointment Date:06/05/2024 09:30:00 AM Scheduled Provider:LAW MATSON MD Location:[facility] Appointment Type:NS Post Op [facility] Evaluation note* Diagnosis Onset Date Resolution Status Enlarged prostate chronic Type 2 diabetes mellitus [facility] Work Phone: Evaluation note* Diagnosis Onset Date Resolution Status Rotator cuff arthropathy acu te Swallowing difficulty acute Atherosclerosis of coronary artery of [place] heart without angina pectoris chronic Hypertension chronic Stage 3 chronic kidney disease chronic Type 2 diabetes mellitus [facility] Gait instability acute Rotator cuff arthropathy acu te Stage 3 chronic kidney disease chronic Type 2 diabetes mellitus [facility] Work Phone: Evaluation note* Diagnosis 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, bilateral S/P PKP (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 Pseudophakia Lens replaced by other means Bullous keratopathy of left eye [facility] Bullous keratopathy of left eye- Primary Bullous keratopathy [facility] Status post corneal transplant- Primary Cornea replaced by [facility] Acute cough- Primary Wheezing [facility] Status post corneal transplant- Primary 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 Bullous keratopathy Other hereditary corneal dystrophies, bilateral S/P PKP (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 Pseudophakia Lens replaced by other means documented in this encounter [facility] Discharge instructions No data available for this section [facility] Progress note No data available for this section [facility] Reason for referral (narrative)No reason for referral information availableBloomington [facility] Work Phone: Summary Purpose Family History Relationship Condition Age at Onset Recorded Date/T zeynep mother Hypertension Unknown Cardiac disease Unknown Hyperlipidemia Unknown father Hypertension Unknown Diabetes mellitus Unknown grandfather Diabetes mellitus Unknown Advance Directives No Advanced Directives Records FoundNo Advanced Directives Records FoundNo Advanced Directives Records FoundNo Advanced Directives Records FoundNo Advanced Directives Records FoundNo Advanced Directives Records FoundNo Advanced Directives Records Found Chief Complaint and Reason for Visit Chief Complaint 3 M FU Reason for Visit Encounter for wellne ss examination in adult Hypertension S/P CABG x 4 Stage 3 chronic kidney disease Type 2 diabetes mellitus Chief Complaint 3 M FU 3 M FU Reason for Visit Encounter for wellne ss examination in adult Hypertension S/P CABG x 4 Stage 3 chronic kidney disease Type 2 diabetes mellitus Enlarged prostate Type 2 diabetes mellitus Chief Complaint 3 M FU NOCTURIA Reason for Visit Enlarged prostate Type 2 diabetes mellitus Chief Complaint 3 M FU 3 M FU Reason for Visit Rotator cuff arthrop athy Swallowing difficulty Atherosclerosis of coronary artery of [place] without angina pectoris Hypertension Stage 3 chronic kidney disease Type 2 diabetes mellitus Gait instability Rotator cuff arthropathy Stage 3 chronic kidney disease Type 2 diabetes mellitus Chief Complaint Admit Date 3 M FU February 28, 2025 2:5 4pm URINARY RETENTION March 03, 2025 11: 02am 3 M FU May 22, 2025 2:34p m Reason for Visit Admit Date Atherosclerosis of coronary artery of [place] heart without angina pectoris February 28, 2025 2:54pm Enlarged prostate February 28, 2025 2:5 4pm Hypertension February 28, 2025 2:5 4pm Stage 3 chronic kidney disease February 2:54pm Type 2 diabetes mellitus February 28 2:54pm Hypertension May 22, 2025 2:34p m S/P CABG x 4 May 22, 2025 2:34p m Stage 3 chronic kidney disease May 22, 2025 2:34pm Type 2 diabetes mellitus May 22, 2025 2:34pm Cervical radiculopathy May 22, 2025 2: 34pm Chief Complaint Admit Date 3 M FU February 28, 2025 2:5 4pm URINARY RETENTION March 03, 2025 11: 02am 3 M FU May 22, 2025 2:34p m ACUTE IRREGULAR HEARTBEAT June 21 2:46pm Chief Complaint Admit Date 3 M FU May 22, 2025 2:34p m ACUTE IRREGULAR HEARTBEAT June 21 2:46pm Palpitations (Ungerer) July 25, 2 025 1:50pm Reason for Visit Admit Date Hypertension May 22, 2025 2:34p m S/P CABG x 4 May 22, 2025 2:34p m Stage 3 chronic kidney disease May 22, 2025 2:34pm Type 2 diabetes mellitus May 22, 2025 2:34pm Cervical radiculopathy May 22, 2025 2: 34pm Palpitations June 21, 2025 2:4 6pm Palpitations July 25, 2025 1:50pm Hypertension July 25, 2025 1:50pm Type 2 diabetes mellitus July 25, 2025 1:50pm Chief Complaint Admit Date 3 M FU May 22, 2025 2:34p m ACUTE IRREGULAR HEARTBEAT June 21 2:46pm Palpitations (Ungerer) July 25, 2 025 1:50pm PALP August 07, 2025 1:44pm Reason for Visit Admit Date Hypertension May 22, 2025 2:34p m S/P CABG x May 22, 2025 2:34p m Stage 3 chronic kidney disease May 22, 2025 2:34pm Type 2 diabetes mellitus May 22, 2025 2:34pm Cervical radiculopathy May 22, 2025 2: 34pm Palpitations June 21, 2025 2:4 6pm Palpitations July 25, 2025 1:50pm RBBB July 25, 2025 1:50pm Atherosclerosis of coronary artery of [place] without angina pectoris July 25, 2025 1:50pm Hypertension July 25, 2025 1:50pm Stage 3 chronic kidney disease July 25, 2025 1:50pm Type 2 diabetes mellitus July 25, 2025 1:50pm Chief Complaint Admit Date 3 M FU May 22, 2025 2:34p m ACUTE IRREGULAR HEARTBEAT June 21 2:46pm Palpitations (Ungerer) July 25, 2 025 1:50pm PALP August 07, 2025 1:44pm PALP August 07, 2025 2:03pm 3 M FU August 21, 2025 3: 19pm Reason for Visit Admit Date Hypertension May 22, 2025 2:34p m S/P CABG x 4 May 22, 2025 2:34p m Stage 3 chronic kidney disease May 22, 2025 2:34pm Type 2 diabetes mellitus May 22, 2025 2:34pm Cervical radiculopathy May 22, 2025 2: 34pm Palpitations June 21, 2025 2:4 6pm Palpitations July 25, 2025 1:50pm RBBB July 25, 2025 1:50pm Atherosclerosis of coronary artery of [place] heart without angina pectoris July 25, 2025 1:50pm Hypertension July 25, 2025 1:50pm Stage 3 chronic kidney disease July 25, 2025 1:50pm Type 2 diabetes mellitus July 25, 2025 1:50pm Hypertension August 21, 2025 3: 19pm Stage 3 chronic kidney disease August [id number] 3:19pm Type 2 diabetes mellitus August 21 3:19pm Additional Source Comments (unrecognized sect ion and content) No Status Records FoundNo Status Records FoundNo Status Records FoundNo Status Records FoundNo Status Records FoundNo Status Records FoundNo Status Records Found INFORMATION SOURCE (unrecogn ized section and content) DATE CREATED AUTHOR 05/11/2018 [facility] [employer] [facility] DATE CREATED AUTHOR AUTHOR'S ORGANIZ ATION 09/17/2022 [facility] DATE CREATED AUTHOR AUTHOR'S ORGANIZ ATION 06/07/2024 [facility] ([place]) DATE CREATED AUTHOR AUTHOR'S ORGANIZ ATION 02/07/2025 [facility] DATE CREATED AUTHOR AUTHOR'S ORGANIZ ATION 07/01/2025 [facility] DATE CREATED AUTHOR AUTHOR'S ORGANIZ ATION 08/04/2025 [facility] DATE CREATED AUTHOR AUTHOR'S ORGANIZ ATION 08/21/2025 [facility] Goals (unrecognized section and content) Goals may be documented in a n alternate sectionGoals may be documented in an alternate sectionGoals may be documented in an alternate section No data available for this section No data available for this section No data available for this section No data available for this sectionGoals may be documented in an alternate section No data available for this section No data available for this section No data available for this section No data available for this section No data available for this section No data available for this section No data available for this section No data available for this section No data available for this sectionGoals may be documented in an alternate sectionGoals may be documented in an alternate section No data available for this sectionGoals may be documented in an alternate section No data available for this sectionGoals may be documented in an alternate sectionGoals may be documented in an alternate section Care Team (unrecognized sect ion and content) Care Team Personnel Name: GAYLE PETIT DO Member Role: Primary Care Physician Address: Address: [address] [place] [address]- Care Team Related Persons Name: NAEEM JASON Address: [address] Care Team Personnel Name: GAYLE PETIT DO Member Role: Primary Care Physician Address: Address: [address] [place], [facility] Care Team Related Persons Name: NAEEM JASON Address: Home [id number] [place] [address] Patient Care team informatio n (unrecognized section and content) Team Status: Active Member Role Status Dates Dr. Gayle Petit DO Family Provider Active Dr. Gayle Petit DO Primary Care Provider Active Team Status: Inactive Member Role Status Dates Dr. Gayle Petit DO Primary Care Pr ovider, Attending Provider, Referring Provider Active Classification Counselor Relationship Specialty Start Date End Date Gayle Petit DO [address] [place] [id number] PCP - General Family Medicine 06/13/24 Classification Counselor Relationship Specialty Start Date End Date Gayle Petit DO [address] [place] [id number] PCP - General Family Medicine 06/13/24 Classification Counselor Relationship Specialty Start Date End Date Gayle Petit DO [address] [place] [id number] PCP - General Family Medicine 06/13/24 Classification Counselor Relationship Specialty Start Date End Date Gayle Petit DO [address] [place] [id number] PCP - General Family Medicine 06/13/24 Classification Counselor Relationship Specialty Start Date End Date Gayle Petit DO [address] [place] [address] PCP - General Family Medicine 06/13/24 Team Status: Active Member Role/Relationship Status Dates Dr. Gayle Petit DO Primary Care Provider Active Team Status: Inactive Member Role/Relationship Status Dates Dr. Gayle Petit DO Primary Care Provider Active Start: February 28, 2025 End: February 28, 2025 Dr. Gayle Petit DO Attending Provider Active Start: February 28, 2025 End: February 28, 2025 Dr. Gayle Petit DO Referring Provider Active Start: February 28, 2025 End: February 28, 2025 Team Status: Inactive Member Role/Relationship Status Dates Dr. Gayle Petit DO Primary Care Provider Active Start: March 03, 2025 End: March 03, 2025 Dr. Gayle Petit DO Attending Provider Active Start: March 03, 2025 End: March 03, 2025 Dr. Gayle Petit DO Referring Provider Active Start: March 03, 2025 End: March 03, 2025 Team Status: Inactive Member Role/Relationship Status Dates Dr. Gayle Petit DO Primary Care Provider Active Start: May 22, 2025 End: May 22, 2025 Dr. Gayle Petit DO Attending Provider Active Start: May 22, 2025 End: May 22, 2025 Dr. Gayle Petit DO Referring Provider Active Start: May 22, 2025 End: May 22, 2025 Team Status: Inactive Member Role/Relationship Status Dates Dr. Gayle Petit DO Primary Care Provider Active Start: June 21, 2025 End: June 21, 2025 Dr. Gayle Petit DO Referring Provider Active Start: June 21, 2025 End: June 21, 2025 ADONAY Seals Attending Provider Active Start: June 21, 2025 End: June 21, 2025 Classification Counselor Relationship Specialty Start Date End Date Gayle Petit DO [address] [place] [address] PCP - General Family Medicine 06/13/24 Team Status: Inactive Member Role/Relationship Status Dates Dr. Gayle Petit DO Primary Care Provider Active Start: May 22, 2025 End: May 22, 2025 Dr. Gayle Petit DO Attending Provider Active Start: May 22, 2025 End: May 22, 2025 Dr. Gayle Petit DO Referring Provider Active Start: May 22, 2025 End: May 22, 2025 Team Status: Inactive Member Role/Relationship Status Dates Dr. Gayle Petit DO Primary Care Provider Active Start: June 21, 2025 End: June 21, 2025 Dr. Gayle Petit DO Referring Provider Active Start: June 21, 2025 End: June 21, 2025 ARACELI SealsC Attending Provider Active Start: June 21, 2025 End: June 21, 2025 Team Status: Inactive Member Role/Relationship Status Dates Dr. Gayle Petit DO Primary Care Provider Active Start: July 25, 2025 End: July 25, 2025 Dr. Gayle Petit DO Referring Provider Active Start: July 25, 2025 End: July 25, 2025 Dr. Zelda Pizano MD Attending Provider Active Start: July 25, 2025 End: July 25, 2025 Team Status: Active Member Role/Relationship Status Dates Dr. Gayle Petit DO Primary care physician Active Team Status: Inactive Member Role/Relationship Status Dates Dr. Gayle Petit DO Primary care physician Active Start: May 22, 2025 End: May 22, 2025 Dr. Gayle Petit DO Attending physician Active Start: May 22, 2025 End: May 22, 2025 Dr. Gayle Petit DO Referring Provider Active Start: May 22, 2025 End: May 22, 2025 Team Status: Inactive Member Role/Relationship Status Dates Dr. Gayle Petit DO Primary care physician Active Start: June 21, 2025 End: June 21, 2025 Dr. Gayle Petit DO Referring Provider Active Start: June 21, 2025 End: June 21, 2025 ARACELI SealsC Attending physician Active Start: June 21, 2025 End: June 21, 2025 Team Status: Inactive Member Role/Relationship Status Dates Dr. Gayle Petit DO Primary care physician Active Start: July 25, 2025 End: July 25, 2025 Dr. Gayle Petit DO Referring Provider Active Start: July 25, 2025 End: July 25, 2025 Dr. Zelda Pizano MD Attending physician Active Start: July 25, 2025 End: July 25, 2025 Team Status: Inactive Member Role/Relationship Status Dates Dr. Gayle Petit DO Primary care physician Active Start: August 07, 2025 End: August 07, 2025 Dr. Zelda Pizano MD Attending physician Active Start: August 07, 2025 End: August 07, 2025 Dr. Zelda Pizano MD Referring Provider Active Start: August 07, 2025 End: August 07, 2025 Team Status: Active Member Role/Relationship Status Dates Dr. Gayle Petit DO Primary care physician Active Start: August 07, 2025 Dr. Zelda Pizano MD Attending physician Active Start: August 07, 2025 Dr. Zelda Pizano MD Referring Provider Active Start: August 07, 2025 Team Status: Inactive Member Role/Relationship Status Dates Dr. Gayle Petit DO Primary care physician Active Start: August 21, 2025 End: August 21, 2025 Dr. Gayle Petit DO Attending physician Active Start: August 21, 2025 End: August 21, 2025 Dr. Gayle Petit DO Referring Provider Active Start: August 21, 2025 End: August 21, 2025 Source Comments (unrecognize d section and content) In the event this informatio n is protected by the Federal Confidentiality of Alcohol and Drug Abuse Patient Records regulations: The Federal rules restrict any use of the information to criminally investigate or prosecute any alcohol or drug abuse patient.TrihealthIn the event this information is protected by the Federal Confidentiality of Alcohol and Drug Abuse Patient Records regulations: The Federal rules restrict any use of the information to criminally investigate or prosecute any alcohol or drug abuse patient.TrihealthIn the event this information is protected by the Federal Confidentiality of Alcohol and Drug Abuse Patient Records regulations: The Federal rules restrict any use of the information to criminally investigate or prosecute any alcohol or drug abuse patient.TrihealthIn the event this information is protected by the Federal Confidentiality of Alcohol and Drug Abuse Patient Records regulations: The Federal rules restrict any use of the information to criminally investigate or prosecute any alcohol or drug abuse patient.TrihealthIn the event this information is protected by the Federal Confidentiality of Alcohol and Drug Abuse Patient Records regulations: The Federal rules restrict any use of the information to criminally investigate or prosecute any alcohol or drug abuse patient.TrihealthIn the event this information is protected by the Federal Confidentiality of Alcohol and Drug Abuse Patient Records regulations: The Federal rules restrict any use of the information to criminally investigate or prosecute any alcohol or drug abuse patient.TrihealthIn the event this information is protected by the Federal Confidentiality of Alcohol and Drug Abuse Patient Records regulations: The Federal rules restrict any use of the information to criminally investigate or prosecute any alcohol or drug abuse patient.TrihealthIn the event this information is protected by the Federal Confidentiality of Alcohol and Drug Abuse Patient Records regulations: The Federal rules restrict any use of the information to criminally investigate or prosecute any alcohol or drug abuse patient.[facility] Reason for Visit (unrecogniz ed section and content) Reason Comments cornea transplant Reason Comments Preparations For Surgery Reason Comments Post-op (Ophthalmology) Left Eye Reason Comments Cough Cough started 6 days ago, 3 days ago cough became productive and can feel rattling in chest - @home -neg covid test FOR RECORDS PERTAINING TO PATIENTS WHO ARE OR HAVE BEEN ENROLLED IN A CHEMICAL DEPENDENCY/SUBSTANCEABUSE PROGRAM, SOME INFORMATION MAY BE OMITTED. This clinical summary was aggregated from multiple sources. Caution should be exercised in using it in the provision of clinical care. This summary normalizes information from multiple sources, and as a consequence, information in this document may materially change the coding, format and clinical context of patient data. In addition, data may be omitted in some cases. CLINICAL DECISIONS SHOULD BE BASED ON THE PRIMARY CLINICAL RECORDS. [facility] [employer] [facility]. provides no warranty or guarantee of the accuracy or completeness of information in this document.
[2025-10-26] MEDS: Lactated Ringers 1,000 ML 15 ML IV (10:06)
--- NOTE | 2025-10-26 10:27 | PCM.HP.BLA ---
History and Physical Date of Admission: 10/26/25 Intake Vital Signs 10/02/2515:57 10/17/2514:18 10/22/2508:57 Height 5 ft 7 in 5 ft 7 in 5 ft 7 in Weight: 218 lb 215 lb 217 lb BMI 34.1 33.6 34.0 BP 114/50 L 122/62 H 129/75 H Blood Pressure Location Lt brachial Lt brachial Rt brachial Position Sitting Sitting Sitting Respiration 16 16 16 Pulse 77 87 77 Pulse Source Monitor Monitor NIBP Temp 97.1 F L 97.5 F L 97.8 F Temp Source Temporal Temporal Temporal Pulse Oximetry (%) 95 99 99 Oxygen Delivery Method room air room air room air Intake Visit Reasons: COLONOSCOPY, EGD Gym Instructor Required: No Accompanied by: Is patient in pain?: No Allergies meperidine (From Demerol) Allergy (Severe, Verified 10/22/25 08:49) other lisinopril Adverse Reaction (Intermediate, Verified 10/22/25 08:49) cough aspirin Adverse Reaction (Unknown, Verified 10/22/25 08:49) kidney failure ibuprofen Adverse Reaction (Unknown, Verified 10/22/25 08:49) Kidney Failure Penicillins (cillins) Adverse Reaction (Verified 10/22/25 08:49) kidney failure Medications ?Medication ?Instructions ?Recorded ?Confirmed ?Type aspirin 81 mg chewable tablet 1 tab PO DAILY 10/04/19 10/22/25 History fluorometholone 0.1 % eye 1 drp ophthalmic (eye) DAILY 11/09/19 10/22/25 History drops,suspension pantoprazole 20 mg tablet,delayed 20 mg PO DAILY 05/13/20 10/22/25 History release lancing device with lancets kit #100 ea 11/20/20 09/26/25 Rx (OneTouch Delica Lancing Device kit) blood-glucose meter (OneTouch #1 ea 12/24/21 09/26/25 Rx Verio Meter) propylene glycol 0.6 % eye drops 1 drp ophthalmic (eye) BID-TID PRN 06/09/23 10/22/25 History (Systane Balance) lancing device with lancets kit #100 ea 09/15/23 09/26/25 Rx handicap placard #1 ea 03/15/24 09/26/25 Rx blood sugar diagnostic (OneTouch #100 ea 04/07/24 09/26/25 Rx Verio test strips) Handicap placard #1 ea 02/28/25 09/26/25 Rx timolol maleate 0.5 % eye drops 1 drp ophthalmic (eye) BID 02/28/25 10/22/25 History docusate sodium 100 mg tablet 100 mg PO 3XW 06/21/25 10/22/25 History fluoride (sodium) 1.1 % dental 1 applic PO QDAY 06/21/25 10/22/25 History cream (Denta 5000 Plus) metoprolol succinate 50 mg 50 mg PO BID #180 tabs 08/07/25 10/22/25 Rx tablet,extended release 24 hr atorvastatin 40 mg tablet 40 mg PO QHS #90 tabs 08/17/25 10/22/25 Rx cetirizine 10 mg tablet See Rx Instructions .Route 08/17/25 10/22/25 Rx .COMPLEX #90 TABLETS doxazosin 4 mg tablet (Cardura) 4 mg PO DAILY #90 tabs 08/17/25 10/22/25 Rx semaglutide 2 mg/dose (8 mg/3 mL) 2 mg (0.75 mL) subcut QWEEK #3 mL 08/17/25 10/22/25 Rx subcutaneous pen injector metformin 500 mg tablet,extended 500 mg PO QDAY #90 tabs 08/20/25 10/22/25 Rx release 24 hr Farxiga 10 mg tablet 10 mg PO DAILY #90 TABLETS 09/26/25 10/22/25 Rx (dapagliflozin propanediol) brimonidine 0.2 % eye drops 1 drp ophthalmic (eye) BID 10/02/25 10/22/25 History clopidogrel 75 mg tablet 75 mg PO DAILY 10/17/25 10/22/25 History Medication Reconciliation completed?: Yes Have you fallen in the past year?: No PFSH Medical History Painful ejaculation Hyperlipidemia BPH (benign prostatic hyperplasia) Atherosclerosis of coronary artery of [place] heart without angina pectoris Enlarged prostate Stage 3 chronic kidney disease Carpal tunnel syndrome Arthritis Type 2 diabetes mellitus Hypertension GERD (gastroesophageal reflux disease) Surgical History S/P cervical disc replacement 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 History of tonsillectomy H/O rhinoplasty Family History Mother Hypertension Heart disease Hyperlipemia Father Hypertension Hyperlipemia Heart disease Diabetes Grandfather Diabetes Social History (Updated 10/22/25 @ 08:52 by Jennifer Covington) Smoking Status: Former smoker how long ago did patient quit smokin alcohol intake: never substance use type: does not use caffeine: Yes Type: coffee Number of servings: 3 what type of physical activity do you participate in: walking, aerobics and weight training frequency: daily HPI HPI HPI: Patient is a 80-year-old male here with anemia and positive fecal occult blood test. The patient says that he has last colonoscopy about 2 years ago which was normal. He is having occasional left lower quadrant pain. He denies epigastric pain. He denies gross blood in his stool. He is on aspirin and Plavix. ROS General General: Yes appetite, fatigue and weakness; No weight change, colon cancer or breast cancer HEENT HEENT: Yes difficulty swallowing; No eye injury, eye surgery or swollen glands Additional Details: Reports minor difficulty s/p cervical spine surgery. 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 Endo Endocrine: No thyroid disease, diabetes mellitus or thyroid cancer Skin Skin: No rash or changing moles Musc Musculoskeletal: Yes back problems and arthritis; No rheumatoid arthritis or gout Cardio Cardiovascular: Yes heart attack and heart stent; No murmur, pacemaker, heart disease, atrial fibrillation or high blood pressure Additional Details: Occasional skipped heart beat. Hx DC 2016 with CABG. Psych Psychiatric: No depression or anxiety Resp Respiratory: Yes shortness of breath, Yes sleep apnea, No cough, No COPD, No asthma and No emphysema Gastro Gastrointestinal: No abdominal pain, Yes nausea or vomiting, No diarrhea, No constipation, Yes blood in stool, No acid reflux, No hemorrhoids, No ulcers, No gallbladder problem and No black,tarry stools Additional Details: Reports nausea r/t Ozempic Prateek Hematologic: Yes blood thinners, No blood disorders, Yes bleeding (Blood in stool), Yes anemia and No blood clots Additional Details: Blood thinner on hold d/t upcoming colonoscopy Neuro Neurologic: Yes numbness (B/L hand and foot r/t spinal issues. ), Yes tingling and Yes weakness Exam Const General: cooperative Orientation: alert and oriented x3 HENMT Head: normal to inspection Neck Neck: normal visual inspection and full ROM Chest Chest palpation & inspection: normal inspection of the chest Resp Effort & Inspection: normal respiratory effort Auscultation: clear to auscultation bilaterally Cardio Rate: regular rate Rhythm: regular rhythm GI Inspection: non-distended Palpation: soft and nontender Skin General: no rashes or lesions noted Neuro General: patient alert and patient oriented x3 Extrem General: full ROM Psych Appearance: grossly normal Mental Status: mental status grossly normal Assessment and Plan Assessment and Plan (1) Anemia: Status: Acute (2) Positive fecal occult blood test: Status: Acute Orders: Orders Colonoscopy Today EGD Today Plan The patient had positive fecal occult blood test and he is anemic. I recommended EGD and colonoscopy. I explained endoscopy in detail to the patient. I explained the risks including but not limited to stroke or heart attack with anesthesia, perforation of the GI tract, bleeding, infection. I explained that any of these could necessitate further emergency surgery. The patient understands and all questions were answered sufficiently. The patient wishes to proceed with procedure. Patient will hold his aspirin and Plavix for 5 days and will hold his GLP-1 for a week. Víctor Laboy MD Pager: [facility] [address] [place] [address], [address] [place] [address] Office: I have examined the patient and the H&P has been reviewed. There are no clinical changes since date of exam.
--- NOTE | 2025-10-26 11:00 | OP.EGD_ITS ---
Patient Name: Salinas Lopez Procedure Date: 10/26/2025 10:32 AM Date of : 1945 Age: 80 Procedure: Upper GI endoscopy Indications: Heme positive stool Providers: Víctor Laboy MD Referring MD: Eddi Cook Medicines: Propofol per Anesthesia Patient Profile: This is a 80 year old male. Refer to note in patient chart for documentation of history and physical. Complications: No immediate complications. Estimated blood loss: Minimal. Procedure: Pre-Anesthesia Assessment: - Prior to the procedure, a History and Physical was performed, and patient medications and allergies were reviewed. The patient's tolerance of previous anesthesia was also reviewed. The risks and benefits of the procedure and the sedation options and risks were discussed with the patient. All questions were answered, and informed consent was obtained. Prior Anticoagulants: The patient has taken Plavix (clopidogrel), last dose was 5 days prior to procedure. After reviewing the risks and benefits, the patient was deemed in satisfactory condition to undergo the procedure. After obtaining informed consent, the endoscope was passed under direct vision. Throughout the procedure, the patient's blood pressure, pulse, and oxygen saturations were monitored continuously. The Colonoscope was introduced through the mouth, and advanced to the third part of duodenum. The upper GI endoscopy was accomplished without difficulty. The patient tolerated the procedure well. Scope In: 10:42:19 AM Scope Out: 10:44:37 AM Total Procedure Duration Time 0 hours 2 minutes 18 seconds Findings: Multiple pedunculated polyps with no bleeding and no stigmata of recent bleeding were found in the entire examined stomach. The esophagus was normal. The examined duodenum was normal. Impression: - Multiple gastric polyps. - Normal esophagus. - Normal examined duodenum. - No specimens collected. Recommendation: - Discharge patient to home. - Resume previous diet. - Continue present medications. - Return to primary care physician. Procedure Code(s): --- Professional --- 53420, Esophagogastroduodenoscopy, flexible, transoral; diagnostic, including collection of specimen(s) by brushing or washing, when performed (separate procedure) Diagnosis Code(s): --- Professional --- K31.7, Polyp of stomach and duodenum R19.5, Other fecal abnormalities CPT copyright 2021 [employer]. All rights reserved. The codes documented in this report are preliminary and upon community service worker review may be revised to meet current compliance requirements. Víctor Laboy MD 10/26/2025 11:00:44 AM This report has been signed electronically. Number of Addenda: 0 Note Initiated On: 10/26/2025 10:32 AM
--- NOTE | 2025-10-26 11:01 | OP.PROVAT_ITS ---
10/26/2025 Eddi Cook Re : Upper GI endoscopy procedure for Salinas Lopez Dear Dr. Cook This procedure was performed on Sunday, October 26, 2025. My impressions and recommendations are as follows: Impressions : - Multiple gastric polyps. - Normal esophagus. - Normal examined duodenum. - No specimens collected. Recommendations : - Discharge patient to home. - Resume previous diet. - Continue present medications. - Return to primary care physician. My findings are described in the full procedure note, which is enclosed. If I can be of further assistance, please feel free to contact me at Doctor phone number(s): , Work: . Sincerely, Víctor Laboy MD 10/26/2025 11:00:44 AM This report has been signed electronically.
--- NOTE | 2025-10-26 11:03 | OP.COLON_ITS ---
Patient Name: Salinas Lopez Procedure Date: 10/26/2025 10:44 AM Date of : 1945 Age: 80 Procedure: Colonoscopy Indications: Heme positive stool Providers: Víctor Laboy MD Referring MD: Eddi Cook Medicines: Propofol per Anesthesia Patient Profile: This is a 80 year old male. Refer to note in patient chart for documentation of history and physical. Last Colonoscopy: several years ago. Complications: No immediate complications. Estimated blood loss: Minimal. Procedure: Pre-Anesthesia Assessment: - Prior to the procedure, a History and Physical was performed, and patient medications and allergies were reviewed. The patient's tolerance of previous anesthesia was also reviewed. The risks and benefits of the procedure and the sedation options and risks were discussed with the patient. All questions were answered, and informed consent was obtained. Prior Anticoagulants: The patient has taken Plavix (clopidogrel), last dose was 5 days prior to procedure. After reviewing the risks and benefits, the patient was deemed in satisfactory condition to undergo the procedure. After I obtained informed consent, the scope was passed under direct vision. Throughout the procedure, the patient's blood pressure, pulse, and oxygen saturations were monitored continuously. The Colonoscope was introduced through the anus and advanced to the cecum, identified by appendiceal orifice and ileocecal valve. The colonoscopy was performed without difficulty. The patient tolerated the procedure well. The quality of the bowel preparation was good. The ileocecal valve, appendiceal orifice, and rectum were photographed. Scope In: 10:45:44 AM Scope Withdrawal Time 0 hours 6 minutes 17 seconds Scope Out: 10:55:27 AM Total Procedure Duration Time 0 hours 9 minutes 43 seconds Findings: The entire examined colon appeared normal on direct and retroflexion views. Impression: - The entire examined colon is normal on direct and retroflexion views. - No specimens collected. Recommendation: - Discharge patient to home. - Resume previous diet. - Continue present medications. - Resume Plavix (clopidogrel) at prior dose today. - Repeat colonoscopy is not recommended due to current age (66 years or older) for screening purposes. Procedure Code(s): --- Professional --- 99062, Colonoscopy, flexible; diagnostic, including collection of specimen(s) by brushing or washing, when performed (separate procedure) Diagnosis Code(s): --- Professional --- R19.5, Other fecal abnormalities CPT copyright 2021 [employer]. All rights reserved. The codes documented in this report are preliminary and upon bee robber review may be revised to meet current compliance requirements. Víctor Laboy MD 10/26/2025 11:03:06 AM This report has been signed electronically. Number of Addenda: 0 Note Initiated On: 10/26/2025 10:44 AM
--- NOTE | 2025-10-26 11:04 | OP.PROVAT_ITS ---
10/26/2025 Eddi Cook Re : Colonoscopy procedure for Salinas Lopez Dear Dr. Cook This procedure was performed on Sunday, October 26, 2025. My impressions and recommendations are as follows: Impressions : - The entire examined colon is normal on direct and retroflexion views. - No specimens collected. Recommendations : - Discharge patient to home. - Resume previous diet. - Continue present medications. - Resume Plavix (clopidogrel) at prior dose today. - Repeat colonoscopy is not recommended due to current age (66 years or older) for screening purposes. My findings are described in the full procedure note, which is enclosed. If I can be of further assistance, please feel free to contact me at Doctor phone number(s): , Work: . Sincerely, Víctor Laboy MD 10/26/2025 11:03:06 AM This report has been signed electronically.
--- NOTE | 2025-10-26 11:08 | PCM.POST.ANE ---
Anesthesia: Postop Eval I Current Vital Signs Temperature: 97 F Pulse Rate: 74 Blood Pressure: 99/62 Respiratory Rate: 16 Pulse Ox: 98 Oxygen Delivery Method: Room Air Assessment Airway patent: Yes Spontaneous unlabored respirations: Yes Mental status: Awake and Calm nausea: No Vomiting: No Anesthesia Complication: No Fluid Hydration Crystalloid volume administer (ml): 500 Total IV fluid infused: 500 Progress Note Anesthesia document: Postop Eval 1 completed: Yes
--- NOTE | 2025-10-26 11:39 | PCM.POSTANE2 ---
Anesthesia Postop Eval I Sum Postop Eval Completion status Anesthesia document: Postop Eval 1 completed: Yes Anesthesia Postop Eval I Summary Anesthesia Postop Eval I Summary: Anesthesia Postop Eval I: Assessment Summary Airway patent Yes 10/26/25 11:08 [email or web address] Spontaneous unlabored Yes 10/26/25 11:08 [email or web address] respirations Mental status Awake,Calm 10/26/25 11:08 [email or web address] nausea No 10/26/25 11:08 [email or web address] Vomiting No 10/26/25 11:08 [email or web address] Anesthesia Postop Eval I: Fluid Summary Crystalloid volume administer 500 10/26/25 11:08 [email or web address] (ml) Colloids volume administered ( ml) Blood Product volume administered (ml) Total IV fluid infused 500 10/26/25 11:08 [email or web address] Anesthesia Postop Eval I: Summary Notes Anesthesia Complication No 10/26/25 11:08 [email or web address] Anesthesia Complication Comment: Post-operative progress note Anesthesia: Postop Eval II Evaluation Mental status: Awake Pain Level: 0 nausea: No Vomiting: No
== END 2025-10-26 12:02 | disposition home or self-care (01) ==
LOC: EN 09:14 → AC 09:16
PROVIDERS: PCP Family Medicine; Referring Provider Family Medicine; Visit Provider Surgery
PROC: 0DJD8ZZ Inspection of Lower Intestinal Tract, Via Natural or Artificial Opening Endoscopic (ICD-10-PCS; CPT 45378; principal; 2025-10-26 10:25)
DX: K31.7 Polyp of stomach and duodenum (principal); E11.22 Type 2 diabetes mellitus with diabetic chronic kidney disease; N18.30 Chronic kidney disease, stage 3 unspecified; D64.9 Anemia, unspecified; Z87.891 Personal history of nicotine dependence; Z79.82 Long term (current) use of aspirin; Z79.02 Long term (current) use of antithrombotics/antiplatelets; R19.5 Other fecal abnormalities; Z79.899 Other long term (current) drug therapy; Z79.84 Long term (current) use of oral hypoglycemic drugs; Z79.85 Long-term (current) use of injectable non-insulin antidiabetic drugs; K21.9 Gastro-esophageal reflux disease without esophagitis; I12.9 Hypertensive chronic kidney disease with stage 1 through stage 4 chronic kidney disease, or unspecified chronic kidney disease; I25.10 Atherosclerotic heart disease of native coronary artery without angina pectoris; E78.00 Pure hypercholesterolemia, unspecified
CPT/HCPCS: 45378; 43235; 82962; J2405

== ENCOUNTER → 2025-10-30 | Outpatient (CLI) | payer MEDICARE, SELFPAY ==
[2025-10-30 14:03] LABS: LDH 178 U/L (87-241)
[2025-11-04 16:07] LABS: Egg, Whole <0.10 kU/L (Class 0); Mussels <0.10 kU/L (Class 0)
== END | disposition home or self-care (01) ==
LOC: LAB 12:37
PROVIDERS: PCP Family Medicine; Referring Provider Internal Medicine Gastroenterology; Visit Provider Internal Medicine Gastroenterology
DX: D64.9 Anemia, unspecified (principal)
CPT/HCPCS: 36415; 82784; 82785; 83010; 83021; 83516; 83615; 84165; 84443; 85660; 86003; 86005; 86037; 86255; 86334